=== PATIENT | male | born 1970 | race American Indian/Alaskan Native ===

== ENCOUNTER 2017-01-04 21:09 | Inpatient (IN) | payer SELFPAY ==
[2017-01-04] MEDS ORDERED: NACL 0.9% 1000 ML 1,000 ML IV ONE (21:29)
--- NOTE | 2017-01-04 21:38 | Emergency Department Report ---
ED Alcohol HPI - General Chief Complaint: Alcohol Stated Complaint: ETOH Time Seen by Provider: 01/04/17 21:29 Source: EMS Mode of arrival: Stretcher Limitations: Altered Mental Status - History of Present Illness Initial Comments: 46-year-old male presents to the emergency department via EMS for evaluation of alcohol intoxication. Per report, family called EMS. Reportedly, the patient has been drinking heavily for the past 4 days. There has been no report of fever, nausea, vomiting, or diarrhea. Further history is unable to be obtained from the patient due to his clinical condition. MD Complaint: alcohol intoxication Last Drink: just [employer] Chronic Alcohol Use: Yes Previous Visits for Alcohol Intoxication?: No Recent Trauma: No Treatments Prior to Arrival: none - Related Data Previous Rx's Medication Instructions Recorded Last Taken Type Acetaminophen/Codeine 1 tab PO Q6H PRN #20 tab 04/30/14 Unknown Rx [Acetaminophen-Codeine #3 TAB] HYDROcodone/APAP 5-325 [[place] 1 each PO Q6HR PRN #10 tablet 05/31/14 2 Days Ago Rx 5/325] Amoxicillin/K Clav Tab [Augmentin 1 tab PO Q12HR #14 tab 02/17/15 Unknown Rx 875MG TAB] ALBUTEROL Inhaler [ProAir HFA 2 puff IH QID PRN #1 inhalation 04/06/16 Unknown Rx Inhaler] Azithromycin [Zithromax Z-BRAIN] 250 mg PO DAILY #6 tab 04/06/16 Unknown Rx Benzonatate [Tessalon Perles] 100 mg PO Q8HR #20 capsule 04/06/16 Unknown Rx levETIRAcetam [Keppra TAB] 500 mg PO BID #60 tablet 04/06/16 Unknown Rx Allergies Allergy/AdvReac Type Severity Reaction Status Date / Time tramadol Allergy Rash Verified 03/08/14 01:29 ED Review of Systems ROS: Stated complaint: ETOH Other details as noted in HPI Comment: Unobtainable due to pts medical conditions ED Past Medical Hx - Past Medical History Previous Medical History?: Yes Hx Hypertension: Yes Hx Seizures: Yes Hx Psychiatric Treatment: Yes (Prior Suicidal, Depression) Hx Asthma: Yes Additional medical history: TENDONITIS - Surgical History Past Surgical History?: Yes Additional Surgical History: L reconstructive knee surgery - Family History Family history: no significant - Social History Smoking Status: Current Every Day Smoker Substance Use Type: Alcohol - Medications Home Medications: Home Medications Medication Instructions Recorded Confirmed Last Taken Type Acetaminophen/Codeine 1 tab PO Q6H PRN #20 tab 04/30/14 04/06/16 Unknown Rx [Acetaminophen-Codeine #3 TAB] HYDROcodone/APAP 5-325 [[place] 1 each PO Q6HR PRN #10 tablet 05/31/14 04/06/16 2 Days Ago Rx 5/325] Amoxicillin/K Clav Tab [Augmentin 1 tab PO Q12HR #14 tab 02/17/15 04/06/16 Unknown Rx 875MG TAB] ALBUTEROL Inhaler [ProAir HFA 2 puff IH QID PRN #1 inhalation 04/06/16 Unknown Rx Inhaler] Azithromycin [Zithromax Z-BRAIN] 250 mg PO DAILY #6 tab 04/06/16 Unknown Rx Benzonatate [Tessalon Perles] 100 mg PO Q8HR #20 capsule 04/06/16 Unknown Rx levETIRAcetam [Keppra TAB] 500 mg PO BID #60 tablet 04/06/16 Unknown Rx ED Physical Exam - General Limitations: Altered Mental Status General appearance: appears intoxicated, lethargic - Head Head exam: Present: atraumatic, normocephalic - Eye Eye exam: Present: normal appearance, PERRL, EOMI - ENT ENT exam: Present: normal exam, normal orophraynx, mucous membranes moist - Neck Neck exam: Present: normal inspection, full ROM. Absent: tenderness - Respiratory Respiratory exam: Present: normal lung sounds bilaterally. Absent: respiratory distress - Cardiovascular Cardiovascular Exam: Present: regular rate, normal rhythm, normal heart sounds - GI/Abdominal GI/Abdominal exam: Present: soft, normal bowel sounds. Absent: distended, tenderness - Extremities Exam Extremities exam: Present: normal inspection, full ROM. Absent: tenderness - Back Exam Back exam: Present: normal inspection, full ROM. Absent: tenderness - Neurological Exam Neurological exam: Present: altered, other (GCS 11 (E3 V2 M6)). Absent: motor sensory deficit - Skin Skin exam: Present: warm, dry, intact ED Course Vital Signs 01/04/17 01/05/17 22:27 00:11 Temperature 99.2 F Pulse Rate 79 Respiratory 16 Rate Blood Pressure 110/60 Blood Pressure 110/60 [Right] O2 Sat by Pulse 98 96 Oximetry ED Medical Decision Making - Lab Data Result diagrams: 01/04/17 21:40 01/04/17 21:40 - Medical Decision Making Laboratory results reviewed. Patient has been resting quietly. He will be discharged home when clinically sober. - Differential Diagnosis alcohol intoxication Critical care attestation.: If time is entered above; I have spent that time in minutes in the direct care of this critically ill patient, excluding procedure time. ED Disposition Clinical Impression: Alcohol intoxication Qualifiers: Complication of substance-induced condition: uncomplicated Qualified Code(s): F10.920 - Alcohol use, unspecified with intoxication, uncomplicated Disposition: DC-01 TO HOME OR SELFCARE Is pt being admited?: No Condition: Stable Instructions: Alcohol Intoxication (ED) Referrals: PRIMARY CARE, [Primary Care Provider] - 3-5 Days
[2017-01-04 21:52] LABS: Hematocrit 38.4 % (35.5-45.6); Hemoglobin 12.7 gm/dl (11.8-15.2); Mean Corpuscular HGB Conc 33 % (32-34); Mean Corpuscular Hemoglobin 33 pg (28-32); Mean Corpuscular Volume 100 fl (84-94); Platelet Count 110 K/mm3 (140-440); Red Blood Count 3.84 M/mm3 (3.65-5.03); White Blood Count 2.9 K/mm3 (4.5-11.0)
[2017-01-04 22:11] LABS: Alanine Aminotransferase 152 units/L (7-56); Albumin 4.1 g/dL (3.9-5); Albumin/Globulin Ratio 1.3 %; Alkaline Phosphatase 79 units/L (35-129); Anion Gap 20 mmol/L; BUN/Creatinine Ratio 8.18; Blood Urea Nitrogen 9 mg/dL (9-20); Carbon Dioxide 24 mmol/L (22-30); Chloride 104.5 mmol/L (98-107); Glucose 97 mg/dL (75-100); Potassium 4.3 mmol/L (3.6-5.0); Sodium 144 mmol/L (137-145); Total Protein 7.2 g/dL (6.3-8.2)
[2017-01-04 22:30] LABS: Basophils % (Manual) 0 % (0.0-1.8); Blastocytes % (Manual) 0 %
[2017-01-04 22:31] LABS: Platelet Estimate Appears Decreased; Target Cells 1+
[2017-01-04 22:33] LABS: Diff Status Complete
[2017-01-05] MEDS ORDERED: NACL 0.9% 1000 ML 1,000 ML ONE (06:54)
[2017-01-05] MEDS ORDERED: ATIVAN ONE (19:40)
[2017-01-05] MEDS ORDERED: VITAMIN B-1 100 MG, FOLVITE 1 MG, INFUVITE 10 ML in NACL 0.9% 1000 ML 1,000 ML IV ONE (20:19)
[2017-01-05] MEDS ORDERED: ATIVAN IV ONE (20:49)
--- NOTE | 2017-01-05 20:57 | Cat Scan Report ---
FINAL REPORT EXAM: CT HEAD/BRAIN WO CON HISTORY: Alcohol Intoxication TECHNIQUE: Noncontrast serial axial images from skull base to vertex. PRIORS: CT scan of the head from 04/06/2016 FINDINGS: There is mild atrophy. There is no mass effect or midline shift. There are no abnormal intra or extra-axial fluid collections. Lateral ventricles are within normal limits for size and configuration. Basilar cisterns are patent. No acute intracranial hemorrhage is identified. Polypoid mucosal thickening is again noted in the maxillary sinuses. No acute osseous abnormality is identified. IMPRESSION: 1. No abnormal mass or acute intracranial hemorrhage is identified.
--- NOTE | 2017-01-05 21:31 | Emergency Department Report ---
ED Seizure HPI - General Chief Complaint: Alcohol Stated Complaint: ETOH Time Seen by Provider: 01/04/17 21:29 Source: patient, EMS Mode of arrival: Stretcher Limitations: Altered Mental Status - History of Present Illness MD Complaint: seizure, shaking (patient was going to be discharges when he had a seizure.) -: This afternoon Description of Episode: loss of consciousness, tonic-clonic movement Trauma: No Seizure History: known seizure disorder, history of withdrawal se, history of non-compliance Place: home Possible Precipitating Event: none Associated Symptoms: denies: chest pain, confusion, cough, diaphoresis, loss of appetite, malaise, shortness of breath, syncope, weakness, tongue injury, shoulder dislocation Treatments Prior to Arrival: benzodiazepines - Related Data Previous Rx's Medication Instructions Recorded Last Taken Type Acetaminophen/Codeine 1 tab PO Q6H PRN #20 tab 04/30/14 Unknown Rx [Acetaminophen-Codeine #3 TAB] HYDROcodone/APAP 5-325 [[place] 1 each PO Q6HR PRN #10 tablet 05/31/14 2 Days Ago Rx 5/325] Amoxicillin/K Clav Tab [Augmentin 1 tab PO Q12HR #14 tab 02/17/15 Unknown Rx 875MG TAB] ALBUTEROL Inhaler [ProAir HFA 2 puff IH QID PRN #1 inhalation 04/06/16 Unknown Rx Inhaler] Azithromycin [Zithromax Z-BRAIN] 250 mg PO DAILY #6 tab 04/06/16 Unknown Rx Benzonatate [Tessalon Perles] 100 mg PO Q8HR #20 capsule 04/06/16 Unknown Rx levETIRAcetam [Keppra TAB] 500 mg PO BID #60 tablet 04/06/16 Unknown Rx Allergies Allergy/AdvReac Type Severity Reaction Status Date / Time tramadol Allergy Rash Verified 03/08/14 01:29 ED Review of Systems ROS: Stated complaint: ETOH Other details as noted in HPI Comment: All other systems reviewed and negative ED Past Medical Hx - Past Medical History Previous Medical History?: Yes Hx Hypertension: Yes Hx Seizures: Yes Hx Psychiatric Treatment: Yes (Prior Suicidal, Depression) Hx Asthma: Yes Additional medical history: TENDONITIS - Surgical History Past Surgical History?: Yes Additional Surgical History: L reconstructive knee surgery - Social History Smoking Status: Current Every Day Smoker Substance Use Type: Alcohol - Medications Home Medications: Home Medications Medication Instructions Recorded Confirmed Last Taken Type Acetaminophen/Codeine 1 tab PO Q6H PRN #20 tab 04/30/14 01/05/17 Unknown Rx [Acetaminophen-Codeine #3 TAB] HYDROcodone/APAP 5-325 [[place] 1 each PO Q6HR PRN #10 tablet 05/31/14 01/05/17 2 Days Ago Rx 5/325] Amoxicillin/K Clav Tab [Augmentin 1 tab PO Q12HR #14 tab 02/17/15 01/05/17 Unknown Rx 875MG TAB] ALBUTEROL Inhaler [ProAir HFA 2 puff IH QID PRN #1 inhalation 04/06/16 01/05/17 Unknown Rx Inhaler] Azithromycin [Zithromax Z-BRAIN] 250 mg PO DAILY #6 tab 04/06/16 01/05/17 Unknown Rx Benzonatate [Tessalon Perles] 100 mg PO Q8HR #20 capsule 04/06/16 01/05/17 Unknown Rx levETIRAcetam [Keppra TAB] 500 mg PO BID #60 tablet 04/06/16 01/05/17 Unknown Rx ED Physical Exam - General Limitations: Altered Mental Status General appearance: appears intoxicated, lethargic ED Course Vital Signs 01/04/17 01/04/17 01/04/17 22:27 22:37 22:40 Temperature 99.2 F Pulse Rate 79 80 72 Respiratory 16 16 24 Rate Blood Pressure 110/60 110/60 110/60 Blood Pressure 110/60 [Right] O2 Sat by Pulse 98 96 96 Oximetry 01/04/17 01/04/17 01/04/17 22:50 23:00 23:10 Temperature Pulse Rate 75 78 73 Respiratory 14 20 19 Rate Blood Pressure 110/60 110/60 125/85 Blood Pressure [Right] O2 Sat by Pulse 97 97 97 Oximetry 01/04/17 01/04/17 01/04/17 23:20 23:30 23:40 Temperature Pulse Rate 78 72 67 Respiratory 20 18 25 H Rate Blood Pressure 125/85 125/85 125/85 Blood Pressure [Right] O2 Sat by Pulse 98 96 89 Oximetry 01/04/17 01/05/17 01/05/17 23:50 00:00 00:10 Temperature Pulse Rate 68 62 62 Respiratory 21 22 23 Rate Blood Pressure 125/85 125/85 107/61 Blood Pressure [Right] O2 Sat by Pulse 85 95 91 Oximetry 01/05/17 01/05/17 01/05/17 00:11 00:20 00:30 Temperature Pulse Rate 58 L 55 L Respiratory 20 19 Rate Blood Pressure 107/61 107/61 Blood Pressure [Right] O2 Sat by Pulse 96 94 94 Oximetry 01/05/17 01/05/17 01/05/17 00:40 00:50 01:00 Temperature Pulse Rate 59 L 54 L 59 L Respiratory 18 18 19 Rate Blood Pressure 107/61 107/61 107/61 Blood Pressure [Right] O2 Sat by Pulse 95 95 96 Oximetry 01/05/17 01/05/17 01/05/17 01:10 01:20 01:30 Temperature Pulse Rate 56 L 73 67 Respiratory 18 20 19 Rate Blood Pressure 91/33 91/33 91/33 Blood Pressure [Right] O2 Sat by Pulse 96 97 98 Oximetry 01/05/17 01/05/17 01/05/17 01:40 01:50 02:00 Temperature Pulse Rate 67 67 62 Respiratory 19 18 19 Rate Blood Pressure 91/33 91/33 91/33 Blood Pressure [Right] O2 Sat by Pulse 97 97 98 Oximetry 01/05/17 01/05/17 01/05/17 02:10 02:20 02:30 Temperature Pulse Rate 66 54 L 61 Respiratory 19 19 17 Rate Blood Pressure 90/42 90/42 90/42 Blood Pressure [Right] O2 Sat by Pulse 98 100 99 Oximetry 01/05/17 01/05/17 01/05/17 02:33 02:40 02:50 Temperature Pulse Rate 59 L 63 Respiratory 16 17 19 Rate Blood Pressure 91/33 91/33 Blood Pressure [Right] O2 Sat by Pulse 96 96 Oximetry 01/05/17 01/05/17 01/05/17 03:00 03:10 03:20 Temperature Pulse Rate 58 L 59 L 58 L Respiratory 17 17 16 Rate Blood Pressure 96/45 96/45 96/45 Blood Pressure [Right] O2 Sat by Pulse 97 96 97 Oximetry 01/05/17 01/05/17 01/05/17 03:30 03:40 03:50 Temperature Pulse Rate 55 L 60 59 L Respiratory 16 18 16 Rate Blood Pressure 96/45 96/45 96/45 Blood Pressure [Right] O2 Sat by Pulse 99 100 100 Oximetry 01/05/17 01/05/17 01/05/17 04:00 04:10 04:20 Temperature Pulse Rate 57 L 53 L 58 L Respiratory 12 17 19 Rate Blood Pressure 101/55 101/55 101/55 Blood Pressure [Right] O2 Sat by Pulse 99 100 100 Oximetry 01/05/17 01/05/17 01/05/17 04:30 04:40 04:50 Temperature Pulse Rate 59 L 64 56 L Respiratory 17 13 17 Rate Blood Pressure 101/55 101/55 101/55 Blood Pressure [Right] O2 Sat by Pulse 90 87 84 Oximetry 01/05/17 01/05/17 01/05/17 05:00 05:10 05:20 Temperature Pulse Rate 56 L 54 L 76 Respiratory 13 20 16 Rate Blood Pressure 103/66 103/66 103/66 Blood Pressure [Right] O2 Sat by Pulse 90 99 95 Oximetry 01/05/17 01/05/17 01/05/17 05:30 05:40 05:50 Temperature Pulse Rate 66 74 53 L Respiratory 20 15 19 Rate Blood Pressure 103/66 103/66 103/66 Blood Pressure [Right] O2 Sat by Pulse 97 98 Oximetry 01/05/17 01/05/17 01/05/17 06:00 06:10 06:20 Temperature Pulse Rate 67 58 L 54 L Respiratory 14 19 12 Rate Blood Pressure 103/66 113/70 113/70 Blood Pressure [Right] O2 Sat by Pulse 77 L 98 94 Oximetry 01/05/17 01/05/17 01/05/17 06:30 06:40 06:50 Temperature Pulse Rate 50 L 68 47 L Respiratory 21 16 20 Rate Blood Pressure 113/70 113/70 113/70 Blood Pressure [Right] O2 Sat by Pulse 88 94 99 Oximetry 01/05/17 01/05/17 01/05/17 07:00 07:10 07:20 Temperature Pulse Rate 46 L 46 L 51 L Respiratory 18 17 17 Rate Blood Pressure 113/70 116/55 116/55 Blood Pressure [Right] O2 Sat by Pulse 99 92 93 Oximetry 01/05/17 01/05/17 01/05/17 07:30 07:40 07:50 Temperature Pulse Rate 70 44 L 88 Respiratory 20 13 11 L Rate Blood Pressure 97/58 116/55 116/55 Blood Pressure [Right] O2 Sat by Pulse 85 90 97 Oximetry 07/05/1401/05/17 01/05/17 08:00 08:10 08:20 Temperature Pulse Rate 74 50 L 53 L Respiratory 20 24 16 Rate Blood Pressure 116/55 105/55 105/55 Blood Pressure [Right] O2 Sat by Pulse 99 100 100 Oximetry 01/05/17 01/05/17 01/05/17 08:30 08:41 08:51 Temperature Pulse Rate 82 55 L 51 L Respiratory 11 L 14 18 Rate Blood Pressure 117/67 105/55 105/55 Blood Pressure [Right] O2 Sat by Pulse 96 93 92 Oximetry 01/05/17 01/05/17 01/05/17 09:00 09:11 09:21 Temperature Pulse Rate 45 L 54 L 57 L Respiratory 16 18 12 Rate Blood Pressure 114/45 114/45 114/45 Blood Pressure [Right] O2 Sat by Pulse 92 97 91 Oximetry 01/05/17 01/05/17 01/05/17 09:30 09:41 09:51 Temperature Pulse Rate 55 L 55 L 51 L Respiratory 13 20 17 Rate Blood Pressure 101/53 101/53 101/53 Blood Pressure [Right] O2 Sat by Pulse 93 91 94 Oximetry 01/05/17 01/05/17 01/05/17 10:01 10:11 10:21 Temperature Pulse Rate 76 76 60 Respiratory 18 18 12 Rate Blood Pressure 116/64 116/64 116/64 Blood Pressure [Right] O2 Sat by Pulse 95 94 94 Oximetry 01/05/17 01/05/17 01/05/17 10:30 17:12 20:06 Temperature 99.4 F Pulse Rate 49 L 52 L 74 Respiratory 17 16 16 Rate Blood Pressure 110/63 Blood Pressure 138/78 148/79 [Right] O2 Sat by Pulse 95 95 97 Oximetry ED Medical Decision Making - Lab Data Result diagrams: 01/04/17 21:40 01/04/17 21:40 Critical care attestation.: If time is entered above; I have spent that time in minutes in the direct care of this critically ill patient, excluding procedure time. ED Disposition Clinical Impression: Alcohol withdrawal Alcohol intoxication Qualifiers: Complication of substance-induced condition: uncomplicated Qualified Code(s): F10.920 - Alcohol use, unspecified with intoxication, uncomplicated Disposition: DC-09 OP ADMIT IP TO THIS HOSP Is pt being admited?: Yes Does the pt Need Aspirin: No Condition: Fair Instructions: Alcohol Intoxication (ED) Referrals: PRIMARY CARE, [Primary Care Provider] - 3-5 Days Time of Disposition: 21:31
[2017-01-05] MEDS ORDERED: ZOFRAN IV PRN (23:11)
[2017-01-06] MEDS: 1: FOLVITE 1 MG, INFUVITE 10 ML, VITAMIN B-1 100 MG in NACL 0.9% 1000 ML 988.8 ML 2: NA IV SCH ×3 (01:16→16:11)
--- NOTE | 2017-01-06 04:33 | History and Physical Report ---
History of Present Illness Date of examination: 01/05/17 Date of admission: 01/05/2017 Chief complaint: Chief complaint is seizure-like activity History of present illness: History of present illness patient is a 46-year-old male who drinks alcohol regularly and came to the emergency room with seizure-like activity going on, patient was noted to have been drinking in the last few days but did not drink as she used to do prior to coming to the emergency room and was noted to have seizure activity belief to be due to alcohol withdrawal . There is no history of shortness of breath no history of nausea vomiting, no history of fever or chest pain Past History Past Medical History: hypertension, other (DEPRESSION,ASTHMA,ALCOHOL ABUSE) Past Surgical History: Other (KNEE SURGERY) Social history: smoking, alcohol abuse Family history: no significant family history Medications and Allergies Allergies Allergy/AdvReac Type Severity Reaction Status Date / Time tramadol Allergy Rash Verified 03/08/14 01:29 Home Medications Medication Instructions Recorded Confirmed Last Taken Type Acetaminophen/Codeine 1 tab PO Q6H PRN #20 tab 04/30/14 01/05/17 Unknown Rx [Acetaminophen-Codeine #3 TAB] HYDROcodone/APAP 5-325 [[place] 1 each PO Q6HR PRN #10 tablet 05/31/14 01/05/17 2 Days Ago Rx 5/325] Amoxicillin/K Clav Tab [Augmentin 1 tab PO Q12HR #14 tab 02/17/15 01/05/17 Unknown Rx 875MG TAB] ALBUTEROL Inhaler [ProAir HFA 2 puff IH QID PRN #1 inhalation 04/06/16 01/05/17 Unknown Rx Inhaler] Azithromycin [Zithromax Z-BRAIN] 250 mg PO DAILY #6 tab 04/06/16 01/05/17 Unknown Rx Benzonatate [Tessalon Perles] 100 mg PO Q8HR #20 capsule 04/06/16 01/05/17 Unknown Rx levETIRAcetam [Keppra TAB] 500 mg PO BID #60 tablet 04/06/16 01/05/17 Unknown Rx Active Meds: Active Medications Heparin Sodium (Porcine) (Heparin) 5,000 unit SUB-Q Q12HR JESSI Folic Acid 1 mg/ Multivitamins /Minerals 10 ml/ Thiamine HCl 100 mg/ Sodium Chloride 1,000 mls @ 125 mls/hr IV .BY DURATION JESSI Last Admin: 01/06/17 01:16 Dose: 125 mls/hr Sodium Chloride (Nacl 0.9% 1000 Ml) 1,000 mls @ 125 mls/hr IV .BY DURATION [facility] Ondansetron HCl (Zofran) 4 mg IV Q6H PRN PRN Reason: Nausea And Vomiting Review of Systems Constitutional: weakness, lethargy, no weight loss, no weight gain, no fever, no chills, no fatigue, no malaise, no poor appetite Eyes: bilateral: other (NO BILATERAL EYE SYMPTOM) Ears, nose, mouth and throat: no ear pain, no ear discharge, no decreased hearing, no nose pain, no nasal congestion, no nasal discharge, no sinus pressure, no bleeding gums, no dental pain, no mouth pain, no dysphagia, no hoarseness, no sore throat, no swelling in mouth, no swelling in throat, no odynophagia, no post-nasal drip, no headache, no vertigo, no pain front of neck , no neck fullness/pressure, no neck lump Cardiovascular: no chest pain, no palpitations, no edema, no shortness of breath , no dyspnea on exertion, no paroxysmal nocturnal dyspnea, no claudication, no leg edema Respiratory: no cough, no excessive sputum, no shortness of breath, no dyspnea on exertion, no wheezing, no pleurisy, no sleep apnea Gastrointestinal: no abdominal pain, no nausea, no vomiting, no diarrhea, no constipation, no change in bowel habits, no hematemesis, no melena, no hematochezia, no loss of appetite, no early satiety, no heartburn, no excessive gas, no jaundice, no dyspepsia/bloating, no early satiety, no lactose intolerance Genitourinary Male: no dysuria, no hematuria, no flank pain, no discharge, no urinary frequency, no urinary hesitancy, no erectile dysfunction, no genital pain, no genital sores, no impotence, no decreased libido, no difficulties fathering child, no urinary retention Rectal: no pain, no hemorrhoids, no flatulence Musculoskeletal: no neck stiffness, no low back pain, no shooting leg pain, no leg numbness/tingling, no redness of joints, no morning stiffness, no muscle weakness, no muscle cramps, no myalgias, no atrophy, no limitation of motion, no frequent falls, no fractures, no loss of height, no prior amputations Integumentary: no rash, no pruritis, no redness, no sores, no wounds, no jaundice, no boils, no bullae, no lesions, no darkening of skin, no depigmentation, no acne, no dryness, no color changes, no change in hair/nails, no brittle nails, no hirsutism, no foot/leg ulcers, no onychomycosis Neurological: no head injury, no transient paralysis, no paralysis, no weakness , no parathesias, no numbness, no tingling, no seizures, no syncope, no tremors , no headaches, no migraines, no convulsions, no aphasia, no change in speech, no change in mentation, no gait dysfunction, no motor disturbance, no sensory deficit, no double vision, no loss of vision, no hearing difficulties, no burning pain, no paralysis Psychiatric: no anxiety, no memory loss, no change in sleep habits, no sleep disturbances, no insomnia, no hypersomnia, no suicidal ideation, no disorientation, no hallucinations, no depression, no hopelessness, no difficulties concentrating, no confusion, no mood swings Endocrine: no cold intolerance, no heat intolerance, no polyphagia, no excessive thirst, no polydipsia, no polyuria, no excessive sweating, no weight change, no increase in ring/shoe/hat size, no proptosis, no deepening of the voice, no high blood sugars, no low blood sugars, no recent glucocorticoid use Hematologic/Lymphatic: no easy bruising, no easy bleeding, no lymphadenopathy, no lymphedema, no thrombophilia Allergic/Immunologic: no urticaria, no allergic rhinitis, no persistent infections, no gluten intolerance, no seasonal allergies Exam - Constitutional Vitals: Temp Pulse Resp BP Pulse Ox 99.4 F 61 14 138/80 98 01/05/17 17:12 01/06/17 04:20 01/06/17 04:20 01/06/17 04:20 01/06/17 04:20 General appearance: Present: no acute distress. Absent: well-nourished, cachectic, disheveled, malodorous - EENT Eyes: Present: PERRL. Absent: scleral icterus, conjunctival injection, miosis ENT: hearing intact, clear oral mucosa, dentition normal, no oropharyngeal erythema - Neck Neck: Present: supple, normal ROM. Absent: enlarged thyroid, carotid bruits - Respiratory Respiratory effort: normal - Cardiovascular Rhythm: regularly irregular Heart Sounds: Present: S1 & S2. Absent: systolic murmur, diastolic murmur, rub - Extremities Extremities: no ischemia, No edema Peripheral Pulses: within normal limits - Abdominal General gastrointestinal: Present: soft, non-tender, non-distended. Absent: tender, distended, normal bowel sounds, hypoactive bowel sounds, absent bowel sounds, hepatomegaly, splenomegaly Male genitourinary: Present: deferred - Rectal Rectal Exam: deferred - Integumentary Integumentary: Present: clear, warm - Musculoskeletal Musculoskeletal: strength equal bilaterally Results - Labs CBC & Chem 7: 01/04/17 21:40 01/04/17 21:40 Labs: Laboratory Last Values WBC 2.9 K/mm3 (4.5-11.0) L 01/04/17 21:40 RBC 3.84 M/mm3 (3.65-5.03) 01/04/17 21:40 Hgb 12.7 gm/dl (11.8-15.2) 01/04/17 21:40 Hct 38.4 % (35.5-45.6) 01/04/17 21:40 MCV 100 fl (84-94) H 01/04/17 21:40 MCH 33 pg (28-32) H 01/04/17 21:40 MCHC 33 % (32-34) 01/04/17 21:40 RDW 16.0 % (13.2-15.2) H 01/04/17 21:40 Plt Count 110 K/mm3 (140-440) L 01/04/17 21:40 [place] % (Auto) Mold Carpenter 01/04/17 21:40 Add Manual Diff Complete 01/04/17 21:40 Total Counted 100 01/04/17 21:40 Seg Neuts % (Manual) 46.0 % (40.0-70.0) 01/04/17 21:40 Band Neutrophils % 0 % 01/04/17 21:40 Lymphocytes % (Manual) 34.0 % (13.4-35.0) 01/04/17 21:40 Reactive Lymphs % (Man) 0 % 01/04/17 21:40 Monocytes % (Manual) 17.0 % (0.0-7.3) H 01/04/17 21:40 Eosinophils % (Manual) 3.0 % (0.0-4.3) 01/04/17 21:40 Basophils % (Manual) 0 % (0.0-1.8) 01/04/17 21:40 Metamyelocytes % 0 % 01/04/17 21:40 Myelocytes % 0 % 01/04/17 21:40 Promyelocytes % 0 % 01/04/17 21:40 Blast Cells % 0 % 01/04/17 21:40 Nucleated RBC % Not Reportable 01/04/17 21:40 Seg Neutrophils # Man 1.3 K/mm3 (1.8-7.7) L 01/04/17 21:40 Band Neutrophils # 0.0 K/mm3 01/04/17 21:40 Lymphocytes # (Manual) 1.0 K/mm3 (1.2-5.4) L 01/04/17 21:40 Abs React Lymphs (Man) 0.0 K/mm3 01/04/17 21:40 Monocytes # (Manual) 0.5 K/mm3 (0.0-0.8) 01/04/17 21:40 Eosinophils # (Manual) 0.1 K/mm3 (0.0-0.4) 01/04/17 21:40 Basophils # (Manual) 0.0 K/mm3 (0.0-0.1) 01/04/17 21:40 Metamyelocytes # 0.0 K/mm3 01/04/17 21:40 Myelocytes # 0.0 K/mm3 01/04/17 21:40 Promyelocytes # 0.0 K/mm3 01/04/17 21:40 Blast Cells # 0.0 K/mm3 01/04/17 21:40 WBC Morphology Not Reportable 01/04/17 21:40 Hypersegmented Neuts Not Reportable 01/04/17 21:40 Hyposegmented Neuts Not Reportable 01/04/17 21:40 Hypogranular Neuts Not Reportable 01/04/17 21:40 Smudge Cells Not Reportable 01/04/17 21:40 Toxic Granulation Not Reportable 01/04/17 21:40 Toxic Vacuolation Not Reportable 01/04/17 21:40 Dohle Bodies Not Reportable 01/04/17 21:40 Pelger-Huet Anomaly Not Reportable 01/04/17 21:40 Adam Rods Not Reportable 01/04/17 21:40 Platelet Estimate Appears decreased 01/04/17 21:40 Clumped Platelets Not Reportable 01/04/17 21:40 Plt Clumps, EDTA Not Reportable 01/04/17 21:40 Large Platelets Not Reportable 01/04/17 21:40 Giant Platelets Not Reportable 01/04/17 21:40 Platelet Satelliting Not Reportable 01/04/17 21:40 Plt Morphology Comment Not Reportable 01/04/17 21:40 RBC Morphology Not Reportable 01/04/17 21:40 Dimorphic RBCs Not Reportable 01/04/17 21:40 Polychromasia Not Reportable 01/04/17 21:40 Hypochromasia Not Reportable 01/04/17 21:40 Poikilocytosis Not Reportable 01/04/17 21:40 Anisocytosis Not Reportable 01/04/17 21:40 Microcytosis Not Reportable 01/04/17 21:40 Macrocytosis Not Reportable 01/04/17 21:40 Spherocytes Not Reportable 01/04/17 21:40 Pappenheimer Bodies Not Reportable 01/04/17 21:40 Sickle Cells Not Reportable 01/04/17 21:40 Target Cells 1+ 01/04/17 21:40 Tear Drop Cells Not Reportable 01/04/17 21:40 Ovalocytes Not Reportable 01/04/17 21:40 Helmet Cells Not Reportable 01/04/17 21:40 [place] Bodies Not Reportable 01/04/17 21:40 [place] Rings Not Reportable 01/04/17 21:40 Pilo Cells Not Reportable 01/04/17 21:40 Bite Cells Not Reportable 01/04/17 21:40 Crenated Cell Not Reportable 01/04/17 21:40 Elliptocytes Not Reportable 01/04/17 21:40 Acanthocytes (Spur) Not Reportable 01/04/17 21:40 Rouleaux Not Reportable 01/04/17 21:40 Hemoglobin C Crystals Not Reportable 01/04/17 21:40 Schistocytes Not Reportable 01/04/17 21:40 Malaria parasites Not Reportable 01/04/17 21:40 Jem Bodies Not Reportable 01/04/17 21:40 Hem Pathologist Commnt No 01/04/17 21:40 Sodium 144 mmol/L (137-145) 01/04/17 21:40 Potassium 4.3 mmol/L (3.6-5.0) 01/04/17 21:40 Chloride 104.5 mmol/L (98-107) 01/04/17 21:40 Carbon Dioxide 24 mmol/L (22-30) 01/04/17 21:40 Anion Gap 20 mmol/L 01/04/17 21:40 BUN 9 mg/dL (9-20) 01/04/17 21:40 Creatinine 1.1 mg/dL (0.8-1.5) 01/04/17 21:40 Estimated GFR > 60 ml/min 01/04/17 21:40 BUN/Creatinine Ratio 8.18 % 01/04/17 21:40 Glucose 97 mg/dL (75-100) 01/04/17 21:40 POC Glucose 125 (70-105) H 01/06/17 00:21 Calcium 8.0 mg/dL (8.4-10.2) L 01/04/17 21:40 Phosphorus 2.20 mg/dL (2.5-4.5) L 01/05/17 23:23 Magnesium 1.70 mg/dL (1.7-2.3) 01/05/17 23:23 Total Bilirubin 0.20 mg/dL (0.1-1.2) 01/04/17 21:40 AST 225 units/L (5-40) H 01/04/17 21:40 ALT 152 units/L (7-56) H 01/04/17 21:40 Alkaline Phosphatase 79 units/L (35-129) 01/04/17 21:40 Total Protein 7.2 g/dL (6.3-8.2) 01/04/17 21:40 Albumin 4.1 g/dL (3.9-5) 01/04/17 21:40 Albumin/Globulin Ratio 1.3 % 01/04/17 21:40 Plasma/Serum Alcohol < 0.01 gm% (0-0.07) 01/05/17 23:23 Assessment and Plan - Patient Problems (1) Alcohol intoxication Current Visit: Yes Status: Acute Qualifiers: Complication of substance-induced condition: uncomplicated Qualified Code(s ): F10.920 - Alcohol use, unspecified with intoxication, uncomplicated (2) Alcohol withdrawal Current Visit: Yes Status: Acute Qualifiers: Complication of substance-induced condition: C Plan to address problem: Patient will be admitted to medical floor on telemetry and will be placed on banana bag, which will be made up of 1 L of normal saline mixed with 100 mg of thiamine, 1 amp of multivitamin, 1 mg of folic acid and 2 g of magnesium sulfate which will run at 125 mL an hour. Patient will get this treatment with banana bag once a day and will continue on IV normal saline at 125 mL an hour. Patient will be placed on [facility] treatment protocol for alcohol withdrawal and will also be on IV Zofran 4 mg every 6 hours for nausea vomiting patient's diet will be 2 grams sodium diet patient will have basic metabolic panel ,magnesium level and phosphorus level checked this morning 01/06/2017
[2017-01-06] MEDS ORDERED: ATIVAN IV PRN ×3 (07:29)
--- NOTE | 2017-01-06 08:01 | Admit Criteria Form ---
Admission Criteria Documentation: ALCOHOL AND PSYCHOACTIVE SUBSTANCE WITHDRAWAL Clinical Indications for Inpatient Care (Place ' X' for any and all applicable criteria): Ongoing inpatient care may be indicated for substance withdrawal[B][C] with ANY ONE of the following(1)(2)(3)(4)(21): [ ]I. Delirium due to alcohol or sedative[D] withdrawal is present. [ ]II. Marked signs of withdrawal are present as indicated by ANY ONE of the following(15)(22)(23) [ ]a) Heart rate greater than 120 beats per minute is present. [ ]b) Severe vomiting is present (eg, precludes maintenance of oral hydration). [ ]c) Grossly visible tremor is present. [ ]d) Profuse perspiration is present. [ ]e) Temperature greater than 101 degrees F (38.3 degrees C) is present. [ ]f) Other signs of severe withdrawal are present (eg, Altered mental status ) [ ]g) Severe withdrawal identified by standardized assessment score[A] [X ]III. Signs of withdrawal that require continued inpatient treatment as indicated by ANY ONE of the following(15)(22)(23): [ ]a) Inadequate response to pharmacotherapy (eg, benzodiazepines) [X ]b) Outpatient or lower level of care is not feasible or appropriate (eg, unavailable or inappropriate to patient condition or treatment history). [ ]IV. Withdrawal signs with high-risk indicator are present as manifested by ALL of the following[A](15)(22)(23) [ ]a) Signs of withdrawal are present as indicated by ANY ONE of the following: [ ]i. Tachycardia is present. [ ]ii. Nausea or vomiting is present. [ ]iii. Tremor is present. [ ]iv. Increased perspiration is present. [ ]v. Other signs of withdrawal are present. [ ]vi. Withdrawal identified by standardized assessment score [A] [ ]b) Elevated risk due to historical or comorbid factor is present as indicated by ANY ONE of the following: [ ]i. History of delirium due to withdrawal is present. [ ]ii. History of seizures due to withdrawal is present.[E] [ ]iii. Intrinsic seizure disorder (epilepsy) is present. [ ]iv. Patient is . [ ]v. Other significant medical history (eg, severe cardiac disease) is present, which is assessed to be at risk for destabilization due to withdrawal. [ ]V. Serious electrolyte abnormalities (eg, hyponatremia, hypokalemia, hypophosphatemia) requiring correction performable only in inpatient setting(6)(25) [ ]. Severe hypoglycemia requiring glucose infusions performable only in inpatient setting(6) [ ]VII. Drug toxicity or instability, such as Altered mental status, respiratory depression, or arrhythmias, that requires inpatient care [ ]VIII. Danger judged unmanageable at lower level of care because of ANY ONE of the following [ ]a) Danger to self [ ]b) Danger to others [ ]c) Grave disability (eg, inability to perform self-care necessary at lower level of care) The original [facility] Care [facility] content created by [facility] has been revised. The portions of the content which have been revised are identified through the use of italic text or in bold. [facility] Guidelines has neither reviewed nor approved the modified material. All other unmodified content is copyright [facility] Care [facility]. Please see references footnoted in the original [facility] Care[facility] edition 2016 Admission Criteria Met: Yes
--- NOTE | 2017-01-06 08:27 | XRay Report ---
AP CHEST :01/05/17 CLINICAL: Difficulty breathing. COMPARISON:04/06/16 FINDINGS: Normal heart and pulmonary vasculature. The lungs are normally expanded and clear. The bones and soft tissues are normal. IMPRESSION: Normal chest.
[2017-01-06] MEDS ORDERED: NACL 0.9% 1000 ML 1,000 ML ONE (08:50)
[2017-01-06] MEDS: HEPARIN SUB-Q SCH ×2 (11:47→21:49)
[2017-01-06 12:11] LABS: Creatine Kinase MB 1.4 ng/mL (0.0-4.0)
[2017-01-06 12:12] LABS: Creatine Kinase 372 units/L (55-170)
[2017-01-06] MEDS ORDERED: NACL 0.9% 1000 ML 1,000 ML IV SCH (16:00)
--- NOTE | 2017-01-06 17:02 | Event Note ---
Date: 01/06/17 Patient was admitted this morning, seen and evaluated medical records reviewed Patient is on seizure precautions and CIWA protocol , Agree with the current management Patient has episodes of bradycardia heart rate ranging in 50s, asymptomatic, Closely monitor the patient and adjust the management as needed
--- NOTE | 2017-01-06 18:06 | Consultation ---
History of Present Illness - Reason for Consult Consult date: 01/06/17 Reason for consult: alcohol intoxication - Chief Complaint Chief complaint: "I had a seizure" 46 year old male presented to the hospital for seizure-like activity. He has since been admitted to the medical floor. His initial alcohol level was 0.51. He reports drinking 3-4 beers per day and denies illicit substance use. A urine drug screen was not available for review. He was in the ER within the past 4 months for depression and SI. He also required etoh detox at that time. He states since that time he "slowed up" on drinking. His LFTs are elevated. His is present and is concerned about how much he drinks. He admits recent depression but states the prozac and trazodone made him feel loopy. He states he does not want to take antidepressants at this time. He is currently on [facility] protocol. - Past Medical History Previous Medical History?: Yes Hx Hypertension: Yes Hx Seizures: Yes Hx Psychiatric Treatment: Yes (Prior Suicidal, Depression) Hx Asthma: Yes Additional medical history: TENDONITIS - Surgical History Past Surgical History?: Yes Additional Surgical History: L reconstructive knee surgery - Family History Family history: no significant - Social History Smoking Status: Current Every Day Smoker Substance Use Type: Alcohol Medications and Allergies Allergies Allergy/AdvReac Type Severity Reaction Status Date / Time tramadol Allergy Rash Verified 03/08/14 01:29 Home Medications Medication Instructions Recorded Confirmed Last Taken Type Acetaminophen/Codeine 1 tab PO Q6H PRN #20 tab 04/30/14 01/05/17 Unknown Rx [Acetaminophen-Codeine #3 TAB] HYDROcodone/APAP 5-325 [[place] 1 each PO Q6HR PRN #10 tablet 05/31/14 01/05/17 2 Days Ago Rx 5/325] Amoxicillin/K Clav Tab [Augmentin 1 tab PO Q12HR #14 tab 02/17/15 01/05/17 Unknown Rx 875MG TAB] ALBUTEROL Inhaler [ProAir HFA 2 puff IH QID PRN #1 inhalation 04/06/16 01/05/17 Unknown Rx Inhaler] Azithromycin [Zithromax Z-BRAIN] 250 mg PO DAILY #6 tab 04/06/16 01/05/17 Unknown Rx Benzonatate [Tessalon Perles] 100 mg PO Q8HR #20 capsule 04/06/16 01/05/17 Unknown Rx levETIRAcetam [Keppra TAB] 500 mg PO BID #60 tablet 04/06/16 01/05/17 Unknown Rx Active Meds: Active Medications Heparin Sodium (Porcine) (Heparin) 5,000 unit SUB-Q Q12HR [facility] Last Admin: 01/06/17 11:47 Dose: Not Given Sodium Chloride (Nacl 0.9% 1000 Ml) 1,000 mls @ 125 mls/hr IV DIRECT JESSI Thiamine HCl 100 mg/ Folic Acid 1 mg/ Multivitamins/Minerals 10 ml/ Sodium Chloride 1,011.2 mls @ 126.4 mls/hr IV Q24H JESSI Lorazepam (Ativan) 2 mg IV Q1HR PRN PRN Reason: CIWA-Ar 8-15 Lorazepam (Ativan) 4 mg IV Q1HR PRN PRN Reason: CIWA-Ar 16-25 Lorazepam (Ativan) 4 mg IV Q15MIN PRN PRN Reason: CIWA-Ar >25 Ondansetron HCl (Zofran) 4 mg IV Q6H PRN PRN Reason: Nausea And Vomiting Pneumococcal Polyvalent Vaccine (Pneumovax 23) 0.5 ml IM .ONCE ONE Stop: 01/07/17 12:01 Mental Status Exam - Vital signs Last Vital Signs Temp 98.8 F 01/06/17 16:04 Pulse 56 L 01/06/17 16:04 Resp 18 01/06/17 16:04 BP 164/84 01/06/17 16:04 Pulse Ox 100 01/06/17 16:04 - Exam Orientation: time, place, person Affect: normal Mood: appropriate Thought content: other (no SI, no HI) Thought Process: Intact Perceptions: none Speech: normal rate and pattern Concentration: focused Motor activity: normal Level of consciousness: alert Memory: Intact Sleep Symptoms: None Interaction: cooperative Results Result Diagrams: 01/04/17 21:40 01/04/17 21:40 Abnormal lab results 01/05/17 01/06/17 01/06/17 Range/Units 23:23 00:21 11:23 POC Glucose 125 H (70-105) Phosphorus 2.20 L (2.5-4.5) mg/dL Total Creatine Kinase 372 H (55-170) units/L All other labs normal. Assessment and Plan Assessment and plan: Impression: alcohol use disorder in withdrawal rule out major depressive disorder No suicide/homicidal ideation. No psychosis Recommendation: alcohol detox deferred to the medical team. Recommend SSRI. Patient declines at this time. Recommend inpatient psychiatric treatment for detox if medically cleared within the next 24-48 hours and withdrawal is present Otherwise, outpatient referrals for substance use disorder are indicated. AA recommended.
--- NOTE | 2017-01-06 18:22 | Progress Note ---
Assessment and Plan Assessment and plan: --Seizure episode no new episodes since admission Probably alcohol related, seizure precautions, supportive care --Asymptomatic bradycardia, closely monitor Consider cardiology evaluation if no improvement or if symptoms present --Alcohol intoxication at the time of admission IV Protonix, supportive care --Alcohol withdrawal symptoms; IV fluids, thiamine and folic acid, CIWA protocol and supportive care --Transaminitis/alcohol hepatitis Closely monitor, consider GI evaluation, Liver ultrasound as needed --Hypophosphatemia; replenish per protocol and monitor levels --Thrombocytopenia; secondary to alcohol liver disease Closely monitor, no evidence of bleeding --Leukopenia; secondary to alcohol abuse as well as alcoholic liver disease Closely monitor --Chronic alcohol use; counseling done patient strongly advised to quit alcohol use Advised alcohol rehabilitation, and advised to attend [facility] support group --Ongoing tobacco use; smoking cessation counseling done. Advised nicotine patch --DVT prophylaxis; heparin --DC planning. Case management Closely monitor the patient and adjust the management as needed Possible discharge in 1-2 days if stable History Interval history: Patient seen and evaluated medical records reviewed, admitted with seizure episode Patient has mild bradycardia asymptomatic Vital signs reviewed stable Hospitalist Physical - Constitutional Vitals: Temp Pulse Resp BP Pulse Ox 98.8 F 56 L 18 164/84 100 01/06/17 16:04 01/06/17 16:04 01/06/17 16:04 01/06/17 16:04 01/06/17 16:04 General appearance: Present: no acute distress, cachectic, disheveled - EENT Eyes: Present: PERRL, EOM intact - Neck Neck: Present: supple - Respiratory Respiratory effort: normal Respiratory: negative: rales, rhonchi, wheezing - Cardiovascular Rhythm: regular Heart Sounds: Present: S1 & S2 - Extremities Extremities: no ischemia, No edema - Abdominal General gastrointestinal: soft, non-tender, non-distended, normal bowel sounds - Integumentary Integumentary: Present: clear, warm - Psychiatric Psychiatric: appropriate mood/affect, cooperative - Neurologic Neurologic: CNII-XII intact, moves all extremities Results - Labs CBC & Chem 7: 01/04/17 21:40 01/04/17 21:40 Labs: Laboratory Last Values WBC 2.9 K/mm3 (4.5-11.0) L 01/04/17 21:40 RBC 3.84 M/mm3 (3.65-5.03) 01/04/17 21:40 Hgb 12.7 gm/dl (11.8-15.2) 01/04/17 21:40 Hct 38.4 % (35.5-45.6) 01/04/17 21:40 MCV 100 fl (84-94) H 01/04/17 21:40 MCH 33 pg (28-32) H 01/04/17 21:40 MCHC 33 % (32-34) 01/04/17 21:40 RDW 16.0 % (13.2-15.2) H 01/04/17 21:40 Plt Count 110 K/mm3 (140-440) L 01/04/17 21:40 [place] % (Auto) Control And Recovery Combat Rescue 01/04/17 21:40 Add Manual Diff Complete 01/04/17 21:40 Total Counted 100 01/04/17 21:40 Seg Neuts % (Manual) 46.0 % (40.0-70.0) 01/04/17 21:40 Band Neutrophils % 0 % 01/04/17 21:40 Lymphocytes % (Manual) 34.0 % (13.4-35.0) 01/04/17 21:40 Reactive Lymphs % (Man) 0 % 01/04/17 21:40 Monocytes % (Manual) 17.0 % (0.0-7.3) H 01/04/17 21:40 Eosinophils % (Manual) 3.0 % (0.0-4.3) 01/04/17 21:40 Basophils % (Manual) 0 % (0.0-1.8) 01/04/17 21:40 Metamyelocytes % 0 % 01/04/17 21:40 Myelocytes % 0 % 01/04/17 21:40 Promyelocytes % 0 % 01/04/17 21:40 Blast Cells % 0 % 01/04/17 21:40 Nucleated RBC % Not Reportable 01/04/17 21:40 Seg Neutrophils # Man 1.3 K/mm3 (1.8-7.7) L 01/04/17 21:40 Band Neutrophils # 0.0 K/mm3 01/04/17 21:40 Lymphocytes # (Manual) 1.0 K/mm3 (1.2-5.4) L 01/04/17 21:40 Abs React Lymphs (Man) 0.0 K/mm3 01/04/17 21:40 Monocytes # (Manual) 0.5 K/mm3 (0.0-0.8) 01/04/17 21:40 Eosinophils # (Manual) 0.1 K/mm3 (0.0-0.4) 01/04/17 21:40 Basophils # (Manual) 0.0 K/mm3 (0.0-0.1) 01/04/17 21:40 Metamyelocytes # 0.0 K/mm3 01/04/17 21:40 Myelocytes # 0.0 K/mm3 01/04/17 21:40 Promyelocytes # 0.0 K/mm3 01/04/17 21:40 Blast Cells # 0.0 K/mm3 01/04/17 21:40 WBC Morphology Not Reportable 01/04/17 21:40 Hypersegmented Neuts Not Reportable 01/04/17 21:40 Hyposegmented Neuts Not Reportable 01/04/17 21:40 Hypogranular Neuts Not Reportable 01/04/17 21:40 Smudge Cells Not Reportable 01/04/17 21:40 Toxic Granulation Not Reportable 01/04/17 21:40 Toxic Vacuolation Not Reportable 01/04/17 21:40 Dohle Bodies Not Reportable 01/04/17 21:40 Pelger-Huet Anomaly Not Reportable 01/04/17 21:40 Adam Rods Not Reportable 01/04/17 21:40 Platelet Estimate Appears decreased 01/04/17 21:40 Clumped Platelets Not Reportable 01/04/17 21:40 Plt Clumps, EDTA Not Reportable 01/04/17 21:40 Large Platelets Not Reportable 01/04/17 21:40 Giant Platelets Not Reportable 01/04/17 21:40 Platelet Satelliting Not Reportable 01/04/17 21:40 Plt Morphology Comment Not Reportable 01/04/17 21:40 RBC Morphology Not Reportable 01/04/17 21:40 Dimorphic RBCs Not Reportable 01/04/17 21:40 Polychromasia Not Reportable 01/04/17 21:40 Hypochromasia Not Reportable 01/04/17 21:40 Poikilocytosis Not Reportable 01/04/17 21:40 Anisocytosis Not Reportable 01/04/17 21:40 Microcytosis Not Reportable 01/04/17 21:40 Macrocytosis Not Reportable 01/04/17 21:40 Spherocytes Not Reportable 01/04/17 21:40 Pappenheimer Bodies Not Reportable 01/04/17 21:40 Sickle Cells Not Reportable 01/04/17 21:40 Target Cells 1+ 01/04/17 21:40 Tear Drop Cells Not Reportable 01/04/17 21:40 Ovalocytes Not Reportable 01/04/17 21:40 Helmet Cells Not Reportable 01/04/17 21:40 [place] Bodies Not Reportable 01/04/17 21:40 [place] Rings Not Reportable 01/04/17 21:40 Pilo Cells Not Reportable 01/04/17 21:40 Bite Cells Not Reportable 01/04/17 21:40 Crenated Cell Not Reportable 01/04/17 21:40 Elliptocytes Not Reportable 01/04/17 21:40 Acanthocytes (Spur) Not Reportable 01/04/17 21:40 Rouleaux Not Reportable 01/04/17 21:40 Hemoglobin C Crystals Not Reportable 01/04/17 21:40 Schistocytes Not Reportable 01/04/17 21:40 Malaria parasites Not Reportable 01/04/17 21:40 Jem Bodies Not Reportable 01/04/17 21:40 Hem Pathologist Commnt No 01/04/17 21:40 Sodium 144 mmol/L (137-145) 01/04/17 21:40 Potassium 4.3 mmol/L (3.6-5.0) 01/04/17 21:40 Chloride 104.5 mmol/L (98-107) 01/04/17 21:40 Carbon Dioxide 24 mmol/L (22-30) 01/04/17 21:40 Anion Gap 20 mmol/L 01/04/17 21:40 BUN 9 mg/dL (9-20) 01/04/17 21:40 Creatinine 1.1 mg/dL (0.8-1.5) 01/04/17 21:40 Estimated GFR > 60 ml/min 01/04/17 21:40 BUN/Creatinine Ratio 8.18 % 01/04/17 21:40 Glucose 97 mg/dL (75-100) 01/04/17 21:40 POC Glucose 125 (70-105) H 01/06/17 00:21 Calcium 8.0 mg/dL (8.4-10.2) L 01/04/17 21:40 Phosphorus 3.20 mg/dL (2.5-4.5) D 01/06/17 11:23 Magnesium 1.70 mg/dL (1.7-2.3) 01/06/17 11:23 Total Bilirubin 0.20 mg/dL (0.1-1.2) 01/04/17 21:40 AST 225 units/L (5-40) H 01/04/17 21:40 ALT 152 units/L (7-56) H 01/04/17 21:40 Alkaline Phosphatase 79 units/L (35-129) 01/04/17 21:40 Total Creatine Kinase 372 units/L (55-170) H 01/06/17 11:23 CK-MB (CK-2) 1.4 ng/mL (0.0-4.0) 01/06/17 11:23 CK-MB (CK-2) Rel Index 0.3 (0-4) 01/06/17 11:23 Troponin T < 0.010 ng/mL (0.00-0.029) 01/06/17 11:23 Total Protein 7.2 g/dL (6.3-8.2) 01/04/17 21:40 Albumin 4.1 g/dL (3.9-5) 01/04/17 21:40 Albumin/Globulin Ratio 1.3 % 01/04/17 21:40 Plasma/Serum Alcohol < 0.01 gm% (0-0.07) 01/06/17 11:23
[2017-01-07] MEDS ORDERED: VITAMIN B-1 100 MG, FOLVITE 1 MG, INFUVITE 10 ML in NACL 0.9% 1000 ML 1,000 ML IV SCH
[2017-01-07 08:17] LABS: Hematocrit 42.4 % (35.5-45.6); Hemoglobin 14.1 gm/dl (11.8-15.2); Mean Corpuscular HGB Conc 33 % (32-34); Mean Corpuscular Hemoglobin 33 pg (28-32); Mean Corpuscular Volume 101 fl (84-94); Red Blood Count 4.22 M/mm3 (3.65-5.03); Red Cell Distribution Width 15.1 % (13.2-15.2); White Blood Count 4.1 K/mm3 (4.5-11.0)
[2017-01-07 08:27] LABS: Anion Gap 17 mmol/L; BUN/Creatinine Ratio 8.75; Blood Urea Nitrogen 7 mg/dL (9-20); Calcium 9.2 mg/dL (8.4-10.2); Carbon Dioxide 27 mmol/L (22-30); Chloride 97.1 mmol/L (98-107); Glucose 91 mg/dL (75-100); Potassium 4.3 mmol/L (3.6-5.0); Sodium 137 mmol/L (137-145)
[2017-01-07 08:39] LABS: Platelet Count 112 K/mm3 (140-440)
--- NOTE | 2017-01-07 09:26 | Discharge Summary ---
Providers - Providers Date of Admission: 01/05/17 23:08 Date of discharge: 01/07/17 Attending physician: PAULIE GRANT Primary care physician: GALVANOMETER ASSEMBLER Hospitalization Condition: Fair Disposition: DC-01 TO HOME OR SELFCARE Core Measure Documentation - Palliative Care Palliative Care/ Comfort Measures: Not Applicable - Core Measures Any of the following diagnoses?: none Exam - Constitutional Vitals: Temp Pulse Resp BP Pulse Ox 98.3 F 67 18 133/82 99 01/07/17 08:00 01/07/17 08:00 01/07/17 08:00 01/07/17 08:00 01/07/17 08:00 General appearance: Present: no acute distress, well-nourished - EENT Eyes: Present: PERRL, EOM intact - Neck Neck: Present: supple, normal ROM - Respiratory Respiratory effort: normal Respiratory: negative: rales, rhonchi, wheezing - Cardiovascular Rhythm: regular Heart Sounds: Present: S1 & S2 - Extremities Extremities: no ischemia, No edema - Abdominal General gastrointestinal: Present: soft, non-tender, non-distended, normal bowel sounds - Integumentary Integumentary: Present: clear, warm - Musculoskeletal Musculoskeletal: strength equal bilaterally - Psychiatric Psychiatric: appropriate mood/affect, cooperative - Neurologic Neurologic: CNII-XII intact, moves all extremities Plan Activity: advance as tolerated, fall precautions Diet: regular Special Instructions: smoking cessation Additional Instructions: Advised to quit alcohol intake. advised smoking cessation Follow up with: PRIMARY CARE, [Primary Care Provider] - 3-5 Days Prescriptions: Folic Acid [Folvite] 1 mg PO QDAY #30 tablet Nicotine [Habitrol] 14 mg TD QDAY #30 patch Thiamine [Vitamin B-1] 100 mg PO QDAY #30 tablet
[2017-01-07] MEDS ORDERED: FOLVITE PO SCH (10:00)
[2017-01-07] MEDS ORDERED: HABITROL TD SCH (10:00)
[2017-01-07] MEDS: HEPARIN SUB-Q SCH (10:22)
--- NOTE | 2017-01-07 10:56 | Progress Note ---
Subjective - Reason for Consult Consult date: 01/07/17 Reason for consult: Psychiatry Follow-up - Chief Complaint Chief complaint: "Can I leave soon" 46 year old male presented to the hospital for seizure-like activity. He has since been admitted to the medical floor. His initial alcohol level was 0.51. Today patient is calm and cooperative during the assessment. He stated that he would like to stop drinking "gradually." He stated this will be a hard process, but willing to try. He does not want to attend a detox program at this time. He stated that that he would like to attend an outpatient rehab service (etoh). He denies SI/HI's, AVH's and depression. He does not want to take any medications. He stated taking Trazodone and Prozac in the past for depression. Mental Status Exam - Vital signs Last Vital Signs Temp 98.3 F 01/07/17 08:00 Pulse 67 01/07/17 08:00 Resp 18 01/07/17 08:00 BP 133/82 01/07/17 08:00 Pulse Ox 99 01/07/17 08:00 - Exam Narrative exam: MSE: Appearance: calm, cooperative Behavior: good eye contact, drowsy Speech: regular rate and tone Mood: "I feel alright" Affect: congruent to mood Thought Process: linear Thought Content: denies SI/HI's and AVH's Motor Activity: ambulatory Cognition: A/Ox 3 Insight: fair Judgment: fair Assessment and Plan Impression: Alcohold Use DO. Today patient is calm and cooperative during the assessment. He stated that he would like to stop drinking "gradually." Denies SI /HI's and AVH's. No acute withdrawals noted. No Ativan given for withdrawals symptoms in 24 hours. <0.01 Alcohol serum. Recommendation/Plan: Patient given outpatient rehab services in his local area. Discussed the importance to abstain from alcohol consumption (etoh). Patient is willing to join AA. Psychiatry is signing off this patient. Reconsult when indicated.
[2017-01-07] MEDS ORDERED: NACL 0.9% 1000 ML 1,000 ML IV SCH (12:00)
[2017-01-07] MEDS ORDERED: PNEUMOVAX 23 IM ONE (12:00)
[2017-01-07] MEDS ORDERED: VITAMIN B-1 PO SCH (12:00)
[2017-01-07] MEDS ORDERED: THERAGRAN-M Tab PO SCH (12:00)
[2017-01-07 12:12] VITALS: BP 147/90
== END 2017-01-07 13:20 | disposition home or self-care (01) | DRG 897 ==
LOC: ED 21:09 → 4A 01-05 23:08 → 3A 01-06 11:30
PROVIDERS: ADMIT Internal Medicine; ATTEND Internal Medicine
DX: F10.920 Alcohol use, unspecified with intoxication, uncomplicated (principal); I10 Essential (primary) hypertension; J45.909 Unspecified asthma, uncomplicated; F17.210 Nicotine dependence, cigarettes, uncomplicated; R56.9 Unspecified convulsions; R00.1 Bradycardia, unspecified; R74.0 Nonspecific elevation of levels of transaminase and lactic acid dehydrogenase [LDH]; K70.10 Alcoholic hepatitis without ascites; E83.39 Other disorders of phosphorus metabolism; D69.6 Thrombocytopenia, unspecified; D72.819 Decreased white blood cell count, unspecified; Z88.8 Allergy status to other drugs, medicaments and biological substances; Z71.41 Alcohol abuse counseling and surveillance of alcoholic; Z71.6 Tobacco abuse counseling
CPT/HCPCS: 36415; 70450; 71010; 80048; 80053; 80320; 82550; 82553; 82962; 83735; 84100; 84484; 85007; 85025; 90732; 93005; 93010; 96365; 96366; 96368; 96375; 99406; G0480; J1644; J2060; J3411; J7030

== ENCOUNTER 2017-02-08 22:42 | Emergency (ER) | payer OTHER ==
--- NOTE | 2017-02-09 00:30 | Cat Scan Report ---
FINAL REPORT PROCEDURE: CT HEAD/BRAIN WO CON TECHNIQUE: Computerized tomography of the head was performed without contrast material. HISTORY: Fall. COMPARISON: CT scan of the brain dated 01/05/2017 FINDINGS: Skull and scalp: Normal. Paranasal sinuses: Normal. Ventricles and subarachnoid spaces: Normal. Cerebrum: No evidence of hemorrhage, acute infarction or mass. Mild atrophy unchanged. Cerebellum and brainstem: No evidence of hemorrhage, acute infarction or mass. Vasculature: Normal. Comments: Mild degenerative changes of the cervical spine seen on gear cutting machine set up operator view. IMPRESSION: No new CT evidence of acute intracranial pathology. Consider MRI of the brain for further evaluation if there is continued clinical concern and if patient has no contraindication to MRI.
[2017-02-09] MEDS ORDERED: VITAMIN B-1 100 MG, FOLVITE 1 MG, INFUVITE 10 ML in NACL 0.9% 1000 ML 1,000 ML IV ONE (06:22)
[2017-02-09] MEDS ORDERED: LIBRIUM PO ONE (06:22)
[2017-02-09] MEDS ORDERED: ATIVAN IV ONE (06:22)
--- NOTE | 2017-02-09 06:25 | Emergency Department Report ---
ED Alcohol HPI - General Chief Complaint: Fall Stated Complaint: ETOH Time Seen by Provider: 02/09/17 06:15 Source: patient, EMS, RN notes reviewed, old records reviewed Mode of arrival: Ambulatory Limitations: Other (patient is intoxicated) - History of Present Illness Initial Comments: This is a 46-year-old male. He is previously unknown to me. Past medical history includes hypertension, depression, asthma, alcohol abuse. May have a history of seizure versus alcohol withdrawal seizure. Patient is brought to the hospital by EMS for alcohol intoxication. As per EMS documentation, patient indicated that he was consuming alcohol all day yesterday. Patient further indicated that approximately 2 hours prior to EMS arrival, he had a ground-level fall and that he injured his left leg and bilateral wrists. Patient further indicated that he has not been compliant with his antiepileptic drugs. He further indicated that he was having pain "all over", that he needed to come to the ER. In the ER, the patient denies headache, neck pain, chest pain, abdominal pain or shortness of breath. He denies homicidality and suicidality. He denies irritative and obstructive urinary symptoms. The patient does indicate that he is interested in alcohol detox, and to me he complains of left wrist, left elbow pain, left knee pain. He reports the pain is sharp, and increases with palpation and range of motion. He further reports that it decreases with rest. He indicates the pain does not radiate anywhere. MD Complaint: alcohol intoxication, alcohol withdrawal Last Drink: unknown Chronic Alcohol Use: Yes Previous Visits for Alcohol Intoxication?: Yes Recent Trauma: Yes Treatments Prior to Arrival: none - Related Data Previous Rx's Medication Instructions Recorded Last Taken Type HYDROcodone/APAP 5-325 [Doyle 1 each PO Q6HR PRN #10 tablet 05/31/14 2 Days Ago Rx 5-325 mg TAB] ALBUTEROL Inhaler [ProAir HFA 2 puff IH QID PRN #1 inhalation 04/06/16 Unknown Rx Inhaler] Azithromycin [Zithromax Z-BRAIN] 250 mg PO DAILY #6 tab 04/06/16 Unknown Rx Benzonatate [Tessalon Perles] 100 mg PO Q8HR #20 capsule 04/06/16 Unknown Rx levETIRAcetam [Keppra TAB] 500 mg PO BID #60 tablet 04/06/16 Unknown Rx Folic Acid [Folvite] 1 mg PO QDAY #30 tablet 01/07/17 Unknown Rx Nicotine [Habitrol] 14 mg TD QDAY #30 patch 01/07/17 Unknown Rx Thiamine [Vitamin B-1] 100 mg PO QDAY #30 tablet 01/07/17 Unknown Rx Allergies Allergy/AdvReac Type Severity Reaction Status Date / Time tramadol Allergy Rash Verified 03/08/14 01:29 ED Review of Systems ROS: Stated complaint: ETOH Other details as noted in HPI Comment: Unobtainable due to pts medical conditions Constitutional: denies: fever Eyes: denies: vision change ENT: denies: epistaxis Respiratory: denies: cough Cardiovascular: denies: chest pain Gastrointestinal: abdominal pain Genitourinary: denies: dysuria Musculoskeletal: arthralgia, myalgia Neurological: weakness Psychiatric: denies: homicidal thoughts, suicidal thoughts ED Past Medical Hx - Past Medical History Previous Medical History?: Yes Hx Hypertension: Yes Hx Seizures: Yes Hx Psychiatric Treatment: Yes (Prior Suicidal, Depression) Hx Asthma: Yes Additional medical history: TENDONITIS - Surgical History Past Surgical History?: Yes Additional Surgical History: L reconstructive knee surgery - Social History Smoking Status: Current Some Day Smoker Substance Use Type: Alcohol - Medications Home Medications: Home Medications Medication Instructions Recorded Confirmed Last Taken Type HYDROcodone/APAP 5-325 [Doyle 1 each PO Q6HR PRN #10 tablet 05/31/14 01/05/17 2 Days Ago Rx 5-325 mg TAB] ALBUTEROL Inhaler [ProAir HFA 2 puff IH QID PRN #1 inhalation 04/06/16 01/05/17 Unknown Rx Inhaler] Azithromycin [Zithromax Z-BRAIN] 250 mg PO DAILY #6 tab 04/06/16 01/05/17 Unknown Rx Benzonatate [Tessalon Perles] 100 mg PO Q8HR #20 capsule 04/06/16 01/05/17 Unknown Rx levETIRAcetam [Keppra TAB] 500 mg PO BID #60 tablet 04/06/16 01/05/17 Unknown Rx Folic Acid [Folvite] 1 mg PO QDAY #30 tablet 01/07/17 Unknown Rx Nicotine [Habitrol] 14 mg TD QDAY #30 patch 01/07/17 Unknown Rx Thiamine [Vitamin B-1] 100 mg PO QDAY #30 tablet 01/07/17 Unknown Rx ED Physical Exam - General Limitations: Other (patient is intoxicated) General appearance: alert, in no apparent distress - Head Head exam: Present: atraumatic, normocephalic - Eye Eye exam: Present: normal appearance, EOMI. Absent: nystagmus - ENT ENT exam: Present: normal exam, normal orophraynx, mucous membranes moist, TM's normal bilaterally, normal external ear exam, other (there is no nasal septal hematoma. There is no hemotympanum.) - Neck Neck exam: Present: normal inspection, full ROM. Absent: tenderness, meningismus - Respiratory Respiratory exam: Present: normal lung sounds bilaterally. Absent: respiratory distress, wheezes, rales, rhonchi, stridor, chest wall tenderness, accessory muscle use, decreased breath sounds, prolonged expiratory - Cardiovascular Cardiovascular Exam: Present: regular rate, normal rhythm, normal heart sounds. Absent: bradycardia, tachycardia, irregular rhythm, systolic murmur, diastolic murmur, rubs, gallop - GI/Abdominal GI/Abdominal exam: Present: soft, normal bowel sounds. Absent: distended, tenderness, guarding, rebound, rigid, pulsatile mass - Rectal Rectal exam: Present: deferred - Extremities Exam Extremities exam: Present: normal inspection, full ROM, tenderness, normal capillary refill, other (the compartments are soft. 2+ pulses are noted in the bilateral upper and lower extremities. The left elbow was tender laterally. There are no long bony step-offs in the left upper extremity. The wrist is tender on the dorsal and lateral aspects. There is no snuffbox tenderness. Corn Chip Maker strength is equal in the bilateral upper extremities.). Absent: pedal edema, joint swelling, calf tenderness - Back Exam Back exam: Present: normal inspection. Absent: tenderness, CVA tenderness (R), paraspinal tenderness - Neurological Exam Neurological exam: Present: alert, other (Extraocular movements intact. Tongue midline. No facial droop. Facial sensation intact to light touch in the V1, V2 , V3 distribution bilaterally. 5 and 5 strength in 4 extremities.. Sensation is intact to light touch in 4 extremities.). Absent: motor sensory deficit - Psychiatric Psychiatric exam: Present: normal affect, normal mood. Absent: homicidal ideation, suicidal ideation - Skin Skin exam: Present: warm, dry, intact, normal color. Absent: rash ED Course Vital Signs 02/08/17 02/09/17 02/09/17 22:47 06:19 07:23 Temperature 98.2 F Pulse Rate 91 H 74 Respiratory 20 18 Rate Blood Pressure 159/94 119/67 Blood Pressure 119/67 [Left] O2 Sat by Pulse 96 96 Oximetry 02/09/17 02/09/17 02/09/17 08:00 09:00 10:00 Temperature Pulse Rate 65 41 L 77 Respiratory 15 14 22 Rate Blood Pressure 108/59 116/67 108/78 Blood Pressure [Left] O2 Sat by Pulse 90 99 92 Oximetry 02/09/17 02/09/17 02/09/17 11:00 12:01 13:01 Temperature Pulse Rate 42 L 69 80 Respiratory 15 12 16 Rate Blood Pressure 121/67 123/69 115/80 Blood Pressure [Left] O2 Sat by Pulse 95 94 91 Oximetry 02/09/17 02/09/17 02/09/17 14:00 15:00 16:00 Temperature Pulse Rate 53 L 57 L 74 Respiratory 19 12 12 Rate Blood Pressure 122/62 123/64 137/74 Blood Pressure [Left] O2 Sat by Pulse 88 88 89 Oximetry 02/09/17 02/09/17 02/09/17 16:20 17:00 18:00 Temperature Pulse Rate 65 66 Respiratory 16 22 18 Rate Blood Pressure 130/68 126/69 Blood Pressure [Left] O2 Sat by Pulse 91 90 Oximetry 02/09/17 02/09/17 02/09/17 19:01 19:50 20:01 Temperature Pulse Rate 62 65 78 Respiratory 19 18 18 Rate Blood Pressure 126/69 132/63 Blood Pressure 144/77 [Left] O2 Sat by Pulse 93 97 90 Oximetry 02/09/17 02/09/17 02/09/17 21:00 22:00 23:00 Temperature Pulse Rate 61 58 L 54 L Respiratory 17 15 15 Rate Blood Pressure 138/68 128/66 Blood Pressure [Left] O2 Sat by Pulse 94 90 90 Oximetry 02/10/17 00:00 Temperature Pulse Rate 50 L Respiratory 12 Rate Blood Pressure 138/87 Blood Pressure [Left] O2 Sat by Pulse 92 Oximetry - Reevaluation(s) Reevaluation #1: 02/09/17 07:20 Differential diagnosis: Intracranial injury, cervical spine injury, fracture/ sprain/dislocation, or electrolyte derangement, urinary tract infection, pneumonia, alcohol intoxication, alcohol withdrawal, alcohol dependence Assessment and plan: 46-year-old male with reported history of alcohol intoxication, a ground-level fall. Still intoxicated at this time. Does not require [address] scan of the brain is negative. CT scan of the cervical spine is ordered. Plain films of the chest did not demonstrate pneumonia, and plain films of the left elbow, left wrist, bilateral knees do not suggest fracture/dislocation. Patient has mild tongue fasciculations at this time, therefore he will be given Ativan and Librium, he will be given a banana bag, basic laboratory studies will be obtained. We will also obtain mental health/psychiatric consultation. Reevaluation #2: 02/09/17 12:26 laboratory studies reviewed and are unremarkable, mildly elevated creatinine kinase is appreciated, this will decrease with IV fluids and oral hydration. There is no medical complication to alcohol detox therapy at this time. ED Medical Decision Making - Lab Data Result diagrams: 02/09/17 06:59 02/09/17 06:59 Vital Signs 02/08/17 02/09/17 22:47 06:19 Temperature 98.2 F Pulse Rate 91 H 74 Respiratory 20 18 Rate Blood Pressure 159/94 Blood Pressure 119/67 [Left] O2 Sat by Pulse 96 96 Oximetry Lab Results 02/08/17 02/09/17 02/09/17 Range/Units 23:08 Unknown Unknown Urine Color Yellow (Yellow) Urine Turbidity Clear (Clear) Urine pH 5.0 (5.0-7.0) Ur Specific [place] 1.017 (1.003-1.030) Urine Protein <15 mg/dl (Negative) mg/dL Urine Glucose (UA) Neg (Negative) mg/dL Urine Ketones Neg (Negative) mg/dL Urine Blood Sm (Negative) Urine Nitrite Neg (Negative) Urine Bilirubin Neg (Negative) Urine Urobilinogen < 2.0 (<2.0) mg/dL Ur Leukocyte Esterase Neg (Negative) Urine WBC (Auto) < 1.0 (0.0-6.0) /HPF Urine RBC (Auto) 1.0 (0.0-6.0) /HPF U Epithel Cells (Auto) < 1.0 (0-13.0) /HPF Hyaline Casts 1 /LPF Urine Mucus Few /HPF Urine Opiates Screen Presumptive negative Urine Methadone Screen Presumptive negative Ur Barbiturates Screen Presumptive negative Ur Phencyclidine Scrn Presumptive negative Ur Amphetamines Screen Presumptive negative U Benzodiazepines Scrn Presumptive negative Urine Cocaine Screen Presumptive negative U Marijuana (THC) Screen Presumptive negative Plasma/Serum Alcohol 0.47 H (0-0.07) gm% - EKG Data -: EKG Interpreted by Me EKG shows normal: sinus rhythm, axis, intervals, QRS complexes, ST-T waves - Radiology Data Radiology results: report reviewed, image reviewed interpreted by me: X-ray of the chest, left elbow, left wrist, bilateral knees negative for fracture/dislocation. DJD noted in the left knee, orthopedic hardware noted in the left knee. Noncontrast CT scan of the brain is negative for acute disease. Chronic findings are noted Critical care attestation.: If time is entered above; I have spent that time in minutes in the direct care of this critically ill patient, excluding procedure time. ED Disposition Clinical Impression: Alcohol intoxication Disposition: DC-01 TO HOME OR SELFCARE Is pt being admited?: No Does the pt Need Aspirin: No Condition: Good Instructions: Abuse of Alcohol (ED) Referrals: PRIMARY CARE, [Primary Care Provider] - 3-5 Days
[2017-02-09 07:04] LABS: Urine Drugs of Abuse Note Disclamer
[2017-02-09 07:10] LABS: Bilirubin,Urine NEG (Negative); Blood,Urine SM (Negative); Ketones,Urine NEG (Negative); Leukocyte Esterase,Urine NEG (Negative); Mucus,Urine FEW /HPF; Nitrite,Urine NEG (Negative); Protein,Urine <15 mg/dL mg/dL (Negative); Urobilinogen,Urine < 2.0 mg/dL (<2.0); WBC,Urine < 1.0 /HPF (0.0-6.0)
[2017-02-09 07:33] LABS: Anion Gap 22 mmol/L; BUN/Creatinine Ratio 11.25; Blood Urea Nitrogen 9 mg/dL (9-20); Calcium 8.1 mg/dL (8.4-10.2); Carbon Dioxide 23 mmol/L (22-30); Chloride 105.1 mmol/L (98-107); Creatine Kinase 732 units/L (55-170); Glucose 79 mg/dL (75-100); Potassium 4.5 mmol/L (3.6-5.0); Sodium 146 mmol/L (137-145)
[2017-02-09 07:36] LABS: Hematocrit 39.8 % (35.5-45.6); Hemoglobin 13.1 gm/dl (11.8-15.2); Mean Corpuscular HGB Conc 33 % (32-34); Mean Corpuscular Hemoglobin 33 pg (28-32); Mean Corpuscular Volume 100 fl (84-94); Platelet Count 103 K/mm3 (140-440); Red Blood Count 3.98 M/mm3 (3.65-5.03); Red Cell Distribution Width 15.3 % (13.2-15.2)
--- NOTE | 2017-02-09 07:37 | Cat Scan Report ---
CT SCAN OF THE CERVICAL SPINE: HISTORY: Neck pain after fall. TECHNIQUE: Contiguous 1.25 mm axial images of the cervical spine were obtained. Sagittal and coronal reformatted images. FINDINGS: There is normal alignment of the cervical spine. The body, pedicles and posterior ligaments appear normal. No evidence of fracture or subluxation is seen. The spinal canal appears normal. The prevertebral soft tissues appear normal. IMPRESSION: Unremarkable CT of the cervical spine. No acute process is noted.
--- NOTE | 2017-02-09 07:41 | XRay Report ---
AP CHEST: HISTORY: chest pain AP view of the chest demonstrates a normal mediastinal and cardiac contour with clear lungs and normal bony and soft tissue structures. IMPRESSION: Unremarkable AP chest.
--- NOTE | 2017-02-09 07:41 | XRay Report ---
BILATERAL KNEES, 2 VIEWS History: Bilateral knee pain after fall. Findings: Within the left knee, ACL repair changes are identified which appear stable since 05/31/14. No evidence for fracture, bone lesion or significant degenerative changes. No joint effusion. 3.6 x 1.7 x 2.0 cm enchondroma in the distal left femoral metaphysis is noted and unchanged. Within the right knee, there is a very large joint effusion which extends to the suprapatellar bursa. The bony structures and joint spaces in the right knee are intact and unremarkable. No significant degenerative changes. Impression: Very large joint effusion in the right knee. No bony injury is appreciated. If internal derangement is suspected, MRI could be obtained. Stable appearance of the ACL surgical repair changes in the left knee.
--- NOTE | 2017-02-09 07:42 | XRay Report ---
LEFT ELBOW, 2 views: History: Left elbow pain after fall 2 nonstandard images of the left elbow are presented. Bone mineralization is normal. No acute osseous injury or joint pathology is appreciated. No significant soft tissue abnormality is seen. IMPRESSION: Left elbow within normal limits.
--- NOTE | 2017-02-09 07:43 | XRay Report ---
LEFT WRIST, 4 views: HISTORY: Left wrist pain after fall. Routine views demonstrate the carpal bones to be well mineralized with well preserved bony mineralization and interosseous joint spaces. The carpal and adjacent articular bones have normal contours. The surrounding soft tissues are unremarkable. IMPRESSION: Left wrist within normal limits.
[2017-02-09] MEDS ORDERED: ZOFRAN IV PRN (15:19)
[2017-02-09] MEDS ORDERED: ATIVAN IM PRN (15:19)
[2017-02-09] MEDS ORDERED: TYLENOL PO PRN (15:20)
[2017-02-09] MEDS ORDERED: MOTRIN PO PRN (15:20)
[2017-02-10 00:36] VITALS: BP 138/87
== END 2017-02-10 09:23 | disposition home or self-care (01) ==
LOC: ED 22:42
DX: F10.120 Alcohol abuse with intoxication, uncomplicated (principal); I10 Essential (primary) hypertension; J45.909 Unspecified asthma, uncomplicated; F17.210 Nicotine dependence, cigarettes, uncomplicated; Z88.8 Allergy status to other drugs, medicaments and biological substances
CPT/HCPCS: 36415; 70450; 71010; 73070; 73110; 73560; 80048; 80307; 81001; 82550; 83735; 85027; 93005; 93010; 96365; 96366; 96372; 96375; 99285; G0480; J2060; J3411; J7030; 80320

== ENCOUNTER 2017-02-08 23:09 | Emergency (ER) | payer SELFPAY | END 2017-02-09 06:12 | disposition left against medical advice (07) | LOC: ED 23:09 | DX: F10.10 Alcohol abuse, uncomplicated (principal); Z53.21 Procedure and treatment not carried out due to patient leaving prior to being seen by health care provider ==

== ENCOUNTER 2017-04-01 20:59 | Emergency (ER) | payer SELFPAY ==
[2017-04-01] MEDS ORDERED: KEPPRA 1,000 MG/NS 0.75% 100ML 1,000 MG/100 ML BAG IV ONE (21:39)
--- NOTE | 2017-04-01 21:49 | Emergency Department Report ---
HPI - General Chief Complaint: Seizure Time Seen by Provider: 04/01/17 21:32 - HPI HPI: 46-year-old Afro-[place] male presents to the emergency department by EMS from home after he had a seizure just prior to presentation. The patient is currently awake and alert but she says that he feels slightly groggy. He does admit to a seizure history but has never been on seizure medications, even though they have been prescribed, because of the cost of medications. He says that his last seizure was possibly one week ago where he had some tremors and bit his tongue but he thinks he was awake for this. He does drink beer and drank a few this evening. He is a tobacco smoker and occasionally will use marijuana. He denies any other past medical history but also does not follow- up with any physician and does not have a primary care physician. No recent travel or sick contacts at home. He did not take anything and was not given anything for his symptoms prior to presentation. ED Past Medical Hx - Past Medical History Previous Medical History?: Yes Hx Hypertension: Yes Hx Seizures: Yes Hx Psychiatric Treatment: Yes (Prior Suicidal, Depression) Hx Asthma: Yes Additional medical history: TENDONITIS - Surgical History Past Surgical History?: Yes Additional Surgical History: L reconstructive knee surgery - Social History Smoking Status: Current Every Day Smoker Substance Use Type: Alcohol - Medications Home Medications: Home Medications Medication Instructions Recorded Confirmed Last Taken Type HYDROcodone/APAP 5-325 [[place] 1 each PO Q6HR PRN #10 tablet 05/31/14 01/05/17 2 Days Ago Rx 5-325 mg TAB] ALBUTEROL Inhaler [ProAir HFA 2 puff IH QID PRN #1 inhalation 04/06/16 01/05/17 Unknown Rx Inhaler] Azithromycin [Zithromax Z-BRAIN] 250 mg PO DAILY #6 tab 04/06/16 01/05/17 Unknown Rx Benzonatate [Tessalon Perles] 100 mg PO Q8HR #20 capsule 04/06/16 01/05/17 Unknown Rx levETIRAcetam [Keppra TAB] 500 mg PO BID #60 tablet 04/06/16 01/05/17 Unknown Rx Folic Acid [Folvite] 1 mg PO QDAY #30 tablet 01/07/17 Unknown Rx Nicotine [Habitrol] 14 mg TD QDAY #30 patch 01/07/17 Unknown Rx Thiamine [Vitamin B-1] 100 mg PO QDAY #30 tablet 01/07/17 Unknown Rx levETIRAcetam [Keppra] 500 mg PO BID #60 tablet 04/02/17 Unknown Rx ED Review of Systems ROS: Stated complaint: SEIZURE Other details as noted in HPI Comment: All other systems reviewed and negative Constitutional: denies: chills, fever Eyes: denies: eye pain, eye discharge, vision change ENT: denies: ear pain, throat pain Respiratory: denies: cough, shortness of breath, wheezing Cardiovascular: denies: chest pain, palpitations Gastrointestinal: denies: abdominal pain, nausea, diarrhea Genitourinary: denies: urgency, dysuria Musculoskeletal: denies: back pain, joint swelling, arthralgia Skin: denies: rash, lesions Neurological: other (seizure). denies: weakness, numbness Physical Exam - Physical Exam Vital Signs: Vital Signs 04/01/17 21:13 Temperature 99.5 F Pulse Rate 64 Respiratory 16 Rate Blood Pressure 137/84 O2 Sat by Pulse 97 Oximetry Physical Exam: GENERAL: The patient is well-developed well-nourished. HENT: Normocephalic. Atraumatic. Patient has moist mucous membranes. EYES: Extraocular motions are intact. Pupils equal reactive to light bilaterally. No nystagmus. NECK: Supple. Trachea is midline. CHEST/LUNGS: Clear to auscultation. There is no respiratory distress noted. HEART/CARDIOVASCULAR: Regular. There is no tachycardia. There is no gallop rub or murmur. ABDOMEN: Abdomen is soft, nontender. Patient has normal bowel sounds. There is no abdominal distention. SKIN: Skin is warm and dry. NEURO: The patient is awake, alert, and oriented. The patient is cooperative. The patient has no focal neurologic deficits. The patient has normal speech. Cranial nerves II through XII grossly intact. MUSCULOSKELETAL: There is no tenderness or deformity. There is no limitation range of motion. There is no evidence of acute injury. ED Course Vital Signs 04/01/17 21:13 Temperature 99.5 F Pulse Rate 64 Respiratory 16 Rate Blood Pressure 137/84 O2 Sat by Pulse 97 Oximetry ED Medical Decision Making - Lab Data Result diagrams: 04/01/17 21:47 04/01/17 21:47 - EKG Data -: EKG Interpreted by Me EKG shows normal: sinus rhythm, axis, intervals, QRS complexes (LVH), ST-T waves Rate: normal - EKG Data When compared to previous EKG there are: no significant change Interpretation: unchanged when compared t (01/29/17) - Radiology Data Radiology results: image reviewed interpreted by me: X-ray of the pelvis and bilateral hips does not show any fracture, dislocation or any acute process. - Medical Decision Making 46-year-old male presents to the emergency department with the complaint of a seizure prior to presentation. He is awake and alert upon presentation and remained so throughout his ED course. Since he has a history of seizures, only had one seizure today and is now cognizant, and since there are other reasons for his seizure such as medication noncompliance and substance abuse, I did not feel that CT imaging of the head was necessary at this time. His labs showed some elevation in the transaminase levels but the patient does have a history of alcohol abuse and has no complaints of any abdominal pain. His urine drug screen is positive for cocaine. Vital signs stable throughout his ED course. The patient was seen ambulatory and appeared stable. Towards the end of his ED course, the patient complained of bilateral hip pain, so an x-ray was done of this region that did not show any fracture, dislocation or any acute process. He was encouraged to stay away from any alcohol or illicit drugs as it will decrease his seizure threshold. He was once again started on Keppra for antiepileptics medication. He was given referrals for primary care and neurology. He was encouraged to return to the emergency Department with any worsening of his symptoms or any acute distress. - Differential Diagnosis epilepsy, polysubstance abuse, hypoglycemia Critical Care Time: No Critical care attestation.: If time is entered above; I have spent that time in minutes in the direct care of this critically ill patient, excluding procedure time. ED Disposition Clinical Impression: Seizure, Alcohol abuse, Cocaine abuse Hypertension Qualifiers: Hypertension type: essential hypertension Qualified Code(s): I10 - Essential ( primary) hypertension Disposition: DC-01 TO HOME OR SELFCARE Is pt being admited?: No Condition: Stable Instructions: Cocaine Abuse (ED), Epilepsy (ED), Hypertension (ED) Additional Instructions: Please try to avoid any further alcohol or cocaine use or abuse as it will lower your seizure threshold. I have started you on Keppra for your seizures. I have given you referrals for primary care and neurology. Return to the emergency department with any further seizure-like activity or any acute distress. Prescriptions: levETIRAcetam [Keppra] 500 mg PO BID #60 tablet Referrals: PRIMARY CARE, [Primary Care Provider] - 3-5 Days TESSY FLORES MD [Staff Physician] - 3-5 Days JANELLE CHERRY MD [Staff Physician] - 3-5 Days [facility] [Outside] - 3-5 Days Time of Disposition: 01:27
[2017-04-01 22:16] LABS: Hematocrit 36.2 % (35.5-45.6); Hemoglobin 12.1 gm/dl (11.8-15.2); Mean Corpuscular HGB Conc 33 % (32-34); Mean Corpuscular Hemoglobin 34 pg (28-32); Mean Corpuscular Volume 102 fl (84-94); Red Blood Count 3.57 M/mm3 (3.65-5.03); Red Cell Distribution Width 16.4 % (13.2-15.2); White Blood Count 4.7 K/mm3 (4.5-11.0)
[2017-04-01 22:17] LABS: Platelet Count 87 K/mm3 (140-440)
[2017-04-01 22:44] LABS: Alanine Aminotransferase 100 units/L (7-56); Albumin 4.4 g/dL (3.9-5); Albumin/Globulin Ratio 1.7 %; Alkaline Phosphatase 73 units/L (35-129); Anion Gap 29 mmol/L; BUN/Creatinine Ratio 16; Blood Urea Nitrogen 13 mg/dL (9-20); Calcium 9.5 mg/dL (8.4-10.2); Carbon Dioxide 22 mmol/L (22-30); Glucose 78 mg/dL (75-100); Potassium 4.2 mmol/L (3.6-5.0); Sodium 139 mmol/L (137-145)
[2017-04-01 22:50] LABS: Basophils % (Manual) 0 % (0.0-1.8); Blastocytes % (Manual) 0 %
[2017-04-01 22:52] LABS: Large Platelets Few; Platelet Estimate Appears Decreased; Target Cells Few
[2017-04-01 22:53] LABS: Anisocytosis Few; Diff Status Complete
[2017-04-01 23:15] LABS: Urine Drugs of Abuse Note Disclamer
[2017-04-02 00:03] LABS: Bilirubin,Urine NEG (Negative); Blood,Urine MOD (Negative); Granular Casts,Urine 7 /LPF; Ketones,Urine NEG (Negative); Leukocyte Esterase,Urine NEG (Negative); Mucus,Urine FEW /HPF; Nitrite,Urine NEG (Negative); Urobilinogen,Urine < 2.0 mg/dL (<2.0)
[2017-04-02] MEDS ORDERED: MOTRIN PO ONE (01:08)
[2017-04-02 01:20] VITALS: BP 154/83
--- NOTE | 2017-04-02 07:57 | XRay Report ---
BILATERAL HIPS WITH PELVIS, 3 VIEWS: History: Pain. Findings: Bone mineralization is within normal limits. There is no evidence for fracture, dislocation or pelvic diastasis. No advanced joint pathology is detected. The soft tissues are unremarkable. Impression: Unremarkable exam.
== END 2017-04-02 02:05 | disposition home or self-care (01) ==
LOC: ED 20:59
DX: R56.9 Unspecified convulsions (principal); F10.10 Alcohol abuse, uncomplicated; F14.10 Cocaine abuse, uncomplicated; I10 Essential (primary) hypertension; F17.210 Nicotine dependence, cigarettes, uncomplicated
CPT/HCPCS: 36415; 73521; 80053; 80307; 81001; 85007; 85025; 93005; 93010; 96365; 99285; G0480; J1953; 80320

== ENCOUNTER 2017-04-19 23:02 | Emergency (ER) | payer OTHER ==
[2017-04-19] MEDS ORDERED: KEPPRA PO ONE (23:30)
[2017-04-19 23:33] LABS: Urine Drugs of Abuse Note Disclamer
[2017-04-19 23:38] LABS: Bilirubin,Urine NEG (Negative); Blood,Urine SM (Negative); Ketones,Urine NEG (Negative); Leukocyte Esterase,Urine NEG (Negative); Mucus,Urine FEW /HPF; Nitrite,Urine NEG (Negative); Urobilinogen,Urine < 2.0 mg/dL (<2.0); WBC,Urine < 1.0 /HPF (0.0-6.0)
[2017-04-20 00:04] LABS: Basophils % (Auto) 1.5 % (0.0-1.8); Eosinophils % (Auto) 4.7 % (0.0-4.3); Hematocrit 39.2 % (35.5-45.6); Hemoglobin 13.2 gm/dl (11.8-15.2); Mean Corpuscular HGB Conc 34 % (32-34); Mean Corpuscular Hemoglobin 34 pg (28-32); Mean Corpuscular Volume 102 fl (84-94); Platelet Count 155 K/mm3 (140-440); Red Blood Count 3.85 M/mm3 (3.65-5.03); Red Cell Distribution Width 15.8 % (13.2-15.2); White Blood Count 4.6 K/mm3 (4.5-11.0)
--- NOTE | 2017-04-20 00:13 | Emergency Department Report ---
HPI - General Chief Complaint: Alcohol Time Seen by Provider: 04/19/17 23:09 - HPI HPI: This is a 46-year-old -[place] Citizen male presents to the emergency department with complaint of alcohol intoxication, depression and suicidal ideations. Patient says that he got drunk this evening and started feeling depressed and at the plan that he was going to walk in front of traffic. He has a history of crack cocaine abuse and says that he has used it in the past few days but not this evening. He denies any homicidal ideations, auditory or visual hallucinations. He also has a history of seizures and is known to be noncompliant with his medication secondary to the cost. ED Past Medical Hx - Past Medical History Previous Medical History?: Yes Hx Hypertension: Yes Hx Seizures: Yes Hx Psychiatric Treatment: Yes (Prior Suicidal, Depression) Hx Asthma: Yes Additional medical history: TENDONITIS - Surgical History Additional Surgical History: L reconstructive knee surgery - Social History Smoking Status: Current Every Day Smoker Substance Use Type: Alcohol - Medications Home Medications: Home Medications Medication Instructions Recorded Confirmed Last Taken Type HYDROcodone/APAP 5-325 [[place] 1 each PO Q6HR PRN #10 tablet 05/31/14 01/05/17 2 Days Ago Rx 5-325 mg TAB] ALBUTEROL Inhaler [ProAir HFA 2 puff IH QID PRN #1 inhalation 04/06/16 01/05/17 Unknown Rx Inhaler] Azithromycin [Zithromax Z-BRAIN] 250 mg PO DAILY #6 tab 04/06/16 01/05/17 Unknown Rx Benzonatate [Tessalon Perles] 100 mg PO Q8HR #20 capsule 04/06/16 01/05/17 Unknown Rx levETIRAcetam [Keppra TAB] 500 mg PO BID #60 tablet 04/06/16 01/05/17 Unknown Rx Folic Acid [Folvite] 1 mg PO QDAY #30 tablet 01/07/17 Unknown Rx Nicotine [Habitrol] 14 mg TD QDAY #30 patch 01/07/17 Unknown Rx Thiamine [Vitamin B-1] 100 mg PO QDAY #30 tablet 01/07/17 Unknown Rx levETIRAcetam [Keppra] 500 mg PO BID #60 tablet 04/02/17 Unknown Rx ED Review of Systems ROS: Stated complaint: SUIDICAL IDEATIONS Other details as noted in HPI Comment: All other systems reviewed and negative Constitutional: denies: chills, fever Eyes: denies: eye pain, eye discharge, vision change ENT: denies: ear pain, throat pain Respiratory: denies: cough, shortness of breath, wheezing Cardiovascular: denies: chest pain, palpitations Gastrointestinal: denies: abdominal pain, nausea, diarrhea Genitourinary: denies: urgency, dysuria Musculoskeletal: denies: back pain, joint swelling, arthralgia Skin: denies: rash, lesions Neurological: denies: headache, weakness, paresthesias Psychiatric: depression, suicidal thoughts. denies: auditory hallucinations, visual hallucinations, homicidal thoughts Physical Exam - Physical Exam Vital Signs: Vital Signs 04/19/17 23:10 Temperature 98 F Pulse Rate 102 H Respiratory 18 Rate Blood Pressure 162/98 O2 Sat by Pulse 98 Oximetry Physical Exam: GENERAL: The patient is well-developed well-nourished. HENT: Normocephalic. Atraumatic. Patient has moist mucous membranes. EYES: Extraocular motions are intact. Pupils equal reactive to light bilaterally. NECK: Supple. Trachea is midline. CHEST/LUNGS: Clear to auscultation. There is no respiratory distress noted. HEART/CARDIOVASCULAR: Regular. There is no tachycardia. There is no gallop rub or murmur. ABDOMEN: Abdomen is soft, nontender. Patient has normal bowel sounds. There is no abdominal distention. SKIN: Skin is warm and dry. NEURO: The patient is awake, alert, and oriented. The patient is cooperative. The patient has no focal neurologic deficits. The patient has normal speech. MUSCULOSKELETAL: There is no tenderness or deformity. There is no limitation range of motion. There is no evidence of acute injury. ED Course Vital Signs 04/19/17 23:10 Temperature 98 F Pulse Rate 102 H Respiratory 18 Rate Blood Pressure 162/98 O2 Sat by Pulse 98 Oximetry ED Medical Decision Making - Lab Data Result diagrams: 04/19/17 23:27 04/19/17 23:27 - Medical Decision Making 46-year-old male presents to the emergency department with alcohol intoxication and some subsequent suicidal ideations. The patient has a history of seizures in the past and there is a possibility of a history of alcohol withdrawal seizures. He has been loaded with a dose of Keppra as we already know that he has medication noncompliance with seizure medication. His blood alcohol level came back at 0.39 and he is obviously intoxicated, despite the fact that he is awake and alert, AA O 3. He has not shown any signs of any withdrawal symptoms but I will place the CIWA protocol on him just in case. He has been made a 1013 secondary to his suicidal ideations. He is receiving IV fluid resuscitation including a banana bag that has multivitamins, thiamine and folic acid. The blood alcohol level will be checked later this morning or early afternoon and if there is no significant withdrawal symptoms, then the patient will be medically cleared for psychiatric placement. - Differential Diagnosis alcohol intoxication, polysubstance abuse, depression, bipolar disorder Critical Care Time: No Critical care attestation.: If time is entered above; I have spent that time in minutes in the direct care of this critically ill patient, excluding procedure time. ED Disposition Clinical Impression: Suicidal ideations Alcohol intoxication Qualifiers: Complication of substance-induced condition: uncomplicated Qualified Code(s): F10.920 - Alcohol use, unspecified with intoxication, uncomplicated Hypertension Qualifiers: Hypertension type: essential hypertension Qualified Code(s): I10 - Essential ( primary) hypertension Disposition: DC/TX-65 PSY HOSP/PSY UNIT Is pt being admited?: No Condition: Stable Instructions: Hypertension (ED) Referrals: PRIMARY CARE, [Primary Care Provider] - 3-5 Days Time of Disposition: 01:13
[2017-04-20 00:17] LABS: BUN/Creatinine Ratio 15; Blood Urea Nitrogen 12 mg/dL (9-20); Calcium 8.6 mg/dL (8.4-10.2); Carbon Dioxide 25 mmol/L (22-30); Chloride 101.6 mmol/L (98-107); Glucose 84 mg/dL (75-100); Potassium 4.2 mmol/L (3.6-5.0); Sodium 144 mmol/L (137-145)
[2017-04-20 00:26] LABS: Anion Gap 22 mmol/L
[2017-04-20] MEDS ORDERED: VITAMIN B-1 100 MG, FOLVITE 1 MG, INFUVITE 10 ML in NACL 0.9% 1000 ML 1,000 ML IV ONE (00:33)
[2017-04-20] MEDS ORDERED: ATIVAN IV PRN ×3 (00:33)
[2017-04-20] MEDS ORDERED: NACL 0.9% 1000 ML 1,000 ML IV ONE (00:33)
[2017-04-20] MEDS ORDERED: KEPPRA 1,000 MG/NS 0.75% 100ML 1,000 MG/100 ML BAG IV ONE (00:34)
--- NOTE | 2017-04-20 12:57 | Consultation ---
History of Present Illness - Reason for Consult Consult date: 04/20/17 Reason for consult: Mental Health Evaluation Requesting physician: GABO MCKINLEY - Chief Complaint Chief complaint: "I need to stop drinking" - History of Present Psychiatric Illness This is a 46-year-old -[place] male presents to the emergency department with complaint of alcohol intoxication, depression and suicidal ideations. This patient is known to me. Today patient is calm and cooperative during the assessment. He stated that he had thoughts of suicide, but he "really " would not kill himself. He stated that he was thinking about how he isn't a good father and started drinking yesterday. He stated that he been drinking for 20 plus years. He stated that he drink beer everyday because he enjoy the "taste." He denies being depressed (feeling sad and hopeless). He denies SI's in the past or an attempt of suicide. He stated that he can stop drinking on his own. He denies SI/HI's and AVH's. He admit to recreational drug use "occasionally." Positive for cocaine. Medications and Allergies Allergies Allergy/AdvReac Type Severity Reaction Status Date / Time tramadol Allergy Rash Verified 04/01/17 21:31 Home Medications Medication Instructions Recorded Confirmed Last Taken Type HYDROcodone/APAP 5-325 [[place] 1 each PO Q6HR PRN #10 tablet 05/31/14 01/05/17 2 Days Ago Rx 5-325 mg TAB] ALBUTEROL Inhaler [ProAir HFA 2 puff IH QID PRN #1 inhalation 04/06/16 01/05/17 Unknown Rx Inhaler] Azithromycin [Zithromax Z-BRAIN] 250 mg PO DAILY #6 tab 04/06/16 01/05/17 Unknown Rx Benzonatate [Tessalon Perles] 100 mg PO Q8HR #20 capsule 04/06/16 01/05/17 Unknown Rx levETIRAcetam [Keppra TAB] 500 mg PO BID #60 tablet 04/06/16 01/05/17 Unknown Rx Folic Acid [Folvite] 1 mg PO QDAY #30 tablet 01/07/17 Unknown Rx Nicotine [Habitrol] 14 mg TD QDAY #30 patch 01/07/17 Unknown Rx Thiamine [Vitamin B-1] 100 mg PO QDAY #30 tablet 01/07/17 Unknown Rx levETIRAcetam [Keppra] 500 mg PO BID #60 tablet 04/02/17 Unknown Rx Active Meds: Active Medications Lorazepam (Ativan) 2 mg IV Q1HR PRN PRN Reason: CIWA-Ar 8-15 Last Admin: 04/20/17 01:55 Dose: 2 mg Lorazepam (Ativan) 4 mg IV Q1HR PRN PRN Reason: CIWA-Ar 16-25 Lorazepam (Ativan) 4 mg IV Q15MIN PRN PRN Reason: CIWA-Ar >25 Past psychiatric history - Past Medical History Past Medical History: hypertension, seizures Past Surgical History: No surgical history - past Psychiatric treatment and history psychiatric treatment history: Family hx of alcoholism. - Social History Social history: lives with family Mental Status Exam - Vital signs Last Vital Signs Temp 98.3 F 04/20/17 08:54 Pulse 71 04/20/17 08:54 Resp 20 04/20/17 08:59 BP 147/88 04/20/17 08:54 Pulse Ox 98 04/20/17 08:59 - Exam Narrative exam: MSE: Appearance: calm, cooperative Behavior: regular eye contact Speech: regular rate and tone Mood: "okay" Affect: flat Thought Process: circumstantial Thought Content: denies SI/HI's and AVH's Motor Activity: ambulatory Cognition: A/O x3 Insight: fair Judgment: fair Results Result Diagrams: 04/19/17 23:27 04/19/17 23:27 Abnormal lab results 04/19/17 04/19/17 04/20/17 Range/Units 23:27 23:27 11:16 MCV 102 H (84-94) fl MCH 34 H (28-32) pg RDW 15.8 H (13.2-15.2) % Lymph % (Auto) 43.0 H (13.4-35.0) % [place] % (Auto) 13.5 H (0.0-7.3) % Eos % (Auto) 4.7 H (0.0-4.3) % Seg Neutrophils % 37.3 L (40.0-70.0) % Seg Neutrophils # 1.7 L (1.8-7.7) K/mm3 Plasma/Serum Alcohol 0.39 H 0.15 H (0-0.07) gm% All other labs normal. Assessment and Plan Assessment and plan: Impression: Alcohol Induced Mood DO. Alcohol Use DO. Substance Use DO (cocaine) . Today patient is calm and cooperative during the assessment. Positive for cocaine. Alcohol serum 0.39 on admission. DDx: R/O Bipolar, R/O MDD, Substance Induced Mood DO Recommendation/Plan: Continue 1013. Reevaluate 1013 in 24 hours to determine proper dispo. Discussed the importance to abstain from recreational drug us and alcohol consumption.
--- NOTE | 2017-04-21 09:41 | XRay Report ---
Chest 2 views: Compared to 02/09/17. History: Shortness of breath. Findings: Normal cardiomediastinal silhouette. Trachea is midline. No consolidation, pneumothorax or pleural effusion. Impression: No acute cardiopulmonary findings.
--- NOTE | 2017-04-21 17:20 | Event Note ---
Date: 04/21/17 [address] Mr. Garcia patient's is not showing any signs of homicidal or suicidal ideation patient is expressing clear goal directed behavior. I will send patient home he has follow-up with psychiatrist. Patient's 1013 has been rescinded by Dr. Centeno.
[2017-04-21 17:40] VITALS: BP 145/99
--- NOTE | 2017-04-21 22:28 | Progress Note ---
Subjective - Reason for Consult Reason for consult: acute intoxication Mental Status Exam - Vital signs Last Vital Signs Temp 99.2 F 04/21/17 17:39 Pulse 72 04/21/17 17:39 Resp 18 04/21/17 17:39 BP 145/99 04/21/17 17:39 Pulse Ox 100 04/21/17 17:39 Assessment and Plan I. This screening and assessment is based on information collected from the following sources: II. SUICIDE RISK SCREENING (within last 30 days): A.) Suicidal thoughts/behaviors: recent SI in the context of acute etoh intoxication SUICIDE RISK ASSESSMENT III. FACTORS THAT INCREASE RISK: A.) Demographic and Substance Use Factors: B.) Current/Recent Factors (within past 3 months): Psychosocial/Environmental Factors: unemployed Physical Illness: None Cognitive/Psychological Factors: chronic etoh abuse C.) Historical Factors: recent hospitalization in ER for similar complaints D.) Diagnostic/Symptom/Treatment Factors: None E.) Acute Risk Factor Severity (DESC; MILD/MOD/SEVERE) mild Other factors for this individual that increase risk: IV. FACTORS THAT DECREASE RISK: Resilience/Protective Factors: Intermittent psychosocial supports Other factors for this individual that decrease risk: Patient reports he is future oriented and currently denying a desire to harm self. V. Clinician's Formulation of Risk and Determination of level of Care: Patient is having both chronic and acute stressors which have brought him to the ER. Just prior to the ER presentation patient reports feeling overwhelmed and stressed. Since being hospitalized, the patient has consistently denied the desire to harm self. Patient has been in the ER for over 48 hours and has not shown any gestures and consistently denied desire to harm himself. Additionally, patient has become insightful and aware of how to resolve the specific interpersonal conflict they are having. Consequently, it is the opinion of the treatment team that the patient is at low risk at the current time given the above interventions that were implemented in his care. Estimation of Imminent Risk: Low due to the above explanation Determination of Level of Care based on Suicide Risk: Outpatient follow-up. Furthermore, patient has had consistently denied the desire to harm self. Additionally, those thoughts were impulsive and not instrumental in nature to begin with and the patient had no intent or clear plan to execute on those thoughts. Narrative description of clinical reasoning. (This must be completed on all patients): . Plan and Interventions based on Suicide Risk: This patient will likely be stepped down to an outpatient mental health center in the community upon discharge and follow-up within 7 days of his discharge from the hospital. VII. Discharge/After Hours Support Plan: Patient can return back to the ER, call 911 or crisis line if symptoms of depression, anxiety, suicidality return. MENTAL STATUS EXAM: General Appearance: Dressed in hospital gown, in acute distress Sensorium/Consciousness: alert and responding to external stimuli Eye Contact: limited Attitude / Behavior: cooperative, but guarded Psychomotor & Musculoskeletal Activity: WNL Mood: anxious Affect: constricted Speech / Language: normal Thought Processes: disorganized,perseverative Thought Content: no SI, no HI Perception: no AV, no VH Orientation: person, place, time, situation Judgment What would you do if you smelled smoke in a crowded movie theater?: fair Insight: fair Intelligence Vocabulary, general fund of knowledge, educational level: Average Capacity of ADLs: Independent STRENGTHS: PSYCHOSOCIAL AND ENVIRONMENTAL STRESSORS: ASSESSMENT: SIMD Etoh Abuse PLAN OF CARE: Rescind 1013 today Follow up with outpatient psychiatric care for substance abuse counseling
== END 2017-04-21 17:40 | disposition home or self-care (01) ==
LOC: EEVIPCON 23:02 → ED 23:02
DX: F10.120 Alcohol abuse with intoxication, uncomplicated (principal); I10 Essential (primary) hypertension; F32.9 Major depressive disorder, single episode, unspecified; F17.210 Nicotine dependence, cigarettes, uncomplicated
CPT/HCPCS: 36415; 71020; 80048; 80307; 81001; 84484; 85025; 93005; 93010; 96365; 96368; 96375; 99285; G0480; J1953; J2060; J3411; J7030; 80320

== ENCOUNTER 2017-05-13 07:24 | Emergency (ER) | payer SELFPAY ==
[2017-05-13 08:28] LABS: Basophils % (Auto) 0.7 % (0.0-1.8); Eosinophils % (Auto) 2.1 % (0.0-4.3); Hematocrit 40.9 % (35.5-45.6); Hemoglobin 13.5 gm/dl (11.8-15.2); Mean Corpuscular HGB Conc 33 % (32-34); Mean Corpuscular Hemoglobin 34 pg (28-32); Mean Corpuscular Volume 103 fl (84-94); Platelet Count 142 K/mm3 (140-440); Red Blood Count 3.98 M/mm3 (3.65-5.03); Red Cell Distribution Width 14.8 % (13.2-15.2); White Blood Count 7.9 K/mm3 (4.5-11.0)
[2017-05-13 08:44] LABS: Anion Gap 17 mmol/L; BUN/Creatinine Ratio 11; Blood Urea Nitrogen 8 mg/dL (9-20); Calcium 9.4 mg/dL (8.4-10.2); Carbon Dioxide 28 mmol/L (22-30); Chloride 97.3 mmol/L (98-107); Glucose 96 mg/dL (75-100); Potassium 4.6 mmol/L (3.6-5.0); Sodium 138 mmol/L (137-145)
--- NOTE | 2017-05-13 08:44 | XRay Report ---
CHEST 2 VIEWS INDICATION: Shortness of breath. COMPARISON: 04/21/2017 FINDINGS: PA and lateral chest radiographs demonstrate normal cardiomediastinal silhouette. No pleural effusions or CHF with slightly hyperexpanded lungs/possible COPD. Slight bilateral upper lobe scarring or atelectasis. Intact bones. CONCLUSION: No acute chest process or significant interval change, as described. Thank you for the opportunity to participate in this patient's care.
[2017-05-13] MEDS ORDERED: ATROVENT IH ONE (13:36)
[2017-05-13] MEDS ORDERED: XOPENEX IH ONE (13:36)
--- NOTE | 2017-05-13 13:40 | Emergency Department Report ---
ED Shortness of Breath HPI - General Chief Complaint: Dyspnea/Respdistress Stated Complaint: SOB,COUGHING,CHEST PAIN Time Seen by Provider: 05/13/17 13:27 Source: patient Mode of arrival: Ambulatory Limitations: No Limitations - History of Present Illness Initial Comments: Patient is 46 years old male with medical history of seizure, presented today with shortness of breath cough for the last 3 days. Patient denied chest pain or lower extremity swelling. Denied any nausea or vomiting. MD Complaint: shortness of breath, cough -: days(s) Severity: moderate - Related Data Previous Rx's Medication Instructions Recorded Last Taken Type HYDROcodone/APAP 5-325 [[place] 1 each PO Q6HR PRN #10 tablet 05/31/14 2 Days Ago Rx 5-325 mg TAB] ~02/18/15 ALBUTEROL Inhaler [ProAir HFA 2 puff IH QID PRN #1 inhalation 04/06/16 Unknown Rx Inhaler] Azithromycin [Zithromax Z-BRAIN] 250 mg PO DAILY #6 tab 04/06/16 Unknown Rx Benzonatate [Tessalon Perles] 100 mg PO Q8HR #20 capsule 04/06/16 Unknown Rx levETIRAcetam [Keppra TAB] 500 mg PO BID #60 tablet 04/06/16 Unknown Rx Folic Acid [Folvite] 1 mg PO QDAY #30 tablet 01/07/17 Unknown Rx Nicotine [Habitrol] 14 mg TD QDAY #30 patch 01/07/17 Unknown Rx Thiamine [Vitamin B-1] 100 mg PO QDAY #30 tablet 01/07/17 Unknown Rx levETIRAcetam [Keppra] 500 mg PO BID #60 tablet 04/02/17 Unknown Rx Allergies Allergy/AdvReac Type Severity Reaction Status Date / Time tramadol Allergy Rash Verified 04/01/17 21:31 ED Review of Systems ROS: Stated complaint: SOB,COUGHING,CHEST PAIN Other details as noted in HPI Comment: All other systems reviewed and negative Constitutional: chills. denies: fever Respiratory: cough, shortness of breath Gastrointestinal: denies: abdominal pain, nausea, vomiting, diarrhea, constipation, hematemesis Genitourinary: denies: urgency, dysuria, frequency, hematuria, discharge Skin: denies: rash Neurological: denies: headache, weakness, numbness ED Past Medical Hx - Past Medical History Previous Medical History?: Yes Hx Hypertension: Yes Hx Seizures: Yes Hx Psychiatric Treatment: Yes (Prior Suicidal, Depression) Hx Asthma: Yes Additional medical history: TENDONITIS - Surgical History Past Surgical History?: Yes Additional Surgical History: L reconstructive knee surgery - Social History Smoking Status: Current Every Day Smoker Substance Use Type: Alcohol, Cocaine - Medications Home Medications: Home Medications Medication Instructions Recorded Confirmed Last Taken Type HYDROcodone/APAP 5-325 [[place] 1 each PO Q6HR PRN #10 tablet 05/31/14 01/05/17 2 Days Ago Rx 5-325 mg TAB] ~02/18/15 ALBUTEROL Inhaler [ProAir HFA 2 puff IH QID PRN #1 inhalation 04/06/16 01/05/17 Unknown Rx Inhaler] Azithromycin [Zithromax Z-BRAIN] 250 mg PO DAILY #6 tab 04/06/16 01/05/17 Unknown Rx Benzonatate [Tessalon Perles] 100 mg PO Q8HR #20 capsule 04/06/16 01/05/17 Unknown Rx levETIRAcetam [Keppra TAB] 500 mg PO BID #60 tablet 04/06/16 01/05/17 Unknown Rx Folic Acid [Folvite] 1 mg PO QDAY #30 tablet 01/07/17 Unknown Rx Nicotine [Habitrol] 14 mg TD QDAY #30 patch 01/07/17 Unknown Rx Thiamine [Vitamin B-1] 100 mg PO QDAY #30 tablet 01/07/17 Unknown Rx levETIRAcetam [Keppra] 500 mg PO BID #60 tablet 04/02/17 Unknown Rx ED Physical Exam - General Limitations: No Limitations General appearance: alert, in no apparent distress - Head Head exam: Present: atraumatic, normocephalic, normal inspection - Eye Eye exam: Present: normal appearance, PERRL - ENT ENT exam: Present: normal exam, normal orophraynx, mucous membranes moist - Neck Neck exam: Present: normal inspection, full ROM. Absent: meningismus, lymphadenopathy - Respiratory Respiratory exam: Present: wheezes, rhonchi, decreased breath sounds, prolonged expiratory. Absent: respiratory distress, rales, stridor, chest wall tenderness , accessory muscle use - Cardiovascular Cardiovascular Exam: Present: regular rate, normal rhythm, normal heart sounds - GI/Abdominal GI/Abdominal exam: Present: soft, normal bowel sounds. Absent: distended, tenderness, guarding, rebound, rigid, mass, bruit, pulsatile mass, hernia - Extremities Exam Extremities exam: Present: normal inspection, full ROM, normal capillary refill. Absent: tenderness, pedal edema, joint swelling - Back Exam Back exam: Present: normal inspection. Absent: CVA tenderness (R), CVA tenderness (L) - Neurological Exam Neurological exam: Present: alert, oriented X3, CN II-XII intact, normal gait - Skin Skin exam: Present: warm, intact, normal color. Absent: cyanosis ED Course Vital Signs 05/13/17 05/13/17 07:54 14:11 Temperature 98.7 F 99.4 F Pulse Rate 96 H 61 Respiratory 20 21 Rate Blood Pressure 124/79 Blood Pressure 132/82 [Left] O2 Sat by Pulse 91 97 Oximetry - Reevaluation(s) Reevaluation #1: 05/13/17 16:07 Patient stated that he is feeling much better and is able to breathe well. Denied any chest pain or shortness of breath. ED Medical Decision Making - Lab Data Result diagrams: 05/13/17 08:16 05/13/17 08:16 - EKG Data -: EKG Interpreted by Me EKG shows normal: sinus rhythm Rate: normal - EKG Data Interpretation: no acute changes - Radiology Data Radiology results: report reviewed Chest x-ray unremarkable Critical care attestation.: If time is entered above; I have spent that time in minutes in the direct care of this critically ill patient, excluding procedure time. ED Disposition Clinical Impression: Shortness of breath, Acute bronchitis Disposition: -01 TO HOME OR SELFCARE Is pt being admited?: No Condition: Stable Instructions: Acute Bronchitis (ED) Referrals: PRIMARY CARE, [Primary Care Provider] - 3-5 Days
[2017-05-13 14:13] VITALS: BP 132/82
== END 2017-05-13 17:08 | disposition home or self-care (01) ==
LOC: ED 07:24
DX: J20.9 Acute bronchitis, unspecified (principal); R06.02 Shortness of breath; I10 Essential (primary) hypertension; R56.9 Unspecified convulsions; J45.909 Unspecified asthma, uncomplicated; F32.9 Major depressive disorder, single episode, unspecified; Z88.8 Allergy status to other drugs, medicaments and biological substances
CPT/HCPCS: 36415; 71020; 80048; 84484; 85025; 93005; 93010; 94640; 96372; 99284; J2930

== ENCOUNTER 2017-09-28 01:00 | Inpatient (IN) | payer OTHER ==
[2017-09-28 02:22] LABS: Basophils % (Auto) 1.3 % (0.0-1.8); Eosinophils # (Auto) 0.1 K/mm3 (0.0-0.4); Eosinophils % (Auto) 2.4 % (0.0-4.3); Hematocrit 39.1 % (35.5-45.6); Hemoglobin 13.3 gm/dl (11.8-15.2); Lymphocytes # (Auto) 0.7 K/mm3 (1.2-5.4); Lymphocytes % (Auto) 23.2 % (13.4-35.0); Mean Corpuscular HGB Conc 34 % (32-34); Mean Corpuscular Hemoglobin 33 pg (28-32); Mean Corpuscular Volume 98 fl (84-94); Monocytes # (Auto) 0.4 K/mm3 (0.0-0.8); Monocytes % (Auto) 12.8 % (0.0-7.3); Platelet Count 104 K/mm3 (140-440); Red Blood Count 3.99 M/mm3 (3.65-5.03); Red Cell Distribution Width 16.5 % (13.2-15.2)
[2017-09-28 02:35] LABS: BUN/Creatinine Ratio 9; Blood Urea Nitrogen 7 mg/dL (9-20); Calcium 8.2 mg/dL (8.4-10.2); Hemolysis Index 2
[2017-09-28] MEDS ORDERED: KEPPRA 1,000 MG/NS 0.75% 100ML 1,000 MG/100 ML BAG IV ONE ×2 (15:46→18:05)
[2017-09-28] MEDS ORDERED: ATIVAN ONE (15:46)
[2017-09-28] MEDS ORDERED: ATIVAN IV ONE (17:18)
[2017-09-28] MEDS ORDERED: NACL 0.9% 1000 ML 1,000 ML IV ONE (17:19)
--- NOTE | 2017-09-28 17:40 | XRay Report ---
FINAL REPORT EXAM: XR CHEST 1V AP HISTORY: hypertension TECHNIQUE: upright single view chest PRIORS: None. FINDINGS: Cardiac and mediastinal contours are unremarkable. No focal pulmonary infiltrate is identified. No pleural fluid collection seen. Pulmonary vasculature is unremarkable. IMPRESSION: Negative single-view chest
--- NOTE | 2017-09-28 17:58 | Emergency Department Report ---
ED General Adult HPI - General Chief complaint: Psych Stated complaint: MENTAL HEALTH Time Seen by Provider: 09/28/17 16:58 Source: patient Mode of arrival: Ambulatory Limitations: No Limitations - History of Present Illness Initial comments: This is a 46-year-old male alcoholic and homeless with a history of seizures noncompliant with Keppra. The patient states that he does principally have seizures when he stops drinking. He arrived at this facility and apparently had social issues. He stated to me that he wanted to get help with his drinking because it was "making me sick". He denies telling the triage nurse that he wanted to kill himself. However the triage note states "wants to drink himself to ". The patient apparently was in the waiting room for quite some time. Apparently he went outside and was considered to be an elopement. However, he was found after he had a seizure. He was brought back to this emergency department for further evaluation. At the time of my initial encounter, he was quite tremulous. It appeared apparent that he was withdrawing from alcohol. Not withstanding this he had an alcohol level of 0.3 at approximately 2 AM. -: Sudden (seizure) - Related Data Previous Rx's Medication Instructions Recorded Last Taken Type HYDROcodone/APAP 5-325 [[place] 1 each PO Q6HR PRN #10 tablet 05/31/14 2 Days Ago Rx 5-325 mg TAB] ~02/18/15 ALBUTEROL Inhaler [ProAir HFA 2 puff IH QID PRN #1 inhalation 04/06/16 Unknown Rx Inhaler] Azithromycin [Zithromax Z-BRAIN] 250 mg PO DAILY #6 tab 04/06/16 Unknown Rx Benzonatate [Tessalon Perles] 100 mg PO Q8HR #20 capsule 04/06/16 Unknown Rx levETIRAcetam [Keppra TAB] 500 mg PO BID #60 tablet 04/06/16 Unknown Rx Folic Acid [Folvite] 1 mg PO QDAY #30 tablet 01/07/17 Unknown Rx Nicotine [Habitrol] 14 mg TD QDAY #30 patch 01/07/17 Unknown Rx Thiamine [Vitamin B-1] 100 mg PO QDAY #30 tablet 01/07/17 Unknown Rx levETIRAcetam [Keppra] 500 mg PO BID #60 tablet 04/02/17 Unknown Rx ALBUTEROL Inhaler [ProAir HFA 2 puff IH QID PRN #1 inhalation 05/13/17 Unknown Rx Inhaler] Amoxicillin [Amoxicillin TAB] 875 mg PO BID #14 tablet 05/13/17 Unknown Rx Prednisone [predniSONE 10 mg 10 mg PO .TAPER #1 tab.ds.pk 05/13/17 Unknown Rx (6-Day Pack, 21 Tabs)] Allergies Allergy/AdvReac Type Severity Reaction Status Date / Time tramadol Allergy Rash Verified 04/01/17 21:31 ED Review of Systems ROS: Stated complaint: MENTAL HEALTH Other details as noted in HPI Constitutional: denies: chills, fever Eyes: denies: eye pain, eye discharge, vision change ENT: denies: ear pain, throat pain Respiratory: denies: cough, shortness of breath, wheezing Cardiovascular: denies: chest pain, palpitations Endocrine: no symptoms reported Gastrointestinal: denies: abdominal pain, nausea, diarrhea Genitourinary: denies: urgency, dysuria Musculoskeletal: denies: back pain, joint swelling, arthralgia Skin: denies: rash, lesions Neurological: denies: headache, weakness, paresthesias Psychiatric: anxiety, depression, suicidal thoughts (possibly) Hematological/Lymphatic: denies: easy bleeding, easy bruising ED Past Medical Hx - Past Medical History Previous Medical History?: Yes Hx Hypertension: Yes Hx Seizures: Yes (not taking meds) Hx Psychiatric Treatment: Yes (Prior Suicidal, Depression) Hx Asthma: Yes Additional medical history: TENDONITIS, ETOH - Surgical History Past Surgical History?: Yes Additional Surgical History: L reconstructive knee surgery - Social History Smoking Status: Current Every Day Smoker Substance Use Type: Alcohol - Medications Home Medications: Home Medications Medication Instructions Recorded Confirmed Last Taken Type HYDROcodone/APAP 5-325 [[place] 1 each PO Q6HR PRN #10 tablet 05/31/14 01/05/17 2 Days Ago Rx 5-325 mg TAB] ~02/18/15 ALBUTEROL Inhaler [ProAir HFA 2 puff IH QID PRN #1 inhalation 04/06/16 01/05/17 Unknown Rx Inhaler] Azithromycin [Zithromax Z-BRAIN] 250 mg PO DAILY #6 tab 04/06/16 01/05/17 Unknown Rx Benzonatate [Tessalon Perles] 100 mg PO Q8HR #20 capsule 04/06/16 01/05/17 Unknown Rx levETIRAcetam [Keppra TAB] 500 mg PO BID #60 tablet 04/06/16 01/05/17 Unknown Rx Folic Acid [Folvite] 1 mg PO QDAY #30 tablet 01/07/17 Unknown Rx Nicotine [Habitrol] 14 mg TD QDAY #30 patch 01/07/17 Unknown Rx Thiamine [Vitamin B-1] 100 mg PO QDAY #30 tablet 01/07/17 Unknown Rx levETIRAcetam [Keppra] 500 mg PO BID #60 tablet 04/02/17 Unknown Rx ALBUTEROL Inhaler [ProAir HFA 2 puff IH QID PRN #1 inhalation 05/13/17 Unknown Rx Inhaler] Amoxicillin [Amoxicillin TAB] 875 mg PO BID #14 tablet 05/13/17 Unknown Rx Prednisone [predniSONE 10 mg 10 mg PO .TAPER #1 tab.ds.pk 05/13/17 Unknown Rx (6-Day Pack, 21 Tabs)] ED Physical Exam - General Limitations: No Limitations General appearance: alert, in no apparent distress - Head Head exam: Present: atraumatic, normocephalic - Eye Eye exam: Present: normal appearance, PERRL, EOMI. Absent: scleral icterus - ENT ENT exam: Present: mucous membranes moist - Neck Neck exam: Present: normal inspection. Absent: tenderness, meningismus - Respiratory Respiratory exam: Present: normal lung sounds bilaterally. Absent: respiratory distress - Cardiovascular Cardiovascular Exam: Present: regular rate, normal rhythm. Absent: systolic murmur, diastolic murmur, rubs, gallop - GI/Abdominal GI/Abdominal exam: Present: soft, normal bowel sounds. Absent: distended, tenderness, guarding, rebound, rigid - Rectal Rectal exam: Present: deferred - Extremities Exam Extremities exam: Present: normal inspection - Back Exam Back exam: Present: normal inspection - Neurological Exam Neurological exam: Present: altered (tremulous postictal), oriented X3, CN II- XII intact. Absent: motor sensory deficit - Psychiatric Psychiatric exam: Present: agitated, anxious - Skin Skin exam: Present: warm, dry, intact, normal color. Absent: rash ED Course Vital Signs 09/28/17 01:36 Temperature 97.5 F L Pulse Rate 89 Respiratory 18 Rate Blood Pressure 153/103 O2 Sat by Pulse 94 Oximetry - Reevaluation(s) Reevaluation #1: Patient is given 1 g of Keppra, [address] and [address] and see what protocol. A CT of the head has been ordered. On reexamination the patient was more awake and oriented. He admitted that he was homeless. He denies suicidal ideation. as the patient is certainly unable to care for himself at this juncture whether he is actually suicidal or not. 09/28/17 18:20 ED Medical Decision Making - Lab Data Result diagrams: 09/28/17 01:58 09/28/17 01:58 Laboratory Results - last 24 hr 09/28/17 09/28/17 09/28/17 01:58 01:58 01:58 WBC RBC Hgb Hct MCV MCH MCHC RDW Plt Count Lymph % (Auto) [place] % (Auto) Eos % (Auto) Baso % (Auto) Lymph # [place] # Eos # Baso # Seg Neutrophils % Seg Neutrophils # Sodium 144 Potassium 4.0 Chloride 99.5 Carbon Dioxide 27 Anion Gap 22 BUN 7 L Creatinine 0.8 Estimated GFR > 60 BUN/Creatinine Ratio 9 Glucose 87 POC Glucose Calcium 8.2 L Magnesium Salicylates < 0.3 L Acetaminophen < 5.0 L Plasma/Serum Alcohol 09/28/17 09/28/17 09/28/17 01:58 01:58 01:58 WBC 3.1 L RBC 3.99 Hgb 13.3 Hct 39.1 MCV 98 H MCH 33 H MCHC 34 RDW 16.5 H Plt Count 104 L Lymph % (Auto) 23.2 [place] % (Auto) 12.8 H Eos % (Auto) 2.4 Baso % (Auto) 1.3 Lymph # 0.7 L [place] # 0.4 Eos # 0.1 Baso # 0.0 Seg Neutrophils % 60.3 Seg Neutrophils # 1.8 Sodium Potassium Chloride Carbon Dioxide Anion Gap BUN Creatinine Estimated GFR BUN/Creatinine Ratio Glucose POC Glucose Calcium Magnesium 1.90 Salicylates Acetaminophen Plasma/Serum Alcohol 0.30 H 09/28/17 16:02 WBC RBC Hgb Hct MCV MCH MCHC RDW Plt Count Lymph % (Auto) [place] % (Auto) Eos % (Auto) Baso % (Auto) Lymph # [place] # Eos # Baso # Seg Neutrophils % Seg Neutrophils # Sodium Potassium Chloride Carbon Dioxide Anion Gap BUN Creatinine Estimated GFR BUN/Creatinine Ratio Glucose POC Glucose 86 Calcium Magnesium Salicylates Acetaminophen Plasma/Serum Alcohol - EKG Data -: EKG Interpreted by Me EKG shows normal: sinus rhythm, axis, intervals, QRS complexes, ST-T waves Rate: bradycardia - EKG Data Interpretation: nonspecific ST-T wave russ - Radiology Data Radiology results: report reviewed (chest x-ray and CT I do not see any acute process) Critical Care Time: Yes Critical care time in (mins) excluding proc time.: 60 Critical care attestation.: If time is entered above; I have spent that time in minutes in the direct care of this critically ill patient, excluding procedure time. ED Disposition Clinical Impression: Thrombocytopenia, Seizure Alcohol withdrawal Qualifiers: Complication of substance-induced condition: with delirium Qualified Code(s): F10.231 - Alcohol dependence with withdrawal delirium Disposition: OP ADMIT IP TO THIS HOSP Is pt being admited?: Yes Does the pt Need Aspirin: No Condition: Stable Referrals: PRIMARY CARE, [Primary Care Provider] - 3-5 Days Time of Disposition: 18:49
[2017-09-28] MEDS ORDERED: 1: FOLVITE 1 MG, INFUVITE 10 ML, VITAMIN B-1 100 MG in NACL 0.9% 1000 ML 988.8 ML 2: NA IV SCH (18:00)
--- NOTE | 2017-09-28 18:29 | Cat Scan Report ---
FINAL REPORT EXAM: CT HEAD/BRAIN WO CON HISTORY: AMS TECHNIQUE: CT head without contrast PRIORS: None. FINDINGS: No acute intra-axial or extra-axial hemorrhage is identified. There is no evidence of midline shift or mass effect. The ventricles and sulci are within normal limits. Lynch-white matter differentiation is intact. No acute parenchymal abnormalities seen. Bony calvarium is grossly intact. There is mucosal thickening the visualized maxillary sinuses more prominent on the right. IMPRESSION: Maxillary sinusitis which appears likely chronic No acute intracranial findings
[2017-09-28 19:08] LABS: Creatine Kinase MB 2.4 ng/mL (0.0-4.0)
[2017-09-28 19:09] LABS: Alanine Aminotransferase 86 units/L (7-56); Albumin 4.1 g/dL (3.9-5)
[2017-09-28 19:20] LABS: Bilirubin,Direct < 0.2 mg/dL (0-0.2)
[2017-09-28 19:51] LABS: INR 0.87 (0.87-1.13)
[2017-09-28 19:52] LABS: Partial Thromboplastin Time 23.8 Sec. (24.2-36.6)
[2017-09-28] MEDS ORDERED: NACL 0.9% 1000 ML 1,000 ML ONE (20:24)
[2017-09-28] MEDS ORDERED: SODIUM CHLORIDE FLUSH SYRINGE 10 ML IV PRN (22:45)
[2017-09-28] MEDS ORDERED: TYLENOL PO PRN (22:45)
[2017-09-28] MEDS ORDERED: ZOFRAN IV PRN (22:45)
[2017-09-28] MEDS ORDERED: ATIVAN IV PRN (22:46)
--- NOTE | 2017-09-28 22:47 | History and Physical Report ---
History of Present Illness Date of examination: 09/28/17 Date of admission: 09/28/17 19:40 History of present illness: 46-year-old male with a history of hypertension, depression, asthma came to the emergency room because he did not feel well, he had the shakes. His last drink was 2 days ago. While in the emergency room he had a seizure. Per the emergency room documentation, he stated that he wanted to kill himself, he currently denies suicidal ideation Review of systems PAST MEDICAL HISTORY:hypertension, depression, asthma PAST SURGICAL HISTORY: Knee SOCIAL HISTORY: Admits to alcohol, tobacco, no drugs FAMILY HISTORY: Hypertension Medications and Allergies Allergies Allergy/AdvReac Type Severity Reaction Status Date / Time tramadol Allergy Rash Verified 04/01/17 21:31 Home Medications Medication Instructions Recorded Confirmed Last Taken Type HYDROcodone/APAP 5-325 [[place] 1 each PO Q6HR PRN #10 tablet 05/31/14 01/05/17 2 Days Ago Rx 5-325 mg TAB] ~02/18/15 ALBUTEROL Inhaler [ProAir HFA 2 puff IH QID PRN #1 inhalation 04/06/16 01/05/17 Unknown Rx Inhaler] Azithromycin [Zithromax Z-BRAIN] 250 mg PO DAILY #6 tab 04/06/16 01/05/17 Unknown Rx Benzonatate [Tessalon Perles] 100 mg PO Q8HR #20 capsule 04/06/16 01/05/17 Unknown Rx levETIRAcetam [Keppra TAB] 500 mg PO BID #60 tablet 04/06/16 01/05/17 Unknown Rx Folic Acid [Folvite] 1 mg PO QDAY #30 tablet 01/07/17 Unknown Rx Nicotine [Habitrol] 14 mg TD QDAY #30 patch 01/07/17 Unknown Rx Thiamine [Vitamin B-1] 100 mg PO QDAY #30 tablet 01/07/17 Unknown Rx levETIRAcetam [Keppra] 500 mg PO BID #60 tablet 04/02/17 Unknown Rx ALBUTEROL Inhaler [ProAir HFA 2 puff IH QID PRN #1 inhalation 05/13/17 Unknown Rx Inhaler] Amoxicillin [Amoxicillin TAB] 875 mg PO BID #14 tablet 05/13/17 Unknown Rx Prednisone [predniSONE 10 mg 10 mg PO .TAPER #1 tab.ds.pk 05/13/17 Unknown Rx (6-Day Pack, 21 Tabs)] Active Meds: Active Medications Folic Acid 1 mg/ Multivitamins /Minerals 10 ml/ Thiamine HCl 100 mg/ Sodium Chloride 1,000 mls @ 125 mls/hr IV .BY DURATION [facility] Last Admin: 09/28/17 20:51 Dose: 125 mls/hr Sodium Chloride (Nacl 0.9% 1000 Ml) 1,000 mls @ 125 mls/hr IV .BY DURATION [facility] Exam - Physical Exam Narrative exam: Gen. appearance: Patient lying in bed, no apparent distress HEENT: Normocephalic, atraumatic, pupils equally round and reactive to light, extraocular movement intact, and no sclericterus,. No JVD or thyromegaly or nodule,neck supple, no carotid bruit ,mucous membranes moist, no exudate or erythema Heart: S1, S2, regular rate and rhythm Lungs: Clear to auscultation bilaterally, breathing comfortable Abdomen: Positive bowel sounds, nontender, nondistended, no organomegaly Extremity: No edema, cyanosis, clubbing Skin: No rash, nodules, warm, dry Neuro: Oriented 3, cranial nerves II-12 intact, speech is fluent, motor and sensory intact - Constitutional Vitals: Temp Pulse Resp BP Pulse Ox 97.5 F L 51 L 18 152/75 98 09/28/17 01:36 09/28/17 18:30 09/28/17 19:16 09/28/17 20:46 09/28/17 20:46 Results - Labs CBC & Chem 7: 09/28/17 01:58 09/28/17 01:58 Labs: Abnormal lab results 09/28/17 09/28/17 09/28/17 Range/Units 01:58 01:58 01:58 WBC (4.5-11.0) K/mm3 MCV (84-94) fl MCH (28-32) pg RDW (13.2-15.2) % Plt Count (140-440) K/mm3 [place] % (Auto) (0.0-7.3) % Lymph # (1.2-5.4) K/mm3 APTT (24.2-36.6) Sec. BUN 7 L (9-20) mg/dL Calcium 8.2 L (8.4-10.2) mg/dL AST (5-40) units/L ALT (7-56) units/L Total Creatine Kinase (55-170) units/L Salicylates < 0.3 L (2.8-20.0) mg/dL Acetaminophen < 5.0 L (10.0-30.0) ug/mL Plasma/Serum Alcohol (0-0.07) % 09/28/17 09/28/17 09/28/17 Range/Units 01:58 01:58 18:07 WBC 3.1 L (4.5-11.0) K/mm3 MCV 98 H (84-94) fl MCH 33 H (28-32) pg RDW 16.5 H (13.2-15.2) % Plt Count 104 L (140-440) K/mm3 [place] % (Auto) 12.8 H (0.0-7.3) % Lymph # 0.7 L (1.2-5.4) K/mm3 APTT 23.8 L (24.2-36.6) Sec. BUN (9-20) mg/dL Calcium (8.4-10.2) mg/dL AST (5-40) units/L ALT (7-56) units/L Total Creatine Kinase (55-170) units/L Salicylates (2.8-20.0) mg/dL Acetaminophen (10.0-30.0) ug/mL Plasma/Serum Alcohol 0.30 H (0-0.07) % 09/28/17 Range/Units 18:07 WBC (4.5-11.0) K/mm3 MCV (84-94) fl MCH (28-32) pg RDW (13.2-15.2) % Plt Count (140-440) K/mm3 [place] % (Auto) (0.0-7.3) % Lymph # (1.2-5.4) K/mm3 APTT (24.2-36.6) Sec. BUN (9-20) mg/dL Calcium (8.4-10.2) mg/dL AST 147 H (5-40) units/L ALT 86 H (7-56) units/L Total Creatine Kinase 869 H (55-170) units/L Salicylates (2.8-20.0) mg/dL Acetaminophen (10.0-30.0) ug/mL Plasma/Serum Alcohol (0-0.07) % - Imaging and Cardiology Chest x-ray: image reviewed CT Scan - head: report reviewed Assessment and Plan Assessment Delirium tremens Alcohol abuse Suicide ideation Hypertension Depression Thrombocytopenia Plan Admit to medicine Start CIWA protocol with IV Ativan Place on suicide precaution, consult psych DVT prophylaxis
[2017-09-29] MEDS ORDERED: ATIVAN ONE (00:01)
[2017-09-29] MEDS ORDERED: NACL 0.9% 1000 ML 1,000 ML ONE (00:02)
[2017-09-29 00:10] LABS: Bilirubin,Urine NEG (Negative); Blood,Urine SM (Negative); Color,Urine Yellow (Yellow); Protein,Urine <15 mg/dL mg/dL (Negative); Urobilinogen,Urine < 2.0 mg/dL (<2.0); WBC,Urine < 1.0 /HPF (0.0-6.0)
[2017-09-29] MEDS: ATIVAN IV PRN ×4 (00:15→18:55)
[2017-09-29] MEDS: NACL 0.9% 1000 ML 1,000 ML IV SCH ×2 (00:22→19:06)
[2017-09-29 00:25] LABS: Amphetamine Screen,Urine PRESUMPTIVE NEGATIVE; Benzodiazepines Screen,Urine PRESUMPTIVE NEGATIVE; Cannabinoid Screen,Urine PRESUMPTIVE NEGATIVE; Methadone Screen,Urine PRESUMPTIVE NEGATIVE; Opiate Screen,Urine PRESUMPTIVE NEGATIVE
[2017-09-29 00:40] LABS: Cocaine Screen,Urine PRESUMPTIVE POSITIVE
[2017-09-29] MEDS ORDERED: LOMOTIL PO ONE (01:54)
[2017-09-29 07:00] LABS: Eosinophils # (Auto) 0.1 K/mm3 (0.0-0.4); Eosinophils % (Auto) 2.5 % (0.0-4.3); Hematocrit 38.6 % (35.5-45.6); Hemoglobin 13.2 gm/dl (11.8-15.2); Lymphocytes # (Auto) 0.7 K/mm3 (1.2-5.4); Lymphocytes % (Auto) 18.6 % (13.4-35.0); Mean Corpuscular HGB Conc 34 % (32-34); Mean Corpuscular Hemoglobin 34 pg (28-32); Mean Corpuscular Volume 97 fl (84-94); Monocytes # (Auto) 0.6 K/mm3 (0.0-0.8); Monocytes % (Auto) 14.7 % (0.0-7.3); Platelet Count 82 K/mm3 (140-440); Red Blood Count 3.96 M/mm3 (3.65-5.03); Red Cell Distribution Width 15.6 % (13.2-15.2)
[2017-09-29 07:14] LABS: BUN/Creatinine Ratio 9; Blood Urea Nitrogen 7 mg/dL (9-20); Calcium 8.5 mg/dL (8.4-10.2); Hemolysis Index 8
[2017-09-29] MEDS: FOLVITE PO SCH (10:22)
[2017-09-29] MEDS: VITAMIN B-1 PO SCH (10:22)
[2017-09-29] MEDS: SODIUM CHLORIDE FLUSH SYRINGE 10 ML IV SCH ×2 (10:22→22:17)
[2017-09-29] MEDS: KEPPRA PO SCH ×2 (10:22→22:16)
--- NOTE | 2017-09-29 10:53 | Progress Note ---
Assessment and Plan Assessment and plan: Suicidal ideation. Per the emergency room documentation, he stated that he wanted to kill himself. Continue 1013. Await psychiatric evaluation. Depression. As above. Hypertension. Continue antihypertensive medications. EtOH withdrawal. Continue CIWA protocol. History Interval history: No new issues overnight. Hospitalist Physical - Constitutional Vitals: Temp Pulse Resp BP Pulse Ox 98.1 F 74 16 134/64 100 09/29/17 00:00 09/29/17 00:00 09/29/17 00:00 09/29/17 06:00 09/29/17 06:00 General appearance: Present: no acute distress, well-nourished - EENT Eyes: Present: PERRL, EOM intact ENT: hearing intact, clear oral mucosa, dentition normal - Neck Neck: Present: supple, normal ROM - Respiratory Respiratory effort: normal Respiratory: bilateral: CTA - Cardiovascular Rhythm: regular Heart Sounds: Present: S1 & S2. Absent: gallop, rub - Extremities Extremities: no ischemia, No edema, Full ROM - Abdominal General gastrointestinal: soft, non-tender, non-distended, normal bowel sounds - Integumentary Integumentary: Present: clear, warm, dry - Neurologic Neurologic: CNII-XII intact, moves all extremities Results - Labs CBC & Chem 7: 09/29/17 06:52 09/29/17 06:52 Labs: Laboratory Last Values WBC 3.8 K/mm3 (4.5-11.0) L 09/29/17 06:52 RBC 3.96 M/mm3 (3.65-5.03) 09/29/17 06:52 Hgb 13.2 gm/dl (11.8-15.2) 09/29/17 06:52 Hct 38.6 % (35.5-45.6) 09/29/17 06:52 MCV 97 fl (84-94) H 09/29/17 06:52 MCH 34 pg (28-32) H 09/29/17 06:52 MCHC 34 % (32-34) 09/29/17 06:52 RDW 15.6 % (13.2-15.2) H 09/29/17 06:52 Plt Count 82 K/mm3 (140-440) L 09/29/17 06:52 Lymph % (Auto) 18.6 % (13.4-35.0) 09/29/17 06:52 [place] % (Auto) 14.7 % (0.0-7.3) H 09/29/17 06:52 Eos % (Auto) 2.5 % (0.0-4.3) 09/29/17 06:52 Baso % (Auto) 1.0 % (0.0-1.8) 09/29/17 06:52 Lymph # 0.7 K/mm3 (1.2-5.4) L 09/29/17 06:52 [place] # 0.6 K/mm3 (0.0-0.8) 09/29/17 06:52 Eos # 0.1 K/mm3 (0.0-0.4) 09/29/17 06:52 Baso # 0.0 K/mm3 (0.0-0.1) 09/29/17 06:52 Seg Neutrophils % 63.2 % (40.0-70.0) 09/29/17 06:52 Seg Neutrophils # 2.4 K/mm3 (1.8-7.7) 09/29/17 06:52 PT 12.2 Sec. (12.2-14.9) 09/28/17 18:07 INR 0.87 (0.87-1.13) 09/28/17 18:07 APTT 23.8 Sec. (24.2-36.6) L 09/28/17 18:07 Sodium 137 mmol/L (137-145) 09/29/17 06:52 Potassium 3.7 mmol/L (3.6-5.0) 09/29/17 06:52 Chloride 95.9 mmol/L (98-107) L 09/29/17 06:52 Carbon Dioxide 23 mmol/L (22-30) 09/29/17 06:52 Anion Gap 22 mmol/L 09/29/17 06:52 BUN 7 mg/dL (9-20) L 09/29/17 06:52 Creatinine 0.8 mg/dL (0.8-1.5) 09/29/17 06:52 Estimated GFR > 60 ml/min 09/29/17 06:52 BUN/Creatinine Ratio 9 % 09/29/17 06:52 Glucose 66 mg/dL (75-100) L 09/29/17 06:52 POC Glucose 86 (70-105) 09/28/17 16:02 Calcium 8.5 mg/dL (8.4-10.2) 09/29/17 06:52 Magnesium 1.90 mg/dL (1.7-2.3) 09/28/17 01:58 Total Bilirubin 0.50 mg/dL (0.1-1.2) 09/28/17 18:07 Direct Bilirubin < 0.2 mg/dL (0-0.2) 09/28/17 18:07 Indirect Bilirubin 0.3 mg/dL 09/28/17 18:07 AST 147 units/L (5-40) H 09/28/17 18:07 ALT 86 units/L (7-56) H 09/28/17 18:07 Alkaline Phosphatase 73 units/L (35-129) 09/28/17 18:07 Ammonia 37.0 umol/L (25-60) 09/28/17 18:07 Total Creatine Kinase 869 units/L (55-170) H 09/28/17 18:07 CK-MB (CK-2) 2.4 ng/mL (0.0-4.0) 09/28/17 18:07 CK-MB (CK-2) Rel Index 0.2 (0-4) 09/28/17 18:07 NT-Pro-B Natriuret Pep 30.73 pg/mL (0-450) 09/28/17 18:07 Total Protein 7.1 g/dL (6.3-8.2) 09/28/17 18:07 Albumin 4.1 g/dL (3.9-5) 09/28/17 18:07 Albumin/Globulin Ratio 1.4 % 09/28/17 18:07 Urine Color Yellow (Yellow) 09/28/17 23:51 Urine Turbidity Clear (Clear) 09/28/17 23:51 Urine pH 7.0 (5.0-7.0) 09/28/17 23:51 Ur Specific [place] 1.010 (1.003-1.030) 09/28/17 23:51 Urine Protein <15 mg/dl mg/dL (Negative) 09/28/17 23:51 Urine Glucose (UA) Neg mg/dL (Negative) 09/28/17 23:51 Urine Ketones 20 mg/dL (Negative) 09/28/17 23:51 Urine Blood Sm (Negative) 09/28/17 23:51 Urine Nitrite Neg (Negative) 09/28/17 23:51 Urine Bilirubin Neg (Negative) 09/28/17 23:51 Urine Urobilinogen < 2.0 mg/dL (<2.0) 09/28/17 23:51 Ur Leukocyte Esterase Neg (Negative) 09/28/17 23:51 Urine WBC (Auto) < 1.0 /HPF (0.0-6.0) 09/28/17 23:51 Urine RBC (Auto) 1.0 /HPF (0.0-6.0) 09/28/17 23:51 Salicylates < 0.3 mg/dL (2.8-20.0) L 09/28/17 01:58 Urine Opiates Screen Presumptive negative 09/28/17 23:51 Urine Methadone Screen Presumptive negative 09/28/17 23:51 Acetaminophen < 5.0 ug/mL (10.0-30.0) L 09/28/17 01:58 Ur Barbiturates Screen Presumptive negative 09/28/17 23:51 Ur Phencyclidine Scrn Presumptive negative 09/28/17 23:51 Ur Amphetamines Screen Presumptive negative 09/28/17 23:51 U Benzodiazepines Scrn Presumptive negative 09/28/17 23:51 Urine Cocaine Screen Presumptive positive 09/28/17 23:51 U Marijuana (THC) Screen Presumptive negative 09/28/17 23:51 Drugs of Abuse Note Disclamer 09/28/17 23:51 Plasma/Serum Alcohol 0.30 % (0-0.07) H 09/28/17 01:58
[2017-09-29] MEDS ORDERED: Fluarix Quad 2017-2018(36 MOS+ IM ONE (12:00)
[2017-09-29] MEDS ORDERED: PNEUMOVAX 23 IM ONE (12:00)
[2017-09-30] MEDS: ATIVAN IV PRN (00:46)
[2017-09-30] MEDS: NACL 0.9% 1000 ML 1,000 ML IV SCH (06:41)
--- NOTE | 2017-09-30 08:28 | Discharge Summary ---
Providers - Providers Date of Admission: 09/28/17 19:40 Date of discharge: 10/01/17 Attending physician: EMIL OMALLEY 09/29/17 08:00 psychiatry consult [Consult to Mental Health] [CONS] Routine Reason For Exam: SI Place consult to:: afia Notified:: jeremy Phone number called:: [phone] Was contact made?: Yes If yes, spoke with:: berry Time called:: 16:06 Primary care physician: [facility] Hospitalization Reason for admission: general malaise, ? sz Condition: Stable Hospital course: This is a 46-year-old male alcoholic and homeless with a history of seizures noncompliant with Keppra. The patient stated that he does principally have seizures when he stops drinking. He arrived at this facility and apparently had social issues. He stated to the ER physician that he wanted to get help with his drinking because it was "making me sick". He denids telling the triage nurse that he wanted to kill himself. However the triage note states "wants to drink himself to ". The patient apparently was in the waiting room for quite some time. Apparently he went outside and was considered to be an elopement. However, he was found after he had a seizure. He was brought back to this emergency department for further evaluation. The patient was admitted for alcohol withdrawal and seizure disorder. Mental health evaluated the patient and rescinded and referred to outpatient facility. Psychiatry reported no active suicidal or homicidal ideation. Patient was treated with his home dose of Keppra 500 mg by mouth twice a day and had no further seizure activity during hospitalization. Patient was placed on CIWA protocol and was stabilized. PT evaluated the patient and recommended home health PT. Dedicated discharge time 32 minutes. Disposition: TO HOME OR SELFCARE Time spent for discharge: 32 - Discharge Diagnoses (1) Alcohol withdrawal Status: Acute Qualifiers: Complication of substance-induced condition: with delirium Qualified Code(s ): F10.231 - Alcohol dependence with withdrawal delirium (2) Seizure Status: Acute (3) Alcohol intoxication Status: Acute Qualifiers: Complication of substance-induced condition: uncomplicated Qualified Code(s ): F10.920 - Alcohol use, unspecified with intoxication, uncomplicated Core Measure Documentation - Palliative Care Palliative Care/ Comfort Measures: Not Applicable - Core Measures Any of the following diagnoses?: none Exam - Constitutional Vitals: Temp Pulse Resp BP Pulse Ox 98.6 F 73 20 158/102 95 09/30/17 04:07 09/30/17 04:07 09/30/17 04:07 09/30/17 04:07 09/30/17 04:07 General appearance: Present: no acute distress, well-nourished - EENT Eyes: Present: PERRL ENT: hearing intact, clear oral mucosa - Neck Neck: Present: supple, normal ROM - Respiratory Respiratory effort: normal Respiratory: bilateral: CTA - Cardiovascular Heart Sounds: Present: S1 & S2. Absent: rub, click - Extremities Extremities: pulses symmetrical, No edema Peripheral Pulses: within normal limits - Abdominal General gastrointestinal: Present: soft, non-tender, non-distended, normal bowel sounds Male genitourinary: Present: normal - Integumentary Integumentary: Present: clear, warm, dry - Musculoskeletal Musculoskeletal: gait normal, strength equal bilaterally - Psychiatric Psychiatric: appropriate mood/affect, intact judgment & insight - Neurologic Neurologic: CNII-XII intact, moves all extremities Plan Activity: no restrictions Weight Bearing Status: Weight Bear as Tolerated Diet: regular Special Instructions: other (Outpatient rehab per Psych and Case management) Follow up with: PRIMARY CARE, [Primary Care Provider] - 3-5 Days Prescriptions: ALBUTEROL Inhaler [ProAir HFA Inhaler] 2 puff IH QID PRN #1 inhalation PRN Reason: Shortness Of Breath ALBUTEROL Inhaler [ProAir HFA Inhaler] 2 puff IH QID PRN #1 inhalation PRN Reason: Shortness Of Breath Folic Acid [Folvite] 1 mg PO QDAY #30 tablet levETIRAcetam [Keppra] 500 mg PO BID #60 tablet Thiamine [Vitamin B-1] 100 mg PO QDAY #30 tablet
[2017-09-30 09:41] VITALS: BP 153/96
[2017-09-30] MEDS: SODIUM CHLORIDE FLUSH SYRINGE 10 ML IV SCH (10:00)
[2017-09-30] MEDS: KEPPRA PO SCH (10:55)
[2017-09-30] MEDS: VITAMIN B-1 PO SCH (10:55)
[2017-09-30] MEDS: FOLVITE PO SCH (10:55)
--- NOTE | 2017-09-30 11:21 | Progress Note ---
Assessment and Plan Assessment and plan: Suicidal ideation. Mental health reports no suicidal or homicidal ideation. has been rescinded. Depression. As above. Hypertension. Continue antihypertensive medications. EtOH withdrawal. Continue CIWA protocol. Generalized weakness. PT evaluation. Consider rehabilitation placement. - Patient Problems (1) Alcohol withdrawal Current Visit: Yes Status: Acute Qualifiers: Complication of substance-induced condition: with delirium Qualified Code(s ): F10.231 - Alcohol dependence with withdrawal delirium (2) Seizure Current Visit: Yes Status: Acute (3) Alcohol intoxication Current Visit: No Status: Acute Qualifiers: Complication of substance-induced condition: uncomplicated Qualified Code(s ): F10.920 - Alcohol use, unspecified with intoxication, uncomplicated History Interval history: No new issues overnight. Hospitalist Physical - Constitutional Vitals: Temp Pulse Resp BP Pulse Ox 98.2 F 73 16 153/96 97 09/30/17 07:22 09/30/17 07:22 09/30/17 07:22 09/30/17 07:22 09/30/17 09:47 General appearance: Present: no acute distress, well-nourished - EENT Eyes: Present: PERRL, EOM intact ENT: hearing intact, clear oral mucosa, dentition normal - Neck Neck: Present: supple, normal ROM - Respiratory Respiratory effort: normal Respiratory: bilateral: CTA - Cardiovascular Rhythm: regular Heart Sounds: Present: S1 & S2. Absent: gallop, rub - Extremities Extremities: no ischemia, No edema, Full ROM - Abdominal General gastrointestinal: soft, non-tender, non-distended, normal bowel sounds - Integumentary Integumentary: Present: clear, warm, dry - Neurologic Neurologic: CNII-XII intact, moves all extremities Results - Labs CBC & Chem 7: 09/29/17 06:52 09/29/17 06:52 Labs: Laboratory Last Values WBC 3.8 K/mm3 (4.5-11.0) L 09/29/17 06:52 RBC 3.96 M/mm3 (3.65-5.03) 09/29/17 06:52 Hgb 13.2 gm/dl (11.8-15.2) 09/29/17 06:52 Hct 38.6 % (35.5-45.6) 09/29/17 06:52 MCV 97 fl (84-94) H 09/29/17 06:52 MCH 34 pg (28-32) H 09/29/17 06:52 MCHC 34 % (32-34) 09/29/17 06:52 RDW 15.6 % (13.2-15.2) H 09/29/17 06:52 Plt Count 82 K/mm3 (140-440) L 09/29/17 06:52 Lymph % (Auto) 18.6 % (13.4-35.0) 09/29/17 06:52 [place] % (Auto) 14.7 % (0.0-7.3) H 09/29/17 06:52 Eos % (Auto) 2.5 % (0.0-4.3) 09/29/17 06:52 Baso % (Auto) 1.0 % (0.0-1.8) 09/29/17 06:52 Lymph # 0.7 K/mm3 (1.2-5.4) L 09/29/17 06:52 [place] # 0.6 K/mm3 (0.0-0.8) 09/29/17 06:52 Eos # 0.1 K/mm3 (0.0-0.4) 09/29/17 06:52 Baso # 0.0 K/mm3 (0.0-0.1) 09/29/17 06:52 Seg Neutrophils % 63.2 % (40.0-70.0) 09/29/17 06:52 Seg Neutrophils # 2.4 K/mm3 (1.8-7.7) 09/29/17 06:52 PT 12.2 Sec. (12.2-14.9) 09/28/17 18:07 INR 0.87 (0.87-1.13) 09/28/17 18:07 APTT 23.8 Sec. (24.2-36.6) L 09/28/17 18:07 Sodium 137 mmol/L (137-145) 09/29/17 06:52 Potassium 3.7 mmol/L (3.6-5.0) 09/29/17 06:52 Chloride 95.9 mmol/L (98-107) L 09/29/17 06:52 Carbon Dioxide 23 mmol/L (22-30) 09/29/17 06:52 Anion Gap 22 mmol/L 09/29/17 06:52 BUN 7 mg/dL (9-20) L 09/29/17 06:52 Creatinine 0.8 mg/dL (0.8-1.5) 09/29/17 06:52 Estimated GFR > 60 ml/min 09/29/17 06:52 BUN/Creatinine Ratio 9 % 09/29/17 06:52 Glucose 66 mg/dL (75-100) L 09/29/17 06:52 POC Glucose 86 (70-105) 09/28/17 16:02 Calcium 8.5 mg/dL (8.4-10.2) 09/29/17 06:52 Magnesium 1.90 mg/dL (1.7-2.3) 09/28/17 01:58 Total Bilirubin 0.50 mg/dL (0.1-1.2) 09/28/17 18:07 Direct Bilirubin < 0.2 mg/dL (0-0.2) 09/28/17 18:07 Indirect Bilirubin 0.3 mg/dL 09/28/17 18:07 AST 147 units/L (5-40) H 09/28/17 18:07 ALT 86 units/L (7-56) H 09/28/17 18:07 Alkaline Phosphatase 73 units/L (35-129) 09/28/17 18:07 Ammonia 37.0 umol/L (25-60) 09/28/17 18:07 Total Creatine Kinase 869 units/L (55-170) H 09/28/17 18:07 CK-MB (CK-2) 2.4 ng/mL (0.0-4.0) 09/28/17 18:07 CK-MB (CK-2) Rel Index 0.2 (0-4) 09/28/17 18:07 NT-Pro-B Natriuret Pep 30.73 pg/mL (0-450) 09/28/17 18:07 Total Protein 7.1 g/dL (6.3-8.2) 09/28/17 18:07 Albumin 4.1 g/dL (3.9-5) 09/28/17 18:07 Albumin/Globulin Ratio 1.4 % 09/28/17 18:07 Urine Color Yellow (Yellow) 09/28/17 23:51 Urine Turbidity Clear (Clear) 09/28/17 23:51 Urine pH 7.0 (5.0-7.0) 09/28/17 23:51 Ur Specific [place] 1.010 (1.003-1.030) 09/28/17 23:51 Urine Protein <15 mg/dl mg/dL (Negative) 09/28/17 23:51 Urine Glucose (UA) Neg mg/dL (Negative) 09/28/17 23:51 Urine Ketones 20 mg/dL (Negative) 09/28/17 23:51 Urine Blood Sm (Negative) 09/28/17 23:51 Urine Nitrite Neg (Negative) 09/28/17 23:51 Urine Bilirubin Neg (Negative) 09/28/17 23:51 Urine Urobilinogen < 2.0 mg/dL (<2.0) 09/28/17 23:51 Ur Leukocyte Esterase Neg (Negative) 09/28/17 23:51 Urine WBC (Auto) < 1.0 /HPF (0.0-6.0) 09/28/17 23:51 Urine RBC (Auto) 1.0 /HPF (0.0-6.0) 09/28/17 23:51 Salicylates < 0.3 mg/dL (2.8-20.0) L 09/28/17 01:58 Urine Opiates Screen Presumptive negative 09/28/17 23:51 Urine Methadone Screen Presumptive negative 09/28/17 23:51 Acetaminophen < 5.0 ug/mL (10.0-30.0) L 09/28/17 01:58 Ur Barbiturates Screen Presumptive negative 09/28/17 23:51 Ur Phencyclidine Scrn Presumptive negative 09/28/17 23:51 Ur Amphetamines Screen Presumptive negative 09/28/17 23:51 U Benzodiazepines Scrn Presumptive negative 09/28/17 23:51 Urine Cocaine Screen Presumptive positive 09/28/17 23:51 U Marijuana (THC) Screen Presumptive negative 09/28/17 23:51 Drugs of Abuse Note Disclamer 09/28/17 23:51 Plasma/Serum Alcohol 0.30 % (0-0.07) H 09/28/17 01:58
== END 2017-09-30 16:00 | disposition home health service (06) | DRG 101 ==
LOC: ED 01:00 → 4A 19:40 → 3A 09-29 09:24
PROVIDERS: ADMIT Internal Medicine; ATTEND Hospitalist
PROC: 3E0234Z Introduction of Serum, Toxoid and Vaccine into Muscle, Percutaneous Approach (ICD-10-PCS; principal; 2017-09-29)
DX: G40.909 Epilepsy, unspecified, not intractable, without status epilepticus (principal); F10.221 Alcohol dependence with intoxication delirium; F10.231 Alcohol dependence with withdrawal delirium; R45.851 Suicidal ideations; I10 Essential (primary) hypertension; F32.9 Major depressive disorder, single episode, unspecified; F17.200 Nicotine dependence, unspecified, uncomplicated; D69.6 Thrombocytopenia, unspecified; Z79.899 Other long term (current) drug therapy; Z82.49 Family history of ischemic heart disease and other diseases of the circulatory system; Z23 Encounter for immunization
CPT/HCPCS: 36415; 70450; 71045; 80048; 80074; 80307; 80320; 81001; 82140; 82550; 82553; 82962; 83735; 83880; 85025; 85610; 85730; 90686; 90732; 93005; 93010; 99406; G0480; J1953; J2060; J3411; J7030

== ENCOUNTER 2017-11-25 17:11 | Emergency (ER) | payer SELFPAY ==
[2017-11-25] MEDS ORDERED: NACL 0.9% 1000 ML 1,000 ML ONE (17:24)
[2017-11-25] MEDS ORDERED: NACL 0.9% 1000 ML 1,000 ML IV ONE (17:31)
[2017-11-25 18:12] LABS: Alanine Aminotransferase 78 units/L (7-56); Albumin 4.2 g/dL (3.9-5); BUN/Creatinine Ratio 10; Blood Urea Nitrogen 7 mg/dL (9-20); Calcium 8.4 mg/dL (8.4-10.2); Hemolysis Index 1
[2017-11-25 21:25] LABS: Hematocrit 36.9 % (35.5-45.6); Hemoglobin 12.3 gm/dl (11.8-15.2); Mean Corpuscular HGB Conc 33 % (32-34); Mean Corpuscular Hemoglobin 34 pg (28-32); Mean Corpuscular Volume 101 fl (84-94); Platelet Count 120 K/mm3 (140-440); Red Blood Count 3.65 M/mm3 (3.65-5.03); Red Cell Distribution Width 15.9 % (13.2-15.2)
--- NOTE | 2017-11-25 21:34 | Emergency Department Report ---
HPI - General Chief Complaint: Medical Clearance Time Seen by Provider: 11/25/17 21:06 - HPI HPI: 47-year-old after an [place] male presents to the emergency department by EMS after some unknown third democrat called 911 regarding finding a person passed out any parking [place] [address] Patient is currently awake and appears oriented and admits to drinking today as he does mostly every day. He otherwise has a past history of asthma and hypertension. He currently has no complaints. He does say that he has some history of problems with alcohol withdrawal. Currently he denies any nausea, vomiting, fever, dizziness, chest pain or shortness of breath. ED Past Medical Hx - Past Medical History Hx Hypertension: Yes Hx Diabetes: No Hx Seizures: Yes Hx Psychiatric Treatment: Yes (Prior Suicidal, Depression) Hx Asthma: Yes Hx COPD: No Additional medical history: TENDONITIS, ETOH - Surgical History Additional Surgical History: L reconstructive knee surgery - Social History Smoking Status: Current Every Day Smoker Substance Use Type: Alcohol - Medications Home Medications: Home Medications Medication Instructions Recorded Confirmed Last Taken Type HYDROcodone/APAP 5-325 [[place] 1 each PO Q6HR PRN #10 tablet 05/31/14 09/29/17 2 Days Ago Rx 5-325 mg TAB] ~02/18/15 Azithromycin [Zithromax Z-BRAIN] 250 mg PO DAILY #6 tab 04/06/16 09/29/17 Unknown Rx Benzonatate [Tessalon Perles] 100 mg PO Q8HR #20 capsule 04/06/16 09/29/17 Unknown Rx levETIRAcetam [Keppra TAB] 500 mg PO BID #60 tablet 04/06/16 09/29/17 Unknown Rx Nicotine [Habitrol] 14 mg TD QDAY #30 patch 01/07/17 09/29/17 Unknown Rx Amoxicillin [Amoxicillin TAB] 875 mg PO BID #14 tablet 05/13/17 09/29/17 Unknown Rx Prednisone [predniSONE 10 mg 10 mg PO .TAPER #1 tab.ds.pk 05/13/17 09/29/17 Unknown Rx (6-Day Pack, 21 Tabs)] ALBUTEROL Inhaler [ProAir HFA 2 puff IH QID PRN #1 inhalation 09/30/17 Unknown Rx Inhaler] ALBUTEROL Inhaler [ProAir HFA 2 puff IH QID PRN #1 inhalation 09/30/17 Unknown Rx Inhaler] Folic Acid [Folvite] 1 mg PO QDAY #30 tablet 09/30/17 Unknown Rx Thiamine [Vitamin B-1] 100 mg PO QDAY #30 tablet 09/30/17 Unknown Rx levETIRAcetam [Keppra] 500 mg PO BID #60 tablet 09/30/17 Unknown Rx ED Review of Systems ROS: Stated complaint: ETOH Other details as noted in HPI Comment: All other systems reviewed and negative Constitutional: denies: chills, fever Eyes: denies: eye pain, eye discharge, vision change ENT: denies: ear pain, throat pain Respiratory: denies: cough, shortness of breath, wheezing Cardiovascular: denies: chest pain, palpitations Gastrointestinal: denies: abdominal pain, nausea, diarrhea Genitourinary: denies: urgency, dysuria Musculoskeletal: denies: back pain, joint swelling, arthralgia Skin: denies: rash, lesions Neurological: denies: headache, weakness, paresthesias Physical Exam - Physical Exam Vital Signs: Vital Signs 11/25/17 17:20 Temperature 98.6 F Pulse Rate 90 Respiratory 14 Rate Blood Pressure 103/61 O2 Sat by Pulse 91 Oximetry Physical Exam: GENERAL: The patient is well-developed well-nourished. HENT: Normocephalic. Atraumatic. Patient has moist mucous membranes. EYES: Extraocular motions are intact. Pupils equal reactive to light bilaterally. NECK: Supple. Trachea is midline. CHEST/LUNGS: Clear to auscultation. There is no respiratory distress noted. HEART/CARDIOVASCULAR: Regular. There is no tachycardia. There is no murmur. ABDOMEN: Abdomen is soft, nontender. Patient has normal bowel sounds. There is no abdominal distention. SKIN: Skin is warm and dry. NEURO: The patient is awake, alert, and oriented but does appear intoxicated. The patient is cooperative. The patient has no focal neurologic deficits. The patient has normal speech. Cranial nerves II through XII grossly intact. MUSCULOSKELETAL: There is no tenderness or deformity. There is no limitation range of motion. There is no evidence of acute injury. ED Course Vital Signs 11/25/17 17:20 Temperature 98.6 F Pulse Rate 90 Respiratory 14 Rate Blood Pressure 103/61 O2 Sat by Pulse 91 Oximetry ED Medical Decision Making - Lab Data Result diagrams: 11/25/17 21:12 11/25/17 17:36 - Medical Decision Making This patient, who admits to history of alcohol abuse, presents intoxicated but awake, alert and oriented with a blood level of 0.4. He was given IV fluid resuscitation including a banana bag with vitamins, folic Acid. His urine drug screen was also positive for cocaine but unknown if he did that this evening or in the last 2-3 days. The patient remained in the emergency department during most of my shift where he was continuously monitored and reevaluated. At about 3 in the morning his blood alcohol level was down to 0.19. Just prior to leaving my shift, I ordered a blood alcohol level to be checked at around 8 AM and he was signed out to my colleague that if the blood alcohol level went down past the legal limit and there were no signs of any withdrawal complications and the patient could be discharged. I can see the nursing note showing that the patient was ambulatory prior to discharge without any signs of instability. His blood alcohol level was down to 0.1 around 8 AM and the patient was discharged around 10 AM. - Differential Diagnosis alcohol abuse, alcohol intoxication, polysubstance abuse, TIA, CVA Critical Care Time: No Critical care attestation.: If time is entered above; I have spent that time in minutes in the direct care of this critically ill patient, excluding procedure time. ED Disposition Clinical Impression: Thrombocytopenia Alcohol intoxication Qualifiers: Complication of substance-induced condition: uncomplicated Qualified Code(s): F10.920 - Alcohol use, unspecified with intoxication, uncomplicated Disposition: DC-01 TO HOME OR SELFCARE Is pt being admited?: No Condition: Stable Instructions: Cocaine Abuse (ED), Alcohol Intoxication (ED) Additional Instructions: Please try and quit drinking. He stayed away from any cocaine or any other illicit drug use or abuse. I have given you referrals for both the [facility] for your addictions and [facility] for primary care needs. Return to the emergency Department with any worsening of your symptoms or any acute distress. Referrals: [facility] [Outside] - 3-5 Days [facility] [Outside] - 3-5 Days
[2017-11-25 21:53] LABS: Bilirubin,Urine NEG (Negative); Blood,Urine NEG (Negative); Color,Urine Yellow (Yellow); Mucus,Urine FEW /HPF; Protein,Urine <15 mg/dL mg/dL (Negative); Urobilinogen,Urine < 2.0 mg/dL (<2.0)
[2017-11-25] MEDS ORDERED: VITAMIN B-1 100 MG, FOLVITE 1 MG, INFUVITE 10 ML in NACL 0.9% 1000 ML 1,000 ML IV ONE (22:00)
[2017-11-25 22:06] LABS: WBC,Urine < 1.0 /HPF (0.0-6.0)
[2017-11-25 22:08] LABS: Amphetamine Screen,Urine PRESUMPTIVE NEGATIVE; Benzodiazepines Screen,Urine PRESUMPTIVE NEGATIVE; Cannabinoid Screen,Urine PRESUMPTIVE NEGATIVE; Methadone Screen,Urine PRESUMPTIVE NEGATIVE; Opiate Screen,Urine PRESUMPTIVE NEGATIVE
[2017-11-25 22:12] LABS: Basophils % (Manual) 0 % (0.0-1.8); Eosinophils % (Manual) 0 % (0.0-4.3); Total Cells Counted 100
[2017-11-25 22:13] LABS: Macrocytosis 1+; Platelet Estimate Consistent w Auto
[2017-11-25 22:14] LABS: Poikilocytosis 1+
[2017-11-25 22:24] LABS: Cocaine Screen,Urine PRESUMPTIVE POSITIVE
[2017-11-25] MEDS ORDERED: DUONEB *Not for PRN Use IH ONE (23:38)
[2017-11-25] MEDS ORDERED: ATIVAN IV ONE (23:39)
[2017-11-25] MEDS ORDERED: KEPPRA 1,000 MG/NS 0.75% 100ML 1,000 MG/100 ML BAG IV ONE (23:39)
--- NOTE | 2017-11-26 09:13 | Emergency Department Report ---
HPI - General Chief Complaint: Medical Clearance Time Seen by Provider: 11/25/17 21:06 - HPI HPI: Patient was signed out to me to check her blood alcohol at 9:00 and descended the patient. On reevaluation, patient is awake a lot and oriented 4. He was fed breakfast. He was able to walk in the ED a steady gait. Patient is clinically sober at this time, and will be discharged home to follow-up with his primary care provider. He was counseled to stop drinking alcohol and using drugs. ED Past Medical Hx - Past Medical History Hx Hypertension: Yes Hx Diabetes: No Hx Seizures: Yes Hx Psychiatric Treatment: Yes (Prior Suicidal, Depression) Hx Asthma: Yes Hx COPD: No Additional medical history: TENDONITIS, ETOH - Surgical History Additional Surgical History: L reconstructive knee surgery - Social History Smoking Status: Current Every Day Smoker Substance Use Type: Alcohol - Medications Home Medications: Home Medications Medication Instructions Recorded Confirmed Last Taken Type HYDROcodone/APAP 5-325 [[place] 1 each PO Q6HR PRN #10 tablet 05/31/14 09/29/17 2 Days Ago Rx 5-325 mg TAB] ~02/18/15 Azithromycin [Zithromax Z-BRAIN] 250 mg PO DAILY #6 tab 04/06/16 09/29/17 Unknown Rx Benzonatate [Tessalon Perles] 100 mg PO Q8HR #20 capsule 04/06/16 09/29/17 Unknown Rx levETIRAcetam [Keppra TAB] 500 mg PO BID #60 tablet 04/06/16 09/29/17 Unknown Rx Nicotine [Habitrol] 14 mg TD QDAY #30 patch 01/07/17 09/29/17 Unknown Rx Amoxicillin [Amoxicillin TAB] 875 mg PO BID #14 tablet 05/13/17 09/29/17 Unknown Rx Prednisone [predniSONE 10 mg 10 mg PO .TAPER #1 tab.ds.pk 05/13/17 09/29/17 Unknown Rx (6-Day Pack, 21 Tabs)] ALBUTEROL Inhaler [ProAir HFA 2 puff IH QID PRN #1 inhalation 09/30/17 Unknown Rx Inhaler] ALBUTEROL Inhaler [ProAir HFA 2 puff IH QID PRN #1 inhalation 09/30/17 Unknown Rx Inhaler] Folic Acid [Folvite] 1 mg PO QDAY #30 tablet 09/30/17 Unknown Rx Thiamine [Vitamin B-1] 100 mg PO QDAY #30 tablet 09/30/17 Unknown Rx levETIRAcetam [Keppra] 500 mg PO BID #60 tablet 09/30/17 Unknown Rx ED Review of Systems ROS: Stated complaint: ETOH Other details as noted in HPI Constitutional: denies: chills, fever Eyes: denies: eye pain, eye discharge, vision change ENT: denies: ear pain, throat pain Respiratory: denies: cough, shortness of breath, wheezing Cardiovascular: denies: chest pain, palpitations Gastrointestinal: denies: abdominal pain, nausea, diarrhea Genitourinary: denies: urgency, dysuria Musculoskeletal: denies: back pain, joint swelling, arthralgia Skin: denies: rash, lesions Neurological: denies: headache, weakness, paresthesias Physical Exam - Physical Exam Vital Signs: Vital Signs 11/25/17 11/25/17 11/25/17 17:20 19:22 22:51 Temperature 98.6 F 98.1 F Pulse Rate 90 57 L Respiratory 14 17 21 Rate Blood Pressure 103/61 Blood Pressure 118/77 [Right] O2 Sat by Pulse 91 94 92 Oximetry 11/25/17 11/26/17 11/26/17 23:00 01:00 03:04 Temperature 98.1 F 98.2 F 98.0 F Pulse Rate 63 62 62 Respiratory 15 18 17 Rate Blood Pressure Blood Pressure 119/71 115/62 120/59 [Right] O2 Sat by Pulse 98 96 94 Oximetry 11/26/17 11/26/17 05:08 06:36 Temperature 98.2 F 98.1 F Pulse Rate 52 L 58 L Respiratory 11 L 17 Rate Blood Pressure Blood Pressure 128/76 [Right] O2 Sat by Pulse 94 96 Oximetry ED Course Vital Signs 11/25/17 11/25/17 11/25/17 17:20 19:22 22:51 Temperature 98.6 F 98.1 F Pulse Rate 90 57 L Respiratory 14 17 21 Rate Blood Pressure 103/61 Blood Pressure 118/77 [Right] O2 Sat by Pulse 91 94 92 Oximetry 11/25/17 11/26/17 11/26/17 23:00 01:00 03:04 Temperature 98.1 F 98.2 F 98.0 F Pulse Rate 63 62 62 Respiratory 15 18 17 Rate Blood Pressure Blood Pressure 119/71 115/62 120/59 [Right] O2 Sat by Pulse 98 96 94 Oximetry 11/26/17 11/26/17 05:08 06:36 Temperature 98.2 F 98.1 F Pulse Rate 52 L 58 L Respiratory 11 L 17 Rate Blood Pressure Blood Pressure 128/76 [Right] O2 Sat by Pulse 94 96 Oximetry ED Medical Decision Making - Lab Data Result diagrams: 11/25/17 21:12 11/25/17 17:36 Critical care attestation.: If time is entered above; I have spent that time in minutes in the direct care of this critically ill patient, excluding procedure time. ED Disposition Clinical Impression: Thrombocytopenia Alcohol intoxication Qualifiers: Complication of substance-induced condition: uncomplicated Qualified Code(s): F10.920 - Alcohol use, unspecified with intoxication, uncomplicated Disposition: DC-01 TO HOME OR SELFCARE Is pt being admited?: No Does the pt Need Aspirin: No Condition: Stable Instructions: Cocaine Abuse (ED), Alcohol Intoxication (ED) Additional Instructions: Please try and quit drinking. He stayed away from any cocaine or any other illicit drug use or abuse. I have given you referrals for both the [facility] facility for your addictions and [facility] for primary care needs. Return to the emergency Department with any worsening of your symptoms or any acute distress. Referrals: [facility] [Outside] - 3-5 Days [facility] [Outside] - 3-5 Days
[2017-11-26 10:15] VITALS: BP 134/81
== END 2017-11-26 10:25 | disposition home or self-care (01) ==
LOC: ED 17:11
DX: D69.6 Thrombocytopenia, unspecified (principal); F10.129 Alcohol abuse with intoxication, unspecified; I10 Essential (primary) hypertension; F32.9 Major depressive disorder, single episode, unspecified; J45.909 Unspecified asthma, uncomplicated; F17.200 Nicotine dependence, unspecified, uncomplicated; Z88.6 Allergy status to analgesic agent; Z79.899 Other long term (current) drug therapy
CPT/HCPCS: 36415; 80053; 80307; 81001; 85007; 85025; 94640; 96365; 96366; 96375; 99284; G0480; J1953; J2060; J3411; J7030; 80320; 96374

== ENCOUNTER 2017-12-16 16:27 | Emergency (ER) | payer SELFPAY ==
--- NOTE | 2017-12-16 18:15 | Emergency Department Report ---
Chief Complaint: Animal Bite Stated Complaint: BIT TWICE BY DOG AND SEIZURES - Exam Vital Signs: Vital Signs 12/16/17 16:30 Temperature 98.4 F Pulse Rate 86 Respiratory 18 Rate Blood Pressure 135/84 O2 Sat by Pulse 95 Oximetry MSE screening note: Mr. Garcia is acute intoxicated. He is arousable but drowsy. Unable to give a full hx currently. ED Disposition for MSE Condition: Stable Referrals: PRIMARY CARE, [Primary Care Provider] - 3-5 Days
[2017-12-16] MEDS ORDERED: BOOSTRIX IM ONE (18:32)
[2017-12-16] MEDS ORDERED: AUGMENTIN 875 MG PO ONE (18:32)
--- NOTE | 2017-12-16 18:37 | Emergency Department Report ---
ED Animal Bite HPI - General Chief Complaint: Animal Bite Stated Complaint: BIT TWICE BY DOG AND SEIZURES Time Seen by Provider: 12/16/17 18:17 Source: patient Mode of arrival: Wheelchair Limitations: No Limitations - History of Present Illness Initial Comments: Mr. Garcia was bitten by the dog of a stranger at the right upper thigh. Police report obtained. Unknown vaccination status of the animal. MD Complaint: animal bite -: Sudden Right: Leg Animal: dog Animal Control Notified: Yes Description: unknown animal Mechanism: bite Context: unprovoked - Related Data Previous Rx's Medication Instructions Recorded Last Taken Type HYDROcodone/APAP 5-325 [[place] 1 each PO Q6HR PRN #10 tablet 05/31/14 2 Days Ago Rx 5-325 mg TAB] ~02/18/15 Azithromycin [Zithromax Z-BRAIN] 250 mg PO DAILY #6 tab 04/06/16 Unknown Rx Benzonatate [Tessalon Perles] 100 mg PO Q8HR #20 capsule 04/06/16 Unknown Rx levETIRAcetam [Keppra TAB] 500 mg PO BID #60 tablet 04/06/16 Unknown Rx Nicotine [Habitrol] 14 mg TD QDAY #30 patch 01/07/17 Unknown Rx Amoxicillin [Amoxicillin TAB] 875 mg PO BID #14 tablet 05/13/17 Unknown Rx Prednisone [predniSONE 10 mg 10 mg PO .TAPER #1 tab.ds.pk 05/13/17 Unknown Rx (6-Day Pack, 21 Tabs)] ALBUTEROL Inhaler [ProAir HFA 2 puff IH QID PRN #1 inhalation 09/30/17 Unknown Rx Inhaler] ALBUTEROL Inhaler [ProAir HFA 2 puff IH QID PRN #1 inhalation 09/30/17 Unknown Rx Inhaler] Folic Acid [Folvite] 1 mg PO QDAY #30 tablet 09/30/17 Unknown Rx Thiamine [Vitamin B-1] 100 mg PO QDAY #30 tablet 09/30/17 Unknown Rx levETIRAcetam [Keppra] 500 mg PO BID #60 tablet 09/30/17 Unknown Rx Amoxicillin/K Clav Tab [[place] 1 tab PO Q12HR 7 Days #14 tab 12/16/17 Unknown Rx 875 mg] Allergies Allergy/AdvReac Type Severity Reaction Status Date / Time tramadol Allergy Rash Verified 12/16/17 16:29 ED Review of Systems ROS: Stated complaint: BIT TWICE BY DOG AND SEIZURES Other details as noted in HPI Constitutional: denies: fever, malaise Skin: rash, lesions Neurological: denies: numbness, paresthesias ED Past Medical Hx - Past Medical History Hx Hypertension: Yes Hx Diabetes: No Hx Seizures: Yes Hx Psychiatric Treatment: Yes (Prior Suicidal, Depression) Hx Asthma: Yes Hx COPD: No Additional medical history: TENDONITIS, ETOH - Surgical History Additional Surgical History: L reconstructive knee surgery - Social History Smoking Status: Current Every Day Smoker Substance Use Type: Alcohol - Medications Home Medications: Home Medications Medication Instructions Recorded Confirmed Last Taken Type HYDROcodone/APAP 5-325 [[place] 1 each PO Q6HR PRN #10 tablet 05/31/14 09/29/17 2 Days Ago Rx 5-325 mg TAB] ~02/18/15 Azithromycin [Zithromax Z-BRAIN] 250 mg PO DAILY #6 tab 04/06/16 09/29/17 Unknown Rx Benzonatate [Tessalon Perles] 100 mg PO Q8HR #20 capsule 04/06/16 09/29/17 Unknown Rx levETIRAcetam [Keppra TAB] 500 mg PO BID #60 tablet 04/06/16 09/29/17 Unknown Rx Nicotine [Habitrol] 14 mg TD QDAY #30 patch 01/07/17 09/29/17 Unknown Rx Amoxicillin [Amoxicillin TAB] 875 mg PO BID #14 tablet 05/13/17 09/29/17 Unknown Rx Prednisone [predniSONE 10 mg 10 mg PO .TAPER #1 tab.ds.pk 05/13/17 09/29/17 Unknown Rx (6-Day Pack, 21 Tabs)] ALBUTEROL Inhaler [ProAir HFA 2 puff IH QID PRN #1 inhalation 09/30/17 Unknown Rx Inhaler] ALBUTEROL Inhaler [ProAir HFA 2 puff IH QID PRN #1 inhalation 09/30/17 Unknown Rx Inhaler] Folic Acid [Folvite] 1 mg PO QDAY #30 tablet 09/30/17 Unknown Rx Thiamine [Vitamin B-1] 100 mg PO QDAY #30 tablet 09/30/17 Unknown Rx levETIRAcetam [Keppra] 500 mg PO BID #60 tablet 09/30/17 Unknown Rx Amoxicillin/K Clav Tab [[place] 1 tab PO Q12HR 7 Days #14 tab 12/16/17 Unknown Rx 875 mg] ED Physical Exam - General Limitations: No Limitations General appearance: alert - Eye Eye exam: Present: PERRL, conjunctival injection - Neck Neck exam: Present: normal inspection - Respiratory Respiratory exam: Absent: respiratory distress - Extremities Exam Extremities exam: Present: normal inspection, full ROM. Absent: tenderness (6 cm x 4 cm area of ecchymosis with 2 puncture wounds right anterior upper thigh no puru) - Neurological Exam Neurological exam: Present: alert, oriented X3 - Skin Skin exam: Present: warm, dry, intact, normal color ED Course Vital Signs 12/16/17 16:30 Temperature 98.4 F Pulse Rate 86 Respiratory 18 Rate Blood Pressure 135/84 O2 Sat by Pulse 95 Oximetry - Reevaluation(s) Reevaluation #1: 12/16/17 18:44 I assumed that the patient was intoxicated on initial evaluation. However, he ambulated to the nursing station in order to inform me that he was awake and ready for treatment. He was able to give a full hx. He received tdap booster, Augmentin rabies vaccine and rabies immunoglobulin in the ED. There is referred to the [facility] Department for the subsequent 3 additional doses for post exposure to possible rabies. Prescription for Augmentin. at the animal bite: No notable swelling. Compressible area of the lesion with bruising. No evidence of fracture. Critical care attestation.: If time is entered above; I have spent that time in minutes in the direct care of this critically ill patient, excluding procedure time. ED Disposition Clinical Impression: Dog bite of extremity Disposition: DC-01 TO HOME OR SELFCARE Is pt being admited?: No Does the pt Need Aspirin: No Condition: Stable Instructions: Animal Bite (ED), Rabies Vaccine (Injection) Additional Instructions: [facility] 30 for a total of 3 shots for the rabies vaccine. Prescriptions: Amoxicillin/K Clav Tab [Augmentin 875 mg] 1 tab PO Q12HR 7 Days #14 tab Referrals: [facility] [Outside] - 3-5 Days Time of Disposition: 18:50
[2017-12-16] MEDS ORDERED: RABAVERT RABIES VACCINE(PCEC) IM ONE (18:40)
[2017-12-16] MEDS ORDERED: hyperRAB S/D IM ONE (18:42)
[2017-12-16 20:12] VITALS: BP 146/72
== END 2017-12-16 20:09 | disposition home or self-care (01) ==
LOC: ED 16:27
DX: S71.151A Open bite, right thigh, initial encounter (principal); I10 Essential (primary) hypertension; J45.909 Unspecified asthma, uncomplicated; F17.200 Nicotine dependence, unspecified, uncomplicated; W54.0XXA Bitten by dog, initial encounter; Y93.89 Activity, other specified; Y92.89 Other specified places as the place of occurrence of the external cause; Y99.8 Other external cause status
CPT/HCPCS: 90375; 90471; 90472; 90675; 90715; 96372; 99282

== ENCOUNTER 2017-12-20 23:38 | Inpatient (IN) | payer SELFPAY ==
[2017-12-21] MEDS ORDERED: TYLENOL PO ONE ×2 (02:06→18:20)
[2017-12-21] MEDS ORDERED: TYLENOL ONE (02:06)
--- NOTE | 2017-12-21 02:43 | XRay Report ---
FINAL REPORT PROCEDURE: XR CHEST ROUTINE 2V TECHNIQUE: PA and lateral chest radiographs were obtained. CPT 39346 HISTORY: Shortness of breath COMPARISON: 09/28/2017 FINDINGS: Heart: Normal. Mediastinum/Vessels: Normal. Lungs/Pleural space: Lungs are expanded and clear. There are no infiltrates. There are mild fibrotic changes. There is a 12 millimeter nodular density at the left lung base on the frontal view. This was not evident on the prior study and could be artifact. Short-term follow-up repeat frontal view may be helpful to exclude remote possibility of new pulmonary nodule.. Bony thorax: No acute osseous abnormality. Other: IMPRESSION: Heart size is normal.. There are no infiltrates. There are mild fibrotic changes. There are no pleural effusions or pneumothoraces. There is a 12 millimeter nodular density at the left lung base on the frontal view. This was not evident on the prior study and could be artifact. Short-term follow-up repeat frontal view may be helpful to exclude remote possibility of new pulmonary nodule..
[2017-12-21 03:37] LABS: Basophils % (Auto) 0.4 % (0.0-1.8); Hematocrit 38.2 % (35.5-45.6); Hemoglobin 13.1 gm/dl (11.8-15.2); Lymphocytes # (Auto) 0.4 K/mm3 (1.2-5.4); Lymphocytes % (Auto) 3.7 % (13.4-35.0); Mean Corpuscular HGB Conc 34 % (32-34); Mean Corpuscular Hemoglobin 35 pg (28-32); Mean Corpuscular Volume 101 fl (84-94); Monocytes # (Auto) 0.9 K/mm3 (0.0-0.8); Monocytes % (Auto) 8.8 % (0.0-7.3); Red Blood Count 3.77 M/mm3 (3.65-5.03); Red Cell Distribution Width 16.2 % (13.2-15.2)
[2017-12-21 03:46] LABS: Platelet Count 100 K/mm3 (140-440)
[2017-12-21 04:17] LABS: BUN/Creatinine Ratio 16; Blood Urea Nitrogen 11 mg/dL (9-20); Calcium 9.6 mg/dL (8.4-10.2); Hemolysis Index 80
--- NOTE | 2017-12-21 17:27 | Emergency Department Report ---
ED General Adult HPI - General Chief complaint: Dyspnea/Respdistress Stated complaint: SOB Time Seen by Provider: 12/21/17 17:23 Source: patient, RN notes reviewed, old records reviewed Mode of arrival: Ambulatory Limitations: No Limitations - History of Present Illness Initial comments: This is a 47-year-old male. Past medical history includes hypertension depression, asthma, alcohol abuse, also alcohol withdrawal seizure. He presents to the ER with a primary complaint of cough, wheezing, shortness of breath, fevers, mucus production. His symptoms have been constant, does not radiate anywhere and did not have exacerbating or relieving factors. He secondarily reports no recent alcohol consumption and feels tremulous. He reports auditory hallucinations, but does not have homicidal or suicidal ideation. She also reports that he was bit on the proximal right thigh by a dog a few days ago, and was given a tetanus vaccination. This was a provoked bite as he actually walked close to the dog by accident. -: Gradual Severity scale (0 -10): 8 Consistency: constant Improves with: medication, rest Worsens with: movement Associated Symptoms: cough, malaise, shortness of breath, weakness. denies: confusion, chest pain, diaphoresis, fever/chills, headaches, loss of appetite, nausea/vomiting, rash, seizure, syncope - Related Data Previous Rx's Medication Instructions Recorded Last Taken Type HYDROcodone/APAP 5-325 [Perry 1 each PO Q6HR PRN #10 tablet 05/31/14 2 Days Ago Rx 5-325 mg TAB] ~02/18/15 Azithromycin [Zithromax Z-BRAIN] 250 mg PO DAILY #6 tab 04/06/16 Unknown Rx Benzonatate [Tessalon Perles] 100 mg PO Q8HR #20 capsule 04/06/16 Unknown Rx levETIRAcetam [Keppra TAB] 500 mg PO BID #60 tablet 04/06/16 Unknown Rx Nicotine [Habitrol] 14 mg TD QDAY #30 patch 01/07/17 Unknown Rx Amoxicillin [Amoxicillin TAB] 875 mg PO BID #14 tablet 05/13/17 Unknown Rx Prednisone [predniSONE 10 mg 10 mg PO .TAPER #1 tab.ds.pk 05/13/17 Unknown Rx (6-Day Pack, 21 Tabs)] ALBUTEROL Inhaler [ProAir HFA 2 puff IH QID PRN #1 inhalation 09/30/17 Unknown Rx Inhaler] ALBUTEROL Inhaler [ProAir HFA 2 puff IH QID PRN #1 inhalation 09/30/17 Unknown Rx Inhaler] Folic Acid [Folvite] 1 mg PO QDAY #30 tablet 09/30/17 Unknown Rx Thiamine [Vitamin B-1] 100 mg PO QDAY #30 tablet 09/30/17 Unknown Rx levETIRAcetam [Keppra] 500 mg PO BID #60 tablet 09/30/17 Unknown Rx Amoxicillin/K Clav Tab [Augmentin 1 tab PO Q12HR 7 Days #14 tab 12/16/17 Unknown Rx 875 mg] Allergies Allergy/AdvReac Type Severity Reaction Status Date / Time tramadol Allergy Rash Verified 12/16/17 18:49 ED Review of Systems ROS: Stated complaint: SOB Other details as noted in HPI Constitutional: fever, malaise, weakness Eyes: denies: vision change ENT: denies: epistaxis Respiratory: cough, shortness of breath, wheezing Cardiovascular: denies: chest pain Gastrointestinal: denies: abdominal pain Genitourinary: denies: dysuria Musculoskeletal: arthralgia, myalgia Skin: denies: lesions Neurological: weakness Psychiatric: anxiety, auditory hallucinations. denies: homicidal thoughts, suicidal thoughts ED Past Medical Hx - Past Medical History Previous Medical History?: Yes Hx Hypertension: Yes Hx Diabetes: No Hx Seizures: Yes Hx Psychiatric Treatment: Yes (Prior Suicidal, Depression) Hx Asthma: Yes Hx COPD: No Additional medical history: TENDONITIS, ETOH - Surgical History Past Surgical History?: Yes Additional Surgical History: L reconstructive knee surgery - Social History Smoking Status: Current Every Day Smoker Substance Use Type: Alcohol - Medications Home Medications: Home Medications Medication Instructions Recorded Confirmed Last Taken Type HYDROcodone/APAP 5-325 [Perry 1 each PO Q6HR PRN #10 tablet 05/31/14 09/29/17 2 Days Ago Rx 5-325 mg TAB] ~02/18/15 Azithromycin [Zithromax Z-BRAIN] 250 mg PO DAILY #6 tab 04/06/16 09/29/17 Unknown Rx Benzonatate [Tessalon Perles] 100 mg PO Q8HR #20 capsule 04/06/16 09/29/17 Unknown Rx levETIRAcetam [Keppra TAB] 500 mg PO BID #60 tablet 04/06/16 09/29/17 Unknown Rx Nicotine [Habitrol] 14 mg TD QDAY #30 patch 01/07/17 09/29/17 Unknown Rx Amoxicillin [Amoxicillin TAB] 875 mg PO BID #14 tablet 05/13/17 09/29/17 Unknown Rx Prednisone [predniSONE 10 mg 10 mg PO .TAPER #1 tab.ds.pk 05/13/17 09/29/17 Unknown Rx (6-Day Pack, 21 Tabs)] ALBUTEROL Inhaler [ProAir HFA 2 puff IH QID PRN #1 inhalation 09/30/17 Unknown Rx Inhaler] ALBUTEROL Inhaler [ProAir HFA 2 puff IH QID PRN #1 inhalation 09/30/17 Unknown Rx Inhaler] Folic Acid [Folvite] 1 mg PO QDAY #30 tablet 09/30/17 Unknown Rx Thiamine [Vitamin B-1] 100 mg PO QDAY #30 tablet 09/30/17 Unknown Rx levETIRAcetam [Keppra] 500 mg PO BID #60 tablet 09/30/17 Unknown Rx Amoxicillin/K Clav Tab [Augmentin 1 tab PO Q12HR 7 Days #14 tab 12/16/17 Unknown Rx 875 mg] ED Physical Exam - General Limitations: No Limitations General appearance: alert, in no apparent distress - Head Head exam: Present: atraumatic, normocephalic - Eye Eye exam: Present: normal appearance, EOMI. Absent: nystagmus - ENT ENT exam: Present: mucous membranes dry, other (patient has active tongue fasciculations) - Neck Neck exam: Present: normal inspection - Respiratory Respiratory exam: Present: wheezes, rhonchi. Absent: respiratory distress - Cardiovascular Cardiovascular Exam: Present: normal rhythm, tachycardia, normal heart sounds. Absent: systolic murmur, diastolic murmur, rubs, gallop - GI/Abdominal GI/Abdominal exam: Present: soft, normal bowel sounds. Absent: distended, tenderness, guarding, rebound, rigid, pulsatile mass - Rectal Rectal exam: Present: deferred - Extremities Exam Extremities exam: Present: normal inspection, full ROM, normal capillary refill , other (patient is actively tremulous). Absent: pedal edema, calf tenderness - Back Exam Back exam: Present: normal inspection, full ROM. Absent: paraspinal tenderness , vertebral tenderness - Neurological Exam Neurological exam: Present: alert, oriented X3, CN II-XII intact, other ( Extraocular movements intact. Tongue midline. No facial droop. Facial sensation intact to light touch in the V1, V2, V3 distribution bilaterally. 5 and 5 strength in 4 extremities.. Sensation is intact to light touch in 4 extremities.). Absent: motor sensory deficit - Psychiatric Psychiatric exam: Present: normal affect, normal mood. Absent: homicidal ideation, suicidal ideation - Skin Skin exam: Present: warm, dry, intact, normal color. Absent: rash ED Course Vital Signs 12/20/17 12/21/17 12/21/17 23:39 01:59 02:10 Temperature 101.3 F H 101.3 F H Pulse Rate 98 H 98 H Pulse Rate [ Posterior] Respiratory 18 18 20 Rate Respiratory Rate [Posterior ] Blood Pressure 164/97 164/97 Blood Pressure [Left] O2 Sat by Pulse 89 89 Oximetry 12/21/17 12/21/17 12/21/17 03:10 05:27 13:35 Temperature 99.7 F H 98.9 F Pulse Rate 101 H 88 Pulse Rate [ Posterior] Respiratory 16 18 24 Rate Respiratory Rate [Posterior ] Blood Pressure 156/96 139/92 Blood Pressure [Left] O2 Sat by Pulse 96 97 Oximetry 12/21/17 12/21/17 12/21/17 17:00 17:58 18:09 Temperature 100.6 F H Pulse Rate 83 Pulse Rate [ 95 H Posterior] Respiratory 16 16 Rate Respiratory 22 Rate [Posterior ] Blood Pressure Blood Pressure 147/106 [Left] O2 Sat by Pulse 97 Oximetry - Reevaluation(s) Reevaluation #1: 12/21/17 19:16 Shaw has ecchymosis and superficial contusion to the proximal thigh, consistent with recent history of dog bite. There is surrounding erythema, there is no crepitus and there is no streaking. There is no pus. ED Medical Decision Making - Lab Data Result diagrams: 12/21/17 02:39 12/21/17 02:39 Vital Signs 12/20/17 12/21/17 12/21/17 23:39 01:59 02:10 Temperature 101.3 F H 101.3 F H Pulse Rate 98 H 98 H Respiratory 18 18 20 Rate Blood Pressure 164/97 164/97 Blood Pressure [Left] O2 Sat by Pulse 89 89 Oximetry 12/21/17 12/21/17 12/21/17 05:27 13:35 17:00 Temperature 99.7 F H 98.9 F 100.6 F H Pulse Rate 101 H 88 83 Respiratory 18 24 16 Rate Blood Pressure 156/96 139/92 Blood Pressure 147/106 [Left] O2 Sat by Pulse 96 97 97 Oximetry Labs 12/21/17 12/21/17 02:39 02:39 WBC 10.5 RBC 3.77 Hgb 13.1 Hct 38.2 MCV 101 H MCH 35 H MCHC 34 RDW 16.2 H Plt Count 100 L Lymph % (Auto) 3.7 L Harrison % (Auto) 8.8 H Eos % (Auto) 0.0 Baso % (Auto) 0.4 Lymph # 0.4 L Harrison # 0.9 H Eos # 0.0 Baso # 0.0 Seg Neutrophils % 87.1 H Seg Neutrophils # 9.2 H Sodium 134 L Potassium 4.4 Chloride 85.4 L Carbon Dioxide 26 Anion Gap 27 BUN 11 Creatinine 0.7 L Estimated GFR > 60 BUN/Creatinine Ratio 16 Glucose 117 H Calcium 9.6 Troponin T < 0.010 - EKG Data -: EKG Interpreted by Me Rate: tachycardia - EKG Data 12/21/17 19:15 Normal sinus, 70 beats minute, normal axis, normal intervals, motion artifact, not a STEMI - Radiology Data Radiology results: report reviewed, image reviewed interpreted by me: Print Report Referring Physician: MATT DAVIS Patient Name: SYED MYERS Date of : 1970 Sex: Male Report Date: 2017-12-21 Report Status: Finalized Findings [address] [address] XRay Report Signed Patient: SYED MYERS MR#: [id number] : 1970 Acct:[id number] Age/Sex: 47 / M ADM Date: 12/20/17 Loc: ED Attending Dr: Ordering Physician: MATT DAVIS MD Date of Service: 12/21/17 Procedure(s): XR chest routine 2V Accession Number(s): [id number] cc: MATT DAVIS MD Fluoro Time In Minutes: FINAL REPORT PROCEDURE: XR CHEST ROUTINE 2V TECHNIQUE: PA and lateral chest radiographs were obtained. CPT 35073 HISTORY: Shortness of breath COMPARISON: 09/28/2017 FINDINGS: Heart: Normal. Mediastinum/Vessels: Normal. Lungs/Pleural space: Lungs are expanded and clear. There are no infiltrates. There are mild fibrotic changes. There is a 12 millimeter nodular density at the left lung base on the frontal view. This was not evident on the prior study and could be artifact. Short-term follow-up repeat frontal view may be helpful to exclude remote possibility of new pulmonary nodule.. Bony thorax: No acute osseous abnormality. Other: IMPRESSION: Heart size is normal.. There are no infiltrates. There are mild fibrotic changes. There are no pleural effusions or pneumothoraces. There is a 12 millimeter nodular density at the left lung base on the frontal view. This was not evident on the prior study and could be artifact. Short-term follow-up repeat frontal view may be helpful to exclude remote possibility of new pulmonary nodule.. Transcribed By: CO Dictated By: BINTA WHITFIELD MD Electronically Authenticated By: BINTA WHITFIELD MD Signed Date/Time: 12/21/17 0239 Print Report Referring Physician: MATT DAVIS Patient Name: SYED MYERS Date of : 1970 Sex: Male Report Date: 2017-12-21 Report Status: Finalized Findings [address] [address] XRay Report Signed Patient: SYED MYERS MR#: [id number] : 1970 Acct:[id number] Age/Sex: 47 / M ADM Date: 12/20/17 Loc: ED Attending Dr: Ordering Physician: MATT DAVIS MD Date of Service: 12/21/17 Procedure(s): XR chest routine 2V Accession Number(s): [id number] cc: MATT DAVIS MD Fluoro Time In Minutes: FINAL REPORT PROCEDURE: XR CHEST ROUTINE 2V TECHNIQUE: PA and lateral chest radiographs were obtained. CPT 56898 HISTORY: Shortness of breath COMPARISON: 09/28/2017 FINDINGS: Heart: Normal. Mediastinum/Vessels: Normal. Lungs/Pleural space: Lungs are expanded and clear. There are no infiltrates. There are mild fibrotic changes. There is a 12 millimeter nodular density at the left lung base on the frontal view. This was not evident on the prior study and could be artifact. Short-term follow-up repeat frontal view may be helpful to exclude remote possibility of new pulmonary nodule.. Bony thorax: No acute osseous abnormality. Other: IMPRESSION: Heart size is normal.. There are no infiltrates. There are mild fibrotic changes. There are no pleural effusions or pneumothoraces. There is a 12 millimeter nodular density at the left lung base on the frontal view. This was not evident on the prior study and could be artifact. Short-term follow-up repeat frontal view may be helpful to exclude remote possibility of new pulmonary nodule.. Transcribed By: CO Dictated By: BINTA WHITFIELD MD Electronically Authenticated By: BINTA WHITFIELD MD Signed Date/Time: 12/21/17 5199 - Medical Decision Making Differential diagnosis, including not limited to, bronchitis, respiratory failure, pneumonia, sepsis, bacteremia, alcohol withdrawal syndrome, hypoxemia Assessment and plan: 47-year-old male with early alcohol withdrawal, febrile illness admitting systemic inflammatory response syndrome criteria, does not meet 1013 criteria, with hypoxemic respiratory failure. He'll be resuscitated according to the sepsis pathway. Please note that there was a delay in antibiotic administration because there was a very long wait in the waiting room secondary to holds and lack of physical space in the main emergency room. He was given albuterol, Atrovent, steroids, supplemental oxygen, he reports he is up-to-date with tetanus, appropriate targeted antibiotic therapy, IV fluids. He is also given antipyretic medication. The case was presented to the Hospital physician, Dr. Whitmore, who accepted the patient to his service. Critical Care Time: Yes Critical care time in (mins) excluding proc time.: 35 Critical care attestation.: If time is entered above; I have spent that time in minutes in the direct care of this critically ill patient, excluding procedure time. Critical Care Time: Critical care time includes multiple bedside evaluations, interpretation of laboratory studies, radiology studies, time spent managing a patient with multiple derangements, including hypomagnesemia requiring IV magnesium infusion , and concomitant cardiac monitoring, resuscitation for systemic inflammatory response syndrome, including IV fluids and appropriate targeted antibiotic therapy, and management of alcohol withdrawal syndrome, requiring as needed Ativan/benzodiazepines. This does not include procedure time. This does include time spent reviewing old medical records, laboratory studies, radiology , and discussing with hospital medicine. ED Disposition Clinical Impression: Alcohol withdrawal, SIRS (systemic inflammatory response syndrome), Acute respiratory failure with hypoxemia Disposition: DC-[id number] OP ADMIT IP TO THIS HOSP Is pt being admited?: Yes Condition: Stable Referrals: PRIMARY CARE, [Primary Care Provider] - 3-5 Days
[2017-12-21] MEDS ORDERED: ROCEPHIN/NS 1 GM/50 ML 1 GM/50 ML BAG IV ONE (17:35)
[2017-12-21] MEDS ORDERED: PROVENTIL IH ONE (17:35)
[2017-12-21] MEDS ORDERED: ATROVENT IH ONE (17:35)
[2017-12-21] MEDS ORDERED: NACL 0.9% 1000 ML IV ONE (17:35)
[2017-12-21] MEDS ORDERED: ZITHROMAX PO ONE (17:35)
[2017-12-21] MEDS ORDERED: cefTRIAXone 1 GM in NACL 0.9% 20 ML IV ONE (18:30)
[2017-12-21] MEDS ORDERED: VITAMIN B-1 100 MG, FOLVITE 1 MG, INFUVITE 10 ML in NACL 0.9% 1000 ML 1,000 ML IV ONE (18:37)
[2017-12-21] MEDS ORDERED: MAGNESIUM SULFATE 2GM/50ML 2 GM/50 ML BAG IV ONE (19:06)
[2017-12-21 19:38] LABS: Bilirubin,Urine NEG (Negative); Blood,Urine NEG (Negative); Color,Urine Yellow (Yellow); Urobilinogen,Urine < 2.0 mg/dL (<2.0)
[2017-12-22] MEDS ORDERED: MORPHINE IV PRN (01:10)
[2017-12-22] MEDS ORDERED: SODIUM CHLORIDE FLUSH SYRINGE 10 ML IV PRN (01:10)
[2017-12-22] MEDS ORDERED: PERCOCET 5/325 PO PRN (01:10)
[2017-12-22] MEDS ORDERED: TYLENOL PO PRN (01:10)
[2017-12-22] MEDS ORDERED: ZOFRAN IV PRN (01:10)
[2017-12-22] MEDS ORDERED: DUONEB *Not for PRN Use IH (01:11)
[2017-12-22] MEDS ORDERED: MAGNESIUM SULFATE 2GM/50ML 2 GM/50 ML BAG IV ONE (01:13)
--- NOTE | 2017-12-22 07:15 | Event Note ---
Date: 12/21/17 See dictated H/p in reports Acute resp failure COpD exacerbation
[2017-12-22] MEDS: DUONEB *Not for PRN Use IH SCH ×4 (07:59→20:49)
--- NOTE | 2017-12-22 08:50 | History and Physical Report ---
CHIEF COMPLAINT: Severe shortness of breath and respiratory distress for 2 days. HISTORY OF PRESENT ILLNESS: A 47-year-old black male with history of hypertension, depression, asthma, alcohol abuse, alcohol withdrawal seizures comes in for cough and wheezing and shortness of breath and fevers and mucus production. Cough is productive of mucoid sputum production. No fever, no chills. He also reports he was bitten on the proximal right thigh by a dog a few days ago and was given a tetanus injection. This was a provoked bite as he actually walked closed to the dog by accident. No exacerbating or relieving factors. PAST MEDICAL HISTORY: Past medical history is significant for seizure disorder, COPD, nicotine dependence. PAST SURGICAL HISTORY: Left knee reconstructive surgery. SOCIAL HISTORY: Smokes over a pack a day. Alcohol on a regular basis. FAMILY HISTORY: Hypertension. CURRENT MEDICATIONS: On the chart. REVIEW OF SYSTEMS: Review of systems is significant for increasing shortness of breath, respiratory distress and cough productive of mucoid sputum. No fever, no chills. Otherwise, 14-point review of systems is negative. No seizures. No syncope. PHYSICAL EXAMINATION: GENERAL: A middle-aged male, in respiratory distress, moderate amount of respiratory distress. VITAL SIGNS: Blood pressure 148/101, temperature 99.7, pulse is 80-89, sats initially were low, improved to 94, the first set was 89. HEENT: Unremarkable. Pupils equal and reactive. NECK: Accessory muscles of respiration are prominent. LUNGS: Scattered bilateral inspiratory and expiratory rhonchi present, diminished air entry. CARDIOVASCULAR: S1, S2 heard. No gallop, no murmur, no rub. Apical impulse in left fifth intercostal space and midclavicular line. ABDOMEN: Soft and benign. No hepatosplenomegaly. No guarding, no rigidity. Hernial orifices are normal. EXTREMITIES: Good pedal pulses. No pedal edema. CENTRAL NERVOUS SYSTEM: Alert and oriented x 4, nonfocal examination. LABORATORY AND DIAGNOSTIC DATA: Hemoglobin is 13.1, hematocrit is 38.2, MCV MCH are high, may be indicating possible folic acid and thiamine deficiency. ABG was significant for pH of 7.547, pCO2 of 34.5, pO2 of 56, sats of 92. Sodium is 134, slightly low, potassium is 4.4, chloride is 85.4, BUN and creatinine is 8 and 11.7, glucose is 117. Hemoglobin A1c is normal at 5.3. Lactic acid is slightly high at 2.2 and 2.5, which has normalized to 1.3. Magnesium is 1.3. Also, EKG shows normal sinus at 70 beats per minute, normal axis, normal intervals, normal STEMI. Chest x-ray shows heart size of normal size, no infiltrates. A 12-mm nodular density in the left lung base on the frontal view. This was not evident on the prior study and could be artifact. A short-term followup repeat frontal may be helpful to exclude a remote possibility of new pulmonary nodule. ASSESSMENT AND PLAN: 1. Acute respiratory failure secondary to chronic obstructive pulmonary disease. The patient counseled about smoking. The patient initiated on IV Levaquin, Solu-Medrol, and DuoNeb. The patient is responding well in the ER. 2. Acute exacerbation of chronic obstructive pulmonary disease as an acute respiratory failure. DuoNeb, Solu-Medrol, and IV antibiotics. Solitary pulmonary nodule. Pulmonary consulted. The patient to follow with Pulmonology. 3. Seizure disorder. Continue Keppra. 4. Nicotine dependence. Nicoderm patch initiated. 5. Deep venous thrombosis prophylaxis. Lovenox 40 mg subcutaneous daily. JOB# [id number] KALYN/NTS
[2017-12-22] MEDS ORDERED: ROCEPHIN/NS 1 GM/50 ML 1 GM/50 ML BAG IV SCH (10:00)
[2017-12-22] MEDS ORDERED: PEPCID IV SCH (10:00)
[2017-12-22] MEDS ORDERED: ZITHROMAX PO SCH (10:00)
[2017-12-22] MEDS ORDERED: ZITHROMAX 500 MG in NACL 0.9% 250ML 250 ML IV SCH (10:00)
[2017-12-22] MEDS ORDERED: cefTRIAXone 1 GM in NACL 0.9% 20 ML IV SCH (10:00)
--- NOTE | 2017-12-22 11:43 | Progress Note ---
Assessment and Plan Assessment and plan: Acute hypoxemic respiratory failure. Etiology secondary to COPD exacerbation. Continue O2 and supportive care. Acute COPD exacerbation. Continue IV systemic steroids and nebulizer treatments. Acute bronchitis. Continue IV Levaquin. Seizure disorder. Continue Keppra. Nicotine dependence. Continue NicoDerm patch. Patient has been counseled about smoking cessation. DVT prophylaxis. Continue Lovenox daily. History Interval history: Patient states that he feels somewhat better with less dyspnea. However, still with shortness of breath with exertion. Hospitalist Physical - Constitutional Vitals: Temp Pulse Resp BP Pulse Ox 99.1 F 88 16 149/93 96 12/22/17 01:20 12/22/17 08:14 12/22/17 08:14 12/22/17 01:20 12/22/17 08:02 General appearance: Present: no acute distress, well-nourished - EENT Eyes: Present: PERRL, EOM intact ENT: hearing intact, clear oral mucosa, dentition normal - Neck Neck: Present: supple, normal ROM - Respiratory Respiratory effort: normal Respiratory: bilateral: diminished, wheezing - Cardiovascular Rhythm: regular Heart Sounds: Present: S1 & S2. Absent: gallop, rub - Extremities Extremities: no ischemia, No edema, Full ROM - Abdominal General gastrointestinal: soft, non-tender, non-distended, normal bowel sounds - Integumentary Integumentary: Present: clear, warm, dry - Neurologic Neurologic: CNII-XII intact, moves all extremities Results - Labs CBC & Chem 7: 12/21/17 02:39 12/21/17 02:39 Labs: Laboratory Last Values WBC 10.5 K/mm3 (4.5-11.0) 12/21/17 02:39 RBC 3.77 M/mm3 (3.65-5.03) 12/21/17 02:39 Hgb 13.1 gm/dl (11.8-15.2) 12/21/17 02:39 Hct 38.2 % (35.5-45.6) 12/21/17 02:39 MCV 101 fl (84-94) H 12/21/17 02:39 MCH 35 pg (28-32) H 12/21/17 02:39 MCHC 34 % (32-34) 12/21/17 02:39 RDW 16.2 % (13.2-15.2) H 12/21/17 02:39 Plt Count 100 K/mm3 (140-440) L 12/21/17 02:39 Lymph % (Auto) 3.7 % (13.4-35.0) L 12/21/17 02:39 Jenkins % (Auto) 8.8 % (0.0-7.3) H 12/21/17 02:39 Eos % (Auto) 0.0 % (0.0-4.3) 12/21/17 02:39 Baso % (Auto) 0.4 % (0.0-1.8) 12/21/17 02:39 Lymph # 0.4 K/mm3 (1.2-5.4) L 12/21/17 02:39 Jenkins # 0.9 K/mm3 (0.0-0.8) H 12/21/17 02:39 Eos # 0.0 K/mm3 (0.0-0.4) 12/21/17 02:39 Baso # 0.0 K/mm3 (0.0-0.1) 12/21/17 02:39 Seg Neutrophils % 87.1 % (40.0-70.0) H 12/21/17 02:39 Seg Neutrophils # 9.2 K/mm3 (1.8-7.7) H 12/21/17 02:39 POC ABG pH 7.547 (7.35-7.45) H 12/21/17 18:01 POC ABG pCO2 34.5 (35-45) L 12/21/17 18:01 POC ABG pO2 56 (80-105) L 12/21/17 18:01 POC ABG HCO3 29.9 12/21/17 18:01 POC ABG Total CO2 31 12/21/17 18:01 POC ABG O2 Sat 92 12/21/17 18:01 POC ABG Base Excess 8 12/21/17 18:01 FiO2 21 % 12/21/17 18:01 Sodium 134 mmol/L (137-145) L 12/21/17 02:39 Potassium 4.4 mmol/L (3.6-5.0) 12/21/17 02:39 Chloride 85.4 mmol/L (98-107) L 12/21/17 02:39 Carbon Dioxide 26 mmol/L (22-30) 12/21/17 02:39 Anion Gap 27 mmol/L 12/21/17 02:39 BUN 11 mg/dL (9-20) 12/21/17 02:39 Creatinine 0.7 mg/dL (0.8-1.5) L 12/21/17 02:39 Estimated GFR > 60 ml/min 12/21/17 02:39 BUN/Creatinine Ratio 16 % 12/21/17 02:39 Glucose 117 mg/dL (75-100) H 12/21/17 02:39 Hemoglobin A1c 5.3 % (4-6) 12/22/17 01:55 Lactic Acid 1.30 mmol/L (0.7-2.0) 12/22/17 01:55 Calcium 9.6 mg/dL (8.4-10.2) 12/21/17 02:39 Magnesium 1.30 mg/dL (1.7-2.3) L 12/21/17 18:13 Total Creatine Kinase 273 units/L (55-170) H 12/21/17 18:13 Troponin T < 0.010 ng/mL (0.00-0.029) 12/21/17 02:39 Urine Color Yellow (Yellow) 12/21/17 18:55 Urine Turbidity Clear (Clear) 12/21/17 18:55 Urine pH 6.0 (5.0-7.0) 12/21/17 18:55 Ur Specific Huntly 1.021 (1.003-1.030) 12/21/17 18:55 Urine Protein 100 mg/dl mg/dL (Negative) 12/21/17 18:55 Urine Glucose (UA) 150 mg/dL (Negative) 12/21/17 18:55 Urine Ketones Neg mg/dL (Negative) 12/21/17 18:55 Urine Blood Neg (Negative) 12/21/17 18:55 Urine Nitrite Neg (Negative) 12/21/17 18:55 Urine Bilirubin Neg (Negative) 12/21/17 18:55 Urine Urobilinogen < 2.0 mg/dL (<2.0) 12/21/17 18:55 Ur Leukocyte Esterase Neg (Negative) 12/21/17 18:55 Urine WBC (Auto) 1.0 /HPF (0.0-6.0) 06/26/18 18:55 Urine RBC (Auto) 3.0 /HPF (0.0-6.0) 12/21/17 18:55 U Epithel Cells (Auto) < 1.0 /HPF (0-13.0) 12/21/17 18:55 Blood Type A POSITIVE 12/21/17 18:16 Antibody Screen Negative 12/21/17 18:16
[2017-12-22] MEDS ORDERED: HABITROL TD ONE (11:46)
[2017-12-22] MEDS ORDERED: KEPPRA PO ONE (11:47)
[2017-12-22] MEDS ORDERED: FOLVITE ONE (11:47)
[2017-12-22] MEDS ORDERED: VITAMIN B-12 ONE (11:47)
[2017-12-22] MEDS: LEVAQUIN 750MG/150ML 750 MG/150 ML BAG IV SCH (12:00)
[2017-12-22] MEDS: FOLVITE PO SCH (12:02)
[2017-12-22] MEDS: SODIUM CHLORIDE FLUSH SYRINGE 10 ML IV SCH ×2 (12:15→21:08)
[2017-12-22] MEDS: VITAMIN B-1 PO SCH (12:15)
[2017-12-22] MEDS: HABITROL TD SCH (12:15)
[2017-12-22] MEDS: KEPPRA PO SCH ×2 (12:43→21:08)
[2017-12-22] MEDS: ATIVAN IV PRN (21:07)
[2017-12-22] MEDS: LIBRIUM PO PRN (21:07)
[2017-12-22] MEDS: PEPCID PO SCH (21:08)
[2017-12-23] MEDS: LIBRIUM PO PRN ×5 (01:27→22:57)
[2017-12-23] MEDS: ATIVAN IV PRN ×6 (01:28→22:58)
[2017-12-23 07:56] LABS: Hematocrit 38.1 % (35.5-45.6); Hemoglobin 12.9 gm/dl (11.8-15.2); Mean Corpuscular HGB Conc 34 % (32-34); Mean Corpuscular Hemoglobin 34 pg (28-32); Mean Corpuscular Volume 102 fl (84-94); Platelet Count 117 K/mm3 (140-440); Red Blood Count 3.75 M/mm3 (3.65-5.03); Red Cell Distribution Width 15.8 % (13.2-15.2)
[2017-12-23 08:06] LABS: Alanine Aminotransferase 58 units/L (7-56); Albumin 3.8 g/dL (3.9-5); BUN/Creatinine Ratio 15; Blood Urea Nitrogen 9 mg/dL (9-20); Calcium 9.3 mg/dL (8.4-10.2); Hemolysis Index 52
--- NOTE | 2017-12-23 08:12 | Discharge Summary ---
Providers - Providers Date of Admission: 12/21/17 19:16 Date of discharge: 12/25/17 Attending physician: EMIL OMALLEY Primary care physician: GUEST ROOM INSPECTOR Hospitalization Reason for admission: copd exac Condition: Stable Hospital course: This is a 47-year-old male with past medical history of hypertension depression , asthma, alcohol abuse, alcohol withdrawal seizure who presented to the ER with a primary complaint of cough, wheezing, shortness of breath, fevers and mucus production. The patient was admitted with a diagnosis of acute asthma exacerbation and acute bronchitis. Chest x-ray revealed no infiltrates and no pleural effusions or pneumothoraces. The patient was treated with IV antibiotics and IV systemic steroids. Patient had significant improvement throughout hospitalization. Patient was also placed on CIWA protocol given his history of alcohol abuse. Patient's respiratory status improved and stabilized therefore to be discharged home. Dedicated discharge time 32 minutes. Disposition: DC-01 TO HOME OR SELFCARE Time spent for discharge: 32 - Discharge Diagnoses (1) Asthma exacerbation Status: Acute (2) Acute respiratory failure with hypoxemia Status: Acute (3) Alcohol withdrawal Status: Acute (4) Dog bite of extremity Status: Acute (5) SIRS (systemic inflammatory response syndrome) Status: Acute Core Measure Documentation - Palliative Care Palliative Care/ Comfort Measures: Not Applicable - Core Measures Any of the following diagnoses?: none Exam - Constitutional Vitals: Temp Pulse Resp BP Pulse Ox 98.0 F 90 18 144/96 94 12/23/17 07:42 12/23/17 07:42 12/23/17 07:42 12/23/17 07:42 12/23/17 07:42 General appearance: Present: no acute distress, well-nourished - EENT Eyes: Present: PERRL ENT: hearing intact, clear oral mucosa - Neck Neck: Present: supple, normal ROM - Respiratory Respiratory effort: normal Respiratory: bilateral: CTA - Cardiovascular Heart Sounds: Present: S1 & S2. Absent: rub, click - Extremities Extremities: pulses symmetrical, No edema Peripheral Pulses: within normal limits - Abdominal General gastrointestinal: Present: soft, non-tender, non-distended, normal bowel sounds Male genitourinary: Present: normal - Integumentary Integumentary: Present: clear, warm, dry - Musculoskeletal Musculoskeletal: gait normal, strength equal bilaterally - Psychiatric Psychiatric: appropriate mood/affect, intact judgment & insight - Neurologic Neurologic: CNII-XII intact, moves all extremities Plan Activity: no restrictions Weight Bearing Status: Full Weight Bearing Diet: regular Follow up with: PRIMARY CARE,MD [Primary Care Provider] - 3-5 Days Prescriptions: ALBUTEROL Inhaler [ProAir HFA Inhaler] 2 puff IH QID PRN #1 inhalation PRN Reason: Shortness Of Breath Famotidine [Pepcid] 20 mg PO BID #60 tablet Folic Acid [Folvite] 1 mg PO QDAY #30 tablet levETIRAcetam [Keppra] 500 mg PO BID #60 tablet Levofloxacin [Levaquin] 750 mg PO QDAY #7 tablet methylPREDNISolone [Medrol] 4 mg PO QAM #1 tab.ds.pk Thiamine [Vitamin B-1] 100 mg PO QDAY #30 tablet
[2017-12-23] MEDS: DUONEB *Not for PRN Use IH SCH ×4 (08:19→20:13)
[2017-12-23 08:45] LABS: Anisocytosis 1+; Band Neutrophils # (Manual) 0.3 K/mm3; Basophils % (Manual) 0 % (0.0-1.8); Eosinophils % (Manual) 0 % (0.0-4.3); Target Cells Rare; Total Cells Counted 100
[2017-12-23 08:46] LABS: Hypochromasia Few; Platelet Estimate Consistent w Auto
--- NOTE | 2017-12-23 10:58 | Progress Note ---
Assessment and Plan Assessment and plan: EtOH withdrawal/delirium tremens. Continue CIWA protocol. Psychiatry consultation. Acute hypoxemic respiratory failure. Etiology secondary to COPD exacerbation. Continue O2 and supportive care. Acute COPD exacerbation. Continue IV systemic steroids and nebulizer treatments. Taper steroids. Acute bronchitis. Continue IV Levaquin. Seizure disorder. Continue Keppra. Nicotine dependence. Continue NicoDerm patch. Patient has been counseled about smoking cessation. DVT prophylaxis. Continue Lovenox daily. - Patient Problems (1) Asthma exacerbation Current Visit: Yes Status: Acute (2) Acute respiratory failure with hypoxemia Current Visit: Yes Status: Acute (3) Alcohol withdrawal Current Visit: Yes Status: Acute (4) Dog bite of extremity Current Visit: Yes Status: Acute (5) SIRS (systemic inflammatory response syndrome) Current Visit: Yes Status: Acute History Interval history: Patient is alert oriented only to self. Patient requiring 4-point restraints and is confused. Patient appears to have active DTs. Hospitalist Physical - Constitutional Vitals: Temp Pulse Resp BP Pulse Ox 98.0 F 80 20 144/96 98 12/23/17 07:42 12/23/17 08:30 12/23/17 08:30 12/23/17 07:42 12/23/17 08:23 General appearance: Present: mild distress, well-nourished - EENT Eyes: Present: PERRL, EOM intact ENT: hearing intact, clear oral mucosa, dentition normal - Neck Neck: Present: supple, normal ROM - Respiratory Respiratory effort: normal Respiratory: bilateral: CTA - Cardiovascular Rhythm: regular Heart Sounds: Present: S1 & S2. Absent: gallop, rub - Extremities Extremities: no ischemia, No edema, Full ROM - Abdominal General gastrointestinal: soft, non-tender, non-distended, normal bowel sounds - Integumentary Integumentary: Present: clear, warm, dry - Neurologic Neurologic: CNII-XII intact, moves all extremities Results - Labs CBC & Chem 7: 12/23/17 06:33 12/23/17 06:33 Labs: Laboratory Last Values WBC 8.0 K/mm3 (4.5-11.0) 12/23/17 06:33 RBC 3.75 M/mm3 (3.65-5.03) 12/23/17 06:33 Hgb 12.9 gm/dl (11.8-15.2) 12/23/17 06:33 Hct 38.1 % (35.5-45.6) 12/23/17 06:33 MCV 102 fl (84-94) H 12/23/17 06:33 MCH 34 pg (28-32) H 12/23/17 06:33 MCHC 34 % (32-34) 12/23/17 06:33 RDW 15.8 % (13.2-15.2) H 12/23/17 06:33 Plt Count 117 K/mm3 (140-440) L 12/23/17 06:33 Lymph % (Auto) 3.7 % (13.4-35.0) L 12/21/17 02:39 [place] % (Auto) 8.8 % (0.0-7.3) H 12/21/17 02:39 Eos % (Auto) 0.0 % (0.0-4.3) 12/21/17 02:39 Baso % (Auto) 0.4 % (0.0-1.8) 12/21/17 02:39 Lymph # 0.4 K/mm3 (1.2-5.4) L 12/21/17 02:39 [place] # 0.9 K/mm3 (0.0-0.8) H 12/21/17 02:39 Eos # 0.0 K/mm3 (0.0-0.4) 12/21/17 02:39 Baso # 0.0 K/mm3 (0.0-0.1) 12/21/17 02:39 Add Manual Diff Complete 12/23/17 06:33 Total Counted 100 12/23/17 06:33 Seg Neutrophils % Armature Winder Repairer 12/23/17 06:33 Seg Neuts % (Manual) 86.0 % (40.0-70.0) H 12/23/17 06:33 Band Neutrophils % 4.0 % 12/23/17 06:33 Lymphocytes % (Manual) 5.0 % (13.4-35.0) L 12/23/17 06:33 Reactive Lymphs % (Man) 0 % 12/23/17 06:33 Monocytes % (Manual) 5.0 % (0.0-7.3) 12/23/17 06:33 Eosinophils % (Manual) 0 % (0.0-4.3) 12/23/17 06:33 Basophils % (Manual) 0 % (0.0-1.8) 12/23/17 06:33 Metamyelocytes % 0 % 12/23/17 06:33 Myelocytes % 0 % 12/23/17 06:33 Promyelocytes % 0 % 12/23/17 06:33 Blast Cells % 0 % 12/23/17 06:33 Nucleated RBC % Not Reportable 12/23/17 06:33 Seg Neutrophils # 9.2 K/mm3 (1.8-7.7) H 12/21/17 02:39 Seg Neutrophils # Man 6.9 K/mm3 (1.8-7.7) 12/23/17 06:33 Band Neutrophils # 0.3 K/mm3 12/23/17 06:33 Lymphocytes # (Manual) 0.4 K/mm3 (1.2-5.4) L 12/23/17 06:33 Abs React Lymphs (Man) 0.0 K/mm3 12/23/17 06:33 Monocytes # (Manual) 0.4 K/mm3 (0.0-0.8) 12/23/17 06:33 Eosinophils # (Manual) 0.0 K/mm3 (0.0-0.4) 12/23/17 06:33 Basophils # (Manual) 0.0 K/mm3 (0.0-0.1) 12/23/17 06:33 Metamyelocytes # 0.0 K/mm3 12/23/17 06:33 Myelocytes # 0.0 K/mm3 12/23/17 06:33 Promyelocytes # 0.0 K/mm3 12/23/17 06:33 Blast Cells # 0.0 K/mm3 12/23/17 06:33 WBC Morphology Not Reportable 12/23/17 06:33 Hypersegmented Neuts Not Reportable 12/23/17 06:33 Hyposegmented Neuts Not Reportable 12/23/17 06:33 Hypogranular Neuts Not Reportable 12/23/17 06:33 Smudge Cells Not Reportable 12/23/17 06:33 Toxic Granulation Not Reportable 12/23/17 06:33 Toxic Vacuolation Not Reportable 12/23/17 06:33 Dohle Bodies Not Reportable 12/23/17 06:33 Pelger-Huet Anomaly Not Reportable 12/23/17 06:33 Adam Rods Not Reportable 12/23/17 06:33 Platelet Estimate Consistent w auto 12/23/17 06:33 Clumped Platelets Not Reportable 12/23/17 06:33 Plt Clumps, EDTA Not Reportable 12/23/17 06:33 Large Platelets Not Reportable 12/23/17 06:33 Giant Platelets Not Reportable 12/23/17 06:33 Platelet Satelliting Not Reportable 12/23/17 06:33 Plt Morphology Comment Not Reportable 12/23/17 06:33 RBC Morphology Not Reportable 12/23/17 06:33 Dimorphic RBCs Not Reportable 12/23/17 06:33 Polychromasia Not Reportable 12/23/17 06:33 Hypochromasia Few 12/23/17 06:33 Poikilocytosis Not Reportable 12/23/17 06:33 Anisocytosis 1+ 12/23/17 06:33 Microcytosis Not Reportable 12/23/17 06:33 Macrocytosis Not Reportable 12/23/17 06:33 Spherocytes Not Reportable 12/23/17 06:33 Pappenheimer Bodies Not Reportable 12/23/17 06:33 Sickle Cells Not Reportable 12/23/17 06:33 Target Cells Rare 12/23/17 06:33 Tear Drop Cells Not Reportable 12/23/17 06:33 Ovalocytes Not Reportable 12/23/17 06:33 Helmet Cells Not Reportable 12/23/17 06:33 [place] Bodies Not Reportable 12/23/17 06:33 [place] Rings Not Reportable 12/23/17 06:33 [place] Cells Not Reportable 12/23/17 06:33 Bite Cells Not Reportable 12/23/17 06:33 Crenated Cell Not Reportable 12/23/17 06:33 Elliptocytes Not Reportable 12/23/17 06:33 Acanthocytes (Spur) Not Reportable 12/23/17 06:33 Rouleaux Not Reportable 12/23/17 06:33 Hemoglobin C Crystals Not Reportable 12/23/17 06:33 Schistocytes Not Reportable 12/23/17 06:33 Malaria parasites Not Reportable 12/23/17 06:33 Jem Bodies Not Reportable 12/23/17 06:33 Hem Pathologist Commnt No 12/23/17 06:33 POC ABG pH 7.547 (7.35-7.45) H 12/21/17 18:01 POC ABG pCO2 34.5 (35-45) L 12/21/17 18:01 POC ABG pO2 56 (80-105) L 12/21/17 18:01 POC ABG HCO3 29.9 12/21/17 18:01 POC ABG Total CO2 31 12/21/17 18:01 POC ABG O2 Sat 92 12/21/17 18:01 POC ABG Base Excess 8 12/21/17 18:01 FiO2 21 % 12/21/17 18:01 Sodium 139 mmol/L (137-145) 12/23/17 06:33 Potassium 4.2 mmol/L (3.6-5.0) 12/23/17 06:33 Chloride 97.8 mmol/L (98-107) L 12/23/17 06:33 Carbon Dioxide 24 mmol/L (22-30) 12/23/17 06:33 Anion Gap 21 mmol/L 12/23/17 06:33 BUN 9 mg/dL (9-20) 12/23/17 06:33 Creatinine 0.6 mg/dL (0.8-1.5) L 12/23/17 06:33 Estimated GFR > 60 ml/min 12/23/17 06:33 BUN/Creatinine Ratio 15 % 12/23/17 06:33 Glucose 153 mg/dL (75-100) H 12/23/17 06:33 Hemoglobin A1c 5.3 % (4-6) 12/22/17 01:55 Lactic Acid 1.30 mmol/L (0.7-2.0) 12/22/17 01:55 Calcium 9.3 mg/dL (8.4-10.2) 12/23/17 06:33 Magnesium 1.30 mg/dL (1.7-2.3) L 12/21/17 18:13 Total Bilirubin 0.50 mg/dL (0.1-1.2) 12/23/17 06:33 AST 45 units/L (5-40) H 12/23/17 06:33 ALT 58 units/L (7-56) H 12/23/17 06:33 Alkaline Phosphatase 63 units/L (35-129) 12/23/17 06:33 Total Creatine Kinase 273 units/L (55-170) H 12/21/17 18:13 Troponin T < 0.010 ng/mL (0.00-0.029) 12/21/17 02:39 Total Protein 7.2 g/dL (6.3-8.2) 12/23/17 06:33 Albumin 3.8 g/dL (3.9-5) L 12/23/17 06:33 Albumin/Globulin Ratio 1.1 % 12/23/17 06:33 Urine Color Yellow (Yellow) 12/21/17 18:55 Urine Turbidity Clear (Clear) 12/21/17 18:55 Urine pH 6.0 (5.0-7.0) 12/21/17 18:55 Ur Specific [place] 1.021 (1.003-1.030) 12/21/17 18:55 Urine Protein 100 mg/dl mg/dL (Negative) 12/21/17 18:55 Urine Glucose (UA) 150 mg/dL (Negative) 12/21/17 18:55 Urine Ketones Neg mg/dL (Negative) 12/21/17 18:55 Urine Blood Neg (Negative) 12/21/17 18:55 Urine Nitrite Neg (Negative) 12/21/17 18:55 Urine Bilirubin Neg (Negative) 12/21/17 18:55 Urine Urobilinogen < 2.0 mg/dL (<2.0) 12/21/17 18:55 Ur Leukocyte Esterase Neg (Negative) 12/21/17 18:55 Urine WBC (Auto) 1.0 /HPF (0.0-6.0) 12/21/17 18:55 Urine RBC (Auto) 3.0 /HPF (0.0-6.0) 12/21/17 18:55 U Epithel Cells (Auto) < 1.0 /HPF (0-13.0) 12/21/17 18:55 Blood Type A POSITIVE 12/21/17:16 Antibody Screen Negative 12/21/17 18:16
[2017-12-23] MEDS: HABITROL TD SCH (11:15)
[2017-12-23] MEDS: KEPPRA PO SCH ×2 (11:16→22:58)
[2017-12-23] MEDS: FOLVITE PO SCH (11:16)
[2017-12-23] MEDS: PEPCID PO SCH ×2 (11:17→22:58)
[2017-12-23] MEDS: VITAMIN B-1 PO SCH (11:17)
[2017-12-23] MEDS: SODIUM CHLORIDE FLUSH SYRINGE 10 ML IV SCH ×2 (11:17→22:59)
[2017-12-23] MEDS: LEVAQUIN 750MG/150ML 750 MG/150 ML BAG IV SCH (11:18)
[2017-12-24] MEDS: ATIVAN IV PRN ×5 (04:49→21:47)
[2017-12-24] MEDS: LIBRIUM PO PRN ×2 (04:50→21:46)
[2017-12-24] MEDS: DUONEB *Not for PRN Use IH SCH ×4 (08:38→19:47)
--- NOTE | 2017-12-24 09:47 | Progress Note ---
Assessment and Plan Assessment and plan: EtOH withdrawal/delirium tremens. Continue CIWA protocol. Psychiatry following. Acute hypoxemic respiratory failure. Etiology secondary to COPD exacerbation. Continue O2 and supportive care. Acute COPD exacerbation. Continue IV systemic steroids and nebulizer treatments. Taper steroids. Acute bronchitis. Continue IV Levaquin. Seizure disorder. Continue Keppra. Nicotine dependence. Continue NicoDerm patch. Patient has been counseled about smoking cessation. DVT prophylaxis. Continue Lovenox daily. - Patient Problems (1) Asthma exacerbation Current Visit: Yes Status: Acute (2) Acute respiratory failure with hypoxemia Current Visit: Yes Status: Acute (3) Alcohol withdrawal Current Visit: Yes Status: Acute (4) Dog bite of extremity Current Visit: Yes Status: Acute (5) SIRS (systemic inflammatory response syndrome) Current Visit: Yes Status: Acute History Interval history: Patient is alert oriented only to self. Patient requiring 4-point restraints and is confused. Patient appears to have active DTs. Hospitalist Physical - Constitutional Vitals: Temp Pulse Resp BP Pulse Ox 98.1 F 92 H 20 149/96 92 12/24/17 05:23 12/24/17 07:48 12/24/17 07:48 12/24/17 07:48 12/24/17 07:48 General appearance: Present: mild distress, well-nourished - EENT Eyes: Present: PERRL, EOM intact ENT: hearing intact, clear oral mucosa, dentition normal - Neck Neck: Present: supple, normal ROM - Respiratory Respiratory effort: normal Respiratory: bilateral: CTA - Cardiovascular Rhythm: regular Heart Sounds: Present: S1 & S2. Absent: gallop, rub - Extremities Extremities: no ischemia, No edema, Full ROM - Abdominal General gastrointestinal: soft, non-tender, non-distended, normal bowel sounds - Integumentary Integumentary: Present: clear, warm, dry - Neurologic Neurologic: CNII-XII intact, moves all extremities Results - Labs CBC & Chem 7: 12/23/17 06:33 12/23/17 06:33 Labs: Laboratory Last Values WBC 8.0 K/mm3 (4.5-11.0) 12/23/17 06:33 RBC 3.75 M/mm3 (3.65-5.03) 12/23/17 06:33 Hgb 12.9 gm/dl (11.8-15.2) 12/23/17 06:33 Hct 38.1 % (35.5-45.6) 12/23/17 06:33 MCV 102 fl (84-94) H 12/23/17 06:33 MCH 34 pg (28-32) H 12/23/17 06:33 MCHC 34 % (32-34) 12/23/17 06:33 RDW 15.8 % (13.2-15.2) H 12/23/17 06:33 Plt Count 117 K/mm3 (140-440) L 12/23/17 06:33 Lymph % (Auto) 3.7 % (13.4-35.0) L 12/21/17 02:39 [place] % (Auto) 8.8 % (0.0-7.3) H 12/21/17 02:39 Eos % (Auto) 0.0 % (0.0-4.3) 12/21/17 02:39 Baso % (Auto) 0.4 % (0.0-1.8) 12/21/17 02:39 Lymph # 0.4 K/mm3 (1.2-5.4) L 12/21/17 02:39 [place] # 0.9 K/mm3 (0.0-0.8) H 12/21/17 02:39 Eos # 0.0 K/mm3 (0.0-0.4) 12/21/17 02:39 Baso # 0.0 K/mm3 (0.0-0.1) 12/21/17 02:39 Add Manual Diff Complete 12/23/17 06:33 Total Counted 100 12/23/17 06:33 Seg Neutrophils % Data Analytics Specialist 12/23/17 06:33 Seg Neuts % (Manual) 86.0 % (40.0-70.0) H 12/23/17 06:33 Band Neutrophils % 4.0 % 12/23/17 06:33 Lymphocytes % (Manual) 5.0 % (13.4-35.0) L 12/23/17 06:33 Reactive Lymphs % (Man) 0 % 12/23/17 06:33 Monocytes % (Manual) 5.0 % (0.0-7.3) 12/23/17 06:33 Eosinophils % (Manual) 0 % (0.0-4.3) 12/23/17 06:33 Basophils % (Manual) 0 % (0.0-1.8) 12/23/17 06:33 Metamyelocytes % 0 % 12/23/17 06:33 Myelocytes % 0 % 12/23/17 06:33 Promyelocytes % 0 % 12/23/17 06:33 Blast Cells % 0 % 12/23/17 06:33 Nucleated RBC % Not Reportable 12/23/17 06:33 Seg Neutrophils # 9.2 K/mm3 (1.8-7.7) H 12/21/17 02:39 Seg Neutrophils # Man 6.9 K/mm3 (1.8-7.7) 12/23/17 06:33 Band Neutrophils # 0.3 K/mm3 12/23/17 06:33 Lymphocytes # (Manual) 0.4 K/mm3 (1.2-5.4) L 12/23/17 06:33 Abs React Lymphs (Man) 0.0 K/mm3 12/23/17 06:33 Monocytes # (Manual) 0.4 K/mm3 (0.0-0.8) 12/23/17 06:33 Eosinophils # (Manual) 0.0 K/mm3 (0.0-0.4) 12/23/17 06:33 Basophils # (Manual) 0.0 K/mm3 (0.0-0.1) 12/23/17 06:33 Metamyelocytes # 0.0 K/mm3 12/23/17 06:33 Myelocytes # 0.0 K/mm3 12/23/17 06:33 Promyelocytes # 0.0 K/mm3 12/23/17 06:33 Blast Cells # 0.0 K/mm3 12/23/17 06:33 WBC Morphology Not Reportable 12/23/17 06:33 Hypersegmented Neuts Not Reportable 12/23/17 06:33 Hyposegmented Neuts Not Reportable 12/23/17 06:33 Hypogranular Neuts Not Reportable 12/23/17 06:33 Smudge Cells Not Reportable 12/23/17 06:33 Toxic Granulation Not Reportable 12/23/17 06:33 Toxic Vacuolation Not Reportable 12/23/17 06:33 Dohle Bodies Not Reportable 12/23/17 06:33 Pelger-Huet Anomaly Not Reportable 12/23/17 06:33 [place] Rods Not Reportable 12/23/17 06:33 Platelet Estimate Consistent w auto 12/23/17 06:33 Clumped Platelets Not Reportable 12/23/17 06:33 Plt Clumps, EDTA Not Reportable 12/23/17 06:33 Large Platelets Not Reportable 12/23/17 06:33 Giant Platelets Not Reportable 12/23/17 06:33 Platelet Satelliting Not Reportable 12/23/17 06:33 Plt Morphology Comment Not Reportable 12/23/17 06:33 RBC Morphology Not Reportable 12/23/17 06:33 Dimorphic RBCs Not Reportable 12/23/17 06:33 Polychromasia Not Reportable 12/23/17 06:33 Hypochromasia Few 12/23/17 06:33 Poikilocytosis Not Reportable 12/23/17 06:33 Anisocytosis 1+ 12/23/17 06:33 Microcytosis Not Reportable 12/23/17 06:33 Macrocytosis Not Reportable 12/23/17 06:33 Spherocytes Not Reportable 12/23/17 06:33 Pappenheimer Bodies Not Reportable 12/23/17 06:33 Sickle Cells Not Reportable 12/23/17 06:33 Target Cells Rare 12/23/17 06:33 Tear Drop Cells Not Reportable 12/23/17 06:33 Ovalocytes Not Reportable 12/23/17 06:33 Helmet Cells Not Reportable 12/23/17 06:33 [place] Bodies Not Reportable 12/23/17 06:33 [place] Rings Not Reportable 12/23/17 06:33 [place] Cells Not Reportable 12/23/17 06:33 Bite Cells Not Reportable 12/23/17 06:33 Crenated Cell Not Reportable 12/23/17 06:33 Elliptocytes Not Reportable 12/23/17 06:33 Acanthocytes (Spur) Not Reportable 12/23/17 06:33 Rouleaux Not Reportable 12/23/17 06:33 Hemoglobin C Crystals Not Reportable 12/23/17 06:33 Schistocytes Not Reportable 12/23/17 06:33 Malaria parasites Not Reportable 12/23/17 06:33 Jem Bodies Not Reportable 12/23/17 06:33 Hem Pathologist Commnt No 12/23/17 06:33 POC ABG pH 7.547 (7.35-7.45) H 12/21/17 18:01 POC ABG pCO2 34.5 (35-45) L 12/21/17 18:01 POC ABG pO2 56 (80-105) L 12/21/17 18:01 POC ABG HCO3 29.9 12/21/17 18:01 POC ABG Total CO2 31 12/21/17 18:01 POC ABG O2 Sat 92 12/21/17 18:01 POC ABG Base Excess 8 12/21/17 18:01 FiO2 21 % 12/21/17 18:01 Sodium 139 mmol/L (137-145) 12/23/17 06:33 Potassium 4.2 mmol/L (3.6-5.0) 12/23/17 06:33 Chloride 97.8 mmol/L (98-107) L 12/23/17 06:33 Carbon Dioxide 24 mmol/L (22-30) 12/23/17 06:33 Anion Gap 21 mmol/L 12/23/17 06:33 BUN 9 mg/dL (9-20) 12/23/17 06:33 Creatinine 0.6 mg/dL (0.8-1.5) L 12/23/17 06:33 Estimated GFR > 60 ml/min 12/23/17 06:33 BUN/Creatinine Ratio 15 % 12/23/17 06:33 Glucose 153 mg/dL (75-100) H 12/23/17 06:33 Hemoglobin A1c 5.3 % (4-6) 12/22/17 01:55 Lactic Acid 1.30 mmol/L (0.7-2.0) 12/22/17 01:55 Calcium 9.3 mg/dL (8.4-10.2) 12/23/17 06:33 Magnesium 1.30 mg/dL (1.7-2.3) L 12/21/17 18:13 Total Bilirubin 0.50 mg/dL (0.1-1.2) 12/23/17 06:33 AST 45 units/L (5-40) H 12/23/17 06:33 ALT 58 units/L (7-56) H 12/23/17 06:33 Alkaline Phosphatase 63 units/L (35-129) 12/23/17 06:33 Total Creatine Kinase 273 units/L (55-170) H 12/21/17 18:13 Troponin T < 0.010 ng/mL (0.00-0.029) 12/21/17 02:39 Total Protein 7.2 g/dL (6.3-8.2) 12/23/17 06:33 Albumin 3.8 g/dL (3.9-5) L 12/23/17 06:33 Albumin/Globulin Ratio 1.1 % 12/23/17 06:33 Urine Color Yellow (Yellow) 12/21/17 18:55 Urine Turbidity Clear (Clear) 12/21/17 18:55 Urine pH 6.0 (5.0-7.0) 12/21/17 18:55 Ur Specific [place] 1.021 (1.003-1.030) 12/21/17 18:55 Urine Protein 100 mg/dl mg/dL (Negative) 12/21/17 18:55 Urine Glucose (UA) 150 mg/dL (Negative) 12/21/17 18:55 Urine Ketones Neg mg/dL (Negative) 12/21/17 18:55 Urine Blood Neg (Negative) 12/21/17 18:55 Urine Nitrite Neg (Negative) 12/21/17 18:55 Urine Bilirubin Neg (Negative) 12/21/17 18:55 Urine Urobilinogen < 2.0 mg/dL (<2.0) 12/21/17 18:55 Ur Leukocyte Esterase Neg (Negative) 12/21/17 18:55 Urine WBC (Auto) 1.0 /HPF (0.0-6.0) 12/21/17 18:55 Urine RBC (Auto) 3.0 /HPF (0.0-6.0) 12/21/17 18:55 U Epithel Cells (Auto) < 1.0 /HPF (0-13.0) 12/21/17 18:55 Blood Type A POSITIVE 12/21/17:16 Antibody Screen Negative 12/21/17 18:16
[2017-12-24] MEDS: FOLVITE PO SCH (10:12)
[2017-12-24] MEDS: KEPPRA PO SCH ×2 (10:12→21:47)
[2017-12-24] MEDS: PEPCID PO SCH ×2 (10:12→21:46)
[2017-12-24] MEDS: HABITROL TD SCH (10:12)
[2017-12-24] MEDS: VITAMIN B-1 PO SCH (10:12)
[2017-12-24] MEDS: LEVAQUIN PO SCH (10:12)
--- NOTE | 2017-12-24 10:51 | Consultation ---
History of Present Illness - Reason for Consult Consult date: 12/24/17 Reason for consult: Mental Health Evaluation Requesting physician: EMIL OMALLEY - Chief Complaint Chief complaint: "I like to drink" - History of Present Psychiatric Illness 47-year-old AA male presenting to the ER for a cough, wheezing, shortness of breath, fevers, and mucus production. Also, the patient was observed having DT' s. Psychiatry was consulted to see the patient for ETOH. This patient is known to me. Today the patient is cooperative, but agitated and confused during the assessment. He has a long hx of chronic alcohol abuse. The patient's answers to questions were not logical. He had to be redirected several times to keep him on topic. No gestures of SI/HI's. Medications and Allergies Allergies Allergy/AdvReac Type Severity Reaction Status Date / Time tramadol Allergy Rash Verified 12/16/17 18:49 Home Medications Medication Instructions Recorded Confirmed Last Taken Type ALBUTEROL Inhaler [ProAir HFA 2 puff IH QID PRN #1 inhalation 12/23/17 Unknown Rx Inhaler] Famotidine [Pepcid] 20 mg PO BID #60 tablet 12/23/17 Unknown Rx Folic Acid [Folvite] 1 mg PO QDAY #30 tablet 12/23/17 Unknown Rx Levofloxacin [Levaquin] 750 mg PO QDAY #7 tablet 12/23/17 Unknown Rx Thiamine [Vitamin B-1] 100 mg PO QDAY #30 tablet 12/23/17 Unknown Rx levETIRAcetam [Keppra] 500 mg PO BID #60 tablet 12/23/17 Unknown Rx methylPREDNISolone [Medrol] 4 mg PO QAM #1 tab.ds.pk 12/23/17 Unknown Rx Active Meds: Active Medications Acetaminophen (Tylenol) 650 mg PO Q4H PRN PRN Reason: Pain MILD(1-3)/Fever >100.5/STILES Albuterol/Ipratropium (Duoneb *Not For Prn Use*) 1 ampul IH QIDRT JESSI Last Admin: 12/24/17 08:38 Dose: 1 ampul Chlordiazepoxide HCl (Librium) 50 mg PO Q1HR PRN PRN Reason: CIWA-Ar 8-15 Last Admin: 12/24/17 04:50 Dose: 50 mg Famotidine (Pepcid) 20 mg PO BID [facility] Last Admin: 12/24/17 10:12 Dose: 20 mg Folic Acid (Folvite) 1 mg PO QDAY [facility] Last Admin: 12/24/17 10:12 Dose: 1 mg Levetiracetam (Keppra) 500 mg PO BID [facility] Last Admin: 12/24/17 10:12 Dose: 500 mg Levofloxacin (Levaquin) 750 mg PO Q24HR [facility] Last Admin: 12/24/17 10:12 Dose: 750 mg Lorazepam (Ativan) 2 mg IV Q1HR PRN PRN Reason: CIWA-Ar 8-15 Last Admin: 12/24/17 10:13 Dose: 2 mg Lorazepam (Ativan) 4 mg IV Q1HR PRN PRN Reason: CIWA-Ar 16-25 Last Admin: 12/24/17 04:49 Dose: 4 mg Methylprednisolone Sodium Succinate (Solu-Medrol) 40 mg IV Q12H [facility] Morphine Sulfate (Morphine) 2 mg IV Q4H PRN PRN Reason: Pain, Moderate (4-6) Last Admin: 12/23/17 01:27 Dose: 2 mg Nicotine (Habitrol) 14 mg TD QDAY [facility] Last Admin: 12/24/17 10:12 Dose: 14 mg Ondansetron HCl (Zofran) 4 mg IV Q8H PRN PRN Reason: Nausea And Vomiting Oxycodone/Acetaminophen (Percocet 5/325) 1 tab PO Q6H PRN PRN Reason: Pain, Moderate (4-6) Sodium Chloride (Sodium Chloride Flush Syringe 10 Ml) 10 ml IV BID [facility] Last Admin: 12/23/17 22:59 Dose: 10 ml Sodium Chloride (Sodium Chloride Flush Syringe 10 Ml) 10 ml IV PRN PRN PRN Reason: LINE FLUSH Thiamine HCl (Vitamin B-1) 100 mg PO QDAY [facility] Last Admin: 12/24/17 10:12 Dose: 100 mg Past psychiatric history - Past Medical History Past Medical History: seizures, other Past Surgical History: No surgical history - past Psychiatric treatment and history psychiatric treatment history: The patient to confused to answer questions reference psy hx and fam psy hx. - Social History Social history: other (Unable to obtain) Mental Status Exam - Vital signs Last Vital Signs Temp 98.1 F 12/24/17 05:23 Pulse 92 H 12/24/17 07:48 Resp 20 12/24/17 07:48 BP 149/96 12/24/17 07:48 Pulse Ox 92 12/24/17 07:48 - Exam Narrative exam: MSE: Appearance: cooperative Behavior: poor eye contact Speech: regular rate and tone Mood: "okay" Affect: flat Thought Process: tangential Thought Content: no gestures of SI/HI's and AVH's Motor Activity: lying in bed Cognition: A/O x 2, with confusion Insight: limited Judgment: limited Results Result Diagrams: 12/23/17 06:33 12/23/17 06:33 All other labs normal. Assessment and Plan Assessment and plan: Impression: Hx of Alcohol Use DO. Active DT's. Today the patient is cooperative , but agitated and confused during the assessment. No Alcohol Serum collected on admission. The patient is in restraints. DDx: R/O Mood DO Recommendation/Plan: Start Haldol 2 mg IM Q6hrs PRN for acute agitation. Recommend Ativan PO for CIWA protocol only, the patient can swallow. Reassess the patient in 24 hours. Recommend Delirium precautions below: 1. Frequently reorient patient and involve him/her in their care (simple explanations of procedures, tests, medications). 2. Lights on and shades open during daytime hours. 3. Write date and goals of care in a visible place. 4. Try to avoid unnecessary interruptions to sleep during nighttime hours. 5. Obtain glasses, hearing aids from home if patient uses these at baseline. 6. Avoid medications that may exacerbate delirium (especially narcotics, benzodiazepines, barbiturates, ambien, lunesta, and medications with excessive anticholinergic properties). Recommend Tylenol for pain at this time. 7. 1:1 sitter for safety. 8. D/C restraints when not indicated.
[2017-12-24] MEDS: SODIUM CHLORIDE FLUSH SYRINGE 10 ML IV SCH ×2 (11:29→21:47)
[2017-12-25] MEDS: HALDOL IM PRN ×3 (04:53→18:17)
[2017-12-25] MEDS: DUONEB *Not for PRN Use IH SCH ×4 (07:21→20:29)
[2017-12-25] MEDS: KEPPRA PO SCH ×2 (11:36→22:21)
[2017-12-25] MEDS: LEVAQUIN PO SCH (11:36)
[2017-12-25] MEDS: FOLVITE PO SCH (11:36)
[2017-12-25] MEDS: HABITROL TD SCH (11:36)
[2017-12-25] MEDS: PEPCID PO SCH ×2 (11:37→22:21)
[2017-12-25] MEDS: VITAMIN B-1 PO SCH (11:37)
[2017-12-25] MEDS: LIBRIUM PO PRN (11:38)
--- NOTE | 2017-12-25 11:57 | Progress Note ---
Assessment and Plan Assessment and plan: EtOH withdrawal/delirium tremens. Continue CIWA protocol. Psychiatry following. Acute hypoxemic respiratory failure. Etiology secondary to COPD exacerbation. Continue O2 and supportive care. Acute COPD exacerbation. Continue IV systemic steroids and nebulizer treatments. Taper steroids. Acute bronchitis. Continue IV Levaquin. Seizure disorder. Continue Keppra. Nicotine dependence. Continue NicoDerm patch. Patient has been counseled about smoking cessation. DVT prophylaxis. Continue Lovenox daily. - Patient Problems (1) Asthma exacerbation Current Visit: Yes Status: Acute (2) Acute respiratory failure with hypoxemia Current Visit: Yes Status: Acute (3) Alcohol withdrawal Current Visit: Yes Status: Acute (4) Dog bite of extremity Current Visit: Yes Status: Acute (5) SIRS (systemic inflammatory response syndrome) Current Visit: Yes Status: Acute History Interval history: Patient is alert oriented x 3. Patient requiring 4-point restraints and is confused. However, Patient appears to be less confused Hospitalist Physical - Constitutional Vitals: Temp Pulse Resp BP Pulse Ox 98.4 F 52 L 18 171/92 100 12/25/17 07:40 12/25/17 11:26 12/25/17 11:26 12/25/17 07:40 12/25/17 07:40 General appearance: Present: mild distress, well-nourished - EENT Eyes: Present: PERRL, EOM intact ENT: hearing intact, clear oral mucosa, dentition normal - Neck Neck: Present: supple, normal ROM - Respiratory Respiratory effort: normal Respiratory: bilateral: CTA - Cardiovascular Rhythm: regular Heart Sounds: Present: S1 & S2. Absent: gallop, rub - Extremities Extremities: no ischemia, No edema, Full ROM - Abdominal General gastrointestinal: soft, non-tender, non-distended, normal bowel sounds - Integumentary Integumentary: Present: clear, warm, dry - Neurologic Neurologic: CNII-XII intact, moves all extremities Results - Labs CBC & Chem 7: 12/23/17 06:33 12/23/17 06:33 Labs: Laboratory Last Values WBC 8.0 K/mm3 (4.5-11.0) 12/23/17 06:33 RBC 3.75 M/mm3 (3.65-5.03) 12/23/17 06:33 Hgb 12.9 gm/dl (11.8-15.2) 12/23/17 06:33 Hct 38.1 % (35.5-45.6) 12/23/17 06:33 MCV 102 fl (84-94) H 12/23/17 06:33 MCH 34 pg (28-32) H 12/23/17 06:33 MCHC 34 % (32-34) 12/23/17 06:33 RDW 15.8 % (13.2-15.2) H 12/23/17 06:33 Plt Count 117 K/mm3 (140-440) L 12/23/17 06:33 Lymph % (Auto) 3.7 % (13.4-35.0) L 12/21/17 02:39 [place] % (Auto) 8.8 % (0.0-7.3) H 12/21/17 02:39 Eos % (Auto) 0.0 % (0.0-4.3) 12/21/17 02:39 Baso % (Auto) 0.4 % (0.0-1.8) 12/21/17 02:39 Lymph # 0.4 K/mm3 (1.2-5.4) L 12/21/17 02:39 [place] # 0.9 K/mm3 (0.0-0.8) H 12/21/17 02:39 Eos # 0.0 K/mm3 (0.0-0.4) 12/21/17 02:39 Baso # 0.0 K/mm3 (0.0-0.1) 12/21/17 02:39 Add Manual Diff Complete 12/23/17 06:33 Total Counted 100 12/23/17 06:33 Seg Neutrophils % Planning Intern 12/23/17 06:33 Seg Neuts % (Manual) 86.0 % (40.0-70.0) H 12/23/17 06:33 Band Neutrophils % 4.0 % 12/23/17 06:33 Lymphocytes % (Manual) 5.0 % (13.4-35.0) L 12/23/17 06:33 Reactive Lymphs % (Man) 0 % 12/23/17 06:33 Monocytes % (Manual) 5.0 % (0.0-7.3) 12/23/17 06:33 Eosinophils % (Manual) 0 % (0.0-4.3) 12/23/17 06:33 Basophils % (Manual) 0 % (0.0-1.8) 12/23/17 06:33 Metamyelocytes % 0 % 12/23/17 06:33 Myelocytes % 0 % 12/23/17 06:33 Promyelocytes % 0 % 12/23/17 06:33 Blast Cells % 0 % 12/23/17 06:33 Nucleated RBC % Not Reportable 12/23/17 06:33 Seg Neutrophils # 9.2 K/mm3 (1.8-7.7) H 12/21/17 02:39 Seg Neutrophils # Man 6.9 K/mm3 (1.8-7.7) 12/23/17 06:33 Band Neutrophils # 0.3 K/mm3 12/23/17 06:33 Lymphocytes # (Manual) 0.4 K/mm3 (1.2-5.4) L 12/23/17 06:33 Abs React Lymphs (Man) 0.0 K/mm3 12/23/17 06:33 Monocytes # (Manual) 0.4 K/mm3 (0.0-0.8) 12/23/17 06:33 Eosinophils # (Manual) 0.0 K/mm3 (0.0-0.4) 12/23/17 06:33 Basophils # (Manual) 0.0 K/mm3 (0.0-0.1) 12/23/17 06:33 Metamyelocytes # 0.0 K/mm3 12/23/17 06:33 Myelocytes # 0.0 K/mm3 12/23/17 06:33 Promyelocytes # 0.0 K/mm3 12/23/17 06:33 Blast Cells # 0.0 K/mm3 12/23/17 06:33 WBC Morphology Not Reportable 12/23/17 06:33 Hypersegmented Neuts Not Reportable 12/23/17 06:33 Hyposegmented Neuts Not Reportable 12/23/17 06:33 Hypogranular Neuts Not Reportable 12/23/17 06:33 Smudge Cells Not Reportable 12/23/17 06:33 Toxic Granulation Not Reportable 12/23/17 06:33 Toxic Vacuolation Not Reportable 12/23/17 06:33 Dohle Bodies Not Reportable 12/23/17 06:33 Pelger-Huet Anomaly Not Reportable 12/23/17 06:33 Adam Rods Not Reportable 12/23/17 06:33 Platelet Estimate Consistent w auto 12/23/17 06:33 Clumped Platelets Not Reportable 12/23/17 06:33 Plt Clumps, EDTA Not Reportable 12/23/17 06:33 Large Platelets Not Reportable 12/23/17 06:33 Giant Platelets Not Reportable 12/23/17 06:33 Platelet Satelliting Not Reportable 12/23/17 06:33 Plt Morphology Comment Not Reportable 12/23/17 06:33 RBC Morphology Not Reportable 12/23/17 06:33 Dimorphic RBCs Not Reportable 12/23/17 06:33 Polychromasia Not Reportable 12/23/17 06:33 Hypochromasia Few 12/23/17 06:33 Poikilocytosis Not Reportable 12/23/17 06:33 Anisocytosis 1+ 12/23/17 06:33 Microcytosis Not Reportable 12/23/17 06:33 Macrocytosis Not Reportable 12/23/17 06:33 Spherocytes Not Reportable 12/23/17 06:33 Pappenheimer Bodies Not Reportable 12/23/17 06:33 Sickle Cells Not Reportable 12/23/17 06:33 Target Cells Rare 12/23/17 06:33 Tear Drop Cells Not Reportable 12/23/17 06:33 Ovalocytes Not Reportable 12/23/17 06:33 Helmet Cells Not Reportable 12/23/17 06:33 Julian-[place] Bodies Not Reportable 12/23/17 06:33 [place] Rings Not Reportable 12/23/17 06:33 [place] Cells Not Reportable 12/23/17 06:33 Bite Cells Not Reportable 12/23/17 06:33 Crenated Cell Not Reportable 12/23/17 06:33 Elliptocytes Not Reportable 12/23/17 06:33 Acanthocytes (Spur) Not Reportable 12/23/17 06:33 Rouleaux Not Reportable 12/23/17 06:33 Hemoglobin C Crystals Not Reportable 12/23/17 06:33 Schistocytes Not Reportable 12/23/17 06:33 Malaria parasites Not Reportable 12/23/17 06:33 Jem Bodies Not Reportable 12/23/17 06:33 Hem Pathologist Commnt No 12/23/17 06:33 POC ABG pH 7.547 (7.35-7.45) H 12/21/17 18:01 POC ABG pCO2 34.5 (35-45) L 12/21/17 18:01 POC ABG pO2 56 (80-105) L 12/21/17 18:01 POC ABG HCO3 29.9 12/21/17 18:01 POC ABG Total CO2 31 12/21/17 18:01 POC ABG O2 Sat 92 12/21/17 18:01 POC ABG Base Excess 8 12/21/17 18:01 FiO2 21 % 12/21/17 18:01 Sodium 139 mmol/L (137-145) 12/23/17 06:33 Potassium 4.2 mmol/L (3.6-5.0) 12/23/17 06:33 Chloride 97.8 mmol/L (98-107) L 12/23/17 06:33 Carbon Dioxide 24 mmol/L (22-30) 12/23/17 06:33 Anion Gap 21 mmol/L 12/23/17 06:33 BUN 9 mg/dL (9-20) 12/23/17 06:33 Creatinine 0.6 mg/dL (0.8-1.5) L 12/23/17 06:33 Estimated GFR > 60 ml/min 12/23/17 06:33 BUN/Creatinine Ratio 15 % 12/23/17 06:33 Glucose 153 mg/dL (75-100) H 12/23/17 06:33 POC Glucose 155 (70-105) H 12/24/17 21:21 Hemoglobin A1c 5.3 % (4-6) 12/22/17 01:55 Lactic Acid 1.30 mmol/L (0.7-2.0) 12/22/17 01:55 Calcium 9.3 mg/dL (8.4-10.2) 12/23/17 06:33 Magnesium 1.30 mg/dL (1.7-2.3) L 12/21/17 18:13 Total Bilirubin 0.50 mg/dL (0.1-1.2) 12/23/17 06:33 AST 45 units/L (5-40) H 12/23/17 06:33 ALT 58 units/L (7-56) H 12/23/17 06:33 Alkaline Phosphatase 63 units/L (35-129) 12/23/17 06:33 Total Creatine Kinase 273 units/L (55-170) H 12/21/17 18:13 Troponin T < 0.010 ng/mL (0.00-0.029) 12/21/17 02:39 Total Protein 7.2 g/dL (6.3-8.2) 12/23/17 06:33 Albumin 3.8 g/dL (3.9-5) L 12/23/17 06:33 Albumin/Globulin Ratio 1.1 % 12/23/17 06:33 Urine Color Yellow (Yellow) 12/21/17 18:55 Urine Turbidity Clear (Clear) 12/21/17 18:55 Urine pH 6.0 (5.0-7.0) 12/21/17 18:55 Ur Specific [place] 1.021 (1.003-1.030) 12/21/17 18:55 Urine Protein 100 mg/dl mg/dL (Negative) 12/21/17 18:55 Urine Glucose (UA) 150 mg/dL (Negative) 12/21/17 18:55 Urine Ketones Neg mg/dL (Negative) 12/21/17 18:55 Urine Blood Neg (Negative) 12/21/17 18:55 Urine Nitrite Neg (Negative) 12/21/17 18:55 Urine Bilirubin Neg (Negative) 12/21/17 18:55 Urine Urobilinogen < 2.0 mg/dL (<2.0) 12/21/17 18:55 Ur Leukocyte Esterase Neg (Negative) 12/21/17 18:55 Urine WBC (Auto) 1.0 /HPF (0.0-6.0) 12/21/17 18:55 Urine RBC (Auto) 3.0 /HPF (0.0-6.0) 12/21/17 18:55 U Epithel Cells (Auto) < 1.0 /HPF (0-13.0) 12/21/17 18:55 Blood Type A POSITIVE 12/21/17 18:16 Antibody Screen Negative 12/21/17 18:16
--- NOTE | 2017-12-25 15:19 | Progress Note ---
Subjective - Reason for Consult Consult date: 12/25/17 Reason for consult: Psychiatric Follow-up Evaluation - Chief Complaint Chief complaint: Per RN patient has been agitated. Patient is a 47-year-old male who presents to the ER for a cough, wheezing, shortness of breath, fevers, and mucus production. Also, the patient was observed having DT's. Psychiatry was consulted to see the patient for ETOH. Today patient is asleep. He refuses to awake during the assessment. Per RN patient received Haldol earlier today and it's ineffective. Assigned RN verbalizes patient was able to get out of restraints twice. Mental Status Exam - Vital signs Last Vital Signs Temp 98.2 F 12/25/17 11:24 Pulse 52 L 12/25/17 11:26 Resp 18 12/25/17 11:26 BP 154/104 12/25/17 11:24 Pulse Ox 97 12/25/17 11:24 - Exam Narrative exam: Mental Status Exam: General Appearance: Casually dressed-hospital gown Attitude/Behavior: Unable to Assess Sensorium: Unable to Assess Orientation: Unable to Assess Psychomotor and Musculoskeletal Activity: Unable to Assess. Per staff agitated. Mood: Unable to Assess Affect: Unable to Assess Speech/Language: Unable to Assess Thought Process: Unable to Assess Though Content: Unable to Assess Perception: Unable to Assess Concentration/Attention: Unable to Assess Suicidal Ideation/Plan: Unable to Assess Homicidal Ideation/Plan: Unable to Assess Judgment: Poor Insight: Poor Assessment and Plan Impression: Hx of Alcohol Use DO. Active DT's. Today the patient is asleep during the assessment. Patient received PRN for agitation. Per RN patient is disorganized, confused, and agitated. No Alcohol Serum collected on admission. The patient is in restraints. DDx: R/O Mood DO Recommendation/Plan: It recommended that the patient be placed on Ativan as a standing order and not PRN. Patient is to receive Haldol only if Ativan is ineffective. Continue Haldol 2 mg IM Q6hrs PRN for acute agitation. Recommend Ativan PO for CIWA protocol only, the patient can swallow. Reassess the patient in 24 hours. Recommend Delirium precautions below: 1. Frequently reorient patient and involve him/her in their care (simple explanations of procedures, tests, medications). 2. Lights on and shades open during daytime hours. 3. Write date and goals of care in a visible place. 4. Try to avoid unnecessary interruptions to sleep during nighttime hours. 5. Obtain glasses, hearing aids from home if patient uses these at baseline. 6. Avoid medications that may exacerbate delirium (especially narcotics, benzodiazepines, barbiturates, ambien, lunesta, and medications with excessive anticholinergic properties). Recommend Tylenol for pain at this time. 7. 1:1 sitter for safety. 8. D/C restraints when not indicated.
[2017-12-25] MEDS: SODIUM CHLORIDE FLUSH SYRINGE 10 ML IV SCH ×2 (18:18→22:28)
[2017-12-25] MEDS: ATIVAN IV PRN (22:36)
[2017-12-26] MEDS: DUONEB *Not for PRN Use IH SCH ×4 (07:58→21:08)
[2017-12-26] MEDS: FOLVITE PO SCH (10:16)
[2017-12-26] MEDS: HABITROL TD SCH (10:17)
[2017-12-26] MEDS: KEPPRA PO SCH ×2 (10:18→23:02)
[2017-12-26] MEDS: LEVAQUIN PO SCH (10:19)
[2017-12-26] MEDS: SODIUM CHLORIDE FLUSH SYRINGE 10 ML IV SCH ×2 (10:20→23:02)
[2017-12-26] MEDS: PEPCID PO SCH ×2 (10:20→23:02)
[2017-12-26] MEDS: VITAMIN B-1 PO SCH (10:21)
--- NOTE | 2017-12-26 11:53 | Progress Note ---
Assessment and Plan Assessment and plan: EtOH withdrawal/delirium tremens. Continue CIWA protocol. Psychiatry following. Continue Haldol per psychiatric recommendations. Acute hypoxemic respiratory failure. Etiology secondary to COPD exacerbation. Continue O2 and supportive care. Acute COPD exacerbation. Continue IV systemic steroids and nebulizer treatments. Taper steroids. Accelerated hypertension. Add hydralazine when necessary. Acute bronchitis. Continue IV Levaquin. Seizure disorder. Continue Keppra. Nicotine dependence. Continue NicoDerm patch. Patient has been counseled about smoking cessation. DVT prophylaxis. Continue Lovenox daily. - Patient Problems (1) Asthma exacerbation Current Visit: Yes Status: Acute (2) Acute respiratory failure with hypoxemia Current Visit: Yes Status: Acute (3) Alcohol withdrawal Current Visit: Yes Status: Acute (4) Dog bite of extremity Current Visit: Yes Status: Acute (5) SIRS (systemic inflammatory response syndrome) Current Visit: Yes Status: Acute History Interval history: Patient is alert oriented x 3. Patient requiring 4-point restraints and is confused. However, Patient appears to be less confused Hospitalist Physical - Constitutional Vitals: Temp Pulse Resp BP Pulse Ox 98.0 F 84 20 140/99 95 12/26/17 07:54 12/26/17 09:41 12/26/17 09:41 12/26/17 09:41 12/26/17 09:41 General appearance: Present: no acute distress, well-nourished - EENT Eyes: Present: PERRL, EOM intact ENT: hearing intact, clear oral mucosa, dentition normal - Neck Neck: Present: supple, normal ROM - Respiratory Respiratory effort: normal Respiratory: bilateral: CTA - Cardiovascular Rhythm: regular Heart Sounds: Present: S1 & S2. Absent: gallop, rub - Extremities Extremities: no ischemia, No edema, Full ROM - Abdominal General gastrointestinal: soft, non-tender, non-distended, normal bowel sounds - Integumentary Integumentary: Present: clear, warm, dry - Neurologic Neurologic: CNII-XII intact, moves all extremities Results - Labs CBC & Chem 7: 12/23/17 06:33 12/23/17 06:33 Labs: Laboratory Last Values WBC 8.0 K/mm3 (4.5-11.0) 12/23/17 06:33 RBC 3.75 M/mm3 (3.65-5.03) 12/23/17 06:33 Hgb 12.9 gm/dl (11.8-15.2) 12/23/17 06:33 Hct 38.1 % (35.5-45.6) 12/23/17 06:33 MCV 102 fl (84-94) H 12/23/17 06:33 MCH 34 pg (28-32) H 12/23/17 06:33 MCHC 34 % (32-34) 12/23/17 06:33 RDW 15.8 % (13.2-15.2) H 12/23/17 06:33 Plt Count 117 K/mm3 (140-440) L 12/23/17 06:33 Lymph % (Auto) 3.7 % (13.4-35.0) L 12/21/17 02:39 [place] % (Auto) 8.8 % (0.0-7.3) H 12/21/17 02:39 Eos % (Auto) 0.0 % (0.0-4.3) 12/21/17 02:39 Baso % (Auto) 0.4 % (0.0-1.8) 12/21/17 02:39 Lymph # 0.4 K/mm3 (1.2-5.4) L 12/21/17 02:39 [place] # 0.9 K/mm3 (0.0-0.8) H 12/21/17 02:39 Eos # 0.0 K/mm3 (0.0-0.4) 12/21/17 02:39 Baso # 0.0 K/mm3 (0.0-0.1) 12/21/17 02:39 Add Manual Diff Complete 12/23/17 06:33 Total Counted 100 12/23/17 06:33 Seg Neutrophils % Occupational Physician 12/23/17 06:33 Seg Neuts % (Manual) 86.0 % (40.0-70.0) H 12/23/17 06:33 Band Neutrophils % 4.0 % 12/23/17 06:33 Lymphocytes % (Manual) 5.0 % (13.4-35.0) L 12/23/17 06:33 Reactive Lymphs % (Man) 0 % 12/23/17 06:33 Monocytes % (Manual) 5.0 % (0.0-7.3) 12/23/17 06:33 Eosinophils % (Manual) 0 % (0.0-4.3) 12/23/17 06:33 Basophils % (Manual) 0 % (0.0-1.8) 12/23/17 06:33 Metamyelocytes % 0 % 12/23/17 06:33 Myelocytes % 0 % 12/23/17 06:33 Promyelocytes % 0 % 12/23/17 06:33 Blast Cells % 0 % 12/23/17 06:33 Nucleated RBC % Not Reportable 12/23/17 06:33 Seg Neutrophils # 9.2 K/mm3 (1.8-7.7) H 12/21/17 02:39 Seg Neutrophils # Man 6.9 K/mm3 (1.8-7.7) 12/23/17 06:33 Band Neutrophils # 0.3 K/mm3 12/23/17 06:33 Lymphocytes # (Manual) 0.4 K/mm3 (1.2-5.4) L 12/23/17 06:33 Abs React Lymphs (Man) 0.0 K/mm3 12/23/17 06:33 Monocytes # (Manual) 0.4 K/mm3 (0.0-0.8) 12/23/17 06:33 Eosinophils # (Manual) 0.0 K/mm3 (0.0-0.4) 12/23/17 06:33 Basophils # (Manual) 0.0 K/mm3 (0.0-0.1) 12/23/17 06:33 Metamyelocytes # 0.0 K/mm3 12/23/17 06:33 Myelocytes # 0.0 K/mm3 12/23/17 06:33 Promyelocytes # 0.0 K/mm3 12/23/17 06:33 Blast Cells # 0.0 K/mm3 12/23/17 06:33 WBC Morphology Not Reportable 12/23/17 06:33 Hypersegmented Neuts Not Reportable 12/23/17 06:33 Hyposegmented Neuts Not Reportable 12/23/17 06:33 Hypogranular Neuts Not Reportable 12/23/17 06:33 Smudge Cells Not Reportable 12/23/17 06:33 Toxic Granulation Not Reportable 12/23/17 06:33 Toxic Vacuolation Not Reportable 12/23/17 06:33 Dohle Bodies Not Reportable 12/23/17 06:33 Pelger-Huet Anomaly Not Reportable 12/23/17 06:33 Aadm Rods Not Reportable 12/23/17 06:33 Platelet Estimate Consistent w auto 12/23/17 06:33 Clumped Platelets Not Reportable 12/23/17 06:33 Plt Clumps, EDTA Not Reportable 12/23/17 06:33 Large Platelets Not Reportable 12/23/17 06:33 Giant Platelets Not Reportable 12/23/17 06:33 Platelet Satelliting Not Reportable 12/23/17 06:33 Plt Morphology Comment Not Reportable 12/23/17 06:33 RBC Morphology Not Reportable 12/23/17 06:33 Dimorphic RBCs Not Reportable 12/23/17 06:33 Polychromasia Not Reportable 12/23/17 06:33 Hypochromasia Few 12/23/17 06:33 Poikilocytosis Not Reportable 12/23/17 06:33 Anisocytosis 1+ 12/23/17 06:33 Microcytosis Not Reportable 12/23/17 06:33 Macrocytosis Not Reportable 12/23/17 06:33 Spherocytes Not Reportable 12/23/17 06:33 Pappenheimer Bodies Not Reportable 12/23/17 06:33 Sickle Cells Not Reportable 12/23/17 06:33 Target Cells Rare 12/23/17 06:33 Tear Drop Cells Not Reportable 12/23/17 06:33 Ovalocytes Not Reportable 12/23/17 06:33 Helmet Cells Not Reportable 12/23/17 06:33 [place] Bodies Not Reportable 12/23/17 06:33 [place] Rings Not Reportable 12/23/17 06:33 [place] Cells Not Reportable 12/23/17 06:33 Bite Cells Not Reportable 12/23/17 06:33 Crenated Cell Not Reportable 12/23/17 06:33 Elliptocytes Not Reportable 12/23/17 06:33 Acanthocytes (Spur) Not Reportable 12/23/17 06:33 Rouleaux Not Reportable 12/23/17 06:33 Hemoglobin C Crystals Not Reportable 12/23/17 06:33 Schistocytes Not Reportable 12/23/17 06:33 Malaria parasites Not Reportable 12/23/17 06:33 Jem Bodies Not Reportable 12/23/17 06:33 Hem Pathologist Commnt No 12/23/17 06:33 POC ABG pH 7.547 (7.35-7.45) H 12/21/17 18:01 POC ABG pCO2 34.5 (35-45) L 12/21/17 18:01 POC ABG pO2 56 (80-105) L 12/21/17 18:01 POC ABG HCO3 29.9 12/21/17 18:01 POC ABG Total CO2 31 12/21/17 18:01 POC ABG O2 Sat 92 12/21/17 18:01 POC ABG Base Excess 8 12/21/17 18:01 FiO2 21 % 12/21/17 18:01 Sodium 139 mmol/L (137-145) 12/23/17 06:33 Potassium 4.2 mmol/L (3.6-5.0) 12/23/17 06:33 Chloride 97.8 mmol/L (98-107) L 12/23/17 06:33 Carbon Dioxide 24 mmol/L (22-30) 12/23/17 06:33 Anion Gap 21 mmol/L 12/23/17 06:33 BUN 9 mg/dL (9-20) 12/23/17 06:33 Creatinine 0.6 mg/dL (0.8-1.5) L 12/23/17 06:33 Estimated GFR > 60 ml/min 12/23/17 06:33 BUN/Creatinine Ratio 15 % 12/23/17 06:33 Glucose 153 mg/dL (75-100) H 12/23/17 06:33 POC Glucose 155 (70-105) H 12/24/17 21:21 Hemoglobin A1c 5.3 % (4-6) 12/22/17 01:55 Lactic Acid 1.30 mmol/L (0.7-2.0) 12/22/17 01:55 Calcium 9.3 mg/dL (8.4-10.2) 12/23/17 06:33 Magnesium 1.30 mg/dL (1.7-2.3) L 12/21/17 18:13 Total Bilirubin 0.50 mg/dL (0.1-1.2) 12/23/17 06:33 AST 45 units/L (5-40) H 12/23/17 06:33 ALT 58 units/L (7-56) H 12/23/17 06:33 Alkaline Phosphatase 63 units/L (35-129) 12/23/17 06:33 Total Creatine Kinase 273 units/L (55-170) H 12/21/17 18:13 Troponin T < 0.010 ng/mL (0.00-0.029) 12/21/17 02:39 Total Protein 7.2 g/dL (6.3-8.2) 12/23/17 06:33 Albumin 3.8 g/dL (3.9-5) L 12/23/17 06:33 Albumin/Globulin Ratio 1.1 % 12/23/17 06:33 Urine Color Yellow (Yellow) 12/21/17 18:55 Urine Turbidity Clear (Clear) 12/21/17 18:55 Urine pH 6.0 (5.0-7.0) 12/21/17 18:55 Ur Specific [place] 1.021 (1.003-1.030) 12/21/17 18:55 Urine Protein 100 mg/dl mg/dL (Negative) 12/21/17 18:55 Urine Glucose (UA) 150 mg/dL (Negative) 12/21/17 18:55 Urine Ketones Neg mg/dL (Negative) 12/21/17 18:55 Urine Blood Neg (Negative) 12/21/17 18:55 Urine Nitrite Neg (Negative) 12/21/17 18:55 Urine Bilirubin Neg (Negative) 12/21/17 18:55 Urine Urobilinogen < 2.0 mg/dL (<2.0) 12/21/17 18:55 Ur Leukocyte Esterase Neg (Negative) 12/21/17 18:55 Urine WBC (Auto) 1.0 /HPF (0.0-6.0) 12/21/17 18:55 Urine RBC (Auto) 3.0 /HPF (0.0-6.0) 12/21/17 18:55 U Epithel Cells (Auto) < 1.0 /HPF (0-13.0) 12/21/17 18:55 Blood Type A POSITIVE 12/21/17 18:16 Antibody Screen Negative 12/21/17 18:16
[2017-12-26] MEDS ORDERED: APRESOLINE IV PRN (11:54)
[2017-12-26] MEDS: NORMODYNE PO SCH (23:02)
[2017-12-27] MEDS: DUONEB *Not for PRN Use IH SCH ×4 (07:54→19:48)
[2017-12-27] MEDS: PEPCID PO SCH ×2 (09:24→22:34)
[2017-12-27] MEDS: FOLVITE PO SCH (09:24)
[2017-12-27] MEDS: NORMODYNE PO SCH ×2 (09:24→22:34)
[2017-12-27] MEDS: LEVAQUIN PO SCH (09:24)
[2017-12-27] MEDS: DELTASONE PO SCH (09:24)
[2017-12-27] MEDS: VITAMIN B-1 PO SCH (09:24)
[2017-12-27] MEDS: HABITROL TD SCH (09:24)
[2017-12-27] MEDS: KEPPRA PO SCH ×2 (09:24→22:35)
[2017-12-27] MEDS: SODIUM CHLORIDE FLUSH SYRINGE 10 ML IV SCH (09:25)
--- NOTE | 2017-12-27 10:06 | Progress Note ---
Assessment and Plan Assessment and plan: EtOH withdrawal. Resolving. Continue CIWA protocol. Psychiatry following. Continue Haldol per psychiatric recommendations. Acute hypoxemic respiratory failure. Etiology secondary to COPD exacerbation. Continue O2 and supportive care. Acute COPD exacerbation. Continue steroids (currently prednisone) and nebulizer treatments. Taper steroids. Accelerated hypertension. Cont. hydralazine when necessary. Acute bronchitis. Continue IV Levaquin. Seizure disorder. Continue Keppra. Nicotine dependence. Continue NicoDerm patch. Patient has been counseled about smoking cessation. DVT prophylaxis. Continue Lovenox daily. Disposition. Anticipate D/C in am if stable - Patient Problems (1) Asthma exacerbation Current Visit: Yes Status: Acute (2) Acute respiratory failure with hypoxemia Current Visit: Yes Status: Acute (3) Alcohol withdrawal Current Visit: Yes Status: Acute (4) Dog bite of extremity Current Visit: Yes Status: Acute (5) SIRS (systemic inflammatory response syndrome) Current Visit: Yes Status: Acute History Interval history: Patient is alert oriented x 3. No longer requiring restraints Hospitalist Physical - Constitutional Vitals: Temp Pulse Resp BP Pulse Ox 98.4 F 79 18 115/84 95 12/27/17 08:00 12/27/17 08:13 12/27/17 08:13 12/27/17 08:13 12/27/17 08:13 General appearance: Present: no acute distress, well-nourished - EENT Eyes: Present: PERRL, EOM intact ENT: hearing intact, clear oral mucosa, dentition normal - Neck Neck: Present: supple, normal ROM - Respiratory Respiratory effort: normal Respiratory: bilateral: CTA - Cardiovascular Rhythm: regular Heart Sounds: Present: S1 & S2. Absent: gallop, rub - Extremities Extremities: no ischemia, No edema, Full ROM - Abdominal General gastrointestinal: soft, non-tender, non-distended, normal bowel sounds - Integumentary Integumentary: Present: clear, warm, dry - Neurologic Neurologic: CNII-XII intact, moves all extremities Results - Labs CBC & Chem 7: 12/23/17 06:33 12/23/17 06:33 Labs: Laboratory Last Values WBC 8.0 K/mm3 (4.5-11.0) 12/23/17 06:33 RBC 3.75 M/mm3 (3.65-5.03) 12/23/17 06:33 Hgb 12.9 gm/dl (11.8-15.2) 12/23/17 06:33 Hct 38.1 % (35.5-45.6) 12/23/17 06:33 MCV 102 fl (84-94) H 12/23/17 06:33 MCH 34 pg (28-32) H 12/23/17 06:33 MCHC 34 % (32-34) 12/23/17 06:33 RDW 15.8 % (13.2-15.2) H 12/23/17 06:33 Plt Count 117 K/mm3 (140-440) L 12/23/17 06:33 Lymph % (Auto) 3.7 % (13.4-35.0) L 12/21/17 02:39 [place] % (Auto) 8.8 % (0.0-7.3) H 12/21/17 02:39 Eos % (Auto) 0.0 % (0.0-4.3) 12/21/17 02:39 Baso % (Auto) 0.4 % (0.0-1.8) 12/21/17 02:39 Lymph # 0.4 K/mm3 (1.2-5.4) L 12/21/17 02:39 [place] # 0.9 K/mm3 (0.0-0.8) H 12/21/17 02:39 Eos # 0.0 K/mm3 (0.0-0.4) 12/21/17 02:39 Baso # 0.0 K/mm3 (0.0-0.1) 12/21/17 02:39 Add Manual Diff Complete 12/23/17 06:33 Total Counted 100 12/23/17 06:33 Seg Neutrophils % Spool Sorter 12/23/17 06:33 Seg Neuts % (Manual) 86.0 % (40.0-70.0) H 12/23/17 06:33 Band Neutrophils % 4.0 % 12/23/17 06:33 Lymphocytes % (Manual) 5.0 % (13.4-35.0) L 12/23/17 06:33 Reactive Lymphs % (Man) 0 % 12/23/17 06:33 Monocytes % (Manual) 5.0 % (0.0-7.3) 12/23/17 06:33 Eosinophils % (Manual) 0 % (0.0-4.3) 12/23/17 06:33 Basophils % (Manual) 0 % (0.0-1.8) 12/23/17 06:33 Metamyelocytes % 0 % 12/23/17 06:33 Myelocytes % 0 % 12/23/17 06:33 Promyelocytes % 0 % 12/23/17 06:33 Blast Cells % 0 % 12/23/17 06:33 Nucleated RBC % Not Reportable 12/23/17 06:33 Seg Neutrophils # 9.2 K/mm3 (1.8-7.7) H 12/21/17 02:39 Seg Neutrophils # Man 6.9 K/mm3 (1.8-7.7) 12/23/17 06:33 Band Neutrophils # 0.3 K/mm3 12/23/17 06:33 Lymphocytes # (Manual) 0.4 K/mm3 (1.2-5.4) L 12/23/17 06:33 Abs React Lymphs (Man) 0.0 K/mm3 12/23/17 06:33 Monocytes # (Manual) 0.4 K/mm3 (0.0-0.8) 12/23/17 06:33 Eosinophils # (Manual) 0.0 K/mm3 (0.0-0.4) 12/23/17 06:33 Basophils # (Manual) 0.0 K/mm3 (0.0-0.1) 12/23/17 06:33 Metamyelocytes # 0.0 K/mm3 12/23/17 06:33 Myelocytes # 0.0 K/mm3 12/23/17 06:33 Promyelocytes # 0.0 K/mm3 12/23/17 06:33 Blast Cells # 0.0 K/mm3 12/23/17 06:33 WBC Morphology Not Reportable 12/23/17 06:33 Hypersegmented Neuts Not Reportable 12/23/17 06:33 Hyposegmented Neuts Not Reportable 12/23/17 06:33 Hypogranular Neuts Not Reportable 12/23/17 06:33 Smudge Cells Not Reportable 12/23/17 06:33 Toxic Granulation Not Reportable 12/23/17 06:33 Toxic Vacuolation Not Reportable 12/23/17 06:33 Dohle Bodies Not Reportable 12/23/17 06:33 Pel[place]-Huet Anomaly Not Reportable 12/23/17 06:33 [place] Rods Not Reportable 12/23/17 06:33 Platelet Estimate Consistent w auto 12/23/17 06:33 Clumped Platelets Not Reportable 12/23/17 06:33 Plt Clumps, EDTA Not Reportable 12/23/17 06:33 Large Platelets Not Reportable 12/23/17 06:33 Giant Platelets Not Reportable 12/23/17 06:33 Platelet Satelliting Not Reportable 12/23/17 06:33 Plt Morphology Comment Not Reportable 12/23/17 06:33 RBC Morphology Not Reportable 12/23/17 06:33 Dimorphic RBCs Not Reportable 12/23/17 06:33 Polychromasia Not Reportable 12/23/17 06:33 Hypochromasia Few 12/23/17 06:33 Poikilocytosis Not Reportable 12/23/17 06:33 Anisocytosis 1+ 12/23/17 06:33 Microcytosis Not Reportable 12/23/17 06:33 Macrocytosis Not Reportable 12/23/17 06:33 Spherocytes Not Reportable 12/23/17 06:33 Pappenheimer Bodies Not Reportable 12/23/17 06:33 Sickle Cells Not Reportable 12/23/17 06:33 Target Cells Rare 12/23/17 06:33 Tear Drop Cells Not Reportable 12/23/17 06:33 Ovalocytes Not Reportable 12/23/17 06:33 Helmet Cells Not Reportable 12/23/17 06:33 [place] Bodies Not Reportable 12/23/17 06:33 [place] Rings Not Reportable 12/23/17 06:33 [place] Cells Not Reportable 12/23/17 06:33 Bite Cells Not Reportable 12/23/17 06:33 Crenated Cell Not Reportable 12/23/17 06:33 Elliptocytes Not Reportable 12/23/17 06:33 Acanthocytes (Spur) Not Reportable 12/23/17 06:33 Rouleaux Not Reportable 12/23/17 06:33 Hemoglobin C Crystals Not Reportable 12/23/17 06:33 Schistocytes Not Reportable 12/23/17 06:33 Malaria parasites Not Reportable 12/23/17 06:33 Jem Bodies Not Reportable 12/23/17 06:33 Hem Pathologist Commnt No 12/23/17 06:33 POC ABG pH 7.547 (7.35-7.45) H 12/21/17 18:01 POC ABG pCO2 34.5 (35-45) L 12/21/17 18:01 POC ABG pO2 56 (80-105) L 12/21/17 18:01 POC ABG HCO3 29.9 12/21/17 18:01 POC ABG Total CO2 31 12/21/17 18:01 POC ABG O2 Sat 92 12/21/17 18:01 POC ABG Base Excess 8 12/21/17 18:01 FiO2 21 % 12/21/17 18:01 Sodium 139 mmol/L (137-145) 12/23/17 06:33 Potassium 4.2 mmol/L (3.6-5.0) 12/23/17 06:33 Chloride 97.8 mmol/L (98-107) L 12/23/17 06:33 Carbon Dioxide 24 mmol/L (22-30) 12/23/17 06:33 Anion Gap 21 mmol/L 12/23/17 06:33 BUN 9 mg/dL (9-20) 12/23/17 06:33 Creatinine 0.6 mg/dL (0.8-1.5) L 12/23/17 06:33 Estimated GFR > 60 ml/min 12/23/17 06:33 BUN/Creatinine Ratio 15 % 12/23/17 06:33 Glucose 153 mg/dL (75-100) H 12/23/17 06:33 POC Glucose 155 (70-105) H 12/24/17 21:21 Hemoglobin A1c 5.3 % (4-6) 12/22/17 01:55 Lactic Acid 1.30 mmol/L (0.7-2.0) 12/22/17 01:55 Calcium 9.3 mg/dL (8.4-10.2) 12/23/17 06:33 Magnesium 1.30 mg/dL (1.7-2.3) L 12/21/17 18:13 Total Bilirubin 0.50 mg/dL (0.1-1.2) 12/23/17 06:33 AST 45 units/L (5-40) H 12/23/17 06:33 ALT 58 units/L (7-56) H 12/23/17 06:33 Alkaline Phosphatase 63 units/L (35-129) 12/23/17 06:33 Total Creatine Kinase 273 units/L (55-170) H 12/21/17 18:13 Troponin T < 0.010 ng/mL (0.00-0.029) 12/21/17 02:39 Total Protein 7.2 g/dL (6.3-8.2) 12/23/17 06:33 Albumin 3.8 g/dL (3.9-5) L 12/23/17 06:33 Albumin/Globulin Ratio 1.1 % 12/23/17 06:33 Urine Color Yellow (Yellow) 12/21/17 18:55 Urine Turbidity Clear (Clear) 12/21/17 18:55 Urine pH 6.0 (5.0-7.0) 12/21/17 18:55 Ur Specific [place] 1.021 (1.003-1.030) 12/21/17 18:55 Urine Protein 100 mg/dl mg/dL (Negative) 12/21/17 18:55 Urine Glucose (UA) 150 mg/dL (Negative) 12/21/17 18:55 Urine Ketones Neg mg/dL (Negative) 12/21/17 18:55 Urine Blood Neg (Negative) 12/21/17 18:55 Urine Nitrite Neg (Negative) 12/21/17 18:55 Urine Bilirubin Neg (Negative) 12/21/17 18:55 Urine Urobilinogen < 2.0 mg/dL (<2.0) 12/21/17 18:55 Ur Leukocyte Esterase Neg (Negative) 12/21/17 18:55 Urine WBC (Auto) 1.0 /HPF (0.0-6.0) 12/21/17 18:55 Urine RBC (Auto) 3.0 /HPF (0.0-6.0) 12/21/17 18:55 U Epithel Cells (Auto) < 1.0 /HPF (0-13.0) 12/21/17 18:55 Blood Type A POSITIVE 12/21/17 18:16 Antibody Screen Negative 12/21/17 18:16
--- NOTE | 2017-12-27 12:27 | Progress Note ---
Subjective - Reason for Consult Consult date: 12/27/17 Reason for consult: Psychiatry Follow-up - Chief Complaint Chief complaint: "Annie" Patient is a 47-year-old male who presents to the ER for a cough, wheezing, shortness of breath, fevers, and mucus production. Today the patient is calm and cooperative during the assessment. He stated that he would like outpatient referral for rehab services. He denies SI/HI's and AVH's. Mental Status Exam - Vital signs Last Vital Signs Temp 98.4 F 12/27/17 08:00 Pulse 79 12/27/17 08:13 Resp 18 12/27/17 08:13 BP 115/84 12/27/17 08:13 Pulse Ox 95 12/27/17 08:13 - Exam Narrative exam: MSE: Appearance: calm, cooperative Behavior: regular eye contact Speech: regular rate and tone Mood: "okay" Affect: normal Thought Process: linear Thought Content: denies SI/HI's and AVH's Motor Activity: lying in bed Cognition: A/O x 3 Insight: appropriate Judgment: appropriate Assessment and Plan Impression: Hx of Alcohol Use DO. Today the patient is calm and cooperative during the assessment. No Alcohol Serum collected on admission. The patient isn' t in restraints. Mild tremors noted. DDx: R/O Mood DO Recommendation/Plan: Continue CIWA (Ativan PO) if indicated. Discussed the importance to abstain from alcohol consumption (etoh) with patient. The patient can follow up with [facility] for rehab services. Psychiatry sign off.
[2017-12-28] MEDS: SODIUM CHLORIDE FLUSH SYRINGE 10 ML IV SCH ×2 (00:25→12:04)
[2017-12-28 07:41] VITALS: BP 124/77
[2017-12-28] MEDS: DUONEB *Not for PRN Use IH SCH ×2 (08:27→15:05)
[2017-12-28] MEDS: FOLVITE PO SCH (12:02)
[2017-12-28] MEDS: HABITROL TD SCH (12:02)
[2017-12-28] MEDS: DELTASONE PO SCH (12:02)
[2017-12-28] MEDS: LEVAQUIN PO SCH (12:03)
[2017-12-28] MEDS: KEPPRA PO SCH (12:03)
[2017-12-28] MEDS: NORMODYNE PO SCH (12:03)
[2017-12-28] MEDS: PEPCID PO SCH (12:04)
[2017-12-28] MEDS: VITAMIN B-1 PO SCH (12:04)
--- NOTE | 2017-12-28 15:02 | Discharge Summary ---
Providers - Providers Date of Admission: 12/21/17 19:16 Date of discharge: 12/28/17 Attending physician: MADY ROBERTS 12/23/17 10:58 psychiatry consult [Consult to Mental Health] [CONS] Routine Reason For Exam: schizophrenia, DTs Place consult to:: pls Notified:: yes Phone number called:: [phone] Was contact made?: Yes Time called:: 11:31 Primary care physician: RN MANAGER Hospitalization Condition: Stable Hospital course: Mr. Garcia is a 47 yo man with a history of sz disorder, hypertension, asthma, mdd and alcohol abuse who presented with sob and dog bite. Temp was 101.3F, Heart rate 101. * 2V CXR IMPRESSION: Heart size is normal.. There are no infiltrates. There are mild fibrotic changes. There are no pleural effusions or pneumothoraces. There is a 12 millimeter nodular density at the left lung base on the frontal view. This was not evident on the prior study and could be artifact. Short-term follow -up repeat frontal view may be helpful to exclude remote possibility of new pulmonary nodule.. -Sepsis Cellulitis, poa resolved, Dog bite of left anterior thigh -EtOH withdrawal. resolved, psych signed off -Acute hypoxemic respiratory failure. Etiology secondary to COPD vs asthma exacerbation. Continue O2 and supportive care. -Acute asthma exacerbation (undiagnosis copd). Continue steroids (currently prednisone) and nebulizer treatments. Taper steroids. -Accelerated hypertension. Cont. hydralazine when necessary. -Acute bronchitis. treated with IV Levaquin, finished 7 day course -Seizure disorder. Continue Keppra. -Nicotine dependence. Continue NicoDerm patch. Patient has been counseled about smoking cessation. -DVT prophylaxis. Continue Lovenox daily. -Lung Nodule: Outpatient Pulm Disposition: DC- TO HOME OR SELFCARE Time spent for discharge: 35 minutes Core Measure Documentation - Palliative Care Palliative Care/ Comfort Measures: Not Applicable - Core Measures Any of the following diagnoses?: none - VTE Discharge Requirements Deep Vein Thrombosis/Pulmonary Embolism Present on Admission: No Has pt received <5 days of overlap therapy or INR<2.0: No Anticoagulant overlap therapy prescribed at discharge: No Contraindication No Overlap Therapy order at DC: Not Indicated Exam - Physical Exam Narrative exam: GEN: WDWN, NAD, Awake, Alert, Orientated HEENT: NCAT, EOMI, PERRL, OP Clear NECK: supple, no adenopathy, no thyromegaly, no JVD CVS/HEART: RRR, normal S1S2, pulses present bilaterally CHEST/LUNGS: CTA B, Symmetrical chest expansion, good air entry bilaterally GI/Abdomen: soft, NTND, good bowel sounds, no guarding or rebound /Bladder: no suprapubic tenderness, no CVA or paraspinal tenderness EXT/Skin: no c/c/e, no obvious rash MSK: FROM x 4 Neuro: CN 2-12 grossly intact, no new focal deficits Psych: calm - Constitutional Vitals: Temp Pulse Resp BP Pulse Ox 98.2 F 72 18 124/77 96 12/28/17 04:21 12/28/17 04:21 12/28/17 04:21 12/28/17 04:21 12/28/17 04:21 Plan Activity: other (no strenous activity until cleared by pcp) Diet: low salt Special Instructions: smoking cessation Additional Instructions: See Dr. Pablo or PCP regarding lung nodule, repeat CXR with dr. Pablo or PCP. If you do not have PCP or insurance, call [facility] [phone] for first available appointment. Outpatient Substance use/abuse Treatment Programs. 1. [facility]. [address] [place] [address]. PH: [phone]. 2. [facility]. [address] [place] [address]. PH: [phone]. 3. [facility]. PH: . Initialized on 09/12 13:25 - END OF NOTE Follow up with: PRIMARY MD YAW [Primary Care Provider] - 3-5 Days DIXIE PABLO MD [Staff Physician] - 7 Days Prescriptions: ALBUTEROL Inhaler [ProAir HFA Inhaler] 2 puff IH QID PRN #1 inhalation PRN Reason: Shortness Of Breath Famotidine [Pepcid] 20 mg PO BID #60 tablet Folic Acid [Folvite] 1 mg PO QDAY #30 tablet levETIRAcetam [Keppra] 500 mg PO BID #60 tablet Levofloxacin [Levaquin] 750 mg PO QDAY #7 tablet methylPREDNISolone [Medrol] 4 mg PO QAM #1 tab.ds.pk Thiamine [Vitamin B-1] 100 mg PO QDAY #30 tablet
== END 2017-12-28 15:50 | disposition home or self-care (01) | DRG 871 ==
LOC: ED 23:38 → 4A 12-21 19:16
PROVIDERS: ADMIT Internal Medicine; ATTEND Internal Medicine
PROC: 4A033R1 Measurement of Arterial Saturation, Peripheral, Percutaneous Approach (ICD-10-PCS; principal; 2017-12-21)
DX: A41.9 Sepsis, unspecified organism (principal); J96.01 Acute respiratory failure with hypoxia; F10.239 Alcohol dependence with withdrawal, unspecified; J44.1 Chronic obstructive pulmonary disease with (acute) exacerbation; J44.0 Chronic obstructive pulmonary disease with (acute) lower respiratory infection; J45.901 Unspecified asthma with (acute) exacerbation; L03.115 Cellulitis of right lower limb; L03.116 Cellulitis of left lower limb; R65.10 Systemic inflammatory response syndrome (SIRS) of non-infectious origin without acute organ dysfunction; I10 Essential (primary) hypertension; F17.210 Nicotine dependence, cigarettes, uncomplicated; J20.9 Acute bronchitis, unspecified; G40.909 Epilepsy, unspecified, not intractable, without status epilepticus; F32.9 Major depressive disorder, single episode, unspecified; S71.152A Open bite, left thigh, initial encounter; Z79.82 Long term (current) use of aspirin; Z88.6 Allergy status to analgesic agent; W54.0XXA Bitten by dog, initial encounter; Y93.89 Activity, other specified; Y92.89 Other specified places as the place of occurrence of the external cause; Y99.8 Other external cause status
CPT/HCPCS: 36415; 71046; 80048; 80053; 81001; 82140; 82550; 82803; 82962; 83036; 83735; 84484; 85007; 85025; 86850; 86900; 86901; 87040; 87086; 93005; 93010; 94640; 94760; J0456; J0696; J1630; J1956; J2060; J2270; J2920; J2930; J3411; J3475; J7030; J7050; J7512

== ENCOUNTER 2018-01-04 22:13 | Emergency (ER) | payer SELFPAY ==
[2018-01-04 22:51] LABS: Basophils # (Auto) 0.1 K/mm3 (0.0-0.1); Basophils % (Auto) 1.4 % (0.0-1.8); Eosinophils # (Auto) 0.1 K/mm3 (0.0-0.4); Eosinophils % (Auto) 1.6 % (0.0-4.3); Hematocrit 34.7 % (35.5-45.6); Hemoglobin 11.9 gm/dl (11.8-15.2); Lymphocytes # (Auto) 1.4 K/mm3 (1.2-5.4); Lymphocytes % (Auto) 25.7 % (13.4-35.0); Mean Corpuscular HGB Conc 35 % (32-34); Mean Corpuscular Hemoglobin 35 pg (28-32); Mean Corpuscular Volume 100 fl (84-94); Monocytes # (Auto) 0.8 K/mm3 (0.0-0.8); Monocytes % (Auto) 14.9 % (0.0-7.3); Platelet Count 318 K/mm3 (140-440); Red Blood Count 3.46 M/mm3 (3.65-5.03)
[2018-01-04 23:07] LABS: Alanine Aminotransferase 27 units/L (7-56); Albumin 4.2 g/dL (3.9-5); BUN/Creatinine Ratio 14; Blood Urea Nitrogen 10 mg/dL (9-20); Calcium 9.1 mg/dL (8.4-10.2); Hemolysis Index 2
[2018-01-04 23:58] LABS: Bilirubin,Urine NEG (Negative); Blood,Urine NEG (Negative); Color,Urine Yellow (Yellow); Protein,Urine <15 mg/dL mg/dL (Negative); RBC,Urine < 1.0 /HPF (0.0-6.0); Urobilinogen,Urine < 2.0 mg/dL (<2.0); WBC,Urine < 1.0 /HPF (0.0-6.0)
[2018-01-05 00:05] LABS: Amphetamine Screen,Urine PRESUMPTIVE NEGATIVE; Cannabinoid Screen,Urine PRESUMPTIVE NEGATIVE; Cocaine Screen,Urine PRESUMPTIVE NEGATIVE; Methadone Screen,Urine PRESUMPTIVE NEGATIVE; Opiate Screen,Urine PRESUMPTIVE NEGATIVE
[2018-01-05 00:21] LABS: Benzodiazepines Screen,Urine PRESUMPTIVE POSITIVE
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
[2018-01-05] MEDS: KEPPRA PO SCH ×2 (12:45→22:07)
[2018-01-06] MEDS: KEPPRA PO SCH ×2 (11:17→22:28)
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
[2018-01-06 22:10] VITALS: BP 140/80
== END 2018-01-07 00:09 | disposition other institution (70) ==
LOC: EEVIPCON 22:13 → ED 22:13
DX: R45.850 Homicidal ideations (principal); F10.129 Alcohol abuse with intoxication, unspecified; I10 Essential (primary) hypertension; R56.9 Unspecified convulsions; J45.909 Unspecified asthma, uncomplicated; F32.9 Major depressive disorder, single episode, unspecified; F17.200 Nicotine dependence, unspecified, uncomplicated; F12.10 Cannabis abuse, uncomplicated; Z88.6 Allergy status to analgesic agent
CPT/HCPCS: 36415; 80053; 80307; 81001; 85025; 99285; G0480; 80320

== ENCOUNTER 2018-01-20 23:19 | Inpatient (IN) | payer SELFPAY ==
[2018-01-21 01:07] LABS: BUN/Creatinine Ratio 11; Blood Urea Nitrogen 9 mg/dL (9-20); Calcium 8.6 mg/dL (8.4-10.2); Hemolysis Index 3
--- NOTE | 2018-01-21 01:12 | Emergency Department Report ---
ED Alcohol HPI - General Chief Complaint: Psych Stated Complaint: BEE STINGS Time Seen by Provider: 01/21/18 01:05 Source: patient, EMS (ems notes not available at time of chart dictation), RN notes reviewed, old records reviewed Mode of arrival: Ambulatory Limitations: Other (alcohol intoxication) - History of Present Illness Initial Comments: This is a 47-year-old male whom I have evaluated in the past. Past medical history includes hypertension, depression, asthma, alcohol abuse, possible seizure disorder. Patient brought to the hospital today by EMS for alcohol intoxication. Patient can't tell me how much he drank. He indicates he hasn't fallen or hit his head. He did scrape his left hand. He is up-to-date with a tetanus vaccination. He has no complaints. 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 MD Complaint: alcohol intoxication Last Drink: unknown Chronic Alcohol Use: Yes Previous Visits for Alcohol Intoxication?: Yes Associated Symptoms: denies: nausea, vomiting, syncope, seizure, diaphoresis, tremors, abdominal pain, hematemesis, melena, depression, suicidality Treatments Prior to Arrival: none - Related Data Previous Rx's Medication Instructions Recorded Last Taken Type Famotidine [Pepcid] 20 mg PO BID #60 tablet 12/23/17 Unknown Rx Levofloxacin [Levaquin] 750 mg PO QDAY #7 tablet 12/23/17 Unknown Rx methylPREDNISolone [Medrol] 4 mg PO QAM #1 tab.ds.pk 12/23/17 Unknown Rx ALBUTEROL Inhaler [ProAir HFA 2 puff IH QID PRN #1 inhalation 01/21/18 Unknown Rx Inhaler] Famotidine [Pepcid] 20 mg PO BID #60 tablet 01/21/18 Unknown Rx Folic Acid [Folvite] 1 mg PO QDAY #30 tablet 01/21/18 Unknown Rx Thiamine [Vitamin B-1] 100 mg PO QDAY #30 tablet 01/21/18 Unknown Rx levETIRAcetam [Keppra] 500 mg PO BID #60 tablet 01/21/18 Unknown Rx Allergies Allergy/AdvReac Type Severity Reaction Status Date / Time tramadol Allergy Rash Verified 12/16/17 18:49 ED Review of Systems ROS: Stated complaint: BEE STINGS Other details as noted in HPI Comment: Unobtainable due to pts medical conditions ED Past Medical Hx - Past Medical History Previous Medical History?: Yes Hx Hypertension: Yes Hx Diabetes: No Hx Seizures: Yes Hx Psychiatric Treatment: Yes (Prior Suicidal, Depression) Hx Asthma: Yes Hx COPD: No Additional medical history: TENDONITIS, ETOH - Surgical History Past Surgical History?: Yes Additional Surgical History: L reconstructive knee surgery - Social History Smoking Status: Current Every Day Smoker Substance Use Type: Alcohol - Medications Home Medications: Home Medications Medication Instructions Recorded Confirmed Last Taken Type Famotidine [Pepcid] 20 mg PO BID #60 tablet 12/23/17 01/21/18 Unknown Rx Levofloxacin [Levaquin] 750 mg PO QDAY #7 tablet 12/23/17 01/21/18 Unknown Rx methylPREDNISolone [Medrol] 4 mg PO QAM #1 tab.ds.pk 12/23/17 01/21/18 Unknown Rx ALBUTEROL Inhaler [ProAir HFA 2 puff IH QID PRN #1 inhalation 01/21/18 Unknown Rx Inhaler] Famotidine [Pepcid] 20 mg PO BID #60 tablet 01/21/18 Unknown Rx Folic Acid [Folvite] 1 mg PO QDAY #30 tablet 01/21/18 Unknown Rx Thiamine [Vitamin B-1] 100 mg PO QDAY #30 tablet 01/21/18 Unknown Rx levETIRAcetam [Keppra] 500 mg PO BID #60 tablet 01/21/18 Unknown Rx ED Physical Exam - General Limitations: Other (alcohol intoxication) General appearance: alert, in no apparent distress, appears intoxicated - Head Head exam: Present: atraumatic, normocephalic - Eye Eye exam: Present: normal appearance, PERRL, EOMI. Absent: nystagmus - ENT ENT exam: Present: normal exam, normal orophraynx, mucous membranes moist, TM's normal bilaterally, normal external ear exam - Neck Neck exam: Present: normal inspection, full ROM. Absent: tenderness, meningismus - Respiratory Respiratory exam: Present: normal lung sounds bilaterally. Absent: respiratory distress - Cardiovascular Cardiovascular Exam: Present: regular rate, normal rhythm, normal heart sounds. Absent: bradycardia, tachycardia, irregular rhythm, systolic murmur, diastolic murmur, rubs, gallop - GI/Abdominal GI/Abdominal exam: Present: soft, normal bowel sounds. Absent: distended, tenderness, guarding, rebound, rigid, pulsatile mass - Rectal Rectal exam: Present: deferred - Extremities Exam Extremities exam: Present: normal inspection (there is a superficial dorsal abrasion on the left third digit. The digits are nontender.), full ROM, normal capillary refill, other (2+ pulses noted in the bilateral upper, lower extremities. Compartments soft. No long bony tenderness. The pelvis is stable.). Absent: pedal edema, joint swelling, calf tenderness - Back Exam Back exam: Present: normal inspection, full ROM. Absent: tenderness, CVA tenderness (R), paraspinal tenderness, vertebral tenderness - Neurological Exam Neurological exam: Present: alert, oriented X3, CN II-XII intact, other ( Extraocular movements intact. Tongue midline. No facial droop. Facial sensation intact to light touch in the V1, V2, V3 distribution bilaterally. 5 and 5 strength in 4 extremities.. Sensation is intact to light touch in 4 extremities.). Absent: motor sensory deficit - Psychiatric Psychiatric exam: Present: normal affect, normal mood. Absent: homicidal ideation, suicidal ideation - Skin Skin exam: Present: warm, dry, abrasion. Absent: rash ED Course Vital Signs 01/20/18 01/21/18 01/21/18 23:19 10:42 12:44 Temperature 98.3 F 97.8 F 97.9 F Pulse Rate 94 H 72 73 Respiratory 20 18 18 Rate Blood Pressure 154/91 Blood Pressure 115/67 125/81 [Left] O2 Sat by Pulse 94 94 95 Oximetry - Reevaluation(s) Reevaluation #1: 01/21/18 02:46 Differential diagnosis, including not limited to: Alcohol intoxication, electrolyte derangement, superficial hand abrasion Assessment and plan: 47-year-old male with probable simple alcohol intoxication. He is afebrile with reassuring vital signs, clinically intoxicated. There is no evidence of head trauma or neck trauma. His neurologic examination is nonfocal. His laboratory studies are not consistent with significant electrolyte derangement or rhabdomyolysis. Patient's blood alcohol level was noted to be .46. He'll need to be observed in the ER pending clinical sobriety. He does not require 1013 at this time. Reevaluation #2: 01/21/18 05:34 Patient has been sleeping comfortably and in no distress. Repeat blood alcohol level has been ordered for 12:00 PM. We anticipate clinical sobriety around then. Care will be transferred to the oncoming ER physician, Dr. Elysia Andrade, to follow- up on patient's repeat blood alcohol level, and to discharge when clinically sober. ED Medical Decision Making - Lab Data Result diagrams: 01/22/18 04:38 01/22/18 04:38 Vital Signs 01/20/18 23:19 Temperature 98.3 F Pulse Rate 94 H Respiratory 20 Rate Blood Pressure 154/91 O2 Sat by Pulse 94 Oximetry Laboratory Last Values WBC 3.6 K/mm3 (4.5-11.0) L 01/21/18 00:23 RBC 3.35 M/mm3 (3.65-5.03) L 01/21/18 00:23 Hgb 11.8 gm/dl (11.8-15.2) 01/21/18 00:23 Hct 33.6 % (35.5-45.6) L 01/21/18 00:23 MCV 100 fl (84-94) H 01/21/18 00:23 MCH 35 pg (28-32) H 01/21/18 00:23 MCHC 35 % (32-34) H 01/21/18 00:23 RDW 14.7 % (13.2-15.2) 01/21/18 00:23 Plt Count 169 K/mm3 (140-440) 01/21/18 00:23 Lymph % (Auto) 40.6 % (13.4-35.0) H 01/21/18 00:23 [place] % (Auto) 11.9 % (0.0-7.3) H 01/21/18 00:23 Eos % (Auto) 3.8 % (0.0-4.3) 01/21/18 00:23 Baso % (Auto) [employer] Caregiver 01/21/18 00:23 Lymph # 1.5 K/mm3 (1.2-5.4) 01/21/18 00:23 [place] # 0.4 K/mm3 (0.0-0.8) 01/21/18 00:23 Eos # 0.1 K/mm3 (0.0-0.4) 01/21/18 00:23 Baso # 0.0 K/mm3 (0.0-0.1) 01/21/18 00:23 Seg Neutrophils % 43.3 % (40.0-70.0) 01/21/18 00:23 Seg Neutrophils # 1.6 K/mm3 (1.8-7.7) L 01/21/18 00:23 Sodium 143 mmol/L (137-145) 01/21/18 00:23 Potassium 3.8 mmol/L (3.6-5.0) 01/21/18 00:23 Chloride 102.7 mmol/L (98-107) 01/21/18 00:23 Carbon Dioxide 26 mmol/L (22-30) 01/21/18 00:23 Anion Gap 18 mmol/L 01/21/18 00:23 BUN 9 mg/dL (9-20) 01/21/18 00:23 Creatinine 0.8 mg/dL (0.8-1.5) 01/21/18 00:23 Estimated GFR > 60 ml/min 01/21/18 00:23 BUN/Creatinine Ratio 11 % 01/21/18 00:23 Glucose 83 mg/dL (75-100) 01/21/18 00:23 Calcium 8.6 mg/dL (8.4-10.2) 01/21/18 00:23 Magnesium 1.90 mg/dL (1.7-2.3) 01/21/18 01:05 Total Creatine Kinase 811 units/L (55-170) H 01/21/18 01:05 Salicylates < 0.3 mg/dL (2.8-20.0) L 01/21/18 00:23 Acetaminophen < 5.0 ug/mL (10.0-30.0) L 01/21/18 00:23 Plasma/Serum Alcohol 0.46 % (0-0.07) H 01/21/18 00:23 Critical care attestation.: If time is entered above; I have spent that time in minutes in the direct care of this critically ill patient, excluding procedure time. ED Disposition Clinical Impression: Alcohol abuse Alcohol intoxication Qualifiers: Complication of substance-induced condition: with unspecified complication Qualified Code(s): F10.929 - Alcohol use, unspecified with intoxication, unspecified Alcohol withdrawal Qualifiers: Complication of substance-induced condition: with unspecified complication Qualified Code(s): F10.239 - Alcohol dependence with withdrawal, unspecified Disposition: DC-09 OP ADMIT IP TO THIS HOSP Is pt being admited?: Yes Does the pt Need Aspirin: No Condition: Stable
[2018-01-21 01:21] LABS: Eosinophils # (Auto) 0.1 K/mm3 (0.0-0.4); Eosinophils % (Auto) 3.8 % (0.0-4.3); Hematocrit 33.6 % (35.5-45.6); Hemoglobin 11.8 gm/dl (11.8-15.2); Lymphocytes # (Auto) 1.5 K/mm3 (1.2-5.4); Lymphocytes % (Auto) 40.6 % (13.4-35.0); Mean Corpuscular HGB Conc 35 % (32-34); Mean Corpuscular Hemoglobin 35 pg (28-32); Mean Corpuscular Volume 100 fl (84-94); Monocytes # (Auto) 0.4 K/mm3 (0.0-0.8); Monocytes % (Auto) 11.9 % (0.0-7.3); Platelet Count 169 K/mm3 (140-440); Red Blood Count 3.35 M/mm3 (3.65-5.03); Red Cell Distribution Width 14.7 % (13.2-15.2)
--- NOTE | 2018-01-21 02:30 | XRay Report ---
FINAL REPORT EXAM: XR HAND 3+V LT HISTORY: abrasion TECHNIQUE: Three views of the left hand PRIORS: None. FINDINGS: The bones are normally aligned and mineralized. The joint spaces are well-preserved. There is no evidence of acute fracture. The soft tissues are unremarkable. IMPRESSION: No evidence of acute fracture or subluxation.
[2018-01-21] MEDS ORDERED: PROAIR IH PRN (02:47)
[2018-01-21] MEDS ORDERED: ATIVAN IM PRN (02:48)
[2018-01-21 03:20] LABS: Hyaline Casts,Urine 1 /LPF; Mucus,Urine FEW /HPF; WBC,Urine < 1.0 /HPF (0.0-6.0)
[2018-01-21 03:33] LABS: Bilirubin,Urine NEG (Negative); Blood,Urine NEG (Negative); Color,Urine Yellow (Yellow); Protein,Urine <15 mg/dL mg/dL (Negative); Urobilinogen,Urine < 2.0 mg/dL (<2.0)
[2018-01-21] MEDS ORDERED: NACL 0.9% 1000 ML 1,000 ML IV ONE ×3 (06:19→09:32)
--- NOTE | 2018-01-21 09:40 | Emergency Department Report ---
HPI - General Chief Complaint: Psych Time Seen by Provider: 01/21/18 01:05 - HPI HPI: Patient was signed out to me by Dr. Flores pending sobriety. Patient is known alcoholic and he came into the ED intoxicated with alcohol. Patient has been unable to walk since arrival to the ED. He has tremors and signs of alcohol withdrawal. On re-evaluation patient is drowsy but arousable. He has been sleeping since he came to the ED. We'll admit patient for alcohol withdrawal and further medical management. ED Past Medical Hx - Past Medical History Previous Medical History?: Yes Hx Hypertension: Yes Hx Diabetes: No Hx Seizures: Yes Hx Psychiatric Treatment: Yes (Prior Suicidal, Depression) Hx Asthma: Yes Hx COPD: No Additional medical history: TENDONITIS, ETOH - Surgical History Past Surgical History?: Yes Additional Surgical History: L reconstructive knee surgery - Social History Smoking Status: Current Every Day Smoker Substance Use Type: Alcohol - Medications Home Medications: Home Medications Medication Instructions Recorded Confirmed Last Taken Type Famotidine [Pepcid] 20 mg PO BID #60 tablet 12/23/17 01/21/18 Unknown Rx Levofloxacin [Levaquin] 750 mg PO QDAY #7 tablet 12/23/17 01/21/18 Unknown Rx methylPREDNISolone [Medrol] 4 mg PO QAM #1 tab.ds.pk 12/23/17 01/21/18 Unknown Rx ALBUTEROL Inhaler [ProAir HFA 2 puff IH QID PRN #1 inhalation 01/21/18 Unknown Rx Inhaler] Famotidine [Pepcid] 20 mg PO BID #60 tablet 01/21/18 Unknown Rx Folic Acid [Folvite] 1 mg PO QDAY #30 tablet 01/21/18 Unknown Rx Thiamine [Vitamin B-1] 100 mg PO QDAY #30 tablet 01/21/18 Unknown Rx levETIRAcetam [Keppra] 500 mg PO BID #60 tablet 01/21/18 Unknown Rx ED Review of Systems ROS: Stated complaint: BEE STINGS Other details as noted in HPI Physical Exam - Physical Exam Vital Signs: Vital Signs 01/20/18 23:19 Temperature 98.3 F Pulse Rate 94 H Respiratory 20 Rate Blood Pressure 154/91 O2 Sat by Pulse 94 Oximetry ED Course Vital Signs 01/20/18 23:19 Temperature 98.3 F Pulse Rate 94 H Respiratory 20 Rate Blood Pressure 154/91 O2 Sat by Pulse 94 Oximetry - Reevaluation(s) Reevaluation #1: 01/21/18 09:39 Patient care was discussed with the hospitalist dining chair seat cushion trimmer Dr Okeefe. Patient will be admitted to Dr Nuñez for further evaluation and medical management. ED Medical Decision Making - Lab Data Result diagrams: 01/21/18 00:23 01/21/18 00:23 Critical care attestation.: If time is entered above; I have spent that time in minutes in the direct care of this critically ill patient, excluding procedure time. ED Disposition Clinical Impression: Alcohol abuse Alcohol intoxication Qualifiers: Complication of substance-induced condition: with unspecified complication Qualified Code(s): F10.929 - Alcohol use, unspecified with intoxication, unspecified Alcohol withdrawal Qualifiers: Complication of substance-induced condition: with unspecified complication Qualified Code(s): F10.239 - Alcohol dependence with withdrawal, unspecified Disposition: 09 OP ADMIT IP TO THIS HOSP Is pt being admited?: Yes Does the pt Need Aspirin: No Condition: Stable Instructions: Alcohol Intoxication (ED), Abuse of Alcohol (ED) Additional Instructions: Please make certain to exercise caution when consuming alcohol. [facility] complications of alcohol consumption can cause disability, loss of quality of life. They've the prescriptions as directed, follow up with her primary care doctor within the next month. Return to the ER right away with new pain, worsened pain, migration of pain, fevers, chills, lethargy, irritability, projectile vomiting, change in mental status,, inability to tolerate liquid feeds. Prescriptions: ALBUTEROL Inhaler [ProAir HFA Inhaler] 2 puff IH QID PRN #1 inhalation PRN Reason: Shortness Of Breath Famotidine [Pepcid] 20 mg PO BID #60 tablet Folic Acid [Folvite] 1 mg PO QDAY #30 tablet levETIRAcetam [Keppra] 500 mg PO BID #60 tablet Thiamine [Vitamin B-1] 100 mg PO QDAY #30 tablet Referrals: PRIMARY CARE, [Primary Care Provider] - 3-5 Days TESSY FLORES MD [Staff Physician] - 3-5 Days
--- NOTE | 2018-01-21 10:26 | History and Physical Report ---
History of Present Illness Date of examination: 01/21/18 Chief complaint: AMS, difficulty walking History of present illness: Mr. Garcia is 47 yo man with a history of alcohol abuse with withdrawals, tobacco dependency, hypertension, asthma disorder, MDD with prior SI and seizure disorder who presents to [facility] ED with AMS from alcohol intoxication; he was found to have a HENRI level of 0.46 (normal <0.07 with toxic levels at 0.5). Patient was in the bathroom when I initially came to see patient. When he came out, he was staggering and almost fell getting into the wheelchair. He mentions a bee sting to left face but says that the swelling has gone down. He makes no eye contact. He doesn't remember many details and he doesn't answer many questions. He doesn't know when was his last drink or how much he had to drink. He has many msk complaints and has many abrasions most likely from falls. He denies fallsm or head trauma. He did scrape his left hand, right shoulder. I discharged Mr. Garcia on 12/28/17 after episode of sepsis cellulitis from dog bite , asthma exacerbation and alcohol withdrawal. He has not seen PCP. Initially he was going to be discharged from ED but he has difficulty ambulating. ED physician request admission for ETOH withdrawals which would be little bit too early. Mr. Garcia denies SI, HI, fever, chills, n/v/abd pains/headaches/sob or CP. PMH: as hpi, GERD PSH: left knee surgery SH: tobacco, etoh abuse, denies illegal drug use FH: He doesn't know ROS: Constitutional: denies: fever ENT: denies: throat or neck pain Respiratory: denies: cough, shortness of breath Cardiovascular: denies: chest pain Endocrine: denies unexplained weight loss or gain Gastrointestinal: denies: abdominal pain, nausea Genitourinary: denies: dysuria Rectal: denies no incontinence, no bleeding, no itching, no discharge Musculoskeletal: + swelling, myaglia, muscle weakness Skin: denies: rash Neurological: denies: headache Hematological/Lymphatic: denies: easy bleeding or + bruising Allergic/Immunologic: no urticaria, no allergic rhinitis, no anaphylaxis Psych: denies sadness or hopelessness, SI/HI Medications and Allergies Allergies Allergy/AdvReac Type Severity Reaction Status Date / Time tramadol Allergy Rash Verified 12/16/17 18:49 Home Medications Medication Instructions Recorded Confirmed Last Taken Type Famotidine [Pepcid] 20 mg PO BID #60 tablet 12/23/17 01/21/18 Unknown Rx Levofloxacin [Levaquin] 750 mg PO QDAY #7 tablet 12/23/17 01/21/18 Unknown Rx methylPREDNISolone [Medrol] 4 mg PO QAM #1 tab.ds.pk 12/23/17 01/21/18 Unknown Rx ALBUTEROL Inhaler [ProAir HFA 2 puff IH QID PRN #1 inhalation 01/21/18 Unknown Rx Inhaler] Famotidine [Pepcid] 20 mg PO BID #60 tablet 01/21/18 Unknown Rx Folic Acid [Folvite] 1 mg PO QDAY #30 tablet 01/21/18 Unknown Rx Thiamine [Vitamin B-1] 100 mg PO QDAY #30 tablet 01/21/18 Unknown Rx levETIRAcetam [Keppra] 500 mg PO BID #60 tablet 01/21/18 Unknown Rx Active Meds: Active Medications Albuterol (Proair) 2 puff IH QID PRN PRN Reason: Shortness Of Breath Famotidine (Pepcid) 20 mg PO BID JESSI Folic Acid (Folvite) 1 mg PO QDAY [facility] Sodium Chloride (Nacl 0.9% 1000 Ml) 1,000 mls @ 999 mls/hr IV BOLUS ONE Stop: 01/21/18 10:32 Levetiracetam (Keppra) 500 mg PO BID JESSI Lorazepam (Ativan) 2 mg IM Q4HR PRN PRN Reason: Agitation Last Admin: 01/21/18 06:52 Dose: 2 mg Thiamine HCl (Vitamin B-1) 100 mg PO QDAY [facility] Exam - Physical Exam Narrative exam: GEN: ill appearing, un-kempt, NAD,drowsy but easily arousable, orientated x 1 HEENT: NCAT, puffy face bilateral, blood shot eyes/sclera redness bilateral, EOMI, PERRL, OP with pasty white tongue, mm dry NECK: supple, no adenopathy, no thyromegaly, no JVD CVS/HEART: RRR, normal S1S2, pulses present bilaterally CHEST/LUNGS: CTA B, Symmetrical chest expansion, good air entry bilaterally, reproducible chest wall tenderness, shoulder tenderness GI/Abdomen: soft, NTND, good bowel sounds, no guarding or rebound /Bladder: no suprapubic tenderness, no CVA or paraspinal tenderness EXT/Skin: no c/c/e, no obvious rash but multiple abrasion left index lateral finger, left shoulder, right ankle abrasions MSK: FROM x 4 Neuro: CN 2-12 grossly intact, no new focal deficits Psych: anxious - Constitutional Vitals: Temp Pulse Resp BP Pulse Ox 98.3 F 94 H 20 154/91 94 01/20/18 23:19 01/20/18 23:19 01/20/18 23:19 01/20/18 23:19 01/20/18 23:19 Results - Labs CBC & Chem 7: 01/21/18 00:23 01/21/18 00:23 Labs: Abnormal lab results 01/21/18 01/21/18 01/21/18 Range/Units 00:23 00:23 00:23 WBC (4.5-11.0) K/mm3 RBC (3.65-5.03) M/mm3 Hct (35.5-45.6) % MCV (84-94) fl MCH (28-32) pg MCHC (32-34) % Lymph % (Auto) (13.4-35.0) % [place] % (Auto) (0.0-7.3) % Seg Neutrophils # (1.8-7.7) K/mm3 Total Creatine Kinase (55-170) units/L Salicylates < 0.3 L (2.8-20.0) mg/dL Acetaminophen < 5.0 L (10.0-30.0) ug/mL Plasma/Serum Alcohol 0.46 H (0-0.07) % 01/21/18 01/21/18 Range/Units 00:23 01:05 WBC 3.6 L (4.5-11.0) K/mm3 RBC 3.35 L (3.65-5.03) M/mm3 Hct 33.6 L (35.5-45.6) % MCV 100 H (84-94) fl MCH 35 H (28-32) pg MCHC 35 H (32-34) % Lymph % (Auto) 40.6 H (13.4-35.0) % [place] % (Auto) 11.9 H (0.0-7.3) % Seg Neutrophils # 1.6 L (1.8-7.7) K/mm3 Total Creatine Kinase 811 H (55-170) units/L Salicylates (2.8-20.0) mg/dL Acetaminophen (10.0-30.0) ug/mL Plasma/Serum Alcohol (0-0.07) % Assessment and Plan Mr. Garcia is 47 yo man with a history of alcohol abuse with withdrawals, tobacco dependency, hypertension, asthma disorder, MDD with prior SI and seizure disorder who presents to [facility] ED with AMS from alcohol intoxication; he was found to have a HENRI level of 0.46 (normal <0.07 with toxic levels at 0.5). Patient was in the bathroom when I initially came to see patient. When he came out, he was staggering and almost fell getting into the wheelchair. He mentions a bee sting to left face but says that the swelling has gone down. He makes no eye contact. He doesn't remember many details and he doesn't answer many questions. He doesn't know when was his last drink or how much he had to drink. He has many msk complaints and has many abrasions most likely from falls. He denies fallsm or head trauma. He did scrape his left hand, right shoulder. I discharged Mr. Garcia on 12/28/17 after episode of sepsis cellulitis from dog bite , asthma exacerbation and alcohol withdrawal. He has not seen PCP. Initially he was going to be discharged from ED but he has difficulty ambulating. ED physician request admission for ETOH withdrawals which would be little bit too early. Mr. Garcia denies SI, HI, fever, chills, n/v/abd pains/headaches/sob or CP. -Acute Alcohol Intoxication with encephalopathy: Watch for withdrawal, CIWA protocol, fall precautions, sz precaution, neuro checks -Acute toxic encephalopathy from alcohol: supportive care -Rhabdomyolysis from trauma: serial CPK daily until CPK level less than 500, treat with Isotonic saline, bmp am -Asthma by history: Nebs treatment -Accelerated hypertension. IV hydralazine when necessary. -Seizure disorder. Continue Keppra. -Nicotine dependence. Order NicoDerm patch. Patient has been counseled about smoking cessation. -DVT prophylaxis. SCD for now, slightly borderline anemia with low hct and plt counts, check CBC -Lung Nodule: repeat CXR 2views -Leukocytosis, had been on steroids, most likely reactive, with neg ua, ordered cxr -Advance care planning: full code
[2018-01-21] MEDS ORDERED: HALDOL IV PRN (10:36)
[2018-01-21] MEDS ORDERED: TYLENOL PO PRN (10:39)
[2018-01-21] MEDS ORDERED: PROVENTIL IH PRN (10:39)
[2018-01-21] MEDS ORDERED: ZOFRAN IV PRN (10:39)
--- NOTE | 2018-01-21 10:46 | XRay Report ---
Chest 2 views: Compared to 12/21/17. History: Lung nodule. Findings: Normal cardiomediastinal silhouette. Trachea is midline. No consolidation, pneumothorax or pleural effusion. No nodule is identified in the present study. Impression: No acute cardiopulmonary findings.
[2018-01-21] MEDS: VITAMIN B-1 PO SCH (10:50)
[2018-01-21] MEDS: PEPCID PO SCH ×2 (10:50→21:53)
[2018-01-21] MEDS ORDERED: FOLVITE ONE (11:12)
[2018-01-21] MEDS ORDERED: PEPCID ONE (11:12)
[2018-01-21] MEDS ORDERED: KEPPRA PO ONE (11:13)
[2018-01-21] MEDS ORDERED: VITAMIN B-1 ONE (11:13)
[2018-01-21] MEDS: FOLVITE PO SCH (11:41)
[2018-01-21] MEDS: KEPPRA PO SCH ×2 (11:41→21:53)
[2018-01-21] MEDS: PROTONIX PO SCH (11:42)
[2018-01-21] MEDS: NORCO 5/325 PO PRN ×2 (13:23→21:53)
[2018-01-21 13:51] LABS: Alanine Aminotransferase 27 units/L (7-56); Albumin 3.4 g/dL (3.9-5)
[2018-01-21 13:53] LABS: Bilirubin,Direct < 0.2 mg/dL (0-0.2)
[2018-01-21 19:59] LABS: Amphetamine Screen,Urine PRESUMPTIVE NEGATIVE; Benzodiazepines Screen,Urine PRESUMPTIVE NEGATIVE; Cannabinoid Screen,Urine PRESUMPTIVE NEGATIVE; Cocaine Screen,Urine PRESUMPTIVE NEGATIVE; Methadone Screen,Urine PRESUMPTIVE NEGATIVE; Opiate Screen,Urine PRESUMPTIVE NEGATIVE
[2018-01-22] MEDS: NORCO 5/325 PO PRN ×2 (04:40→21:20)
[2018-01-22 04:56] LABS: Hematocrit 37.3 % (35.5-45.6); Hemoglobin 12.6 gm/dl (11.8-15.2); Mean Corpuscular HGB Conc 34 % (32-34); Mean Corpuscular Hemoglobin 34 pg (28-32); Mean Corpuscular Volume 101 fl (84-94); Platelet Count 157 K/mm3 (140-440); Red Blood Count 3.69 M/mm3 (3.65-5.03); Red Cell Distribution Width 14.9 % (13.2-15.2)
[2018-01-22 05:10] LABS: Alanine Aminotransferase 37 units/L (7-56); Albumin 4.1 g/dL (3.9-5); BUN/Creatinine Ratio 10; Blood Urea Nitrogen 6 mg/dL (9-20); Calcium 8.8 mg/dL (8.4-10.2); Hemolysis Index 14
--- NOTE | 2018-01-22 08:03 | Progress Note ---
Assessment and Plan Assessment and plan: Mr. Garcia is 47 yo man with a history of alcohol abuse with withdrawals, tobacco dependency, hypertension, asthma disorder, MDD with prior SI and seizure disorder who presents to [facility] ED with AMS from alcohol intoxication; he was found to have a HENRI level of 0.46 (normal <0.07 with toxic levels at 0.5). Patient was in the bathroom when I initially came to see patient. When he came out, he was staggering and almost fell getting into the wheelchair. He mentions a bee sting to left face but says that the swelling has gone down. He makes no eye contact. He doesn't remember many details and he doesn't answer many questions. He doesn't know when was his last drink or how much he had to drink. He has many msk complaints and has many abrasions most likely from falls. He denies falling or head trauma. He did scrape his left hand, right shoulder. I discharged Mr. Garcia on 12/28/17 after episode of sepsis cellulitis from dog bite , asthma exacerbation and alcohol withdrawal. He has not seen PCP. Initially he was going to be discharged from ED but he has difficulty ambulating. ED physician request admission for ETOH withdrawals -Acute Alcohol Intoxication with encephalopathy improved: Watch for withdrawal, CIWA protocol, fall precautions, sz precaution, neuro checks -Acute toxic encephalopathy from alcohol: supportive care -Rhabdomyolysis from trauma, level worsened, not getting nss IVF (d/w Nurse): serial CPK daily until CPK level less than 500, treat with Isotonic saline, bmp am -Asthma by history: Nebs treatment -Accelerated hypertension. IV hydralazine when necessary. -Seizure disorder. Continue Keppra. -Nicotine dependence. Order NicoDerm patch. Patient has been counseled about smoking cessation. -DVT prophylaxis. SCD for now, slightly borderline anemia with low hct and plt counts, check CBC -Lung Nodule resolved: repeat CXR 2views did not show a nodule -h/o Leukocytosis now resolved, -Advance care planning: full code History Interval history: Patient was seen and examined. Follow-up on current diagnosis of AMS. Overnight uneventful. Patient denies any chest pain, shortness breath, nausea/vomiting or severe headaches. Imaging, nursing note, chart, labs and old chart reviewed. Discussed with patient. Hospitalist Physical - Physical exam Narrative exam: GEN: ill appearing, un-kempt, NAD,drowsy but easily arousable, orientated x 1 HEENT: NCAT, puffy face bilateral, blood shot eyes/sclera redness bilateral, EOMI, PERRL, OP with pasty white tongue, mm dry NECK: supple, no adenopathy, no thyromegaly, no JVD CVS/HEART: RRR, normal S1S2, pulses present bilaterally CHEST/LUNGS: CTA B, Symmetrical chest expansion, good air entry bilaterally, reproducible chest wall tenderness, shoulder tenderness GI/Abdomen: soft, NTND, good bowel sounds, no guarding or rebound /Bladder: no suprapubic tenderness, no CVA or paraspinal tenderness EXT/Skin: no c/c/e, no obvious rash but multiple abrasion left index lateral finger, left shoulder, right ankle abrasions MSK: FROM x 4 Neuro: CN 2-12 grossly intact, no new focal deficits Psych: anxious - Constitutional Vitals: Temp Pulse Resp BP Pulse Ox 97.9 F 75 18 137/76 95 01/22/18 04:49 01/22/18 06:00 01/22/18 04:49 01/22/18 04:49 01/21/18 23:26 Results - Labs CBC & Chem 7: 01/22/18 04:38 01/22/18 04:38 Labs: Laboratory Last Values WBC 3.4 K/mm3 (4.5-11.0) L 01/22/18 04:38 RBC 3.69 M/mm3 (3.65-5.03) 01/22/18 04:38 Hgb 12.6 gm/dl (11.8-15.2) 01/22/18 04:38 Hct 37.3 % (35.5-45.6) 01/22/18 04:38 MCV 101 fl (84-94) H 01/22/18 04:38 MCH 34 pg (28-32) H 01/22/18 04:38 MCHC 34 % (32-34) 01/22/18 04:38 RDW 14.9 % (13.2-15.2) 01/22/18 04:38 Plt Count 157 K/mm3 (140-440) 01/22/18 04:38 Lymph % (Auto) 40.6 % (13.4-35.0) H 01/21/18 00:23 [place] % (Auto) 11.9 % (0.0-7.3) H 01/21/18 00:23 Eos % (Auto) 3.8 % (0.0-4.3) 01/21/18 00:23 Baso % (Auto) Junior Database Administrator 01/21/18 00:23 Lymph # 1.5 K/mm3 (1.2-5.4) 01/21/18 00:23 [place] # 0.4 K/mm3 (0.0-0.8) 01/21/18 00:23 Eos # 0.1 K/mm3 (0.0-0.4) 01/21/18 00:23 Baso # 0.0 K/mm3 (0.0-0.1) 01/21/18 00:23 Seg Neutrophils % 43.3 % (40.0-70.0) 01/21/18 00:23 Seg Neutrophils # 1.6 K/mm3 (1.8-7.7) L 01/21/18 00:23 Sodium 141 mmol/L (137-145) 01/22/18 04:38 Potassium 3.9 mmol/L (3.6-5.0) 01/22/18 04:38 Chloride 100.0 mmol/L (98-107) 01/22/18 04:38 Carbon Dioxide 29 mmol/L (22-30) 01/22/18 04:38 Anion Gap 16 mmol/L 01/22/18 04:38 BUN 6 mg/dL (9-20) L 01/22/18 04:38 Creatinine 0.6 mg/dL (0.8-1.5) L 01/22/18 04:38 Estimated GFR > 60 ml/min 01/22/18 04:38 BUN/Creatinine Ratio 10 % 01/22/18 04:38 Glucose 77 mg/dL (75-100) 01/22/18 04:38 POC Glucose 93 (70-105) 01/21/18 07:10 Calcium 8.8 mg/dL (8.4-10.2) 01/22/18 04:38 Magnesium 1.50 mg/dL (1.7-2.3) L 01/22/18 04:38 Total Bilirubin 0.50 mg/dL (0.1-1.2) 01/22/18 04:38 Direct Bilirubin < 0.2 mg/dL (0-0.2) 01/21/18 12:45 AST 96 units/L (5-40) H 01/22/18 04:38 ALT 37 units/L (7-56) 01/22/18 04:38 Alkaline Phosphatase 63 units/L (35-129) 01/22/18 04:38 Ammonia 68.0 umol/L (25-60) H 01/22/18 04:38 Total Creatine Kinase 1166 units/L (55-170) H 01/22/18 04:38 Total Protein 6.7 g/dL (6.3-8.2) 01/22/18 04:38 Albumin 4.1 g/dL (3.9-5) 01/22/18 04:38 Albumin/Globulin Ratio 1.6 % 01/22/18 04:38 Urine Color Yellow (Yellow) 01/21/18 01:30 Urine Turbidity Clear (Clear) 01/21/18 01:30 Urine pH 5.0 (5.0-7.0) 01/21/18 01:30 Ur Specific [place] 1.009 (1.003-1.030) 01/21/18 01:30 Urine Protein <15 mg/dl mg/dL (Negative) 01/21/18 01:30 Urine Glucose (UA) Neg mg/dL (Negative) 01/21/18 01:30 Urine Ketones Neg mg/dL (Negative) 01/21/18 01:30 Urine Blood Neg (Negative) 01/21/18 01:30 Urine Nitrite Neg (Negative) 01/21/18 01:30 Ur Reducing Substances Not Reportable 01/21/18 01:30 Urine Bilirubin Neg (Negative) 01/21/18 01:30 Urine Ictotest Not Reportable 01/21/18 01:30 Urine Urobilinogen < 2.0 mg/dL (<2.0) 01/21/18 01:30 Ur Leukocyte Esterase Neg (Negative) 01/21/18 01:30 Urine WBC (Auto) < 1.0 /HPF (0.0-6.0) 01/21/18 01:30 Urine RBC (Auto) 2.0 /HPF (0.0-6.0) 01/21/18 01:30 U Epithel Cells (Auto) < 1.0 /HPF (0-13.0) 01/21/18 01:30 Hyaline Casts 1 /LPF 01/21/18 01:30 Urine Mucus Few /HPF 01/21/18 01:30 Salicylates < 0.3 mg/dL (2.8-20.0) L 01/21/18 00:23 Urine Opiates Screen Presumptive negative 01/21/18 19:26 Urine Methadone Screen Presumptive negative 01/21/18 19:26 Acetaminophen < 5.0 ug/mL (10.0-30.0) L 01/21/18 00:23 Ur Barbiturates Screen Presumptive negative 01/21/18 19:26 Ur Phencyclidine Scrn Presumptive negative 01/21/18 19:26 Ur Amphetamines Screen Presumptive negative 01/21/18 19:26 U Benzodiazepines Scrn Presumptive negative 01/21/18 19:26 Urine Cocaine Screen Presumptive negative 01/21/18 19:26 U Marijuana (THC) Screen Presumptive negative 01/21/18 19:26 Drugs of Abuse Note Disclamer 01/21/18 19:26 Plasma/Serum Alcohol 0.22 % (0-0.07) H 01/21/18 12:45
[2018-01-22] MEDS: NACL 0.9% 1000 ML 1,000 ML IV SCH ×2 (08:27→18:23)
[2018-01-22] MEDS: PEPCID PO SCH ×2 (10:21→21:20)
[2018-01-22] MEDS: FOLVITE PO SCH (10:21)
[2018-01-22] MEDS: VITAMIN B-1 PO SCH (10:21)
[2018-01-22] MEDS: PROTONIX PO SCH (10:21)
[2018-01-22] MEDS: KEPPRA PO SCH ×2 (10:22→21:20)
[2018-01-23] MEDS ORDERED: APRESOLINE IV PRN (06:01)
[2018-01-23] MEDS: NACL 0.9% 1000 ML 1,000 ML IV SCH (06:15)
[2018-01-23] MEDS: PEPCID PO SCH ×2 (10:31→21:31)
[2018-01-23] MEDS: FOLVITE PO SCH (10:31)
[2018-01-23] MEDS: KEPPRA PO SCH ×2 (10:31→21:31)
[2018-01-23] MEDS: PROTONIX PO SCH (10:32)
[2018-01-23] MEDS: VITAMIN B-1 PO SCH (10:32)
[2018-01-23] MEDS: NORCO 5/325 PO PRN (10:32)
--- NOTE | 2018-01-23 16:25 | Progress Note ---
Assessment and Plan /Acute Alcohol Intoxication with encephalopathy improved: -Watch for withdrawal, CIWA protocol, fall precautions, sz precaution, neuro checks /Acute toxic encephalopathy from alcohol: supportive care, at baseline now /Rhabdomyolysis from trauma, -serial CPK daily until CPK level less than 500, treat with Isotonic saline, bmp am /Asthma by history: Nebs treatment as needed /Accelerated hypertension. IV hydralazine when necessary. /Seizure disorder. Continue Keppra. /Nicotine dependence. Ordered NicoDerm patch. Patient has been counseled about smoking cessation. /DVT prophylaxis. SCD for now, slightly borderline anemia with low hct and plt counts, check CBC /Lung Nodule resolved: repeat CXR 2views did not show a nodule /h/o Leukocytosis now resolved, /Advance care planning: full code brief History: Mr. Garcia is 47 yo man with a history of alcohol abuse with withdrawals, tobacco dependency, hypertension, asthma disorder, MDD with prior SI and seizure disorder who presents to [facility] ED with AMS from alcohol intoxication; he was found to have a HENRI level of 0.46 (normal <0.07 with toxic levels at 0.5). Initially he was going to be discharged from ED but he has difficulty ambulating. ED physician requested admission for ETOH withdrawals. Hospitalist Physical GEN: un-kempt, NAD,drowsy but easily arousable, orientated x 1 HEENT: NCAT, puffy face bilateral, blood shot eyes/sclera redness bilateral, EOMI, PERRL, OP with pasty white tongue, mm dry NECK: supple, no adenopathy, no thyromegaly, no JVD CVS/HEART: RRR, normal S1S2, pulses present bilaterally CHEST/LUNGS: CTA B, Symmetrical chest expansion, good air entry bilaterally, reproducible chest wall tenderness, shoulder tenderness GI/Abdomen: soft, NTND, good bowel sounds, no guarding or rebound /Bladder: no suprapubic tenderness, no CVA or paraspinal tenderness EXT/Skin: no c/c/e, no obvious rash but multiple abrasion left index lateral finger, left shoulder, right ankle abrasions MSK: FROM x 4 Neuro: CN 2-12 grossly intact, no new focal deficits Psych: anxious Subjective Date of service: 01/23/18 Interval history: Pt seen and examined C/o hand tremor, denies chest pain, tolerating diet Objective - Constitutional Vitals: Vital Signs - 12hr 01/23/18 01/23/18 01/23/18 04:40 05:53 07:14 Temperature 98.9 F 98.4 F Pulse Rate 63 70 69 Pulse Rate [ From Monitor] Respiratory 18 12 Rate Blood Pressure 97/53 161/95 Blood Pressure 170/100 [Left] O2 Sat by Pulse 95 95 98 Oximetry 01/23/18 01/23/18 10:00 11:11 Temperature 98.9 F Pulse Rate 50 L 55 L Pulse Rate [ 69 From Monitor] Respiratory 12 14 Rate Blood Pressure 128/82 Blood Pressure [Left] O2 Sat by Pulse 98 98 Oximetry - Labs CBC & Chem 7: 01/22/18 04:38 01/22/18 04:38 Labs: Abnormal lab results 01/23/18 Range/Units 07:30 Total Creatine Kinase 818 H (55-170) units/L
[2018-01-24] MEDS: NACL 0.9% 1000 ML 1,000 ML IV SCH (04:09)
[2018-01-24] MEDS: VITAMIN B-1 PO SCH (10:46)
[2018-01-24] MEDS: PROTONIX PO SCH (10:46)
[2018-01-24] MEDS: PEPCID PO SCH (10:46)
[2018-01-24] MEDS: KEPPRA PO SCH (10:46)
[2018-01-24] MEDS: FOLVITE PO SCH (10:46)
[2018-01-24] MEDS ORDERED: NORVASC PO SCH (13:00)
--- NOTE | 2018-01-24 13:38 | Discharge Summary ---
Providers - Providers Date of Admission: 01/21/18 09:42 Date of discharge: 01/24/18 Attending physician: BASIL ESCOBAR 01/21/18 13:27 Occupational Therapy Evaluate and Treat [CONS] Routine Comment: Reason For Exam: ADLs evaluation Physical Therapy Evaluation and Treat [CONS] Routine Comment: Reason For Exam: gait evaluation/ambulatory dysfunction Primary care physician: [employer] Hospitalization Condition: Stable Hospital course: Discharge diagnosis and management: /Acute Alcohol Intoxication with encephalopathy improved: -Watch for withdrawal, CIWA protocol, fall precautions, sz precaution, neuro checks /Acute toxic encephalopathy from alcohol: supportive care, at baseline now /Rhabdomyolysis from trauma, -serial CPK daily until CPK level less than 500, treat with Isotonic saline, bmp am /Asthma by history: Nebs treatment as needed /Accelerated hypertension. IV hydralazine when necessary. /Seizure disorder. Continue Keppra. /Nicotine dependence. Ordered NicoDerm patch. Patient has been counseled about smoking cessation. /DVT prophylaxis. SCD for now, slightly borderline anemia with low hct and plt counts, check CBC /Lung Nodule resolved: repeat CXR 2views did not show a nodule /h/o Leukocytosis now resolved, /Advance care planning: full code brief History: Mr. Garcia is 47 yo man with a history of alcohol abuse with withdrawals, tobacco dependency, hypertension, asthma disorder, MDD with prior SI and seizure disorder who presents to [facility] ED with AMS from alcohol intoxication; he was found to have a HENRI level of 0.46 (normal <0.07 with toxic levels at 0.5). Initially he was going to be discharged from ED but he has difficulty ambulating. ED physician requested admission for ETOH withdrawals. Hospitalist Physical GEN: un-kempt, NAD,drowsy but easily arousable, orientated x 1 HEENT: NCAT, puffy face bilateral, blood shot eyes/sclera redness bilateral, EOMI, PERRL, OP with pasty white tongue, mm dry NECK: supple, no adenopathy, no thyromegaly, no JVD CVS/HEART: RRR, normal S1S2, pulses present bilaterally CHEST/LUNGS: CTA B, Symmetrical chest expansion, good air entry bilaterally, reproducible chest wall tenderness, shoulder tenderness GI/Abdomen: soft, NTND, good bowel sounds, no guarding or rebound /Bladder: no suprapubic tenderness, no CVA or paraspinal tenderness EXT/Skin: no c/c/e, no obvious rash but multiple abrasion left index lateral finger, left shoulder, right ankle abrasions MSK: FROM x 4 Neuro: CN 2-12 grossly intact, no new focal deficits Psych: anxious Disposition: DC-01 TO HOME OR SELFCARE Time spent for discharge: 32 minutes Core Measure Documentation - Palliative Care Palliative Care/ Comfort Measures: Not Applicable - Core Measures Any of the following diagnoses?: history only Exam - Constitutional Vitals: Temp Pulse Resp BP Pulse Ox 98.4 F 50 L 16 168/96 98 01/24/18 07:44 01/24/18 10:00 01/24/18 07:44 01/24/18 07:44 01/24/18 08:28 Plan Activity: advance as tolerated Weight Bearing Status: Weight Bear as Tolerated Diet: low fat, low salt Special Instructions: smoking cessation, follow up in rehab (for alcohol cessation) Follow up with: PRIMARY CAREMD [Primary Care Provider] - 3-5 Days TESSY FLORES MD [Staff Physician] - 3-5 Days Prescriptions: ALBUTEROL Inhaler [ProAir HFA Inhaler] 2 puff IH QID PRN #1 inhalation PRN Reason: Shortness Of Breath Famotidine [Pepcid] 20 mg PO BID #60 tablet Folic Acid [Folvite] 1 mg PO QDAY #30 tablet levETIRAcetam [Keppra] 500 mg PO BID #60 tablet Thiamine [Vitamin B-1] 100 mg PO QDAY #30 tablet
[2018-01-24 17:38] VITALS: BP 132/86
== END 2018-01-24 18:50 | disposition home or self-care (01) | DRG 564 ==
LOC: ED 23:19 → 4A 01-21 09:42
PROVIDERS: ADMIT Internal Medicine; ATTEND Internal Medicine
DX: T79.6XXA Traumatic ischemia of muscle, initial encounter (principal); G92 Toxic encephalopathy; F10.239 Alcohol dependence with withdrawal, unspecified; J45.909 Unspecified asthma, uncomplicated; I10 Essential (primary) hypertension; G40.909 Epilepsy, unspecified, not intractable, without status epilepticus; F17.200 Nicotine dependence, unspecified, uncomplicated; R91.1 Solitary pulmonary nodule; F32.9 Major depressive disorder, single episode, unspecified; K21.9 Gastro-esophageal reflux disease without esophagitis; W18.39XA Other fall on same level, initial encounter; F10.229 Alcohol dependence with intoxication, unspecified; Z71.6 Tobacco abuse counseling; Z79.899 Other long term (current) drug therapy
CPT/HCPCS: 36415; 71046; 80048; 80053; 80074; 80307; 80320; 81001; 82140; 82550; 82962; 83735; 85025; 85027; 96360; 96361; 96372; G0480; J0360; J2060; J7030

== ENCOUNTER 2018-02-22 22:09 | Emergency (ER) | payer SELFPAY ==
[2018-02-22] MEDS ORDERED: TYLENOL PO ONE (23:29)
[2018-02-22] MEDS ORDERED: TYLENOL ONE (23:33)
--- NOTE | 2018-02-23 00:47 | XRay Report ---
FINAL REPORT PROCEDURE: XR HIP 2-3V LT TECHNIQUE: LEFT hip radiographs, 2 views each, including AP view of the pelvis. HISTORY: Left hip pain. COMPARISON: No prior studies are available for comparison. FINDINGS: Fracture (s) and/or Dislocation(s): None . Joint space(s): Normal. Soft tissues: Normal. Bone mineralization: Normal. Foreign bodies: None. IMPRESSION: No radiographic evidence of acute abnormality.
--- NOTE | 2018-02-23 00:50 | XRay Report ---
FINAL REPORT PROCEDURE: XR SPINE LUMBOSACRAL 2-3V TECHNIQUE: Lumbar spine radiographs, frontal and lateral views. HISTORY: Lower back pain. COMPARISON: No prior studies are available for comparison. FINDINGS: Alignment: Normal . Vertebral body heights/Disk spaces: Transitional lumbosacral vertebral body with lumbarization of S1. Small multilevel osteophytes. Fracture(s): None . Facets: Normal . Bone mineralization: Normal . IMPRESSION: No radiographic evidence of acute abnormality.
[2018-02-23] MEDS ORDERED: TORADOL IM ONE (02:29)
--- NOTE | 2018-02-23 02:34 | Emergency Department Report ---
HPI - General Chief Complaint: Extremity Injury, Lower Time Seen by Provider: 02/23/18 02:20 - HPI HPI: Room 25 The patient is a 47-year-old male presenting with the chief complaint of left hip pain after fall. The patient states he tripped and fell 4 days ago landing on his left hip. Patient states she's had pain along the left hip since the fall. Patient denies any other complaints Location: Left hip Duration: 4 days Quality: Pain Severity: Moderate Modifying factors: [see above] Context: [see above] Mode of transportation: [not driving] ED Past Medical Hx - Past Medical History Hx Hypertension: Yes Hx Seizures: Yes Hx Psychiatric Treatment: Yes (Prior Suicidal, Depression) Hx Asthma: Yes Hx COPD: No Additional medical history: TENDONITIS, ETOH - Surgical History Additional Surgical History: L reconstructive knee surgery - Family History Family history: no significant - Social History Smoking Status: Current Every Day Smoker Substance Use Type: None (denies illicit drug use), Alcohol - Medications Home Medications: Home Medications Medication Instructions Recorded Confirmed Last Taken Type Famotidine [Pepcid] 20 mg PO BID #60 tablet 12/23/17 01/21/18 Unknown Rx levoFLOXacin [Levaquin] 750 mg PO QDAY #7 tablet 12/23/17 01/21/18 Unknown Rx methylPREDNISolone [Medrol] 4 mg PO QAM #1 tab.ds.pk 12/23/17 01/21/18 Unknown Rx ALBUTEROL Inhaler (OR & NICU) 2 puff IH QID PRN #1 inhalation 01/21/18 Unknown Rx [ProAir HFA Inhaler] Famotidine [Pepcid] 20 mg PO BID #60 tablet 01/21/18 Unknown Rx Folic Acid [Folvite] 1 mg PO QDAY #30 tablet 01/21/18 Unknown Rx Thiamine [Vitamin B-1] 100 mg PO QDAY #30 tablet 01/21/18 Unknown Rx amLODIPine [Norvasc] 10 mg PO QDAY #30 tablet 01/24/18 Unknown Rx Cyclobenzaprine [Flexeril] 10 mg PO TID PRN #14 tablet 02/23/18 Unknown Rx HYDROcodone/APAP 5-325 [Adena 1 - 2 each PO Q6HR PRN #7 tablet 02/23/18 Unknown Rx 5/325] Ibuprofen [Motrin 800 MG tab] 800 mg PO Q8HR PRN #20 tablet 02/23/18 Unknown Rx levETIRAcetam [Keppra] 500 mg PO BID #60 tablet 02/23/18 Unknown Rx ED Review of Systems ROS: Stated complaint: LEG PAIN Other details as noted in HPI Constitutional: no symptoms reported Eyes: denies: eye pain ENT: denies: throat pain Respiratory: no symptoms reported Cardiovascular: denies: chest pain Endocrine: no symptoms reported Gastrointestinal: denies: abdominal pain Genitourinary: denies: dysuria Musculoskeletal: back pain, myalgia Skin: other (ecchymosis to the left iliac crest) Neurological: denies: headache Physical Exam - Physical Exam Vital Signs: Vital Signs 02/22/18 02/22/18 22:29 23:15 Temperature 99.0 F Pulse Rate 89 Respiratory 16 Rate Blood Pressure 117/70 O2 Sat by Pulse 93 100 Oximetry Physical Exam: GENERAL: The patient is well-developed well-nourished male lying on stretcher sleeping not appearing to be in acute distress. [] HEENT: Normocephalic. Atraumatic. NECK: Supple. Trachea midline CHEST/LUNGS: Clear to auscultation. There is no respiratory distress noted. HEART/CARDIOVASCULAR: Regular. There is no tachycardia. There is no gallop rub or murmur. ABDOMEN: Abdomen is soft, nontender to palpation with stethoscope. Patient has normal bowel sounds. There is no abdominal distention. SKIN: There is ecchymosis along the region of the left iliac crest. There is no diaphoresis. NEURO: The patient is initially asleep but easily awakened and becomes oriented. The patient is cooperative. The patient has normal speech MUSCULOSKELETAL: There is tenderness along the left iliac crest. There is ecchymosis along the region of the left iliac crest ED Course Vital Signs 02/22/18 02/22/18 22:29 23:15 Temperature 99.0 F Pulse Rate 89 Respiratory 16 Rate Blood Pressure 117/70 O2 Sat by Pulse 93 100 Oximetry ED Medical Decision Making - Radiology Data Radiology results: report reviewed (left hip x-ray, lumbar spine x-ray), image reviewed (left hip x-ray, lumbar spine x-ray) interpreted by me: Left hip x-ray-no acute fracture Lumbar spine x-ray-no acute fracture [facility] [address] [place] [address] XRay Report Signed Patient: SYED MYERS MR#: [id number] : 1970 Acct:[id number] Age/Sex: 47 / M ADM Date: 02/22/18 Loc: ED Attending Dr: Ordering Physician: MATT DAVIS MD Date of Service: 02/22/18 Procedure(s): XR hip 2-3V LT Accession Number(s): [id number] cc: MATT DAVIS MD Fluoro Time In Minutes: FINAL REPORT PROCEDURE: XR HIP 2-3V LT TECHNIQUE: LEFT hip radiographs, 2 views each, including AP view of the pelvis. HISTORY: Left hip pain. COMPARISON: No prior studies are available for comparison. FINDINGS: Fracture (s) and/or Dislocation(s): None . Joint space(s): Normal. Soft tissues: Normal. Bone mineralization: Normal. Foreign bodies: None. IMPRESSION: No radiographic evidence of acute abnormality. Transcribed By: VANGIE Dictated By: MAYRA EDMOND MD Electronically Authenticated By: MAYRA EDMOND MD Signed Date/Time: 02/23/1845 DD/ TD/TT: 02/23/1845 [facility] [address] [place] [address] XRay Report Signed Patient: SYED MYERS MR#: [id number] : 1970 Acct:[id number] Age/Sex: 47 / M ADM Date: 02/22/18 Loc: ED Attending Dr: Ordering Physician: AMTT DAVIS MD Date of Service: 02/22/18 Procedure(s): XR spine lumbosacral 2-3V Accession Number(s): [id number] cc: MATT DAVIS MD Fluoro Time In Minutes: FINAL REPORT PROCEDURE: XR SPINE LUMBOSACRAL 2-3V TECHNIQUE: Lumbar spine radiographs, frontal and lateral views. HISTORY: Lower back pain. COMPARISON: No prior studies are available for comparison. FINDINGS: Alignment: Normal . Vertebral body heights/Disk spaces: Transitional lumbosacral vertebral body with lumbarization of S1. Small multilevel osteophytes. Fracture(s): None . Facets: Normal . Bone mineralization: Normal . IMPRESSION: No radiographic evidence of acute abnormality. Transcribed By: VANGIE Dictated By: MAYRA EDMOND MD Electronically Authenticated By: MAYRA EDMOND MD Signed Date/Time: 02/23/1848 DD/ TD/TT: 02/23/1848 - Differential Diagnosis hip fracture, hip contusion Critical care attestation.: If time is entered above; I have spent that time in minutes in the direct care of this critically ill patient, excluding procedure time. ED Disposition Clinical Impression: Contusion of left hip, Acute pain of left hip Disposition: TO HOME OR SELFCARE Is pt being admited?: No Does the pt Need Aspirin: No Condition: Stable Instructions: Arthralgia (ED) Additional Instructions: Return to the emergency department immediately should you develop worsening symptoms, fever, inability to tolerate food or liquid or any other concerns. Prescriptions: Cyclobenzaprine [Flexeril] 10 mg PO TID PRN #14 tablet PRN Reason: Muscle Spasm HYDROcodone/APAP 5-325 [Adena 5/325] 1 - 2 each PO Q6HR PRN #7 tablet PRN Reason: Pain Ibuprofen [Motrin 800 MG tab] 800 mg PO Q8HR PRN #20 tablet PRN Reason: Pain, Moderate (4-6) levETIRAcetam [Keppra] 500 mg PO BID #60 tablet Referrals: PRIMARY CAREMD [Primary Care Provider] - 3-5 Days KAVITA SOTO MD [Staff Physician] - 3-5 Days (Dr Soto is an orthopedic surgeon. Please follow up with him for further evaluation) Time of Disposition: 02:38
[2018-02-23 03:49] VITALS: BP 121/74
== END 2018-02-23 03:49 | disposition home or self-care (01) ==
LOC: ED 22:09
DX: S70.02XA Contusion of left hip, initial encounter (principal); I10 Essential (primary) hypertension; F32.9 Major depressive disorder, single episode, unspecified; J45.909 Unspecified asthma, uncomplicated; F17.200 Nicotine dependence, unspecified, uncomplicated; W11.XXXA Fall on and from ladder, initial encounter; Y93.89 Activity, other specified; Y92.89 Other specified places as the place of occurrence of the external cause; Y99.8 Other external cause status
CPT/HCPCS: 72100; 73502; 96372; 99283; J1885

== ENCOUNTER 2020-07-20 09:53 | Emergency (ER) | payer SELFPAY ==
--- NOTE | 2020-07-20 10:16 | Event Note ---
ED Screening Note Date of service: 07/20/20 Time: 10:07 ED Screening Note: 49-year-old -[place] male presents to the emergency room with some mild altered mental status states that he had fallen and hit his head on concrete either yesterday or today. Patient is unaware of his downtime. Review of chart shows that patient has a history of EtOH. Patient denies any nausea vomiting but does admit to dizziness. Patient is noted to have slurred speech. Patient has been evaluated by this provider as well as came to do a quick evaluation on patient. We have ordered CT of neck and head as well as blood alcohol level, salicylic acetaminophen UDS. Patient is not a candidate for TPA at this he is not aware of when he had the trauma. Patient will be evaluated for traumatic head injury. Patient is to be evaluated in the main ER sooner than later. Charge nurse is Lenore notified. This initial assessment/diagnostic orders/clinical plan/treatment(s) is/are subject to change based on patients health status, clinical progression and re- assessment by fellow clinical providers in the ED. Further treatment and workup at subsequent clinical providers discretion. Patient/guardian urged not to elope from the ED as their condition may be serious if not clinically assessed and managed. Initial orders include:
[2020-07-20] MEDS ORDERED: chlordiazePOXIDE 25 MG CAP PO PRN (10:39)
[2020-07-20] MEDS ORDERED: LORazepam 2 MG/ML VIAL IV PRN ×3 (10:39)
[2020-07-20] MEDS ORDERED: ALBUTEROL 8.5 GM MDI INHALATION IH PRN (10:40)
--- NOTE | 2020-07-20 10:42 | Emergency Department Report ---
ED General Adult HPI - General Chief complaint: Head Injury Stated complaint: HEAD INJURY PUI?: No Time Seen by Provider: 07/20/20 10:38 Source: patient, RN notes reviewed, old records reviewed Mode of arrival: Wheelchair Limitations: Altered Mental Status, Physical Limitation, Other (Alcohol intoxication) - History of Present Illness Initial comments: The patient was evaluated in the emergency department for symptoms described in the history of present illness. He/she was evaluated in the context of the global COVID-19 pandemic, which necessitated consideration that the patient might be at risk for infection with the virus that causes COVID-19. Institutional protocols and algorithms that pertain to the evaluation of p atients at risk for COVID-19 are in a state of rapid change based on information released by regulatory bodies including the CDC and federal and state organizations. These policies and algorithms were followed during the patient's care in the emergency department. Please note that these policies, procedures and recommendations changed on a rapid basis. The patient is a 49-year-old gentleman. He has a history of alcohol abuse and dependency. He presents to the ER with a complaint of slurred speech. He also states that he fell and hit his head. He does not know when he fell and hit his head. He does not know when his slurred speech started. He denies neck pain. He denies chest pain. He denies abdominal pain. He denies homicidality and suicidality. The patient states he last consumed alcohol approximately 3 to 4 hours prior to presentation. The patient is intoxicated, and therefore, has difficulty describing the qualitative nature of his symptoms, exacerbating factors, reli eving factors, and aggravating factors. Patient is not accompanied by friends or family at this time for additional information or collateral information. The patient also complains of right thigh pain. -: unknown Location: right, lower extremity Quality: other Consistency: other Improves with: other Worsens with: other - Related Data Previous Rx's Medication Instructions Recorded Last Taken Type Famotidine [Pepcid] 20 mg PO BID #30 tablet 04/10/18 Unknown Rx Albuterol Sulfate [Proventil Hfa] 2 puff IH Q4H PRN #1 unit 07/20/20 Unknown Rx Famotidine [Pepcid] 20 mg PO BID tablet 07/20/20 Unknown Rx Folic Acid [Folvite] 1 mg PO QDAY tablet 07/20/20 Unknown Rx Folic Acid [Folvite] 1 mg PO QDAY #30 tablet 07/20/20 Unknown Rx Thiamine [Vitamin B-1] 100 mg PO QDAY #30 tablet 07/20/20 Unknown Rx levETIRAcetam [Keppra TAB] 500 mg PO BID #60 tablet 07/20/20 Unknown Rx Allergies Allergy/AdvReac Type Severity Reaction Status Date / Time tramadol Allergy Rash Verified 12/16/17 18:49 ED Review of Systems ROS: Stated complaint: HEAD INJURY Other details as noted in HPI Comment: Unobtainable due to pts medical conditions (Patient is intoxicated) ED Past Medical Hx - Past Medical History Previous Medical History?: Yes Hx Hypertension: Yes Hx Diabetes: No Hx Seizures: Yes Hx Psychiatric Treatment: Yes (Prior Suicidal, Depression) Hx Asthma: Yes Hx COPD: No Additional medical history: TENDONITIS, ETOH - Surgical History Past Surgical History?: Yes Additional Surgical History: L reconstructive knee surgery - Social History Smoking Status: Current Every Day Smoker Substance Use Type: Alcohol - Medications Home Medications: Home Medications Medication Instructions Recorded Confirmed Last Taken Type Famotidine [Pepcid] 20 mg PO BID #30 tablet 04/10/18 Unknown Rx Albuterol Sulfate [Proventil Hfa] 2 puff IH Q4H PRN #1 unit 07/20/20 Unknown Rx Famotidine [Pepcid] 20 mg PO BID tablet 07/20/20 Unknown Rx Folic Acid [Folvite] 1 mg PO QDAY tablet 07/20/20 Unknown Rx Folic Acid [Folvite] 1 mg PO QDAY #30 tablet 07/20/20 Unknown Rx Thiamine [Vitamin B-1] 100 mg PO QDAY #30 tablet 07/20/20 Unknown Rx levETIRAcetam [Keppra TAB] 500 mg PO BID #60 tablet 07/20/20 Unknown Rx ED Physical Exam - General Limitations: Other (Intoxication) General appearance: in no apparent distress, appears intoxicated - Head Head exam: Present: atraumatic, normocephalic - Eye Eye exam: Present: normal appearance, PERRL, EOMI, other (Visual acuity intact to finger counting in color perception at a close distance). Absent: nystagmus - ENT ENT exam: Present: normal exam, normal orophraynx, mucous membranes moist, normal external ear exam - Neck Neck exam: Present: normal inspection, full ROM. Absent: tenderness, meningismus - Respiratory Respiratory exam: Present: normal lung sounds bilaterally. Absent: respiratory distress, wheezes, rales, rhonchi, stridor, decreased breath sounds - Cardiovascular Cardiovascular Exam: Present: regular rate, normal rhythm, normal heart sounds. Absent: bradycardia, tachycardia, irregular rhythm, systolic murmur, diastolic murmur, rubs, gallop - GI/Abdominal GI/Abdominal exam: Present: soft. Absent: distended, tenderness, guarding, rebo und, rigid, pulsatile mass - Rectal Rectal exam: Present: deferred - Extremities Exam Extremities exam: Present: normal inspection, full ROM, other (2+ pulses noted in the bilateral upper and lower extremities. There is no palpable cord. negative Homans sign. Muscular compartments are soft. The pelvis is stable.). Absent: pedal edema, calf tenderness - Back Exam Back exam: Present: normal inspection, full ROM. Absent: tenderness, CVA tenderness (R), CVA tenderness (L), paraspinal tenderness, vertebral tenderness - Neurological Exam Neurological exam: Present: other (No facial droop. Tongue midline. Extraocular movements intact bilaterally. Facial sensation intact to light touch in V1, V2, V3 distribution bilaterally. 5 and a 5 strength in 4 extremities. Sensation intact to light touch in 4 extremities.) - Psychiatric Psychiatric exam: Absent: homicidal ideation, suicidal ideation - Skin Skin exam: Present: warm, dry, intact, normal color. Absent: rash ED Course Vital Signs 07/20/20 10:05 Temperature 97.3 F L Pulse Rate 65 Respiratory 14 Rate Blood Pressure 127/82 O2 Sat by Pulse 96 Oximetry - Reevaluation(s) Reevaluation #1: 07/20/20 11:32 Differential diagnosis, including but not limited to: Intracranial injury, cervical spine injury, concussion, electrolyte derangement, alcohol intoxication Assessment and plan: 49-year-old gentleman, who is intoxicated clinically, presenting with a history of blunt head trauma, and slurred speech. He is moving 4 extremities spontaneously. He has no obvious facial droop. Highly suspect alcohol intoxication with closed head injury. His examination at this time is not suggestive of a large vessel occlusion. Given his history, and current clinical intoxication, I think acute ischemic stroke is quite unlikely. We will obtain CT scan of the brain, cervical spine, appropriate laboratory studies, continue patient's outpatient medications, EKG, and reassess. 07/20/20 11:34 Urine drug screen not indicated, patient is clinically intoxicated. Urine drug screen will not assist in medical decision making on this patient. At this point time, patient not homicidal or suicidal, he is pleasant and cooperative. Does not meet criteria for 1013 hold Reevaluation #2: 07/20/20 12:17 Patient sleeping comfortably and in no acute distress. Laboratory studies suggestive of alcohol intoxication as expected, blood alcohol level 0.43. CT scan brain, cervical spine pending. Remainder of laboratory studies unremarkable. Patient is easily arousable. Patient will remain in this emergency room pending clinical sobriety, or until such time as a sober adult can pick him up 07/20/20 15:59 CT scan of the brain and cervical spine negative for acute findings. Patient walking with a slightly steady gait. He is clinically more sober, but still intoxicated. His enunciation and speech have improved. We are waiting for the patient to either become clinically sober, or to have a sober adult pick him up. 07/20/20 18:39 Patient reassessed. No acute distress. He is walking with a steady gait. He is demonstrating evidence of clinical sobriety and he is able to exhibit decision-making capacity. He has been observed in this department for hours without clinical decompensation. Speech is markedly improved. Suspect initial presentation was likely secondary to acute alcohol intoxication. ED Medical Decision Making - Lab Data Result diagrams: 07/20/20 11:12 07/20/20 11:12 Vital Signs 07/20/20 10:05 Temperature 97.3 F L Pulse Rate 65 Respiratory 14 Rate Blood Pressure 127/82 O2 Sat by Pulse 96 Oximetry Lab Results 07/20/20 Range/Units 10:13 POC Glucose 92 (70-105) mg/dL Lab Results 07/20/20 07/20/20 07/20/20 Range/Units 10:13 11:12 11:12 WBC (4.5-11.0) K/mm3 RBC (3.65-5.03) M/mm3 Hgb (11.8-15.2) gm/dl Hct (35.5-45.6) % MCV (84-94) fl MCH (28-32) pg MCHC (32-34) % RDW (13.2-15.2) % Plt Count (140-440) K/mm3 Lymph % (Auto) Johnson % (Auto) Eos % (Auto) Baso % (Auto) Lymph # (Auto) Johnson # (Auto) Eos # (Auto) Baso # (Auto) Seg Neutrophils # Sodium (137-145) mmol/L Potassium (3.6-5.0) mmol/L Chloride (98-107) mmol/L Carbon Dioxide (22-30) mmol/L Anion Gap mmol/L BUN (9-20) mg/dL Creatinine (0.8-1.3) mg/dL Estimated GFR ml/min BUN/Creatinine Ratio % Glucose (75-100) mg/dL POC Glucose 92 (70-105) mg/dL Calcium (8.4-10.2) mg/dL Magnesium (1.7-2.3) mg/dL Total Bilirubin (0.1-1.2) mg/dL AST (5-40) units/L ALT (7-56) units/L Alkaline Phosphatase (35-129) units/L Total Creatine Kinase (55-170) units/L Total Protein (6.3-8.2) g/dL Albumin (3.9-5) g/dL Albumin/Globulin Ratio % Salicylates < 0.3 L (2.8-20.0) mg/dL Acetaminophen (10.0-30.0) ug/mL Plasma/Serum Alcohol 0.43 H (0-0.07) % 07/20/20 07/20/20 07/20/20 Range/Units 11:12 11:12 11:12 WBC 4.1 L (4.5-11.0) K/mm3 RBC 3.80 (3.65-5.03) M/mm3 Hgb 13.3 (11.8-15.2) gm/dl Hct 39.8 (35.5-45.6) % MCV 105 H (84-94) fl MCH 35 H (28-32) pg MCHC 34 (32-34) % RDW 14.8 (13.2-15.2) % Plt Count 287 (140-440) K/mm3 Lymph % (Auto) Not Reportable Johnson % (Auto) Not Reportable Eos % (Auto) Not Reportable Baso % (Auto) Not Reportable Lymph # (Auto) Not Reportable Johnson # (Auto) Not Reportable Eos # (Auto) Not Reportable Baso # (Auto) Not Reportable Seg Neutrophils # Not Reportable Sodium 143 (137-145) mmol/L Potassium 4.3 (3.6-5.0) mmol/L Chloride 104.4 (98-107) mmol/L Carbon Dioxide 25 (22-30) mmol/L Anion Gap 18 mmol/L BUN 9 (9-20) mg/dL Creatinine 0.7 L (0.8-1.3) mg/dL Estimated GFR > 60 ml/min BUN/Creatinine Ratio 13 % Glucose 96 (75-100) mg/dL POC Glucose (70-105) mg/dL Calcium 8.7 (8.4-10.2) mg/dL Magnesium (1.7-2.3) mg/dL Total Bilirubin 0.20 (0.1-1.2) mg/dL AST 37 (5-40) units/L ALT 27 (7-56) units/L Alkaline Phosphatase 57 (35-129) units/L Total Creatine Kinase (55-170) units/L Total Protein 7.6 (6.3-8.2) g/dL Albumin 4.6 (3.9-5) g/dL Albumin/Globulin Ratio 1.5 % Salicylates (2.8-20.0) mg/dL Acetaminophen 5.0 L (10.0-30.0) ug/mL Plasma/Serum Alcohol (0-0.07) % 07/20/20 Range/Units 11:12 WBC (4.5-11.0) K/mm3 RBC (3.65-5.03) M/mm3 Hgb (11.8-15.2) gm/dl Hct (35.5-45.6) % MCV (84-94) fl MCH (28-32) pg MCHC (32-34) % RDW (13.2-15.2) % Plt Count (140-440) K/mm3 Lymph % (Auto) Johnson % (Auto) Eos % (Auto) Baso % (Auto) Lymph # (Auto) Johnson # (Auto) Eos # (Auto) Baso # (Auto) Seg Neutrophils # Sodium (137-145) mmol/L Potassium (3.6-5.0) mmol/L Chloride (98-107) mmol/L Carbon Dioxide (22-30) mmol/L Anion Gap mmol/L BUN (9-20) mg/dL Creatinine (0.8-1.3) mg/dL Estimated GFR ml/min BUN/Creatinine Ratio % Glucose (75-100) mg/dL POC Glucose (70-105) mg/dL Calcium (8.4-10.2) mg/dL Magnesium 2.00 (1.7-2.3) mg/dL Total Bilirubin (0.1-1.2) mg/dL AST (5-40) units/L ALT (7-56) units/L Alkaline Phosphatase (35-129) units/L Total Creatine Kinase 288 H (55-170) units/L Total Protein (6.3-8.2) g/dL Albumin (3.9-5) g/dL Albumin/Globulin Ratio % Salicylates (2.8-20.0) mg/dL Acetaminophen (10.0-30.0) ug/mL Plasma/Serum Alcohol (0-0.07) % - EKG Data -: EKG Interpreted by [facility] EKG shows normal: sinus rhythm Rate: normal - EKG Data 07/20/20 12:17 Sinus rhythm, 68 bpm, normal axis, QTC prolonged, 4 5 9 ms. Left ventricular hypertrophy. Motion artifact. Poor R wave progression - Radiology Data Radiology results: pending, report reviewed, image reviewed CHEST 1 VIEW INDICATION: fall slurred speech weakness COMPARISON: 11/06/2018 FINDINGS: Support devices: None Heart: Normal Lungs/Pleura: No acute pulmonary or pleural findings. IMPRESSION: 1. No acute disease. Signer Name: Kevin Pelayo MD Signed: 07/20/2020 10:10 AM Workstation Name: [id number] CHEST 1 VIEW INDICATION: fall slurred speech weakness COMPARISON: 11/06/2018 FINDINGS: Support devices: None Heart: Normal Lungs/Pleura: No acute pulmonary or pleural findings. IMPRESSION: 1. No acute disease. Signer Name: Kevin Pelayo MD Signed: 07/20/2020 10:10 AM Workstation Name: [id number] Critical care attestation.: If time is entered above; I have spent that time in minutes in the direct care of this critically ill patient, excluding procedure time. ED Disposition Clinical Impression: Right leg pain, Alcohol abuse Alcohol intoxication Qualifiers: Complication of substance-induced condition: uncomplicated Qualified Code(s): F10.920 - Alcohol use, unspecified with intoxication, uncomplicated Closed head injury Qualifiers: Encounter type: initial encounter Qualified Code(s): S09.90XA - Unspecified injury of head, initial encounter Fall Qualifiers: Encounter type: initial encounter Qualified Code(s): W19.XXXA - Unspecified fall, initial encounter Disposition: DC-01 TO HOME OR SELFCARE Is pt being admited?: No Does the pt Need Aspirin: No Condition: Good Instructions: Alcohol Use Disorder, Head Injury, Adult, [id number] Additional Instructions: Recommend that patient not drive or operate motor vehicles for the next 6 months, until cleared to do so by a primary care doctor. Take the prescribed medications as needed and directed, take [id number] famotidine/Pepcid as needed. Take a multivitamin on a daily basis. Recommend that patient avoid consumption of alcohol. Long-term consumption of alcohol may cause , disability, paralysis, loss of quality of life, and addiction. Follow-up with your primary care doctor within the next 7 to 10 days. Please return to the emergency room right away with new pain, worsened pain, migration of pain, projectile vomiting, change in mental status, confusion, inability to tolerate liquid feeds, new, worsened or different symptoms not present on the initial emergency room evaluation. Referrals: ALEJO FRANCO MD [Staff Physician] - 7-10 days
[2020-07-20] MEDS ORDERED: FOLIC ACID 1 MG TAB PO SCH (11:00)
[2020-07-20] MEDS ORDERED: levETIRAcetam 500 MG TAB PO SCH (11:00)
--- NOTE | 2020-07-20 11:15 | XRay Report ---
CHEST 1 VIEW INDICATION: fall slurred speech weakness COMPARISON: 11/06/2018 FINDINGS: Support devices: None Heart: Normal Lungs/Pleura: No acute pulmonary or pleural findings. IMPRESSION: 1. No acute disease. Signer Name: Kevin Pelayo MD Signed: 07/20/2020 11:10 AM Workstation Name: [id number]
[2020-07-20 11:34] LABS: Hematocrit 39.8 % (35.5-45.6); Hemoglobin 13.3 gm/dl (11.8-15.2); Mean Corpuscular HGB Conc 34 % (32-34); Mean Corpuscular Volume 105 fl (84-94); Platelet Count 287 K/mm3 (140-440); Red Cell Distribution Width 14.8 % (13.2-15.2)
[2020-07-20 11:56] LABS: Alanine Aminotransferase 27 units/L (7-56); Albumin 4.6 g/dL (3.9-5); Blood Urea Nitrogen 9 mg/dL (9-20); Calcium 8.7 mg/dL (8.4-10.2); Hemolysis Index 3
[2020-07-20 11:57] LABS: BUN/Creatinine Ratio 13
[2020-07-20] MEDS ORDERED: THIAMINE 100 MG TAB PO SCH (12:00)
[2020-07-20] MEDS ORDERED: FAMOTIDINE 20 MG TAB PO SCH (12:00)
[2020-07-20 12:19] LABS: Total Cells Counted 100
[2020-07-20 12:20] LABS: Large Platelets Few; Platelet Estimate Consistent w Auto; RBC Morphology Normal
--- NOTE | 2020-07-20 12:25 | Cat Scan Report ---
CT cervical spine wo con, CT head/brain wo con INDICATION: fall intox cant clear c spine. TECHNIQUE: All CT scans at this location are performed using CT dose reduction for ALARA by means of automated e xposure control. COMPARISON: None available. FINDINGS: Head CT without contrast: Slight mucosal thickening in the maxillary and ethmoid sinuses. Paranasal and mastoid sinuses are oth erwise clear. No cranial fracture or extracranial soft tissue swelling. Mild cortical involution. Ventricles are symmetrical and normal in size. No mass, hemorrhage or other acute abnormality. IMPRESSION: 1. No acute abnormality. CT cervical spine without contrast: Minimal degenerative change. No fracture, subluxation or other acute abnormality. IMPRESSION: No acute abnormality. Signer Name: Kevin Pelayo MD Signed: 07/20/2020 12:20 PM Workstation Name: [id number]
[2020-07-20 18:46] VITALS: BP 126/64
== END 2020-07-20 20:52 | disposition home or self-care (01) ==
LOC: ED 09:53
DX: S09.90XA Unspecified injury of head, initial encounter (principal); M79.604 Pain in right leg; F10.10 Alcohol abuse, uncomplicated; I10 Essential (primary) hypertension; F32.9 Major depressive disorder, single episode, unspecified; J45.909 Unspecified asthma, uncomplicated; F17.200 Nicotine dependence, unspecified, uncomplicated; Z98.890 Other specified postprocedural states; Z88.8 Allergy status to other drugs, medicaments and biological substances; Z79.899 Other long term (current) drug therapy; Z86.69 Personal history of other diseases of the nervous system and sense organs; W18.30XA Fall on same level, unspecified, initial encounter; Y93.89 Activity, other specified; Y92.89 Other specified places as the place of occurrence of the external cause; Y99.8 Other external cause status
CPT/HCPCS: 36415; 70450; 71045; 72125; 72170; 80053; 82550; 82962; 83735; 85007; 85025; 93005; 96374; 99284; J2060; 80320; G0480

== ENCOUNTER 2020-08-05 18:22 | Emergency (ER) | payer SELFPAY ==
[2020-08-05] MEDS ORDERED: predniSONE 20 MG TAB PO ONE (18:52)
[2020-08-05] MEDS ORDERED: IBUPROFEN 600 MG TAB PO ONE (18:52)
[2020-08-05] MEDS ORDERED: ONDANSETRON 4 MG ODT TAB PO ONE (18:53)
[2020-08-05] MEDS ORDERED: HYDROcodone/ACETAMINOPHEN 5-325 MG TAB PO ONE (18:53)
--- NOTE | 2020-08-05 19:21 | Emergency Department Report ---
ED Back Pain/Injury HPI - General Chief Complaint: Back Pain/Injury Stated Complaint: LOWER BACK PAIN Source: patient Limitations: No Limitations - History of Present Illness Initial Comments: Patient is a 49-year-old -[place] male with a history of chronic low back pain with sciatica, hypertension, chronic alcohol abuse, anxiety and depression who presents to the ED with acute exacerbation of his chronic low back pain after fall 1 week ago. Patient states that the pain has been gradually getting worse and in the last 4 days here not been able to walk adequately because of worsening pain. Patient states that he is unable to bear weight on his lower extremities because of persistent fall from severe low back pain and sciatica. Patient denies dizziness, syncope, hematuria, dysuria, chest pain, shortness of breath, testicular pain, urinary retention, bowel incontinence or saddle paresthesia. MD Complaint: back pain, fall -: Sudden, week(s) (1) Similar Symptoms Previously: Yes Place: home (Chronic low back pain with sciatica) Severity: severe Severity scale (0 -10): 8 Quality: sharp, aching Consistency: constant Improves With: none Worsens With: movement, sitting upright, walking Context: while lifting, turning/twisting, fall Associated Symptoms: denies other symptoms, difficulty walking. denies: confusion, weakness, numbness, diaphoresis, incontinence, headaches, abdominal pain, nausea/vomiting, rash, seizure, shortness of breath, other - Related Data Previous Rx's Medication Instructions Recorded Last Taken Type Famotidine [Pepcid] 20 mg PO BID #30 tablet 04/10/18 Unknown Rx Albuterol Sulfate [Proventil Hfa] 2 puff IH Q4H PRN #1 unit 07/20/20 Unknown Rx Famotidine [Pepcid] 20 mg PO BID tablet 07/20/20 Unknown Rx Folic Acid [Folvite] 1 mg PO QDAY tablet 07/20/20 Unknown Rx Folic Acid [Folvite] 1 mg PO QDAY #30 tablet 07/20/20 Unknown Rx Thiamine [Vitamin B-1] 100 mg PO QDAY #30 tablet 07/20/20 Unknown Rx levETIRAcetam [Keppra TAB] 500 mg PO BID #60 tablet 07/20/20 Unknown Rx Gabapentin 300 mg PO Q12H #60 capsule 08/05/20 Unknown Rx Ibuprofen [Motrin] 800 mg PO Q8HR PRN #30 tablet 08/05/20 Unknown Rx predniSONE [Deltasone] 40 mg PO QDAY #10 tab 08/05/20 Unknown Rx Allergies Allergy/AdvReac Type Severity Reaction Status Date / Time tramadol Allergy Rash Verified 12/16/17 18:49 ED Review of Systems ROS: Stated complaint: LOWER BACK PAIN Other details as noted in HPI Constitutional: denies: chills, fever Eyes: denies: eye pain, eye discharge, vision change ENT: denies: ear pain, throat pain Respiratory: denies: cough, shortness of breath, wheezing Cardiovascular: denies: chest pain, palpitations Endocrine: no symptoms reported Gastrointestinal: denies: abdominal pain, nausea, diarrhea Genitourinary: denies: urgency, dysuria, frequency, hematuria, testicular pain, testicular mass Musculoskeletal: back pain (Low back pain radiating to the lower extremities bilaterally), arthralgia (Bilateral hip pain). denies: joint swelling Skin: denies: rash, lesions Neurological: denies: headache, weakness, paresthesias Psychiatric: denies: anxiety, depression Hematological/Lymphatic: denies: easy bleeding, easy bruising ED Past Medical Hx - Past Medical History Previous Medical History?: Yes Hx Hypertension: Yes Hx Diabetes: No Hx Seizures: Yes Hx Psychiatric Treatment: Yes (Prior Suicidal, Depression) Hx Asthma: Yes Hx COPD: No Additional medical history: TENDONITIS, ETOH - Surgical History Past Surgical History?: Yes Additional Surgical History: L reconstructive knee surgery - Social History Smoking Status: Never Smoker Substance Use Type: None - Medications Home Medications: Home Medications Medication Instructions Recorded Confirmed Last Taken Type Famotidine [Pepcid] 20 mg PO BID #30 tablet 04/10/18 Unknown Rx Albuterol Sulfate [Proventil Hfa] 2 puff IH Q4H PRN #1 unit 07/20/20 Unknown Rx Famotidine [Pepcid] 20 mg PO BID tablet 07/20/20 Unknown Rx Folic Acid [Folvite] 1 mg PO QDAY tablet 07/20/20 Unknown Rx Folic Acid [Folvite] 1 mg PO QDAY #30 tablet 07/20/20 Unknown Rx Thiamine [Vitamin B-1] 100 mg PO QDAY #30 tablet 07/20/20 Unknown Rx levETIRAcetam [Keppra TAB] 500 mg PO BID #60 tablet 07/20/20 Unknown Rx Gabapentin 300 mg PO Q12H #60 capsule 08/05/20 Unknown Rx Ibuprofen [Motrin] 800 mg PO Q8HR PRN #30 tablet 08/05/20 Unknown Rx predniSONE [Deltasone] 40 mg PO QDAY #10 tab 08/05/20 Unknown Rx ED Physical Exam - General Limitations: No Limitations General appearance: alert, in no apparent distress - Head Head exam: Present: atraumatic, normocephalic, normal inspection - Eye Eye exam: Present: normal appearance, PERRL, EOMI Pupils: Present: normal accommodation - ENT ENT exam: Present: normal exam, normal orophraynx, mucous membranes moist, TM's normal bilaterally, normal external ear exam - Neck Neck exam: Present: normal inspection, full ROM - Respiratory Respiratory exam: Present: normal lung sounds bilaterally. Absent: respiratory distress, wheezes, rales, rhonchi, stridor, chest wall tenderness, accessory muscle use, decreased breath sounds, prolonged expiratory - Cardiovascular Cardiovascular Exam: Present: regular rate, normal rhythm, normal heart sounds. Absent: systolic murmur, diastolic murmur, rubs, gallop - GI/Abdominal GI/Abdominal exam: Present: soft, normal bowel sounds - Rectal Rectal exam: Present: deferred - Extremities Exam Extremities exam: Present: normal inspection - Back Exam Back exam: Present: normal inspection - Neurological Exam Neurological exam: Present: alert, oriented X3 - Psychiatric Psychiatric exam: Present: normal affect, normal mood - Skin Skin exam: Present: warm, dry, intact, normal color. Absent: rash ED Course Vital Signs 08/05/20 18:30 Temperature 99.2 F Pulse Rate 83 Respiratory 20 Rate Blood Pressure 149/97 O2 Sat by Pulse 97 Oximetry ED Medical Decision Making - Radiology Data Radiology results: report reviewed, image reviewed Findings [facility] [address] [place] [address] XRay Report Signed Patient: SYED MYERS MR#: [id number] : 1970 Acct:[id number] Age/Sex: 49 / M ADM Date: 08/05/20 Loc: ED Attending Dr: Ordering Physician: DESIRAE RUBIN Date of Service: 08/05/20 Procedure(s): XR spine lumbosacral 2-3V Accession Number(s): [id number] cc: DESIRAE RUBIN Fluoro Time In Minutes: XR spine lumbosacral 2-3V INDICATION / CLINICAL INFORMATION: Pain COMPARISON: 10/23/2017 FINDINGS: BONES/JOINT(S): No acute fracture. No significant malalignment. There is mild multilevel degenerative disc disease and moderate lower lumbar facet arthropathy. PARASPINAL SOFT TISSUES:No significant abnormality. ADDITIONAL FINDINGS: None. IMPRESSION: Lower lumbar spondylosis. No acute process. Signer Name: Gosia Neal MD Signed: 08/05/2020 7:48 PM Workstation Name: [id number] Transcribed By: AMINTA Dictated By: GOSIA NEAL MD Electronically Authenticated By: GOSIA NEAL MD Signed Date/Time: 08/05/201947 DD/ 46 TD/TT: - Medical Decision Making This is a 49-year-old -[place] male with a history of chronic low back pain with sciatica, hypertension, chronic alcohol abuse, anxiety and depression who presents to the ED with acute exacerbation of his chronic low back pain after fall 1 week ago. Patient states that the pain has been gradually getting worse and in the last 4 days here not been able to walk adequately because of worsening pain. Patient states that he is unable to bear weight on his lower extremities because of persistent fall from severe low back pain and sciatica. In the ED, patient is alert and oriented x3 and is not in distress. Patient however appears to be in significant pain, unable to sit still because of worsening low back pain. Patient was treated for pain in the ED and L-spine x- ray showed no acute fractures or subluxations but ower lumbar spondylosis. No acute process. On reevaluation, patient's pain is well controlled medications. Patient will discharge home on pain medications and muscle relaxants and was advised to follow-up with his primary care physician in 5 to 7 days for reevaluation. Patient was advised to return to the ED immediately if symptoms get worse. Patient verbalized understanding of return precautions and the need to follow-up with his primary care physician and all the questions by the patient were answered appropriately and the patient verbalized understanding. - Differential Diagnosis Chronic pain; Lumbargo; Sciatica; DDD; Osteoarthritis Critical care attestation.: If time is entered above; I have spent that time in minutes in the direct care of this critically ill patient, excluding procedure time. ED Disposition Clinical Impression: Acute exacerbation of chronic low back pain, Lumbar degenerative disc disease, Spasm of muscle of lower back Disposition: TO HOME OR SELFCARE Is pt being admited?: No Does the pt Need Aspirin: No Condition: Stable Instructions: Muscle Cramps and Spasms, [id number], Chronic Back Pain, [id number] Additional Instructions: The lumbar spine x-ray showed no acute fractures or subluxations but chronic degenerative lumbar disc disease. Therefore take medications with food, drink plenty of fluids and follow-up with your primary care physician in 5 to 7 days for reevaluation. Return to the ED immediately if symptoms get worse. Prescriptions: predniSONE [Deltasone] 40 mg PO QDAY #10 tab Gabapentin 300 mg PO Q12H #60 capsule Ibuprofen [Motrin] 800 mg PO Q8HR PRN #30 tablet PRN Reason: Pain , Severe (7-10) Referrals: [facility] [Provider Group] - 3-5 Days Time of Disposition: 20:11 Print Language: SAMI
--- NOTE | 2020-08-05 19:53 | XRay Report ---
XR spine lumbosacral 2-3V INDICATION / CLINICAL INFORMATION: Pain COMPARISON: 10/23/2017 FINDINGS: BONES/JOINT(S): No acute fracture. No significant malalignment. There is mild multilevel degenerative disc disease and moderate lower lumbar facet arthropathy. PARASPINAL SOFT TISSUES:No significant abnormality. ADDITIONAL FINDINGS: None. IMPRESSION: Lower lumbar spondylosis. No acute process. Signer Name: Klaus Zee MD Signed: 08/05/2020 7:48 PM Workstation Name: [id number]
[2020-08-05 20:40] VITALS: BP 132/82
== END 2020-08-05 20:35 | disposition home or self-care (01) ==
LOC: ED 18:22
DX: M51.36 Other intervertebral disc degeneration, lumbar region (principal); M62.830 Muscle spasm of back; G89.29 Other chronic pain; I10 Essential (primary) hypertension; F32.9 Major depressive disorder, single episode, unspecified; J45.909 Unspecified asthma, uncomplicated; Z86.69 Personal history of other diseases of the nervous system and sense organs; Z79.899 Other long term (current) drug therapy; Z98.890 Other specified postprocedural states; Z88.8 Allergy status to other drugs, medicaments and biological substances
CPT/HCPCS: 72100; 99283; J7512; Q0162

== ENCOUNTER 2020-11-28 21:24 | Inpatient (IN) | payer SELFPAY ==
[2020-11-28 23:06] LABS: BUN/Creatinine Ratio 12; Blood Urea Nitrogen 12 mg/dL (9-20); Hemolysis Index 9
[2020-11-28 23:10] LABS: Basophils # (Auto) 0.1 K/mm3 (0.0-0.1); Eosinophils # (Auto) 0.1 K/mm3 (0.0-0.4); Eosinophils % (Auto) 1.9 % (0.0-4.3); Hematocrit 40.1 % (35.5-45.6); Hemoglobin 13.6 gm/dl (11.8-15.2); Lymphocytes # (Auto) 0.8 K/mm3 (1.2-5.4); Lymphocytes % (Auto) 21.6 % (13.4-35.0); Mean Corpuscular HGB Conc 34 % (32-34); Mean Corpuscular Volume 102 fl (84-94); Monocytes # (Auto) 0.5 K/mm3 (0.0-0.8); Red Blood Count 3.94 M/mm3 (3.65-5.03); Red Cell Distribution Width 15.3 % (13.2-15.2)
[2020-11-28 23:16] LABS: Platelet Count 91 K/mm3 (140-440)
[2020-11-29 01:48] LABS: Amphetamine Screen,Urine PRESUMPTIVE NEGATIVE; Benzodiazepines Screen,Urine PRESUMPTIVE NEGATIVE; Cannabinoid Screen,Urine PRESUMPTIVE NEGATIVE; Cocaine Screen,Urine PRESUMPTIVE NEGATIVE; Methadone Screen,Urine PRESUMPTIVE NEGATIVE; Opiate Screen,Urine PRESUMPTIVE NEGATIVE
[2020-11-29 01:50] LABS: Bilirubin,Urine NEG (Negative); Blood,Urine SM (Negative); Color,Urine Yellow (Yellow); Hyaline Casts,Urine 8 /LPF; Mucus,Urine 1+ /HPF; Urobilinogen,Urine < 2.0 mg/dL (<2.0)
[2020-11-29 01:53] LABS: Protein,Urine >500 mg/dL (Negative)
[2020-11-29] MEDS ORDERED: THIAMINE 100 MG, FOLIC ACID 1 MG, MULTIPLE VITAMIN INJ, ADULT 10 ML in SODIUM CHLORIDE ... IV ONE (03:39)
--- NOTE | 2020-11-29 04:15 | Emergency Department Report ---
HPI - General Chief Complaint: Alcohol Time Seen by Provider: 11/29/20 04:08 - HPI HPI: This is a 50-year-old -Turk[place] male presents to the emergency department with with complaint of a 1 week history of shortness of breath, a mixed dry and productive cough, nausea without vomiting and some dizziness. The patient was found to have a room air pulse ox of 91%. The patient does admit to daily alcohol consumption. Patient says that he had "a few beers today." He denies any illicit drug use but is a cigarette smoker. He has a past medical history of asthma, hypertension. No recent travel or sick contacts at home. No known exposure to anyone with COVID-19. He has not taken anything for symptoms prior to presentation today. ED Past Medical Hx - Past Medical History Previous Medical History?: Yes Hx Hypertension: Yes Hx Diabetes: No Hx Seizures: Yes Hx Psychiatric Treatment: Yes (Prior Suicidal, Depression) Hx Asthma: Yes Hx COPD: No Additional medical history: TENDONITIS, ETOH - Surgical History Past Surgical History?: Yes Additional Surgical History: L reconstructive knee surgery - Social History Smoking Status: Current Every Day Smoker Substance Use Type: Alcohol - Medications Home Medications: Home Medications Medication Instructions Recorded Confirmed Last Taken Type Famotidine [Pepcid] 20 mg PO BID #30 tablet 04/10/18 Unknown Rx Albuterol Sulfate [Proventil Hfa] 2 puff IH Q4H PRN #1 unit 07/20/20 Unknown Rx Famotidine [Pepcid] 20 mg PO BID tablet 07/20/20 Unknown Rx Folic Acid [Folvite] 1 mg PO QDAY tablet 07/20/20 Unknown Rx Folic Acid [Folvite] 1 mg PO QDAY #30 tablet 07/20/20 Unknown Rx Thiamine [Vitamin B-1] 100 mg PO QDAY #30 tablet 07/20/20 Unknown Rx levETIRAcetam [Keppra TAB] 500 mg PO BID #60 tablet 07/20/20 Unknown Rx Gabapentin 300 mg PO Q12H #60 capsule 08/05/20 Unknown Rx Ibuprofen [Motrin] 800 mg PO Q8HR PRN #30 tablet 08/05/20 Unknown Rx predniSONE [Deltasone] 40 mg PO QDAY #10 tab 08/05/20 Unknown Rx ED Review of Systems ROS: Stated complaint: SOB,FATIGUE,CHILLS Other details as noted in HPI Comment: All other systems reviewed and negative Constitutional: denies: chills, fever Eyes: denies: eye pain, vision change ENT: denies: ear pain, throat pain Respiratory: cough, shortness of breath Cardiovascular: denies: chest pain, palpitations Gastrointestinal: nausea. denies: abdominal pain, vomiting Genitourinary: denies: dysuria, discharge Musculoskeletal: denies: back pain, arthralgia Skin: denies: rash, lesions Neurological: denies: headache, numbness, paresthesias Physical Exam - Physical Exam Vital Signs: Vital Signs 11/28/20 22:10 Temperature 98.5 F Pulse Rate 85 Respiratory 18 Rate Blood Pressure 94/61 O2 Sat by Pulse 85 Oximetry Physical Exam: GENERAL: The patient is well-developed well-nourished. HENT: Normocephalic. Atraumatic. Patient has moist mucous membranes. EYES: Extraocular motions are intact. NECK: Supple. Trachea is midline. CHEST/LUNGS: Clear to auscultation. A dry cough is heard during examination. There is some tachypnea but no accessory muscle use. HEART/CARDIOVASCULAR: Regular. There is no tachycardia. There is no murmur. ABDOMEN: Abdomen is soft, nontender. Patient has normal bowel sounds. There is no abdominal distention. SKIN: Skin is warm and dry. NEURO: The patient is awake, alert, and and cooperative, but does appear intoxicated. Cranial nerves II through XII grossly intact. Normal speech. MUSCULOSKELETAL: There is no tenderness or deformity. There is no limitation range of motion. ED Course Vital Signs 11/28/20 22:10 Temperature 98.5 F Pulse Rate 85 Respiratory 18 Rate Blood Pressure 94/61 O2 Sat by Pulse 85 Oximetry ED Medical Decision Making - Lab Data Result diagrams: 11/28/20 22:31 11/28/20 22:31 Lab Results 11/28/20 11/28/20 11/28/20 Range/Units 22:31 22:31 22:31 WBC (4.5-11.0) K/mm3 RBC (3.65-5.03) M/mm3 Hgb (11.8-15.2) gm/dl Hct (35.5-45.6) % MCV (84-94) fl MCH (28-32) pg MCHC (32-34) % RDW (13.2-15.2) % Plt Count (140-440) K/mm3 Lymph % (Auto) (13.4-35.0) % Bertie % (Auto) (0.0-7.3) % Eos % (Auto) (0.0-4.3) % Baso % (Auto) (0.0-1.8) % Lymph # (Auto) (1.2-5.4) K/mm3 Bertie # (Auto) (0.0-0.8) K/mm3 Eos # (Auto) (0.0-0.4) K/mm3 Baso # (Auto) (0.0-0.1) K/mm3 Seg Neutrophils % (40.0-70.0) % Seg Neutrophils # (1.8-7.7) K/mm3 D-Dimer (0-234) ng/mlDDU ABG pH (7.350-7.450) pH Units ABG pCO2 mm Hg ABG pO2 (80.0-90.0) mm Hg ABG HCO3 (20.0-26.0) mmol/L ABG O2 Saturation (95.0-99.0) % ABG O2 Content (0.0-44) ABG Base Excess (-2.0-3.0) mmol/L ABG Hemoglobin (14.0-18.0) gm/dl ABG Carboxyhemoglobin (0.0-5.0) % ABG Methemoglobin (0.0-1.5) % Oxyhemoglobin (95.0-99.0) % FiO2 % Sodium 142 (137-145) mmol/L Potassium 4.4 (3.6-5.0) mmol/L Chloride 96.9 L (98-107) mmol/L Carbon Dioxide 29 (22-30) mmol/L Anion Gap 21 mmol/L BUN 12 (9-20) mg/dL Creatinine 1.0 (0.8-1.3) mg/dL Estimated GFR > 60 ml/min BUN/Creatinine Ratio 12 % Glucose 119 H (75-100) mg/dL Calcium 9.0 (8.4-10.2) mg/dL Total Bilirubin (0.1-1.2) mg/dL Direct Bilirubin (0-0.2) mg/dL AST (5-40) units/L ALT (7-56) units/L Alkaline Phosphatase (35-129) units/L Total Protein (6.3-8.2) g/dL Albumin (3.9-5) g/dL Albumin/Globulin Ratio % Urine Color (Yellow) Urine Turbidity (Clear) Urine pH (5.0-7.0) Ur Specific [place] (1.003-1.030) Urine Protein (Negative) mg/dL Urine Glucose (UA) (Negative) mg/dL Urine Ketones (Negative) mg/dL Urine Blood (Negative) Urine Nitrite (Negative) Urine Bilirubin (Negative) Urine Urobilinogen (<2.0) mg/dL Ur Leukocyte Esterase (Negative) Urine WBC (Auto) (0.0-6.0) /HPF Urine RBC (Auto) (0.0-6.0) /HPF U Epithel Cells (Auto) (0-13.0) /HPF Hyaline Casts /LPF Urine Mucus /HPF Salicylates < 0.3 L (2.8-20.0) mg/dL Urine Opiates Screen Urine Methadone Screen Acetaminophen 5.0 L (10.0-30.0) ug/mL Ur Barbiturates Screen Ur Phencyclidine Scrn Ur Amphetamines Screen U Benzodiazepines Scrn Urine Cocaine Screen U Marijuana (THC) Screen Drugs of Abuse Note Plasma/Serum Alcohol (0-0.07) % 11/28/20 11/28/20 11/28/20 Range/Units 22:31 22:31 22:31 WBC 3.6 L (4.5-11.0) K/mm3 RBC 3.94 (3.65-5.03) M/mm3 Hgb 13.6 (11.8-15.2) gm/dl Hct 40.1 (35.5-45.6) % MCV 102 H (84-94) fl MCH 34 H (28-32) pg MCHC 34 (32-34) % RDW 15.3 H (13.2-15.2) % Plt Count 91 L (140-440) K/mm3 Lymph % (Auto) 21.6 (13.4-35.0) % Bertie % (Auto) 13.0 H (0.0-7.3) % Eos % (Auto) 1.9 (0.0-4.3) % Baso % (Auto) 2.0 H (0.0-1.8) % Lymph # (Auto) 0.8 L (1.2-5.4) K/mm3 Bertie # (Auto) 0.5 (0.0-0.8) K/mm3 Eos # (Auto) 0.1 (0.0-0.4) K/mm3 Baso # (Auto) 0.1 (0.0-0.1) K/mm3 Seg Neutrophils % 61.5 (40.0-70.0) % Seg Neutrophils # 2.2 (1.8-7.7) K/mm3 D-Dimer (0-234) ng/mlDDU ABG pH (7.350-7.450) pH Units ABG pCO2 mm Hg ABG pO2 (80.0-90.0) mm Hg ABG HCO3 (20.0-26.0) mmol/L ABG O2 Saturation (95.0-99.0) % ABG O2 Content (0.0-44) ABG Base Excess (-2.0-3.0) mmol/L ABG Hemoglobin (14.0-18.0) gm/dl ABG Carboxyhemoglobin (0.0-5.0) % ABG Methemoglobin (0.0-1.5) % Oxyhemoglobin (95.0-99.0) % FiO2 % Sodium (137-145) mmol/L Potassium (3.6-5.0) mmol/L Chloride (98-107) mmol/L Carbon Dioxide (22-30) mmol/L Anion Gap mmol/L BUN (9-20) mg/dL Creatinine (0.8-1.3) mg/dL Estimated GFR ml/min BUN/Creatinine Ratio % Glucose (75-100) mg/dL Calcium (8.4-10.2) mg/dL Total Bilirubin 0.30 (0.1-1.2) mg/dL Direct Bilirubin < 0.2 (0-0.2) mg/dL AST 225 H (5-40) units/L ALT 123 H (7-56) units/L Alkaline Phosphatase 89 (35-129) units/L Total Protein 7.3 (6.3-8.2) g/dL Albumin 4.8 (3.9-5) g/dL Albumin/Globulin Ratio 1.9 % Urine Color (Yellow) Urine Turbidity (Clear) Urine pH (5.0-7.0) Ur Specific [place] (1.003-1.030) Urine Protein (Negative) mg/dL Urine Glucose (UA) (Negative) mg/dL Urine Ketones (Negative) mg/dL Urine Blood (Negative) Urine Nitrite (Negative) Urine Bilirubin (Negative) Urine Urobilinogen (<2.0) mg/dL Ur Leukocyte Esterase (Negative) Urine WBC (Auto) (0.0-6.0) /HPF Urine RBC (Auto) (0.0-6.0) /HPF U Epithel Cells (Auto) (0-13.0) /HPF Hyaline Casts /LPF Urine Mucus /HPF Salicylates (2.8-20.0) mg/dL Urine Opiates Screen Urine Methadone Screen Acetaminophen (10.0-30.0) ug/mL Ur Barbiturates Screen Ur Phencyclidine Scrn Ur Amphetamines Screen U Benzodiazepines Scrn Urine Cocaine Screen U Marijuana (THC) Screen Drugs of Abuse Note Plasma/Serum Alcohol 0.39 H (0-0.07) % 11/28/20 11/28/20 11/29/20 Range/Units Unknown Unknown 04:29 WBC (4.5-11.0) K/mm3 RBC (3.65-5.03) M/mm3 Hgb (11.8-15.2) gm/dl Hct (35.5-45.6) % MCV (84-94) fl MCH (28-32) pg MCHC (32-34) % RDW (13.2-15.2) % Plt Count (140-440) K/mm3 Lymph % (Auto) (13.4-35.0) % Bertie % (Auto) (0.0-7.3) % Eos % (Auto) (0.0-4.3) % Baso % (Auto) (0.0-1.8) % Lymph # (Auto) (1.2-5.4) K/mm3 Bertie # (Auto) (0.0-0.8) K/mm3 Eos # (Auto) (0.0-0.4) K/mm3 Baso # (Auto) (0.0-0.1) K/mm3 Seg Neutrophils % (40.0-70.0) % Seg Neutrophils # (1.8-7.7) K/mm3 D-Dimer (0-234) ng/mlDDU ABG pH 7.414 (7.350-7.450) pH Units ABG pCO2 42.2 mm Hg ABG pO2 76.0 L (80.0-90.0) mm Hg ABG HCO3 26.3 H (20.0-26.0) mmol/L ABG O2 Saturation 95.3 (95.0-99.0) % ABG O2 Content 16.3 (0.0-44) ABG Base Excess 1.6 (-2.0-3.0) mmol/L ABG Hemoglobin 12.8 L (14.0-18.0) gm/dl ABG Carboxyhemoglobin 4.5 (0.0-5.0) % ABG Methemoglobin 0.5 (0.0-1.5) % Oxyhemoglobin 90.6 L (95.0-99.0) % FiO2 24 % Sodium (137-145) mmol/L Potassium (3.6-5.0) mmol/L Chloride (98-107) mmol/L Carbon Dioxide (22-30) mmol/L Anion Gap mmol/L BUN (9-20) mg/dL Creatinine (0.8-1.3) mg/dL Estimated GFR ml/min BUN/Creatinine Ratio % Glucose (75-100) mg/dL Calcium (8.4-10.2) mg/dL Total Bilirubin (0.1-1.2) mg/dL Direct Bilirubin (0-0.2) mg/dL AST (5-40) units/L ALT (7-56) units/L Alkaline Phosphatase (35-129) units/L Total Protein (6.3-8.2) g/dL Albumin (3.9-5) g/dL Albumin/Globulin Ratio % Urine Color Yellow (Yellow) Urine Turbidity Clear (Clear) Urine pH 5.0 (5.0-7.0) Ur Specific [place] 1.019 (1.003-1.030) Urine Protein >500 (Negative) mg/dL Urine Glucose (UA) Neg (Negative) mg/dL Urine Ketones Neg (Negative) mg/dL Urine Blood Sm (Negative) Urine Nitrite Neg (Negative) Urine Bilirubin Neg (Negative) Urine Urobilinogen < 2.0 (<2.0) mg/dL Ur Leukocyte Esterase Neg (Negative) Urine WBC (Auto) 1.0 (0.0-6.0) /HPF Urine RBC (Auto) 3.0 (0.0-6.0) /HPF U Epithel Cells (Auto) < 1.0 (0-13.0) /HPF Hyaline Casts 8 /LPF Urine Mucus 1+ /HPF Salicylates (2.8-20.0) mg/dL Urine Opiates Screen Presumptive negative Urine Methadone Screen Presumptive negative Acetaminophen (10.0-30.0) ug/mL Ur Barbiturates Screen Presumptive negative Ur Phencyclidine Scrn Presumptive negative Ur Amphetamines Screen Presumptive negative U Benzodiazepines Scrn Presumptive negative Urine Cocaine Screen Presumptive negative U Marijuana (THC) Screen Presumptive negative Drugs of Abuse Note Disclamer Plasma/Serum Alcohol (0-0.07) % 11/29/20 Range/Units 04:43 WBC (4.5-11.0) K/mm3 RBC (3.65-5.03) M/mm3 Hgb (11.8-15.2) gm/dl Hct (35.5-45.6) % MCV (84-94) fl MCH (28-32) pg MCHC (32-34) % RDW (13.2-15.2) % Plt Count (140-440) K/mm3 Lymph % (Auto) (13.4-35.0) % Bertie % (Auto) (0.0-7.3) % Eos % (Auto) (0.0-4.3) % Baso % (Auto) (0.0-1.8) % Lymph # (Auto) (1.2-5.4) K/mm3 Bertie # (Auto) (0.0-0.8) K/mm3 Eos # (Auto) (0.0-0.4) K/mm3 Baso # (Auto) (0.0-0.1) K/mm3 Seg Neutrophils % (40.0-70.0) % Seg Neutrophils # (1.8-7.7) K/mm3 D-Dimer 5361.78 H (0-234) ng/mlDDU ABG pH (7.350-7.450) pH Units ABG pCO2 mm Hg ABG pO2 (80.0-90.0) mm Hg ABG HCO3 (20.0-26.0) mmol/L ABG O2 Saturation (95.0-99.0) % ABG O2 Content (0.0-44) ABG Base Excess (-2.0-3.0) mmol/L ABG Hemoglobin (14.0-18.0) gm/dl ABG Carboxyhemoglobin (0.0-5.0) % ABG Methemoglobin (0.0-1.5) % Oxyhemoglobin (95.0-99.0) % FiO2 % Sodium (137-145) mmol/L Potassium (3.6-5.0) mmol/L Chloride (98-107) mmol/L Carbon Dioxide (22-30) mmol/L Anion Gap mmol/L BUN (9-20) mg/dL Creatinine (0.8-1.3) mg/dL Estimated GFR ml/min BUN/Creatinine Ratio % Glucose (75-100) mg/dL Calcium (8.4-10.2) mg/dL Total Bilirubin (0.1-1.2) mg/dL Direct Bilirubin (0-0.2) mg/dL AST (5-40) units/L ALT (7-56) units/L Alkaline Phosphatase (35-129) units/L Total Protein (6.3-8.2) g/dL Albumin (3.9-5) g/dL Albumin/Globulin Ratio % Urine Color (Yellow) Urine Turbidity (Clear) Urine pH (5.0-7.0) Ur Specific [place] (1.003-1.030) Urine Protein (Negative) mg/dL Urine Glucose (UA) (Negative) mg/dL Urine Ketones (Negative) mg/dL Urine Blood (Negative) Urine Nitrite (Negative) Urine Bilirubin (Negative) Urine Urobilinogen (<2.0) mg/dL Ur Leukocyte Esterase (Negative) Urine WBC (Auto) (0.0-6.0) /HPF Urine RBC (Auto) (0.0-6.0) /HPF U Epithel Cells (Auto) (0-13.0) /HPF Hyaline Casts /LPF Urine Mucus /HPF Salicylates (2.8-20.0) mg/dL Urine Opiates Screen Urine Methadone Screen Acetaminophen (10.0-30.0) ug/mL Ur Barbiturates Screen Ur Phencyclidine Scrn Ur Amphetamines Screen U Benzodiazepines Scrn Urine Cocaine Screen U Marijuana (THC) Screen Drugs of Abuse Note Plasma/Serum Alcohol (0-0.07) % - EKG Data -: EKG Interpreted by Me EKG shows normal: sinus rhythm, axis, intervals, QRS complexes (Q waves to the septal leads), ST-T waves Rate: bradycardia (56 bpm) - EKG Data When compared to previous EKG there are: no significant change Interpretation: unchanged when compared t (07/20/20) - Radiology Data Radiology results: image reviewed interpreted by me: Chest x-ray does not show any acute process. There are no pleural effusions, obvious pneumonia and there is no pneumothorax. No widened mediastinum. - Medical Decision Making This patient presents with a 1 week history of shortness of breath, nausea without vomiting, and some nonspecific lightheadedness/dizziness. The patient is awake and cooperative, but does appear intoxicated. His blood alcohol level came back at 0.39. He has been given some IV fluid resuscitation with a banana bag. EKG did not have any morphology consistent with ST elevation myocardial infarction and is unchanged from previous. Chest x-ray does not show any pneumonia, pleural effusions, pneumothorax, focal consolidation, widened mediastinum, or any other acute process. The patient's labs also show transaminitis, lymphopenia, a very elevated D-dimer level. ABG shows hypoxemia without any significant acid-base disturbances. The patient will have a CT angiography of the chest to evaluate for pulmonary embolism. Given the hypoxemia, lymphopenia, and current pandemic, and given the fact that we are unable to do [id number] testing for COVID-19, the patient will be made a PUI. The D-dimer has already come back quite elevated, but I have also ordered ferritin, LDH and CRP. This patient will be signed out to my colleague, Dr. Flores, to follow the results of the CT angiography of the chest, the rest of the lab work, and assist with disposition. Critical Care Time: Yes Critical care time in (mins) excluding proc time.: 35 Critical care attestation.: If time is entered above; I have spent that time in minutes in the direct care of this critically ill patient, excluding procedure time. Critical care time was spent on this patient in doing his initial evaluation, multiple reevaluations, ordering and interpretation of labs and imaging, supplemental oxygen for his hypoxemia, banana bag for his alcohol intoxication. Critical Care Time: 35 minutes ED Disposition Clinical Impression: Suspected 2019 novel coronavirus infection, Transaminitis, Alcohol abuse, Hypoxemia Alcohol intoxication Qualifiers: Complication of substance-induced condition: with unspecified complication Qualified Code(s): F10.929 - Alcohol use, unspecified with intoxication, unspe cified Disposition: DC-09 OP ADMIT IP TO THIS HOSP Is pt being admited?: Yes Condition: Serious Time of Disposition: 06:30
[2020-11-29 04:29] LABS: Albumin 4.8 g/dL (3.9-5); Bilirubin,Direct < 0.2 mg/dL (0-0.2)
[2020-11-29 04:38] LABS: ABG Base Excess 1.6 mmol/L (-2.0-3.0); ABG HCO3 26.3 mmol/L (20.0-26.0); ABG Methemoglobin 0.5 % (0.0-1.5); ABG Oxygen Saturation 95.3 % (95.0-99.0); ABG PCO2 42.2 mm Hg; ABG PH 7.414 pH Units (7.350-7.450)
[2020-11-29 04:51] LABS: Alanine Aminotransferase 123 units/L (7-56)
[2020-11-29] MEDS ORDERED: dexAMETHasone 4 MG/ML VIAL IV ONE (06:05)
--- NOTE | 2020-11-29 06:53 | Cat Scan Report ---
CT angio chest INDICATION: Patient complains of S.O.B., elevated D-dimer. TECHNIQUE: All CT scans at this location are performed using CT dose reduction for ALARA by means of automated e xposure control. 3 plane MIP and 3-D reconstructions were produced. COMPARISON: None FINDINGS: Mediastinum, debbi and axillae are negative. There are a few areas of minimal, patchy parenchymal dise ase in both lungs, primarily the left. No evidence of pulmonary embolus. IMPRESSION: 1. Negative for pulmonary embolus. 2. Minimal patchy parenchymal disease, as described. The possibility of very early/minimal pneumonia should be considered. Suggest close follow-up. Signer Name: Kevin Pelayo MD Signed: 11/29/2020 6:49 AM Workstation Name: [id number]
[2020-11-29] MEDS ORDERED: AZITHROMYCIN/NS 500 MG/250 ML 500 MG/250 ML BAG IV ONE ×2 (07:05→12:00)
[2020-11-29] MEDS ORDERED: cefTRIAXone/NS 1 GM/50 ML 1 GM/50 ML BAG IV ONE ×2 (07:05→12:00)
[2020-11-29 07:12] LABS: C-Reactive Protein 0.8 mg/dL (0.00-1.30)
[2020-11-29] MEDS ORDERED: MORPHINE 4 MG/1 ML INJ IV PRN (07:36)
[2020-11-29] MEDS ORDERED: ACETAMINOPHEN 325 MG TAB PO PRN (07:36)
[2020-11-29] MEDS ORDERED: ONDANSETRON 4 MG/2 ML INJ IV PRN (07:36)
[2020-11-29] MEDS ORDERED: HYDROcodone/ACETAMINOPHEN 5-325 MG TAB PO PRN (07:36)
[2020-11-29] MEDS ORDERED: ALBUTEROL 8.5 GM MDI INHALATION IH PRN (07:47)
--- NOTE | 2020-11-29 07:53 | History and Physical Report ---
History of Present Illness Date of examination: 11/29/20 Date of admission: November 29, 2020 Chief complaint: Shortness of breath History of present illness: Patient 50-year-old female with history of seizure disorder #2 hypertension #3 asthma presented with 1 week history of shortness of breath and nonproductive cough minimal arthralgias. Upon presentation to the ED patient found to be hypoxemic with O2 sats of 91 on room air. It was noted that patient was a avid drinker and was admitted for acute respiratory failure and alcohol intoxication. Patient alcohol level was 0.39 upon presentation. Initial chest x-ray negative. Patient also found to have increased transaminases. At initial presentation patient was somewhat short of breath but able to get up walk to the bathroom without difficulty. Patient did not require oxygen at this time. O2 sats 97% room air now. Patient denies any chest pain denies any short of breath. Patient was noted upon history and physical to have tremors and somewhat pressured speech. Patient does give history of having delirium tremors several times throughout his life. Patient relates to every day drinker every day smoker no illicit drugs. Past History Past Medical History: hypertension, seizures, other (Asthma) Past Surgical History: No surgical history Social history: smoking, alcohol abuse, full code Family history: no significant family history Medications and Allergies Allergies Allergy/AdvReac Type Severity Reaction Status Date / Time tramadol Allergy Rash Verified 12/16/17 18:49 Home Medications Medication Instructions Recorded Confirmed Last Taken Type Famotidine [Pepcid] 20 mg PO BID #30 tablet 04/10/18 Unknown Rx Albuterol Sulfate [Proventil Hfa] 2 puff IH Q4H PRN #1 unit 07/20/20 Unknown Rx Famotidine [Pepcid] 20 mg PO BID tablet 07/20/20 Unknown Rx Folic Acid [Folvite] 1 mg PO QDAY tablet 07/20/20 Unknown Rx Folic Acid [Folvite] 1 mg PO QDAY #30 tablet 07/20/20 Unknown Rx Thiamine [Vitamin B-1] 100 mg PO QDAY #30 tablet 07/20/20 Unknown Rx levETIRAcetam [Keppra TAB] 500 mg PO BID #60 tablet 07/20/20 Unknown Rx Gabapentin 300 mg PO Q12H #60 capsule 08/05/20 Unknown Rx Ibuprofen [Motrin] 800 mg PO Q8HR PRN #30 tablet 08/05/20 Unknown Rx predniSONE [Deltasone] 40 mg PO QDAY #10 tab 08/05/20 Unknown Rx Active Meds: Active Medications Acetaminophen (Acetaminophen 325 Mg Tab) 650 mg PO Q4H PRN PRN Reason: Pain MILD(1-3)/Fever >100.5/STILES Hydrocodone Bitart/Acetaminophen (Hydrocodone/Acetaminophen 5-325 Mg Tab) 2 each PO Q6H PRN PRN Reason: Pain, Moderate (4-6) Albuterol (Albuterol 8.5 Gm Mdi Inhalation) 2 puff IH Q4H PRN PRN Reason: Shortness Of Breath Chlordiazepoxide HCl (Chlordiazepoxide 25 Mg Cap) 25 mg PO ONCE ONE Stop: 11/29/20 07:37 Famotidine (Famotidine 20 Mg Tab) 20 mg PO BID JESSI Azithromycin (Zithromax/Ns) 500 mg in 250 mls @ 250 mls/hr IV ONCE ONE; Protocol Stop: 11/29/20 08:04 Potassium Chloride/Dextrose/Sod Cl (D5w/0.45% Nacl/Kcl 20 Meq) 20 meq in 1,000 mls @ 100 mls/hr IV DIRECT JESSI Lorazepam (Lorazepam 2 Mg/Ml Vial) 2 mg IV Q1HR PRN PRN Reason: CIWA-Ar 8-15 Morphine Sulfate (Morphine 4 Mg/1 Ml Inj) 4 mg IV Q4H PRN PRN Reason: Pain , Severe (7-10) Ondansetron HCl (Ondansetron 4 Mg/2 Ml Inj) 4 mg IV Q8H PRN PRN Reason: Nausea And Vomiting Sodium Chloride (Sodium Chloride 0.9% 10 Ml Flush Syringe) 10 ml IV BID JESSI Sodium Chloride (Sodium Chloride 0.9% 10 Ml Flush Syringe) 10 ml IV PRN PRN PRN Reason: LINE FLUSH Review of Systems Constitutional: anorexia, fatigue, weakness, malaise, poor appetite, no weight loss, no weight gain, no fever, no chills, no sweats, no night sweats Ears, nose, mouth and throat: no ear pain, no tinnitis, no nose pain, no nasal congestion, no sinus pressure, no hoarseness, no sore throat, no headache, no pain front of neck, no neck fullness/pressure Cardiovascular: shortness of breath, dyspnea on exertion, no chest pain, no orthopnea, no palpitations, no rapid/irregular heart beat, no high blood pressure, no leg edema Respiratory: cough, shortness of breath, dyspnea on exertion, congestion, no hemoptysis, no wheezing, no pleurisy, no pain, no pain on inspiration, no snoring Gastrointestinal: nausea, heartburn, no vomiting, no diarrhea, no constipation, no change in bowel habits, no hematemesis, no coffee ground emesis, no early satiety, no excessive gas, no jaundice Genitourinary Male: erectile dysfunction, impotence, decreased libido, no hematuria, no flank pain, no discharge, no testicular lump, no urinary retention Musculoskeletal: muscle weakness, no neck stiffness, no morning stiffness, no muscle cramps, no myalgias, no limitation of motion, no frequent falls Neurological: weakness, seizures, changes in smell/taste, balance difficulties, no head injury, no paralysis, no parathesias, no numbness, no tingling, no syncope, no tremors, no ataxia, no lack of coordination, no headaches, no migraines Psychiatric: anxiety, depression, no suicidal ideation Endocrine: no cold intolerance, no heat intolerance, no polydipsia, no weight change, no deepening of the voice, no thyroid mass, no low blood sugars, no recent glucocorticoid use Hematologic/Lymphatic: no easy bleeding Allergic/Immunologic: no allergic rhinitis, no gluten intolerance Exam - Constitutional Vitals: Temp Pulse Resp BP Pulse Ox 98.5 F 85 13 127/86 99 11/28/20 22:10 11/29/20 05:42 11/29/20 05:42 11/29/20 05:42 11/29/20 05:42 General appearance: Present: mild distress - EENT Eyes: Present: PERRL ENT: hearing intact, clear oral mucosa - Neck Neck: Present: supple, normal ROM - Respiratory Respiratory effort: normal Respiratory: bilateral: CTA, rhonchi (Few rhonchi) - Cardiovascular Heart Sounds: Present: S1 & S2. Absent: rub, click - Extremities Extremities: pulses symmetrical, No edema Peripheral Pulses: within normal limits - Abdominal General gastrointestinal: Present: soft, non-tender, non-distended, normal bowel sounds Male genitourinary: Present: normal - Integumentary Integumentary: Present: clear, warm, dry - Musculoskeletal Musculoskeletal: gait normal, strength equal bilaterally - Psychiatric Psychiatric: appropriate mood/affect, intact judgment & insight - Neurologic Neurologic: CNII-XII intact, moves all extremities, other (Tremors neuropathy. Lower extremities.) Results - Labs CBC & Chem 7: 11/28/20 22:31 11/28/20 22:31 Labs: Laboratory Last Values WBC 3.6 K/mm3 (4.5-11.0) L 11/28/20 22:31 RBC 3.94 M/mm3 (3.65-5.03) 11/28/20 22:31 Hgb 13.6 gm/dl (11.8-15.2) 11/28/20 22:31 Hct 40.1 % (35.5-45.6) 11/28/20 22:31 MCV 102 fl (84-94) H 11/28/20 22:31 MCH 34 pg (28-32) H 11/28/20 22:31 MCHC 34 % (32-34) 11/28/20 22:31 RDW 15.3 % (13.2-15.2) H 11/28/20 22:31 Plt Count 91 K/mm3 (140-440) L 11/28/20 22:31 Lymph % (Auto) 21.6 % (13.4-35.0) 11/28/20 22:31 [place] % (Auto) 13.0 % (0.0-7.3) H 11/28/20 22:31 Eos % (Auto) 1.9 % (0.0-4.3) 11/28/20 22:31 Baso % (Auto) 2.0 % (0.0-1.8) H 11/28/20 22:31 Lymph # (Auto) 0.8 K/mm3 (1.2-5.4) L 11/28/20 22:31 [place] # (Auto) 0.5 K/mm3 (0.0-0.8) 11/28/20 22:31 Eos # (Auto) 0.1 K/mm3 (0.0-0.4) 11/28/20 22:31 Baso # (Auto) 0.1 K/mm3 (0.0-0.1) 11/28/20 22:31 Seg Neutrophils % 61.5 % (40.0-70.0) 11/28/20 22:31 Seg Neutrophils # 2.2 K/mm3 (1.8-7.7) 11/28/20 22:31 D-Dimer 5361.78 ng/mlDDU (0-234) H 11/29/20 04:43 ABG pH 7.414 pH Units (7.350-7.450) 11/29/20 04:29 ABG pCO2 42.2 mm Hg 11/29/20 04:29 ABG pO2 76.0 mm Hg (80.0-90.0) L 11/29/20 04:29 ABG HCO3 26.3 mmol/L (20.0-26.0) H 11/29/20 04:29 ABG O2 Saturation 95.3 % (95.0-99.0) 11/29/20 04:29 ABG O2 Content 16.3 (0.0-44) 11/29/20 04:29 ABG Base Excess 1.6 mmol/L (-2.0-3.0) 11/29/20 04:29 ABG Hemoglobin 12.8 gm/dl (14.0-18.0) L 11/29/20 04:29 ABG Carboxyhemoglobin 4.5 % (0.0-5.0) 11/29/20 04:29 ABG Methemoglobin 0.5 % (0.0-1.5) 11/29/20 04:29 Oxyhemoglobin 90.6 % (95.0-99.0) L 11/29/20 04:29 FiO2 24 % 11/29/20 04:29 Sodium 142 mmol/L (137-145) 11/28/20 22:31 Potassium 4.4 mmol/L (3.6-5.0) 11/28/20 22:31 Chloride 96.9 mmol/L (98-107) L 11/28/20 22:31 Carbon Dioxide 29 mmol/L (22-30) 11/28/20 22:31 Anion Gap 21 mmol/L 11/28/20 22:31 BUN 12 mg/dL (9-20) 11/28/20 22:31 Creatinine 1.0 mg/dL (0.8-1.3) 11/28/20 22:31 Estimated GFR > 60 ml/min 11/28/20 22:31 BUN/Creatinine Ratio 12 % 11/28/20 22:31 Glucose 119 mg/dL (75-100) H 11/28/20 22:31 Calcium 9.0 mg/dL (8.4-10.2) 11/28/20 22:31 Ferritin 481.5 ng/mL (30.0-300.0) H 11/29/20 06:07 Total Bilirubin 0.30 mg/dL (0.1-1.2) 11/28/20 22:31 Direct Bilirubin < 0.2 mg/dL (0-0.2) 11/28/20 22:31 AST 225 units/L (5-40) H 11/28/20 22:31 ALT 123 units/L (7-56) H 11/28/20 22:31 Alkaline Phosphatase 89 units/L (35-129) 11/28/20 22:31 Lactate Dehydrogenase 481 units/L (91-180) H 11/29/20 06:07 C-Reactive Protein 0.80 mg/dL (0.00-1.30) 11/29/20 06:07 Total Protein 7.3 g/dL (6.3-8.2) 11/28/20 22:31 Albumin 4.8 g/dL (3.9-5) 11/28/20 22:31 Albumin/Globulin Ratio 1.9 % 11/28/20 22:31 Urine Color Yellow (Yellow) 11/28/20 Unknown Urine Turbidity Clear (Clear) 11/28/20 Unknown Urine pH 5.0 (5.0-7.0) 11/28/20 Unknown Ur Specific [place] 1.019 (1.003-1.030) 11/28/20 Unknown Urine Protein >500 mg/dL (Negative) 11/28/20 Unknown Urine Glucose (UA) Neg mg/dL (Negative) 11/28/20 Unknown Urine Ketones Neg mg/dL (Negative) 11/28/20 Unknown Urine Blood Sm (Negative) 11/28/20 Unknown Urine Nitrite Neg (Negative) 11/28/20 Unknown Urine Bilirubin Neg (Negative) 11/28/20 Unknown Urine Urobilinogen < 2.0 mg/dL (<2.0) 11/28/20 Unknown Ur Leukocyte Esterase Neg (Negative) 11/28/20 Unknown Urine WBC (Auto) 1.0 /HPF (0.0-6.0) 11/28/20 Unknown Urine RBC (Auto) 3.0 /HPF (0.0-6.0) 11/28/20 Unknown U Epithel Cells (Auto) < 1.0 /HPF (0-13.0) 11/28/20 Unknown Hyaline Casts 8 /LPF 11/28/20 Unknown Urine Mucus 1+ /HPF 11/28/20 Unknown Salicylates < 0.3 mg/dL (2.8-20.0) L 11/28/20 22:31 Urine Opiates Screen Presumptive negative 11/28/20 Unknown Urine Methadone Screen Presumptive negative 11/28/20 Unknown Acetaminophen 5.0 ug/mL (10.0-30.0) L 11/28/20 22:31 Ur Barbiturates Screen Presumptive negative 11/28/20 Unknown Ur Phencyclidine Scrn Presumptive negative 11/28/20 Unknown Ur Amphetamines Screen Presumptive negative 11/28/20 Unknown U Benzodiazepines Scrn Presumptive negative 11/28/20 Unknown Urine Cocaine Screen Presumptive negative 11/28/20 Unknown U Marijuana (THC) Screen Presumptive negative 11/28/20 Unknown Drugs of Abuse Note Disclamer 11/28/20 Unknown Plasma/Serum Alcohol 0.39 % (0-0.07) H 11/28/20 22:31 - Imaging and Cardiology EKG: report reviewed, image reviewed Chest x-ray: report reviewed, image reviewed Assessment and Plan Advance Directives: Yes VTE prophylaxis?: Chemical Plan of care discussed with patient/family: Yes - Patient Problems (1) Alcohol abuse Current Visit: Yes Status: Acute Plan to address problem: Patient long history of alcohol abuse. Patient placed on CIWA protocol. Treated with Ativan now. Educated on alcohol cessation and the risk associated with liver failure and sudden . (2) Alcohol intoxication Current Visit: Yes Status: Acute Qualifiers: Complication of substance-induced condition: with unspecified complication Qualified Code(s): F10.929 - Alcohol use, unspecified with intoxication, unspecified Plan to address problem: Acute alcohol intoxication. Alcohol level 0.39. Seems to be coming down after aggressive IV hydration. Placed on CIWA protocol. Patient vitamins replace thiamine folic acid multivitamin. Does have significant tremors and pressured speech and elevated blood pressure consistent with delirium tremors. We will continue treating patient for DTs has also had in the past. (3) Hypoxemia Current Visit: Yes Status: Acute Plan to address problem: Most likely secondary to alcoholic encephalopathy. Has now resolved. Patient able to walk around without much difficulty without much shortness of breath hypoxemia will use oxygen as needed. Treat empirically for pneumonia. (4) Suspected 2019 novel coronavirus infection Current Visit: Yes Status: Acute Plan to address problem: Patient test has been ordered pending (5) Transaminitis Current Visit: Yes Status: Acute Plan to address problem: Transaminases directly related to alcohol. AST 2 to 1 duration 1 ratio over ALT consistent with alcohol use and abuse. Will follow transaminases with hydration and alcohol cessation. (6) Acute respiratory failure with hypoxemia Current Visit: No Status: Acute Plan to address problem: Resolved treated for empiric pneumonia most likely secondary to alcohol-related metabolic encephalopathy. (7) Tobacco abuse Current Visit: No Status: Acute Plan to address problem: Smoking cessation and nicotine patch.
[2020-11-29] MEDS ORDERED: ALBUTEROL 2.5 MG/3 ML NEBU IH PRN (08:13)
[2020-11-29] MEDS ORDERED: chlordiazePOXIDE 25 MG CAP PO NR (08:15)
[2020-11-29] MEDS ORDERED: FOLIC ACID 1 MG TAB PO SCH (10:00)
--- NOTE | 2020-11-29 10:26 | Electrocardiograph Report ---
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
[2020-11-29] MEDS: levETIRAcetam 500 MG TAB PO SCH ×2 (11:52→21:11)
[2020-11-29] MEDS: THIAMINE 100 MG TAB PO SCH (11:52)
[2020-11-29] MEDS: FAMOTIDINE 20 MG TAB PO SCH ×2 (11:52→21:11)
[2020-11-29] MEDS: FOLIC ACID 1 MG TAB PO SCH (11:52)
[2020-11-29] MEDS: predniSONE 20 MG TAB PO SCH (11:52)
[2020-11-29] MEDS: GABAPENTIN 300 MG CAP PO SCH ×2 (11:52→21:11)
[2020-11-29] MEDS: D5W/0.45% NACL/KCL 20 MEQ 20 MEQ/1,000 ML BAG IV SCH (11:58)
[2020-11-29] MEDS: LORazepam 2 MG/ML VIAL IV PRN ×3 (11:59→21:11)
[2020-11-29] MEDS: NICOTINE 14 MG/24 HR PATCH TD SCH (13:09)
[2020-11-30] MEDS: D5W/0.45% NACL/KCL 20 MEQ 20 MEQ/1,000 ML BAG IV SCH ×3 (00:49→21:18)
[2020-11-30] MEDS: LORazepam 2 MG/ML VIAL IV PRN (06:21)
[2020-11-30 06:58] LABS: Alanine Aminotransferase 77 units/L (7-56); Albumin 4.1 g/dL (3.9-5); Blood Urea Nitrogen 9 mg/dL (9-20); Calcium 8.5 mg/dL (8.4-10.2); Hemolysis Index 3
[2020-11-30 07:04] LABS: BUN/Creatinine Ratio 15
[2020-11-30] MEDS: AZITHROMYCIN 250 MG TAB PO SCH (09:16)
[2020-11-30] MEDS: predniSONE 20 MG TAB PO SCH (09:16)
[2020-11-30] MEDS: FOLIC ACID 1 MG TAB PO SCH (09:17)
[2020-11-30] MEDS: levETIRAcetam 500 MG TAB PO SCH ×2 (09:18→21:17)
[2020-11-30] MEDS: THIAMINE 100 MG TAB PO SCH (09:18)
[2020-11-30] MEDS: cefTRIAXone/NS 2 GM/100 ML 2 GM/100 ML BAG IV SCH (09:18)
[2020-11-30] MEDS: GABAPENTIN 300 MG CAP PO SCH ×2 (09:18→21:17)
[2020-11-30] MEDS: FAMOTIDINE 20 MG TAB PO SCH ×2 (09:18→21:17)
[2020-11-30] MEDS: NICOTINE 14 MG/24 HR PATCH TD SCH (09:18)
--- NOTE | 2020-11-30 11:39 | Progress Note ---
Assessment and Plan - Patient Problems (1) Alcohol abuse Current Visit: Yes Status: Acute Plan to address problem: Patient long history of alcohol abuse. Patient placed on CIWA protocol. Treated with Ativan now. Educated on alcohol cessation and the risk associated with liver failure and sudden . (2) Alcohol intoxication Current Visit: Yes Status: Acute Qualifiers: Complication of substance-induced condition: with unspecified complication Qualified Code(s): F10.929 - Alcohol use, unspecified with intoxication, un specified Plan to address problem: Acute alcohol intoxication. Alcohol level 0.39. Seems to be coming down after aggressive IV hydration. Placed on CIWA protocol. Patient vitamins replace thiamine folic acid multivitamin. Does have significant tremors and pressured speech and elevated blood pressure consistent with delirium tremors. We will continue treating patient for DTs has also had in the past. (3) Hypoxemia Current Visit: Yes Status: Acute Plan to address problem: Most likely secondary to alcoholic encephalopathy. Has now resolved. Patient able to walk around without much difficulty without much shortness of breath hypoxemia will use oxygen as needed. Treat empirically for pneumonia. (4) Suspected 2019 novel coronavirus infection Current Visit: Yes Status: Acute Plan to address problem: Patient test has been ordered pending (5) Transaminitis Current Visit: Yes Status: Acute Plan to address problem: Transaminases directly related to alcohol. AST 2 to 1 duration 1 ratio over ALT consistent with alcohol use and abuse. Will follow transaminases with hydration and alcohol cessation. (6) Acute respiratory failure with hypoxemia Current Visit: No Status: Acute Plan to address problem: Resolved treated for empiric pneumonia most likely secondary to alcohol-related metabolic encephalopathy. (7) Tobacco abuse Current Visit: No Status: Acute Plan to address problem: Smoking cessation and nicotine patch. Subjective Date of service: 11/30/20 Principal diagnosis: Alcohol withdrawal, delirium tremors Interval history: Patient appears to be doing better today, with benzodiazepine. Still a little unsteady on his feet but able to walk to the bathroom with pole use the bathroom in my presence without much difficulty. Patient also Covid negative now. Hospital course complicated by elevated blood pressure. Most likely secondary to delirium tremors. Dissipated discharge in a.m. Objective - Constitutional Vitals: Vital Signs - 12hr 11/29/20 11/29/20 11/30/20 23:38 23:58 05:50 Temperature 98.6 F 98.3 F Pulse Rate 55 L 53 L Respiratory 18 18 20 Rate Blood Pressure 152/91 159/93 O2 Sat by Pulse 90 98 Oximetry 11/30/20 08:00 Temperature Pulse Rate Respiratory Rate Blood Pressure O2 Sat by Pulse 94 Oximetry General appearance: Present: no acute distress, well-nourished - EENT Eyes: PERRL, EOM intact ENT: hearing intact, clear oral mucosa Ears: bilateral: normal - Neck Neck: supple, normal ROM - Respiratory Respiratory effort: normal Respiratory: bilateral: CTA - Breasts Breasts: normal - Cardiovascular Rhythm: regular Heart Sounds: Present: S1 & S2. Absent: gallop, rub Extremities: pulses intact, No edema, normal color, Full ROM - Gastrointestinal General gastrointestinal: Present: soft, non-tender, non-distended, normal bowel sounds - Genitourinary Male genitourinary: normal - Integumentary Integumentary: clear, warm, dry - Musculoskeletal Musculoskeletal: strength equal bilaterally, generalized weakness - Neurologic Neurologic: moves all extremities - Psychiatric Psychiatric: memory intact, appropriate mood/affect, intact judgment & insight - Labs CBC & Chem 7: 11/28/20 22:31 11/30/20 06:00 Labs: Abnormal lab results 11/30/20 Range/Units 06:00 Creatinine 0.6 L (0.8-1.3) mg/dL Glucose 131 H (75-100) mg/dL AST 90 H (5-40) units/L ALT 77 H (7-56) units/L
[2020-12-01] MEDS ORDERED: hydrALAZINE 20 MG/1 ML INJ IV PRN (00:33)
[2020-12-01] MEDS: LORazepam 2 MG/ML VIAL IV PRN (00:40)
[2020-12-01 07:05] VITALS: BP 150/107
--- NOTE | 2020-12-01 09:23 | Discharge Summary ---
Providers - Providers Date of Admission: 11/29/20 10:41 Date of discharge: 12/01/20 Attending physician: IVY BURGESS Primary care physician: SENIOR FINANCIAL REPORTING ANALYST Hospitalization Condition: Good Hospital course: 50-year-old male with a history of alcohol abuse presented to ED with acute metabolic encephalopathy and alcohol intoxication. Patient showed evidence of withdrawals therefore was placed on CIWA protocol. Did well. Eventually converted to p.o. medications. Anxiety has stabilized. Patient up walking around eating. Stronger on lower extremities. Was also ruled out for COVID-19 with negative serology. Stable for discharge. Patient was told about alcoholics anonymous. Avoiding alcohol at all costs. Disposition: DC-01 TO HOME OR SELFCARE Final Discharge Diagnosis (Prints w/discharge instructions): Delirium tremors - Discharge Diagnoses (1) Alcohol abuse Status: Acute Comment: Discontinue using alcohol. Alcoholics Anonymous. (2) Alcohol intoxication Status: Resolved Qualifiers: Complication of substance-induced condition: with unspecified complication Qualified Code(s): F10.929 - Alcohol use, unspecified with intoxication, unspecified Comment: We will start patient on B12 thiamine multivitamin. Librium 3 times a day follow-up with primary care physician 2 weeks. (3) Hypoxemia Status: Acute Comment: Resolved (4) Suspected 2019 novel coronavirus infection Status: Acute Comment: Negative Covid (5) Transaminitis Status: Acute (6) Acute respiratory failure with hypoxemia Status: Resolved (7) Tobacco abuse Status: Acute Comment: Offer nicotine patch patient states cannot stop drinking and smoking at the same time. Core Measure Documentation - Palliative Care Palliative Care/ Comfort Measures: Not Applicable - Core Measures Any of the following diagnoses?: none Exam - Constitutional Vitals: Temp Pulse Resp BP Pulse Ox 98.9 F 72 16 150/107 95 12/01/20 06:40 12/01/20 06:40 12/01/20 06:40 12/01/20 06:40 12/01/20 08:06 General appearance: Present: no acute distress, well-nourished - EENT Eyes: Present: PERRL ENT: hearing intact, clear oral mucosa - Neck Neck: Present: supple, normal ROM - Respiratory Respiratory effort: normal Respiratory: bilateral: CTA - Cardiovascular Heart Sounds: Present: S1 & S2. Absent: rub, click - Extremities Extremities: pulses symmetrical, No edema Peripheral Pulses: within normal limits - Abdominal General gastrointestinal: Present: soft, non-tender, non-distended, normal bowel sounds Male genitourinary: Present: normal - Integumentary Integumentary: Present: clear, warm, dry - Musculoskeletal Musculoskeletal: gait normal, strength equal bilaterally - Psychiatric Psychiatric: appropriate mood/affect, intact judgment & insight - Neurologic Neurologic: CNII-XII intact, moves all extremities Plan Activity: no restrictions Weight Bearing Status: Full Weight Bearing Diet: regular Special Instructions: smoking cessation, other (non etoh) Follow up with: PRIMARY CARE,MD [Primary Care Provider] - 7 Days Prescriptions: predniSONE [Deltasone] 40 mg PO QDAY #10 tab Folic Acid [Folvite] 1 mg PO QDAY #30 tablet Gabapentin 300 mg PO Q12H #60 capsule Nicotine [Habitrol] 14 mg TD QDAY #7 patch levETIRAcetam [Keppra TAB] 500 mg PO BID #60 tablet chlordiazePOXIDE [Librium] 25 mg PO TID #30 capsule Famotidine [Pepcid] 20 mg PO BID #30 tablet Thiamine [Vitamin B-1] 100 mg PO QDAY #30 tablet
[2020-12-01] MEDS: predniSONE 20 MG TAB PO SCH (09:43)
[2020-12-01] MEDS: GABAPENTIN 300 MG CAP PO SCH (09:44)
[2020-12-01] MEDS: FOLIC ACID 1 MG TAB PO SCH (09:44)
[2020-12-01] MEDS: NICOTINE 14 MG/24 HR PATCH TD SCH (09:44)
[2020-12-01] MEDS: levETIRAcetam 500 MG TAB PO SCH (09:44)
[2020-12-01] MEDS: cefTRIAXone/NS 2 GM/100 ML 2 GM/100 ML BAG IV SCH (09:45)
[2020-12-01] MEDS: FAMOTIDINE 20 MG TAB PO SCH (09:45)
[2020-12-01] MEDS: THIAMINE 100 MG TAB PO SCH (09:46)
[2020-12-01] MEDS: AZITHROMYCIN 250 MG TAB PO SCH (09:54)
[2020-12-01] MEDS ORDERED: LORazepam 2 MG TAB PO ONE (11:46)
[2020-12-01] MEDS ORDERED: chlordiazePOXIDE 25 MG CAP PO SCH (14:00)
--- NOTE | 2020-12-04 10:14 | XRay Report ---
CHEST 1 VIEW INDICATION: SOB. COMPARISON: 07/20/2020 FINDINGS: Support devices: None. Heart: Within normal limits. Lungs/Pleura: No acute air space or interstitial disease. Additional findings: None. IMPRESSION: No acute findings. Signer Name: Domingo Lau Jr, MD Signed: 12/04/2020 10:10 AM Workstation Name: [id number]
== END 2020-12-01 13:52 | disposition home or self-care (01) | DRG 70 ==
LOC: ED 21:24 → 3A 11-29 07:36 → OBSVTOIN 11-29 10:41 → 3A 11-29 15:01
PROVIDERS: ADMIT Internal Medicine; ATTEND Internal Medicine
PROC: 4A033R1 Measurement of Arterial Saturation, Peripheral, Percutaneous Approach (ICD-10-PCS; principal; 2020-11-29)
DX: G93.41 Metabolic encephalopathy (principal); J96.01 Acute respiratory failure with hypoxia; J18.9 Pneumonia, unspecified organism; J44.0 Chronic obstructive pulmonary disease with (acute) lower respiratory infection; F10.929 Alcohol use, unspecified with intoxication, unspecified; Z20.822 Contact with and (suspected) exposure to COVID-19; I10 Essential (primary) hypertension; J45.909 Unspecified asthma, uncomplicated; J44.9 Chronic obstructive pulmonary disease, unspecified; R56.9 Unspecified convulsions; F32.9 Major depressive disorder, single episode, unspecified; F17.200 Nicotine dependence, unspecified, uncomplicated; Z79.899 Other long term (current) drug therapy; Z79.891 Long term (current) use of opiate analgesic; Z79.01 Long term (current) use of anticoagulants; Z88.8 Allergy status to other drugs, medicaments and biological substances
CPT/HCPCS: 36415; 71045; 71275; 80048; 80053; 80076; 80307; 80320; 81001; 82140; 82728; 82803; 82962; 83615; 84145; 85025; 85379; 86140; 87040; 93005; 96365; 96375; 99406; G0378; G0480; J0360; J0456; J0696; J1100; J2060; J3411; J7030; J7512; Q9967; U0003

== ENCOUNTER 2021-01-17 23:38 | Emergency (ER) | payer SELFPAY ==
[2021-01-18 04:07] VITALS: BP 137/83
[2021-01-18 04:39] LABS: Hematocrit 38.4 % (35.5-45.6); Mean Corpuscular HGB Conc 34 % (32-34); Mean Corpuscular Volume 103 fl (84-94); Platelet Count 154 K/mm3 (140-440); Red Blood Count 3.72 M/mm3 (3.65-5.03); Red Cell Distribution Width 14.9 % (13.2-15.2)
--- NOTE | 2021-01-18 04:49 | XRay Report ---
CHEST 2 VIEWS INDICATION / CLINICAL INFORMATION: SOB. COMPARISON: One view of the chest from 11/29/2020 FINDINGS: SUPPORT DEVICES: None. HEART / MEDIASTINUM: No significant abnormality. LUNGS / PLEURA: No significant pulmonary abnormality. No significant pleural effusion. No pneumothora x. ADDITIONAL FINDINGS: No significant additional findings. IMPRESSION: 1. No acute abnormality of the chest. Signer Name: Jace Solomon MD Signed: 01/18/2021 4:45 AM Workstation Name: [id number]
[2021-01-18 04:54] LABS: Blood Urea Nitrogen 11 mg/dL (9-20); Calcium 8.9 mg/dL (8.4-10.2); Hemolysis Index 3
[2021-01-18 04:55] LABS: BUN/Creatinine Ratio 18
[2021-01-18] MEDS ORDERED: ONDANSETRON 4 MG ODT TAB PO ONE (05:37)
[2021-01-18] MEDS ORDERED: ACETAMINOPHEN 500 MG TAB PO ONE (05:37)
--- NOTE | 2021-01-18 06:41 | Emergency Department Report ---
- General Chief Complaint: Nausea/Vomiting/Diarrhea Stated Complaint: LIGHT HEADED/SOB Source: patient, EMS Mode of arrival: Stretcher Limitations: No Limitations - History of Present Illness Initial Comments: Patient is a 50-year-old -[place] male with a history of chronic alcohol abuse, anxiety, depression, hypertension, seizures and asthma who presents to the ED with complaint of acute onset persistent nasal and sinus congestion, severe bilateral ear pain, nausea and vomiting and headache and diffuse body aches and pains for the last 1 week, worse in the last 2 days. Patient states that in the last 2 days he has not been able to eat much because of nausea and vomiting. Patient denies dizziness, syncope, chest pain, shortness of breath, fever, chills, sore throat, diarrhea, dysuria, urinary frequency and urgency or change in vision. MD Complaint: cough, rhinorrhea, nasal congestion, sinus pain, other (bilateral ear pain; nausea and vomiting) -: Sudden, week(s) (1) Severity: moderate Severity scale (0 -10): 5 Quality: sharp, aching Consistency: constant Improves With: nothing Worsens With: nothing Context: sick contacts Associated Symptoms: denies other symptoms, myalgias, headache, rhinorrhea, nasal congestion, nausea, vomiting, ear pain (bilateral ear pain). denies: diaphoresis, stiff neck, cough, chest pain, shortness of breath, abdominal pain, diarrhea, dysuria, rash, right sweats, weight loss, epistaxis Treatments Prior to Arrival: none - Related Data Previous Rx's Medication Instructions Recorded Last Taken Type Albuterol Sulfate [Proventil Hfa] 2 puff IH Q4H PRN #1 unit 07/20/20 4 Months Ago Rx ~08/01/20 Famotidine [Pepcid] 20 mg PO BID tablet 07/20/20 4 Months Ago Rx ~08/01/20 Folic Acid [Folvite] 1 mg PO QDAY #30 tablet 07/20/20 4 Months Ago Rx ~08/01/20 Famotidine [Pepcid] 20 mg PO BID #30 tablet 12/01/20 Unknown Rx Folic Acid [Folvite] 1 mg PO QDAY #30 tablet 12/01/20 Unknown Rx Gabapentin 300 mg PO Q12H #60 capsule 12/01/20 Unknown Rx Nicotine [Habitrol] 14 mg TD QDAY #7 patch 12/01/20 Unknown Rx Thiamine [Vitamin B-1] 100 mg PO QDAY #30 tablet 12/01/20 Unknown Rx chlordiazePOXIDE [Librium] 25 mg PO TID #30 capsule 12/01/20 Unknown Rx levETIRAcetam [Keppra TAB] 500 mg PO BID #60 tablet 12/01/20 Unknown Rx predniSONE [Deltasone] 40 mg PO QDAY #10 tab 12/01/20 Unknown Rx Amoxicillin [Amoxicillin TAB] 875 mg PO Q12H #20 tablet 01/18/21 Unknown Rx Ibuprofen [Motrin 800 MG tab] 800 mg PO Q8HR PRN #30 tablet 01/18/21 Unknown Rx Ondansetron [Zofran Odt] 4 mg PO Q6HR PRN #20 tab.rapdis 01/18/21 Unknown Rx Allergies Allergy/AdvReac Type Severity Reaction Status Date / Time tramadol Allergy Rash Verified 12/16/17 18:49 ED Review of Systems ROS: Stated complaint: LIGHT HEADED/SOB Other details as noted in HPI Constitutional: denies: chills, fever Eyes: denies: eye pain, eye discharge, vision change ENT: ear pain (Bilateral ear pain), congestion. denies: throat pain Respiratory: cough. denies: shortness of breath, wheezing Cardiovascular: denies: chest pain, palpitations Endocrine: no symptoms reported Gastrointestinal: nausea, vomiting. denies: abdominal pain, diarrhea Genitourinary: denies: urgency, dysuria Musculoskeletal: denies: back pain, joint swelling, arthralgia Skin: denies: rash, lesions Neurological: denies: headache, weakness, paresthesias Psychiatric: denies: anxiety, depression Hematological/Lymphatic: denies: easy bleeding, easy bruising ED Past Medical Hx - Past Medical History Previous Medical History?: Yes Hx Hypertension: Yes Hx Diabetes: No Hx Seizures: Yes Hx Psychiatric Treatment: Yes (Prior Suicidal, Depression) Hx Asthma: Yes Hx COPD: No Additional medical history: TENDONITIS, ETOH - Surgical History Past Surgical History?: Yes Additional Surgical History: L reconstructive knee surgery - Social History Smoking Status: Current Every Day Smoker Substance Use Type: Alcohol - Medications Home Medications: Home Medications Medication Instructions Recorded Confirmed Last Taken Type Albuterol Sulfate [Proventil Hfa] 2 puff IH Q4H PRN #1 unit 07/20/20 11/29/20 4 Months Ago Rx ~08/01/20 Famotidine [Pepcid] 20 mg PO BID tablet 07/20/20 11/29/20 4 Months Ago Rx ~08/01/20 Folic Acid [Folvite] 1 mg PO QDAY #30 tablet 07/20/20 11/29/20 4 Months Ago Rx ~08/01/20 Famotidine [Pepcid] 20 mg PO BID #30 tablet 12/01/20 Unknown Rx Folic Acid [Folvite] 1 mg PO QDAY #30 tablet 12/01/20 Unknown Rx Gabapentin 300 mg PO Q12H #60 capsule 12/01/20 Unknown Rx Nicotine [Habitrol] 14 mg TD QDAY #7 patch 12/01/20 Unknown Rx Thiamine [Vitamin B-1] 100 mg PO QDAY #30 tablet 12/01/20 Unknown Rx chlordiazePOXIDE [Librium] 25 mg PO TID #30 capsule 12/01/20 Unknown Rx levETIRAcetam [Keppra TAB] 500 mg PO BID #60 tablet 12/01/20 Unknown Rx predniSONE [Deltasone] 40 mg PO QDAY #10 tab 12/01/20 Unknown Rx Amoxicillin [Amoxicillin TAB] 875 mg PO Q12H #20 tablet 01/18/21 Unknown Rx Ibuprofen [Motrin 800 MG tab] 800 mg PO Q8HR PRN #30 tablet 01/18/21 Unknown Rx Ondansetron [Zofran Odt] 4 mg PO Q6HR PRN #20 tab.rapdis 01/18/21 Unknown Rx ED Physical Exam - General Limitations: No Limitations General appearance: alert, in no apparent distress - Head Head exam: Present: atraumatic, normocephalic, normal inspection - Eye Eye exam: Present: normal appearance, PERRL, EOMI Pupils: Present: normal accommodation - ENT ENT exam: Present: normal exam, normal orophraynx, mucous membranes moist, other (Erythematous bulging bilaterally tympanic membrane) - Neck Neck exam: Present: normal inspection, full ROM - Respiratory Respiratory exam: Present: normal lung sounds bilaterally. Absent: respiratory distress, wheezes, rales, rhonchi, chest wall tenderness, accessory muscle use, decreased breath sounds, prolonged expiratory - Cardiovascular Cardiovascular Exam: Present: regular rate, normal rhythm, normal heart sounds. Absent: systolic murmur, diastolic murmur, rubs, gallop - GI/Abdominal GI/Abdominal exam: Present: soft, normal bowel sounds. Absent: tenderness, guarding, rebound, hyperactive bowel sounds, hypoactive bowel sounds, organomegaly - Extremities Exam Extremities exam: Present: normal inspection, full ROM, normal capillary refill - Back Exam Back exam: Present: normal inspection, full ROM. Absent: tenderness, CVA tenderness (R), CVA tenderness (L), muscle spasm, paraspinal tenderness, vertebral tenderness - Neurological Exam Neurological exam: Present: alert, oriented X3, CN II-XII intact, normal gait, reflexes normal - Psychiatric Psychiatric exam: Present: normal affect, normal mood - Skin Skin exam: Present: warm, dry, intact, normal color. Absent: rash ED Course Vital Signs 01/18/21 01/18/21 04:04 06:09 Temperature 98.3 F Pulse Rate 66 Respiratory 18 18 Rate Blood Pressure 137/83 O2 Sat by Pulse 94 Oximetry ED Medical Decision Making - Lab Data Result diagrams: 01/18/21 04:19 01/18/21 04:19 - Medical Decision Making This is a 50-year-old -[place] male with a history of chronic alcohol abuse, anxiety, depression, hypertension, seizures and asthma who presents to the ED with complaint of acute onset persistent nasal and sinus congestion, severe bilateral ear pain, nausea and vomiting and headache and diffuse body aches and pains for the last 1 week, worse in the last 2 days. Patient states that in the last 2 days he has not been able to eat much because of nausea and vomiting. In the ED, patient is alert and oriented x3 and is not in any dis tress. Lab test results were reviewed and are all nonactionable. Patient was treated for pain in the ED and based on the history and physical exam findings, the patient was discharged home on medications and advised to follow-up with his primary care physician in 7 to 10 days for reevaluation. Patient was advised return to the ED immediately if symptoms get worse. - Differential Diagnosis URI; viral syndrome; otitis media; dehydration Critical care attestation.: If time is entered above; I have spent that time in minutes in the direct care of this critically ill patient, excluding procedure time. ED Disposition Clinical Impression: Acute otitis media with effusion of both ears, Acute upper respiratory infection, Nausea and vomiting in adult patient Disposition: DC-01 TO HOME OR SELFCARE Is pt being admited?: No Does the pt Need Aspirin: No Condition: Stable Instructions: Upper Respiratory Infection, Adult, [id number], Nausea and Vomiting, Adult, [id number], Otitis Media, Adult, [id number] Additional Instructions: Take medication with food, drink plenty of fluids and follow-up with your primary care physician in 7 to 10 days for reevaluation. Return to the ED immediately if symptoms get worse Prescriptions: Amoxicillin [Amoxicillin TAB] 875 mg PO Q12H #20 tablet Ibuprofen [Motrin 800 MG tab] 800 mg PO Q8HR PRN #30 tablet PRN Reason: Pain , Severe (7-10) Ondansetron [Zofran Odt] 4 mg PO Q6HR PRN #20 tab.rapdis PRN Reason: Nausea Referrals: [facility] [Provider Group] - 7-10 days Time of Disposition: 06:37 Print Language: ITALIAN
[2021-01-18 06:45] LABS: Anisocytosis 1+; Macrocytosis 1+; Total Cells Counted 100
[2021-01-18 06:46] LABS: Platelet Estimate Consistent w Auto
== END 2021-01-18 08:27 | disposition home or self-care (01) ==
LOC: ED 23:38
DX: H65.193 Other acute nonsuppurative otitis media, bilateral (principal); J06.9 Acute upper respiratory infection, unspecified; R11.2 Nausea with vomiting, unspecified; I10 Essential (primary) hypertension; F41.9 Anxiety disorder, unspecified; J45.909 Unspecified asthma, uncomplicated; F17.200 Nicotine dependence, unspecified, uncomplicated; Z72.89 Other problems related to lifestyle; Z86.69 Personal history of other diseases of the nervous system and sense organs; Z79.899 Other long term (current) drug therapy; Z88.6 Allergy status to analgesic agent; Z98.890 Other specified postprocedural states
CPT/HCPCS: 36415; 71046; 80048; 85007; 85025; 99284; 99285; Q0162

== ENCOUNTER 2021-01-23 20:16 | Observation (INO) | payer OTHER ==
[2021-01-23 23:24] LABS: Basophils % (Auto) 0.3 % (0.0-1.8); Eosinophils % (Auto) 1.4 % (0.0-4.3); Hematocrit 38.6 % (35.5-45.6); Hemoglobin 13.1 gm/dl (11.8-15.2); Lymphocytes # (Auto) 0.6 K/mm3 (1.2-5.4); Lymphocytes % (Auto) 18.3 % (13.4-35.0); Mean Corpuscular HGB Conc 34 % (32-34); Mean Corpuscular Volume 103 fl (84-94); Monocytes # (Auto) 0.5 K/mm3 (0.0-0.8); Monocytes % (Auto) 15.8 % (0.0-7.3); Platelet Count 102 K/mm3 (140-440); Red Blood Count 3.76 M/mm3 (3.65-5.03); Red Cell Distribution Width 14.6 % (13.2-15.2)
[2021-01-23 23:40] LABS: BUN/Creatinine Ratio 18; Blood Urea Nitrogen 14 mg/dL (9-20); Hemolysis Index 5
[2021-01-24] MEDS ORDERED: LORazepam 2 MG/ML VIAL IV PRN ×3 (02:55)
--- NOTE | 2021-01-24 02:56 | Emergency Department Report ---
ED Alcohol HPI - General Chief Complaint: Alcohol Stated Complaint: ALCOHOL WITHDRAWALS/SPIDER BITE Time Seen by Provider: 01/24/21 02:52 Source: patient Mode of arrival: Ambulatory Limitations: No Limitations - History of Present Illness Initial Comments: Patient is a 50-year-old male who presents emergency room with complaints of alcohol withdrawal. Patient states she will accept. Patient states feeling tremulous. Patient states he is having nausea and vomiting. Patient states his last alcoholic drink was 24 hours ago. Patient states symptoms started 12 hours ago and are worsening. Patient denies chest pain. Patient denies shortness of breath. Patient denies suicidal homicidal ideation. Patient states that he has had withdrawal seizures in the past. Patient also states that he has a spider bite on his right abdomen. Patient states the site is improved but he wants it checked out. Patient denies tenderness. Patient denies itching. Patient denies redness to the site. Patient denies recent travel. Patient denies recent international travel. Patient denies exposure to the novel coronavirus. Patient denies sick contacts. Patient denies fever and chills. Patient denies cough. Patient denies diarrhea. Patient denies coming in contact with anybody with symptoms of the novel coronavirus. Complaint: alcohol withdrawal Time Since Last Drink: 24 -: hour(s) Chronic Alcohol Use: Yes Previous Visits for Alcohol Intoxication?: Yes Recent Trauma: No Associated Symptoms: nausea, vomiting, tremors. denies: syncope, seizure, diaphoresis, abdominal pain, hematemesis, melena, depression, suicidality Treatments Prior to Arrival: none - Related Data Previous Rx's Medication Instructions Recorded Last Taken Type Albuterol Sulfate [Proventil Hfa] 2 puff IH Q4H PRN #1 unit 07/20/20 4 Months Ago Rx ~08/01/20 Famotidine [Pepcid] 20 mg PO BID tablet 07/20/20 4 Months Ago Rx ~08/01/20 Folic Acid [Folvite] 1 mg PO QDAY #30 tablet 07/20/20 4 Months Ago Rx ~08/01/20 Famotidine [Pepcid] 20 mg PO BID #30 tablet 12/01/20 Unknown Rx Folic Acid [Folvite] 1 mg PO QDAY #30 tablet 12/01/20 Unknown Rx Gabapentin 300 mg PO Q12H #60 capsule 12/01/20 Unknown Rx Nicotine [Habitrol] 14 mg TD QDAY #7 patch 12/01/20 Unknown Rx Thiamine [Vitamin B-1] 100 mg PO QDAY #30 tablet 12/01/20 Unknown Rx chlordiazePOXIDE [Librium] 25 mg PO TID #30 capsule 12/01/20 Unknown Rx levETIRAcetam [Keppra TAB] 500 mg PO BID #60 tablet 12/01/20 Unknown Rx predniSONE [Deltasone] 40 mg PO QDAY #10 tab 12/01/20 Unknown Rx Amoxicillin [Amoxicillin TAB] 875 mg PO Q12H #20 tablet 01/18/21 Unknown Rx Ibuprofen [Motrin 800 MG tab] 800 mg PO Q8HR PRN #30 tablet 01/18/21 Unknown Rx Ondansetron [Zofran Odt] 4 mg PO Q6HR PRN #20 tab.rapdis 01/18/21 Unknown Rx Allergies Allergy/AdvReac Type Severity Reaction Status Date / Time tramadol Allergy Rash Verified 12/16/17 18:49 ED Review of Systems ROS: Stated complaint: ALCOHOL WITHDRAWALS/SPIDER BITE Other details as noted in HPI Constitutional: denies: chills, fever Eyes: denies: eye pain, eye discharge, vision change ENT: denies: ear pain, throat pain Respiratory: denies: cough, shortness of breath, wheezing Cardiovascular: denies: chest pain, palpitations Endocrine: no symptoms reported Gastrointestinal: denies: abdominal pain, nausea, diarrhea Genitourinary: denies: urgency, dysuria Musculoskeletal: denies: back pain, joint swelling, arthralgia Skin: denies: rash, lesions Neurological: as per HPI. denies: headache, weakness, paresthesias Psychiatric: as per HPI, anxiety. denies: depression Hematological/Lymphatic: denies: easy bleeding, easy bruising ED Past Medical Hx - Past Medical History Previous Medical History?: Yes Hx Hypertension: Yes Hx Diabetes: No Hx Seizures: Yes Hx Psychiatric Treatment: Yes (Prior Suicidal, Depression) Hx Asthma: Yes Hx COPD: No Additional medical history: TENDONITIS, ETOH - Surgical History Past Surgical History?: Yes Additional Surgical History: L reconstructive knee surgery - Family History Family history: no significant - Social History Smoking Status: Current Every Day Smoker Substance Use Type: Alcohol - Medications Home Medications: Home Medications Medication Instructions Recorded Confirmed Last Taken Type Albuterol Sulfate [Proventil Hfa] 2 puff IH Q4H PRN #1 unit 07/20/20 11/29/20 4 Months Ago Rx ~08/01/20 Famotidine [Pepcid] 20 mg PO BID tablet 07/20/20 11/29/20 4 Months Ago Rx ~08/01/20 Folic Acid [Folvite] 1 mg PO QDAY #30 tablet 07/20/20 11/29/20 4 Months Ago Rx ~08/01/20 Famotidine [Pepcid] 20 mg PO BID #30 tablet 12/01/20 Unknown Rx Folic Acid [Folvite] 1 mg PO QDAY #30 tablet 12/01/20 Unknown Rx Gabapentin 300 mg PO Q12H #60 capsule 12/01/20 Unknown Rx Nicotine [Habitrol] 14 mg TD QDAY #7 patch 12/01/20 Unknown Rx Thiamine [Vitamin B-1] 100 mg PO QDAY #30 tablet 12/01/20 Unknown Rx chlordiazePOXIDE [Librium] 25 mg PO TID #30 capsule 12/01/20 Unknown Rx levETIRAcetam [Keppra TAB] 500 mg PO BID #60 tablet 12/01/20 Unknown Rx predniSONE [Deltasone] 40 mg PO QDAY #10 tab 12/01/20 Unknown Rx Amoxicillin [Amoxicillin TAB] 875 mg PO Q12H #20 tablet 01/18/21 Unknown Rx Ibuprofen [Motrin 800 MG tab] 800 mg PO Q8HR PRN #30 tablet 01/18/21 Unknown Rx Ondansetron [Zofran Odt] 4 mg PO Q6HR PRN #20 tab.rapdis 01/18/21 Unknown Rx ED Physical Exam - General Limitations: No Limitations General appearance: alert, in no apparent distress - Head Head exam: Present: atraumatic, normocephalic - Eye Eye exam: Present: normal appearance, PERRL Pupils: Present: normal accommodation - ENT ENT exam: Present: mucous membranes dry - Neck Neck exam: Present: normal inspection - Respiratory Respiratory exam: Present: normal lung sounds bilaterally. Absent: respiratory distress, wheezes, rales - Cardiovascular Cardiovascular Exam: Present: regular rate, normal rhythm. Absent: systolic murmur, diastolic murmur, rubs, gallop - GI/Abdominal GI/Abdominal exam: Present: soft, normal bowel sounds. Absent: distended, tenderness, guarding - Rectal Rectal exam: Present: deferred - Extremities Exam Extremities exam: Present: normal inspection - Back Exam Back exam: Present: normal inspection - Neurological Exam Neurological exam: Present: alert, oriented X3 - Psychiatric Psychiatric exam: Present: anxious - Skin Skin exam: Present: warm, dry, intact, normal color. Absent: rash ED Course Vital Signs 01/24/21 01/24/21 03:08 03:14 Temperature 98.3 F Pulse Rate 57 L Respiratory 19 Rate Blood Pressure 169/90 [Left] O2 Sat by Pulse 99 96 Oximetry - Reevaluation(s) Reevaluation #1: I discussed all results with patient. I discussed plan of care with patient. Patient agrees with plan of care and admission. Patient to be admitted to the hospitalist service. 01/24/21 03:28 - Consultations Consultation #1: Hospitalist consulted for admission. Hospitalist to admit patient. 01/24/21 03:28 ED Medical Decision Making - Lab Data Result diagrams: 01/23/21 23:00 01/23/21 23:00 - Medical Decision Making Patient is a 50-year-old male who presents patient with complaints of alcohol withdrawal, nausea, vomiting. Patient also complained of a previous spider bite. T area where the spider bite was was completely healed. Patient was tr emulous during exam. Patient reveals withdrawal seizure. Patient placed on a CIWA protocol. Patient was given 1 mg Ativan and Zofran. Patient's nausea control with Zofran. Patient admitted to the hospital service for further evaluation treatment. Critical care time documented due to the multiple reassessments, prolonged time at the bedside, interpretation of diagnostics and labs. - Differential Diagnosis Alcohol withdrawal, tremors, anxiety, nausea, vomiting Critical Care Time: Yes Critical care time in (mins) excluding proc time.: 35 Critical care attestation.: If time is entered above; I have spent that time in minutes in the direct care of this critically ill patient, excluding procedure time. Critical Care Time: 35 minutes ED Disposition Clinical Impression: Alcohol abuse Alcohol withdrawal Qualifiers: Complication of substance-induced condition: with unspecified complication Qualified Code(s): F10.239 - Alcohol dependence with withdrawal, unspecified Disposition: DC-09 OP ADMIT IP TO THIS HOSP Is pt being admited?: Yes Does the pt Need Aspirin: No Condition: Critical Time of Disposition: 03:26
[2021-01-24] MEDS ORDERED: THIAMINE 100 MG, FOLIC ACID 1 MG, MULTIPLE VITAMIN INJ, ADULT 10 ML in SODIUM CHLORIDE ... IV ONE (03:18)
[2021-01-24] MEDS ORDERED: SODIUM CHLORIDE 0.9% 1000 ML 1,000 ML IV ONE (03:18)
[2021-01-24] MEDS ORDERED: ONDANSETRON 4 MG/2 ML INJ IV ONE (03:18)
[2021-01-24 03:21] LABS: WBC,Urine < 1.0 /HPF (0.0-6.0)
[2021-01-24 03:22] LABS: Bilirubin,Urine NEG (Negative); Blood,Urine NEG (Negative); Color,Urine Yellow (Yellow)
[2021-01-24 03:24] LABS: Protein,Urine >500 mg/dL (Negative)
[2021-01-24] MEDS ORDERED: LORazepam 2 MG/ML VIAL IV ONE (03:30)
[2021-01-24 03:38] LABS: Amphetamine Screen,Urine PRESUMPTIVE NEGATIVE; Benzodiazepines Screen,Urine PRESUMPTIVE NEGATIVE; Cannabinoid Screen,Urine PRESUMPTIVE NEGATIVE; Cocaine Screen,Urine PRESUMPTIVE NEGATIVE; Methadone Screen,Urine PRESUMPTIVE NEGATIVE; Opiate Screen,Urine PRESUMPTIVE NEGATIVE
[2021-01-24] MEDS ORDERED: HYDROmorphone 1 MG/1 ML INJ IV PRN (04:02)
[2021-01-24] MEDS ORDERED: ALBUTEROL 2.5 MG/3 ML NEBU IH PRN (04:02)
[2021-01-24] MEDS ORDERED: ONDANSETRON 4 MG/2 ML INJ IV PRN (04:02)
[2021-01-24] MEDS ORDERED: ACETAMINOPHEN 325 MG TAB PO PRN (04:02)
--- NOTE | 2021-01-24 04:12 | History and Physical Report ---
History of Present Illness Date of examination: 01/24/21 Date of admission: 01/24/21 Chief complaint: Alcohol withdrawal History of present illness: 50-year-old male with past medical history of alcohol abuse, hypertension, seizure disorder depression asthma was brought to the hospital because of alcohol withdrawal for the past patient states feeling tremulous for the past 12 hours. Patient states he is having nausea and vomiting. Patient states his last alcoholic drink was 24 hours ago. Patient states symptoms started 12 hours ago and are worsening. Patient denies chest pain. Patient denies shortness of breath. Patient denies suicidal homicidal ideation. Patient states that he has had withdrawal seizures in the past. Past History Past Medical History: hypertension, seizures, other (Asthma depression alcohol abuse) Medications and Allergies Allergies Allergy/AdvReac Type Severity Reaction Status Date / Time tramadol Allergy Rash Verified 12/16/17 18:49 Home Medications Medication Instructions Recorded Confirmed Last Taken Type Albuterol Sulfate [Proventil Hfa] 2 puff IH Q4H PRN #1 unit 07/20/20 11/29/20 4 Months Ago Rx ~08/01/20 Famotidine [Pepcid] 20 mg PO BID tablet 07/20/20 11/29/20 4 Months Ago Rx ~08/01/20 Folic Acid [Folvite] 1 mg PO QDAY #30 tablet 07/20/20 11/29/20 4 Months Ago Rx ~08/01/20 Famotidine [Pepcid] 20 mg PO BID #30 tablet 12/01/20 Unknown Rx Folic Acid [Folvite] 1 mg PO QDAY #30 tablet 12/01/20 Unknown Rx Gabapentin 300 mg PO Q12H #60 capsule 12/01/20 Unknown Rx Nicotine [Habitrol] 14 mg TD QDAY #7 patch 12/01/20 Unknown Rx Thiamine [Vitamin B-1] 100 mg PO QDAY #30 tablet 12/01/20 Unknown Rx chlordiazePOXIDE [Librium] 25 mg PO TID #30 capsule 12/01/20 Unknown Rx levETIRAcetam [Keppra TAB] 500 mg PO BID #60 tablet 12/01/20 Unknown Rx predniSONE [Deltasone] 40 mg PO QDAY #10 tab 12/01/20 Unknown Rx Amoxicillin [Amoxicillin TAB] 875 mg PO Q12H #20 tablet 01/18/21 Unknown Rx Ibuprofen [Motrin 800 MG tab] 800 mg PO Q8HR PRN #30 tablet 01/18/21 Unknown Rx Ondansetron [Zofran Odt] 4 mg PO Q6HR PRN #20 tab.rapdis 01/18/21 Unknown Rx Active Meds: Active Medications Acetaminophen (Acetaminophen 325 Mg Tab) 650 mg PO Q4H PRN PRN Reason: Pain MILD(1-3)/Fever >100.5/STILES Albuterol (Albuterol 2.5 Mg/3 Ml Nebu) 2.5 mg IH Q4HRT PRN PRN Reason: Shortness Of Breath Albuterol/Ipratropium (Ipratropium/Albuterol Sulfate 3 Ml Ampul.Neb) 1 ampul IH Q6HRT JESSI Famotidine (Famotidine 20 Mg Tab) 20 mg PO BID JESSI Folic Acid (Folic Acid 1 Mg Tab) 1 mg PO QDAY JESSI Folic Acid (Folic Acid 1 Mg Tab) 1 mg PO QDAY JESSI Gabapentin (Gabapentin 300 Mg Cap) 300 mg PO Q12H JESSI Heparin Sodium (Porcine) (Heparin 5,000 Unit/1 Ml Vial) 5,000 unit SUB-Q Q8HR JESSI Hydromorphone HCl (Hydromorphone 1 Mg/1 Ml Inj) 0.5 mg IV Q3H PRN PRN Reason: Pain , Severe (7-10) Sodium Chloride (Nacl 0.9% 1000 Ml) 1,000 mls @ 999 mls/hr IV BOLUS ONE Stop: 01/24/21 04:18 Last Admin: 01/24/21 03:34 Dose: 999 mls/hr Documented by: Thiamine HCl 100 mg/ Folic Acid 1 mg/ Multivitamins/Minerals 10 ml/ Sodium Chloride 1,011.2 mls @ 250 mls/hr IV ONCE ONE Stop: 01/24/21 07:20 Levetiracetam (Levetiracetam 500 Mg Tab) 500 mg PO BID JESSI Lorazepam (Lorazepam 2 Mg/Ml Vial) 2 mg IV Q1HR PRN PRN Reason: CIWA-Ar 8-15 Lorazepam (Lorazepam 2 Mg/Ml Vial) 4 mg IV Q1HR PRN PRN Reason: CIWA-Ar 16-25 Lorazepam (Lorazepam 2 Mg/Ml Vial) 4 mg IV Q15MIN PRN PRN Reason: CIWA-Ar >25 Miscellaneous Medication (Amoxicillin [Amoxicillin Tab]) 875 mg PO Q12H [facility] Nicotine (Nicotine 14 Mg/24 Hr Patch) 14 mg TD QDAY [facility] Ondansetron HCl (Ondansetron 4 Mg/2 Ml Inj) 4 mg IV Q8H PRN PRN Reason: Nausea And Vomiting Oxycodone/Acetaminophen (Oxycodone /Acetaminophen 5-325mg Tab) 1 tab PO Q6H PRN PRN Reason: Pain, Moderate (4-6) Prednisone (Prednisone 20 Mg Tab) 40 mg PO QDAY JESSI Sodium Chloride (Sodium Chloride 0.9% 10 Ml Flush Syringe) 10 ml IV BID JESSI Sodium Chloride (Sodium Chloride 0.9% 10 Ml Flush Syringe) 10 ml IV PRN PRN PRN Reason: LINE FLUSH Thiamine HCl (Thiamine 100 Mg Tab) 100 mg PO QDAY [facility] Review of Systems Constitutional: other (Anxiety alcohol withdrawal) Gastrointestinal: nausea, vomiting Neurological: tremors Exam - Constitutional Vitals: Temp Pulse Resp BP Pulse Ox 98.3 F 54 L 21 169/90 89 01/24/21 03:14 01/24/21 03:15 01/24/21 03:15 01/24/21 03:15 01/24/21 03:15 General appearance: Present: no acute distress, well-nourished, other (Anxious) - EENT Eyes: Present: PERRL ENT: hearing intact, clear oral mucosa - Neck Neck: Present: supple, normal ROM - Respiratory Respiratory effort: normal Respiratory: bilateral: CTA - Cardiovascular Heart Sounds: Present: S1 & S2. Absent: rub, click - Extremities Extremities: pulses symmetrical, No edema Peripheral Pulses: within normal limits - Abdominal General gastrointestinal: Present: soft, non-tender, non-distended, normal bowel sounds Male genitourinary: Present: normal - Integumentary Integumentary: Present: clear, warm, dry - Musculoskeletal Musculoskeletal: gait normal, strength equal bilaterally - Psychiatric Psychiatric: appropriate mood/affect, intact judgment & insight - Neurologic Neurologic: CNII-XII intact, moves all extremities Results - Labs CBC & Chem 7: 01/23/21 23:00 01/23/21 23:00 Labs: Laboratory Last Values WBC 3.3 K/mm3 (4.5-11.0) L 01/23/21 23:00 RBC 3.76 M/mm3 (3.65-5.03) 01/23/21 23:00 Hgb 13.1 gm/dl (11.8-15.2) 01/23/21 23:00 Hct 38.6 % (35.5-45.6) 01/23/21 23:00 MCV 103 fl (84-94) H 01/23/21 23:00 MCH 35 pg (28-32) H 01/23/21 23:00 MCHC 34 % (32-34) 01/23/21 23:00 RDW 14.6 % (13.2-15.2) 01/23/21 23:00 Plt Count 102 K/mm3 (140-440) L 01/23/21 23:00 Lymph % (Auto) 18.3 % (13.4-35.0) 01/23/21 23:00 [place] % (Auto) 15.8 % (0.0-7.3) H 01/23/21 23:00 Eos % (Auto) 1.4 % (0.0-4.3) 01/23/21 23:00 Baso % (Auto) 0.3 % (0.0-1.8) 01/23/21 23:00 Lymph # (Auto) 0.6 K/mm3 (1.2-5.4) L 01/23/21 23:00 [place] # (Auto) 0.5 K/mm3 (0.0-0.8) 01/23/21 23:00 Eos # (Auto) 0.0 K/mm3 (0.0-0.4) 01/23/21 23:00 Baso # (Auto) 0.0 K/mm3 (0.0-0.1) 01/23/21 23:00 Seg Neutrophils % 64.2 % (40.0-70.0) 01/23/21 23:00 Seg Neutrophils # 2.1 K/mm3 (1.8-7.7) 01/23/21 23:00 Sodium 144 mmol/L (137-145) 01/23/21 23:00 Potassium 4.9 mmol/L (3.6-5.0) 01/23/21 23:00 Chloride 96.1 mmol/L (98-107) L 01/23/21 23:00 Carbon Dioxide 30 mmol/L (22-30) 01/23/21 23:00 Anion Gap 23 mmol/L 01/23/21 23:00 BUN 14 mg/dL (9-20) 01/23/21 23:00 Creatinine 0.8 mg/dL (0.8-1.3) 01/23/21 23:00 Estimated GFR > 60 ml/min 01/23/21 23:00 BUN/Creatinine Ratio 18 % 01/23/21 23:00 Glucose 79 mg/dL (75-100) 01/23/21 23:00 Calcium 10.0 mg/dL (8.4-10.2) 01/23/21 23:00 Urine Color Yellow (Yellow) 01/24/21 03:08 Urine Turbidity Clear (Clear) 01/24/21 03:08 Urine pH 9.0 (5.0-7.0) H 01/24/21 03:08 Ur Specific [place] 1.022 (1.003-1.030) 01/24/21 03:08 Urine Protein >500 mg/dL (Negative) 01/24/21 03:08 Urine Glucose (UA) Neg mg/dL (Negative) 01/24/21 03:08 Urine Ketones 20 mg/dL (Negative) 01/24/21 03:08 Urine Blood Neg (Negative) 01/24/21 03:08 Urine Nitrite Neg (Negative) 01/24/21 03:08 Ur Reducing Substances Not Reportable 01/24/21 03:08 Urine Bilirubin Neg (Negative) 01/24/21 03:08 Urine Ictotest Not Reportable 01/24/21 03:08 Urine Urobilinogen 2.0 mg/dL (<2.0) 01/24/21 03:08 Ur Leukocyte Esterase Neg (Negative) 01/24/21 03:08 Urine WBC (Auto) < 1.0 /HPF (0.0-6.0) 01/24/21 03:08 Urine RBC (Auto) 1.0 /HPF (0.0-6.0) 01/24/21 03:08 U Epithel Cells (Auto) < 1.0 /HPF (0-13.0) 01/24/21 03:08 Salicylates 0.7 mg/dL (2.8-20.0) L 01/23/21 23:00 Urine Opiates Screen Presumptive negative 01/24/21 03:08 Urine Methadone Screen Presumptive negative 01/24/21 03:08 Acetaminophen 5.0 ug/mL (10.0-30.0) L 01/23/21 23:00 Ur Barbiturates Screen Presumptive negative 01/24/21 03:08 Ur Phencyclidine Scrn Presumptive negative 01/24/21 03:08 Ur Amphetamines Screen Presumptive negative 01/24/21 03:08 U Benzodiazepines Scrn Presumptive negative 01/24/21 03:08 Urine Cocaine Screen Presumptive negative 01/24/21 03:08 U Marijuana (THC) Screen Presumptive negative 01/24/21 03:08 Drugs of Abuse Note Disclamer 01/24/21 03:08 Plasma/Serum Alcohol < 0.01 % (0-0.07) 01/23/21 23:00 Assessment and Plan VTE prophylaxis?: Chemical Plan of care discussed with patient/family: Yes - Patient Problems (1) Alcohol withdrawal Status: Acute Qualifiers: Complication of substance-induced condition: with unspecified complication Qualified Code(s): F10.239 - Alcohol dependence with withdrawal, unspecified Plan to address problem: Admit the patient to the medical telemetry. Put the patient on CIWA protocol. Ativan as needed as for withdrawal. We also put the patient on folic acid 1 mg p.o. daily. Thiamine 100 mg p.o. daily and banana bag daily. We counseled regarding quit drinking. Will refer to the outpatient alcohol and numerous group (2) Alcohol abuse Status: Acute Plan to address problem: Put the patient on CIWA protocol. Ativan as needed as for withdrawal. We also put the patient on folic acid 1 mg p.o. daily. Thiamine 100 mg p.o. daily and banana bag daily. We counseled regarding quit drinking. Will refer to the outpatient alcohol and numerous group (3) Seizure Status: Acute Plan to address problem: Patient is on Keppra 500 mg p.o. twice daily. We will monitor the patient closely. Outpatient follow-up with neurology (4) Tobacco abuse Status: Acute Plan to address problem: Patient counseled regarding quit smoking. We put the patient on nicotine patch 14 g to the skin daily (5) Hypertension Status: Acute Plan to address problem: Hydralazine 10 mg IV every 6 hours as needed. We will monitor the blood pressure closely (6) DVT prophylaxis Status: Acute Plan to address problem: Heparin 5000 units subcu every 8 hours for DVT prophylaxis. Pepcid 20 mg p.o. twice daily for GI prophylaxis. Patient is a full code
[2021-01-24] MEDS ORDERED: hydrALAZINE 20 MG/1 ML INJ IV PRN (04:14)
[2021-01-24] MEDS ORDERED: NON-FORMULARY EACH (Amoxicillin [Amoxicillin Tab] 875 MG Tablet) PO SCH (04:15)
[2021-01-24] MEDS: HEPARIN 5,000 UNIT/1 ML VIAL SUB-Q SCH ×3 (06:04→22:30)
[2021-01-24] MEDS ORDERED: FOLIC ACID 1 MG TAB PO SCH (10:00)
[2021-01-24] MEDS ORDERED: predniSONE 20 MG TAB PO SCH (10:00)
[2021-01-24] MEDS ORDERED: AMOXICILLIN/K CLAV 875/125MG TAB PO SCH (10:00)
[2021-01-24] MEDS: NICOTINE 14 MG/24 HR PATCH TD SCH (13:18)
[2021-01-24] MEDS: FOLIC ACID 1 MG TAB PO SCH (13:19)
[2021-01-24] MEDS: THIAMINE 100 MG TAB PO SCH (13:19)
[2021-01-24] MEDS: levETIRAcetam 500 MG TAB PO SCH ×2 (13:20→22:27)
[2021-01-24] MEDS: oxyCODONE /ACETAMINOPHEN 5-325MG TAB PO PRN ×2 (13:20→22:28)
[2021-01-24] MEDS: GABAPENTIN 300 MG CAP PO SCH ×2 (13:20→22:27)
[2021-01-24] MEDS: FAMOTIDINE 20 MG TAB PO SCH ×2 (13:23→22:29)
[2021-01-24] MEDS: AMOXICILLIN/K CLAV 875/125MG TAB PO SCH ×2 (13:48→22:27)
--- NOTE | 2021-01-24 14:12 | Event Note ---
Date: 01/24/21 Patient was seen and evaluated this morning. Patient was admitted for the management of alcohol withdrawal delirium tremens. Patient was alert and oriented and he has mild tremor. Patient is on CIWA protocol and continue management as outlined in HPI. Patient was admitted earlier this morning.
[2021-01-24] MEDS: IPRATROPIUM/ALBUTEROL SULFATE 3 ML AMPUL.NEB IH SCH ×2 (15:47→20:59)
[2021-01-25] MEDS: HEPARIN 5,000 UNIT/1 ML VIAL SUB-Q SCH ×2 (05:00→13:41)
[2021-01-25] MEDS: IPRATROPIUM/ALBUTEROL SULFATE 3 ML AMPUL.NEB IH SCH ×2 (05:37→10:43)
[2021-01-25 06:09] LABS: Basophils % (Auto) 0.8 % (0.0-1.8); Eosinophils # (Auto) 0.1 K/mm3 (0.0-0.4); Eosinophils % (Auto) 4.9 % (0.0-4.3); Hematocrit 45.1 % (35.5-45.6); Lymphocytes # (Auto) 0.6 K/mm3 (1.2-5.4); Lymphocytes % (Auto) 20.6 % (13.4-35.0); Mean Corpuscular HGB Conc 33 % (32-34); Mean Corpuscular Volume 104 fl (84-94); Monocytes # (Auto) 0.3 K/mm3 (0.0-0.8); Monocytes % (Auto) 11.1 % (0.0-7.3); Platelet Count 101 K/mm3 (140-440); Red Blood Count 4.32 M/mm3 (3.65-5.03); Red Cell Distribution Width 14.8 % (13.2-15.2)
[2021-01-25 06:29] LABS: BUN/Creatinine Ratio 14; Blood Urea Nitrogen 11 mg/dL (9-20); Calcium 10.2 mg/dL (8.4-10.2); Hemolysis Index 58
[2021-01-25] MEDS: FOLIC ACID 1 MG TAB PO SCH (09:03)
[2021-01-25] MEDS: AMOXICILLIN/K CLAV 875/125MG TAB PO SCH (09:03)
[2021-01-25] MEDS: GABAPENTIN 300 MG CAP PO SCH (09:03)
[2021-01-25] MEDS: FAMOTIDINE 20 MG TAB PO SCH (09:03)
[2021-01-25] MEDS: NICOTINE 14 MG/24 HR PATCH TD SCH (09:03)
[2021-01-25] MEDS: levETIRAcetam 500 MG TAB PO SCH (09:03)
[2021-01-25] MEDS: THIAMINE 100 MG TAB PO SCH (09:03)
[2021-01-25] MEDS ORDERED: ALBUTEROL 2.5 MG/3 ML NEBU IH PRN (10:49)
--- NOTE | 2021-01-25 12:07 | Discharge Summary ---
Providers - Providers Date of Admission: 01/24/21 03:31 Attending physician: KENY LUGO Primary care physician: [employer] Hospitalization Condition: Critical Exam - Constitutional Vitals: Temp Pulse Resp BP Pulse Ox 98.6 F 77 18 171/103 98 01/24/21 21:48 01/25/21 10:43 01/25/21 10:43 01/24/21 22:36 01/25/21 10:47 Plan Follow up with: PRIMARY CARE, [Primary Care Provider] - 7 Days Prescriptions: Folic Acid [Folvite] 1 mg PO QDAY #30 tablet Multivitamin Tab [Multiple Vitamin TAB (Theragran)] 1 each PO QDAY #30 tablet Thiamine [Vitamin B-1] 100 mg PO QDAY #30 tablet
[2021-01-25 12:36] VITALS: BP 149/97
== END 2021-01-25 15:02 | disposition home or self-care (01) ==
LOC: ED 20:16 → 3A 01-24 03:31
PROVIDERS: ADMIT Hospitalist; ATTEND Internal Medicine
DX: F10.239 Alcohol dependence with withdrawal, unspecified (principal); I10 Essential (primary) hypertension; R56.9 Unspecified convulsions; J45.909 Unspecified asthma, uncomplicated; F32.9 Major depressive disorder, single episode, unspecified; F41.9 Anxiety disorder, unspecified; F17.210 Nicotine dependence, cigarettes, uncomplicated; Z79.899 Other long term (current) drug therapy
CPT/HCPCS: 36415; 80048; 80307; 81001; 85025; 87641; 94640; 96361; 96365; 96372; 96375; 96376; 99291; G0378; J0360; J1644; J2060; J2405; J3411; J7030; 80320; G0480

== ENCOUNTER 2021-03-04 21:53 | Emergency (ER) | payer SELFPAY ==
--- NOTE | 2021-03-05 08:03 | Event Note ---
Date: 03/05/21 HERE NOW 10 PLUS HOURS AND NOT SEEN BY JAMIL/ NO ORDERS
[2021-03-05 09:01] LABS: Hemoglobin 13.2 gm/dl (11.8-15.2); Mean Corpuscular HGB Conc 34 % (32-34); Mean Corpuscular Volume 103 fl (84-94); Platelet Count 143 K/mm3 (140-440); Red Blood Count 3.81 M/mm3 (3.65-5.03); Red Cell Distribution Width 15.1 % (13.2-15.2)
--- NOTE | 2021-03-05 09:06 | XRay Report ---
CHEST 1 VIEW 03/05/2021 7:57 AM INDICATION / CLINICAL INFORMATION: Weakness. COMPARISON: 01/18/21. FINDINGS: SUPPORT DEVICES: None. HEART / MEDIASTINUM: The heart size and pulmonary vasculature are normal. LUNGS / PLEURA: No significant pulmonary or pleural abnormality. No pneumothorax. ADDITIONAL FINDINGS: No significant additional findings. IMPRESSION: No acute abnormality or significant change. Signer Name: Martell Hawthorne MD Signed: 03/05/2021 9:02 AM Workstation Name: [id number]
--- NOTE | 2021-03-05 09:46 | Emergency Department Report ---
Minor Respiratory - HPI Chief Complaint: Weakness Stated Complaint: GENERAL ILLNESS X 5DAYS Time Seen by Provider: 03/05/21 08:11 Duration: 5 Days Pain Location: Chest Severity: mild Minor Respiratory: Yes Able to Tolerate Fluids, Yes Cough, No Rhinorrhea, No Sore Throat, No Ear Pain, No Sick Contacts, No Hemoptysis, No Chest Pain, No Shortness of Breath, No Fever Other History: 50 YO AA COMES TO ER LAST NIGHT VIA EMS WITH WEAKNESS AND COUGH. DID NOT GET COVID19 IMMUNIZATION; DENIES CP OR SOB; DENIES FEVER OR CHILLS. AMBULATORY ON EXAM AT 0750. COUGHING; YELLOW-GREEN SPUTUM; COUGHING TO THE POINT HE IS GAGGING. 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 Review of Systems ROS: Stated complaint: GENERAL ILLNESS X 5DAYS Other details as noted in HPI Comment: All other systems reviewed and negative ENT: as per HPI Respiratory: see HPI Cardiovascular: as per HPI Endocrine: no symptoms reported Psychiatric: as per HPI ED Past Medical Hx - Past Medical History Previous Medical History?: Yes Hx Hypertension: Yes Hx Congestive Heart Failure: No Hx Diabetes: No Hx Seizures: Yes Hx Psychiatric Treatment: Yes (Prior Suicidal, Depression) Hx Asthma: Yes Hx COPD: No Additional medical history: TENDONITIS, ETOH - Surgical History Past Surgical History?: Yes Additional Surgical History: L reconstructive knee surgery - Family History Family history: no significant - Social History Smoking Status: Current Every Day Smoker Substance Use Type: Alcohol - Medications Home Medications: Home Medications Medication Instructions Recorded Confirmed Last Taken Type levETIRAcetam [Keppra TAB] 500 mg PO BID #60 tablet 12/01/20 01/25/21 Unknown Rx Folic Acid [Folvite] 1 mg PO QDAY #30 tablet 01/25/21 Unknown Rx Azithromycin [Zithromax Z-BRAIN] 250 mg PO DAILY #6 tablet 03/05/21 Unknown Rx Fluticasone [Flonase] 1 spray NS QDAY #1 bottle 03/05/21 Unknown Rx predniSONE [Deltasone] 20 mg PO DAILY #5 tablet 03/05/21 Unknown Rx Minor Respiratory Exam - Exam General: Vital signs noted. No distress. Alert and acting appropriately. HEENT: Yes Moist Mucous Membranes, No Pharyngeal Erythema, No Pharyngeal Exudates, No Rhinorrhea, No Conjuctival Injection, No Frontal Tenderness, No Maxillary Tenderness Ear: Neither TM Bulge, Neither TM Erythema, Neither EAC Pain, Neither EAC Discharge Neck: Yes Supple, No Adenopathy Lungs: Yes Good Air Exchange, Yes Cough, No Wheezes, No Ronchi, No Stridor, No L abored Respirations, No Retractions, No Use of Accessory Muscles, No Other Abnormal Lung Sounds Heart: Yes Regular, No Murmur Abdomen: Yes Normal Bowel Sounds, No Tenderness, No Peritoneal Signs Skin: No Rash, No Edema Neurologic: Alert and oriented, no deficits. Musculoskeletal: Unremarkable. ED Course Vital Signs 03/04/21 03/05/21 23:59 00:09 Temperature 98.0 F Pulse Rate 81 Respiratory 18 Rate Blood Pressure 126/80 O2 Sat by Pulse 97 Oximetry ED Medical Decision Making - Lab Data Result diagrams: 03/05/21 08:22 03/05/21 08:22 - Radiology Data Radiology results: report reviewed, image reviewed NAP - Medical Decision Making Labs 03/05/21 03/05/21 08:22 08:22 WBC 3.2 L RBC 3.81 Hgb 13.2 Hct 39.0 MCV 103 H MCH 35 H MCHC 34 RDW 15.1 Plt Count 143 Sodium 140 Potassium 4.4 Chloride 101.8 Carbon Dioxide 28 Anion Gap 15 BUN 9 Glucose 78 Calcium 9.4 Total Bilirubin 0.20 AST 81 H ALT 40 Alkaline Phosphatase 61 Total Protein 7.5 Albumin 4.5 Albumin/Globulin Ratio 1.5 Vital Signs 03/04/21 03/05/21 23:59 00:09 Temperature 98.0 F Pulse Rate 81 Respiratory 18 Rate Blood Pressure 126/80 O2 Sat by Pulse 97 Oximetry XRAY NOTED LABS NOTED COUGHING- YELLOW/GREEN SPUTUM SMOKER- LIKELY COMPONENT OF UNDIAGNOSED COPD ON REEXAM TAKING PO/AMBULATORY AND IN NAD. DC HOME WITH DC PLAN OF CARE INCLUDING FOLLOW UP, MEDS, DIET AND ACTIVITY. HE VERBALIZES UNDERSTANDING OF PLAN OF CARE. ENCOURAGED TO STOP SMOKING VS ORDERED ON D/C. - Differential Diagnosis URI; RO COVID Critical care attestation.: If time is entered above; I have spent that time in minutes in the direct care of this critically ill patient, excluding procedure time. ED Disposition Clinical Impression: URI (upper respiratory infection), Cough, Smoker Disposition: 01 HOME / SELF CARE / HOMELESS Is pt being admited?: No Does the pt Need Aspirin: No Condition: Stable Instructions: Upper Respiratory Infection, Adult, [id number] Additional Instructions: DIET TOLERATED STAY WELL HYDRATED MOTRIN OR TYLENOL FOR PAIN MED ORDERED TODAY FOLLOW UP WITH PCP WEDNESDAY IF NOT BETTER-REFERRAL BELOW Prescriptions: predniSONE [Deltasone] 20 mg PO DAILY #5 tablet Fluticasone [Flonase] 1 spray NS QDAY #1 bottle Azithromycin [Zithromax Z-BRAIN] 250 mg PO DAILY #6 tablet Referrals: JJ HAMMOND MD [Staff Physician] - 3-5 Days Time of Disposition: 10:02
[2021-03-05 09:57] LABS: Alanine Aminotransferase 40 units/L (7-56); Albumin 4.5 g/dL (3.9-5); Blood Urea Nitrogen 9 mg/dL (9-20); Calcium 9.4 mg/dL (8.4-10.2); Hemolysis Index 6
[2021-03-05 10:03] LABS: BUN/Creatinine Ratio 13
[2021-03-05] MEDS ORDERED: IBUPROFEN 800 MG TAB PO ONE (10:05)
[2021-03-05 11:13] VITALS: BP 162/102
== END 2021-03-05 11:14 | disposition home or self-care (01) ==
LOC: ED 21:53
DX: J06.9 Acute upper respiratory infection, unspecified (principal); I10 Essential (primary) hypertension; F32.9 Major depressive disorder, single episode, unspecified; F17.200 Nicotine dependence, unspecified, uncomplicated; Z88.6 Allergy status to analgesic agent; Z72.89 Other problems related to lifestyle; Z79.899 Other long term (current) drug therapy
CPT/HCPCS: 36415; 71045; 80053; 85027; 99283

== ENCOUNTER 2021-05-22 23:38 | Inpatient (IN) | payer SELFPAY ==
[2021-05-22] MEDS ORDERED: ASPIRIN 81 MG TAB CHEW PO ONE (23:55)
[2021-05-22] MEDS ORDERED: ONDANSETRON 4 MG/2 ML INJ IV ONE (23:57)
--- NOTE | 2021-05-23 00:23 | Emergency Department Report ---
ED Chest Pain HPI - General Stated Complaint: CHEST PAIN Source: patient - History of Present Illness Initial Comments: Patient is a 50-year-old male past medical history significant for seizure here with complaint of chest pain. Patient also has had shortness of breath, abdominal pain, cough. Patient is not vaccinated against COVID-19. He is denying any known Covid positive contacts. Patient reports that he does not currently have chest pain but has had chest pain intermittently over the past few days. He denies any significant chest pain with exertion. He does not note any family or personal history of cardiac disease. MD Complaint: chest pain Severity scale (0 -10): 5 - Related Data Previous Rx's Medication Instructions Recorded Last Taken Type levETIRAcetam [Keppra TAB] 500 mg PO BID #60 tablet 12/01/20 Unknown Rx Folic Acid [Folvite] 1 mg PO QDAY #30 tablet 01/25/21 Unknown Rx Azithromycin [Zithromax Z-BRAIN] 250 mg PO DAILY #6 tablet 03/05/21 Unknown Rx Fluticasone [Flonase] 1 spray NS QDAY #1 bottle 03/05/21 Unknown Rx predniSONE [Deltasone] 20 mg PO DAILY #5 tablet 03/05/21 Unknown Rx Allergies Allergy/AdvReac Type Severity Reaction Status Date / Time ketorolac [From Toradol] Allergy Rash Verified 05/23/21 00:26 tramadol Allergy Rash Verified 03/05/21 00:06 Heart Score - HEART Score History: Slightly suspicious EKG: Non-specific Age: 45-65 Risk factors: No known risk factors Troponin: < normal limit HEART Score: 2 - EKG Read Time Time EKG Completed: 23:45 EKG Read Time: 00:05 ED Review of Systems ROS: Stated complaint: CHEST PAIN Other details as noted in HPI Constitutional: denies: chills, fever Eyes: denies: eye pain ENT: denies: throat pain Respiratory: cough, shortness of breath Cardiovascular: chest pain. denies: dyspnea on exertion Endocrine: no symptoms reported Gastrointestinal: abdominal pain, nausea. denies: vomiting, diarrhea Genitourinary: denies: urgency, dysuria Musculoskeletal: denies: back pain Skin: denies: rash Neurological: denies: headache, weakness Psychiatric: denies: anxiety, depression Hematological/Lymphatic: denies: easy bleeding ED Past Medical Hx - Past Medical History Hx Hypertension: Yes Hx Congestive Heart Failure: No Hx Diabetes: No Hx Seizures: Yes Hx Psychiatric Treatment: Yes (Prior Suicidal, Depression) Hx Asthma: Yes Hx COPD: No Additional medical history: TENDONITIS, ETOH - Surgical History Additional Surgical History: L reconstructive knee surgery - Social History Smoking Status: Current Every Day Smoker Substance Use Type: Alcohol - Medications Home Medications: Home Medications Medication Instructions Recorded Confirmed Last Taken Type levETIRAcetam [Keppra TAB] 500 mg PO BID #60 tablet 12/01/20 01/25/21 Unknown Rx Folic Acid [Folvite] 1 mg PO QDAY #30 tablet 01/25/21 Unknown Rx Azithromycin [Zithromax Z-BRAIN] 250 mg PO DAILY #6 tablet 03/05/21 Unknown Rx Fluticasone [Flonase] 1 spray NS QDAY #1 bottle 03/05/21 Unknown Rx predniSONE [Deltasone] 20 mg PO DAILY #5 tablet 03/05/21 Unknown Rx ED Physical Exam - General General appearance: alert, in no apparent distress - Head Head exam: Present: atraumatic, normocephalic - Eye Eye exam: Present: normal appearance - ENT ENT exam: Present: mucous membranes moist - Neck Neck exam: Present: normal inspection - Respiratory Respiratory exam: Present: normal lung sounds bilaterally. Absent: respiratory distress - Cardiovascular Cardiovascular Exam: Present: regular rate, normal rhythm. Absent: systolic murmur, diastolic murmur, rubs, gallop - GI/Abdominal GI/Abdominal exam: Present: soft, normal bowel sounds - Rectal Rectal exam: Present: deferred - Extremities Exam Extremities exam: Present: normal inspection - Back Exam Back exam: Present: normal inspection - Neurological Exam Neurological exam: Present: alert, oriented X3 - Psychiatric Psychiatric exam: Present: normal affect - Skin Skin exam: Present: warm, dry, intact ED Course Vital Signs 05/22/21 05/23/21 05/23/21 23:52 00:25 01:39 Temperature 99.0 F 98.3 F 98.1 F Pulse Rate 86 95 H 81 Respiratory 18 18 19 Rate Blood Pressure 112/87 156/93 113/70 [Left] O2 Sat by Pulse 92 92 93 Oximetry 05/23/21 05/23/21 05/23/21 02:00 03:42 03:43 Temperature 98 F 98.1 F Pulse Rate 89 51 L Respiratory 16 16 Rate Blood Pressure 114/65 112/63 [Left] O2 Sat by Pulse 90 94 94 Oximetry 05/23/21 05/23/21 05/23/21 04:02 07:57 09:30 Temperature Pulse Rate 83 80 Respiratory 15 16 Rate Blood Pressure 159/78 140/72 [Left] O2 Sat by Pulse 93 95 93 Oximetry - Reevaluation(s) Reevaluation #1: 05/23/21 05:23 Unclear patient has history of COPD as he denies this although there is charting that states he could have history of COPD. Patient has desats to 87% on room air. Given this and given concern for Covid patient to be admitted and steroids have been ordered. Covid test is also ordered and patient to be placed on isolation precautions. ED Medical Decision Making - Lab Data Result diagrams: 05/23/21 00:44 05/23/21 00:44 - EKG Data -: EKG Interpreted by Co EKG shows normal: sinus rhythm Rate: normal - EKG Data Interpretation: nonspecific ST-T wave russ - Radiology Data Radiology results: report reviewed - Medical Decision Making 50 yo M with complaint of chest pain, shortness of breath, abdominal pain. Patient has also had cough. Patient is vaccinated against COVID-19. Differential includes pneumonia, COVID-19 infection, ACS, pulmonary embolism. Plan for full evaluation with EKG and serial troponins for ACS. Also evaluate w ith chest and abdominal x-ray imaging, will give fluids and nausea medication. Critical care attestation.: If time is entered above; I have spent that time in minutes in the direct care of this critically ill patient, excluding procedure time. ED Disposition Clinical Impression: Transaminitis, Hypoxemia Disposition: ADMITTED INPATIENT Is pt being admited?: Yes Does the pt Need Aspirin: No Condition: Stable
[2021-05-23] MEDS ORDERED: levETIRAcetam 500 MG TAB PO ONE (00:24)
[2021-05-23 00:38] LABS: Bilirubin,Urine NEG (Negative); Blood,Urine SM (Negative); Color,Urine Yellow (Yellow); Mucus,Urine FEW /HPF; Urobilinogen,Urine < 2.0 mg/dL (<2.0)
--- NOTE | 2021-05-23 00:45 | XRay Report ---
XR abd series w cxr 1V INDICATION / CLINICAL INFORMATION: abd pain and cp/sob. COMPARISON: None available. FINDINGS: TUBES / LINES: None. BOWEL GAS PATTERN: No significant abnormality. FREE AIR / EXTRALUMINAL GAS: None seen. ADDITIONAL FINDINGS: No significant additional findings. CHEST: Visualized chest shows no significant abnormality. IMPRESSION: 1. No significant abnormality. Signer Name: Klaus Zee MD Signed: 05/23/2021 12:40 AM Workstation Name: [id number]
[2021-05-23 00:47] LABS: RBC,Urine < 1.0 /HPF (0.0-6.0)
[2021-05-23 01:17] LABS: Hemoglobin 12.4 gm/dl (11.8-15.2); Mean Corpuscular HGB Conc 33 % (32-34); Mean Corpuscular Volume 102 fl (84-94); Red Blood Count 3.71 M/mm3 (3.65-5.03)
[2021-05-23 01:19] LABS: Alanine Aminotransferase 43 units/L (7-56); Albumin 4.4 g/dL (3.9-5); BUN/Creatinine Ratio 14; Blood Urea Nitrogen 11 mg/dL (9-20); Calcium 8.8 mg/dL (8.4-10.2); Hemolysis Index 8
[2021-05-23 01:21] LABS: Platelet Count 78 K/mm3 (140-440)
[2021-05-23 01:36] LABS: INR 0.8 (0.87-1.13)
[2021-05-23] MEDS ORDERED: MORPHINE 2 MG/1 ML INJ IV ONE (02:19)
--- NOTE | 2021-05-23 03:33 | Cat Scan Report ---
CTA CHEST WITH CONTRAST INDICATION / CLINICAL INFORMATION: elevated dimer; mild hypoxia; sob;. TECHNIQUE: Axial CT images were obtained through the chest after injection of IV contrast. 3 plane CA P and/or 3D reconstructions were produced. All CT scans at this location are performed using CT dose reduction for ALARA by means of automated exposure control. COMPARISON: 11/29/2020 FINDINGS: PULMONARY ARTERIES: No central or segmental pulmonary embolus. THORACIC AORTA: No significant abnormality. HEART: No significant abnormality. ADENOPATHY: No significant adenopathy. LUNGS/PLEURA: Scattered areas of volume loss are present within the lungs bilaterally. No focal airsp ashley consolidation. No pleural effusion. No pneumothorax. ADDITIONAL FINDINGS: None. UPPER ABDOMEN: Detailed separately SKELETAL STRUCTURES: No significant osseous abnormality. IMPRESSION: No acute findings in the chest. No evidence of pulmonary embolism. Signer Name: Klaus Zee MD Signed: 05/23/2021 3:28 AM Workstation Name: [id number]
--- NOTE | 2021-05-23 03:35 | Cat Scan Report ---
CT abdomen pelvis w con INDICATION / CLINICAL INFORMATION: periumbilical abdominal pain. TECHNIQUE: Axial CT images were obtained through the abdomen and pelvis after IV contrast. All CT sc ans at this location are performed using CT dose reduction for ALARA by means of automated exposure c ontrol. COMPARISON: None available. FINDINGS: LOWER CHEST: Bibasilar volume loss. LIVER: No significant abnormality GALLBLADDER/BILIARY TREE: No significant abnormality PANCREAS: No significant abnormality SPLEEN: No significant abnormality ADRENALS: No significant abnormality KIDNEYS / URETER: No significant abnormality URINARY BLADDER: No significant abnormality REPRODUCTIVE ORGANS: No significant abnormality STOMACH / BOWEL: Several loops of nondilated fluid-filled small bowel are present within the abdomen. This likely reflects mild enteritis. No acute abnormality of the colon. Normal appendix. LYMPH NODES: No significant adenopathy. VASCULATURE: No significant abnormality. OTHER: No free air, free fluid, or focal fluid collection is identified. SKELETAL SYSTEM: No acute osseous findings. IMPRESSION: 1. Nondilated fluid-filled small bowel within the abdomen, suggestive of mild enteritis. 2. Otherwise, no acute abnormality. Signer Name: Klaus Zee MD Signed: 05/23/2021 3:31 AM Workstation Name: [id number]
[2021-05-23 03:36] LABS: Platelet Estimate Consistent w Auto; Target Cells 1+; Total Cells Counted 100
[2021-05-23] MEDS ORDERED: dexAMETHasone 4 MG/ML VIAL IV ONE (05:21)
--- NOTE | 2021-05-23 07:48 | History and Physical Report ---
History of Present Illness Date of examination: 05/23/21 Date of admission: 05/23/2021 Chief complaint: Chest pain History of present illness: HPI: 50-year-old male with past medical history of seizures, alcoholism presenting to our facility with chief complaint of intermittent chest pain, 5/10 in intensity. Patient not currently experiencing chest pain. Patient states that chest pain started several days ago. Chest pains associated with shortness of breath and numbness tingling of his head. He denies CP worsening with exertion. When asked about jaw and shoulder numbness, he endorsed these symptoms as well. He has never had this issue in the past before. He denies any pressure sensation of the chest pain. He states that the chest pain is a sharp stabbing sensation. And has no relieving factors. It has no temporal association. Patient has no significant cardiac history in his past. Patient denies any headache, nausea, vomiting, diarrhea, abdominal pain, change in bowel habits. Remainder of ROS negative except for stated above PMHx: Seizures, alcoholism PSHx: Denies FHx: Reviewed noncontributory SHx: Tobacco use-half pack per day smoker ETOH Use-3-4 beers per day, suspect patient drinks more Recreational Drug Use-denies Occupation-unemployed no primary care doctor Lives by himself in a hotel room Past History Past Medical History: seizures Past Surgical History: No surgical history Social history: smoking, alcohol abuse Family history: no significant family history Medications and Allergies Allergies Allergy/AdvReac Type Severity Reaction Status Date / Time ketorolac [From Toradol] Allergy Rash Verified 05/23/21 00:26 tramadol Allergy Rash Verified 03/05/21 00:06 Home Medications Medication Instructions Recorded Confirmed Last Taken Type levETIRAcetam [Keppra TAB] 500 mg PO BID #60 tablet 12/01/20 01/25/21 Unknown Rx Folic Acid [Folvite] 1 mg PO QDAY #30 tablet 01/25/21 Unknown Rx Azithromycin [Zithromax Z-BRAIN] 250 mg PO DAILY #6 tablet 03/05/21 Unknown Rx Fluticasone [Flonase] 1 spray NS QDAY #1 bottle 03/05/21 Unknown Rx predniSONE [Deltasone] 20 mg PO DAILY #5 tablet 03/05/21 Unknown Rx Review of Systems Cardiovascular: chest pain Respiratory: shortness of breath Neurological: numbness Exam - Physical Exam Narrative exam: Physical Exam: VITAL SIGNS: Reviewed. GENERAL: The patient appears normally developed, Vital signs as documented. Calm on initial encounter. tremulous on subsequent encounter. HEAD: No signs of head trauma. EYES: Pupils are equal. Extraocular motions intact. EARS: Hearing grossly intact. MOUTH: Oropharynx is normal. NECK: No adenopathy, no JVD. CHEST: Chest with clear breath sounds bilaterally. No wheezes, rales, or rhonchi. CARDIAC: Regular rate and rhythm. S1 and S2, without murmurs, gallops, or rubs. VASCULAR: No Edema. Peripheral pulses normal and equal in all extremities. ABDOMEN: Soft, non tender and non distended. No rebound or guarding, and no masses palpated. Bowel Sounds normal. MUSCULOSKELETAL: Good range of motion of all major joints. Extremities without clubbing, cyanosis or edema. NEUROLOGIC EXAM: Alert and oriented x 4. no focal sensory or strength deficits. On subsequent in encounter, patient very tremulous PSYCHIATRIC: Mood normal. SKIN: detail exam as documented in skin assessment - Constitutional Vitals: Temp Pulse Resp BP Pulse Ox 98.1 F 51 L 16 112/63 93 05/23/21 03:42 05/23/21 03:42 05/23/21 03:42 05/23/21 03:42 05/23/21 04:02 HEART Score - HEART Score EKG: Non-specific Age: 45-65 Risk factors: No known risk factors Troponin: Troponin T < 0.010 ng/mL (0.00-0.029) 05/23/21 03:07 Troponin: < normal limit Results - Labs CBC & Chem 7: 05/23/21 00:44 05/23/21 00:44 Labs: Laboratory Last Values WBC 2.6 K/mm3 (4.5-11.0) L 05/23/21 00:44 RBC 3.71 M/mm3 (3.65-5.03) 05/23/21 00:44 Hgb 12.4 gm/dl (11.8-15.2) 05/23/21 00:44 Hct 38.0 % (35.5-45.6) 05/23/21 00:44 MCV 102 fl (84-94) H 05/23/21 00:44 MCH 33 pg (28-32) H 05/23/21 00:44 MCHC 33 % (32-34) 05/23/21 00:44 RDW 17.0 % (13.2-15.2) H 05/23/21 00:44 Plt Count 78 K/mm3 (140-440) L 05/23/21 00:44 [place] % (Auto) Vessel Slag Worker 05/23/21 00:44 Baso % (Auto) Vessel Slag Worker 05/23/21 00:44 Add Manual Diff Complete 05/23/21 00:44 Total Counted 100 05/23/21 00:44 Seg Neuts % (Manual) 53.0 % (40.0-70.0) 05/23/21 00:44 Lymphocytes % (Manual) 36.0 % (13.4-35.0) H 05/23/21 00:44 Monocytes % (Manual) 7.0 % (0.0-7.3) 05/23/21 00:44 Eosinophils % (Manual) 4.0 % (0.0-4.3) 05/23/21 00:44 Nucleated RBC % Not Reportable 05/23/21 00:44 Seg Neutrophils # Man 1.4 K/mm3 (1.8-7.7) L 05/23/21 00:44 Band Neutrophils # 0.0 K/mm3 05/23/21 00:44 Lymphocytes # (Manual) 0.9 K/mm3 (1.2-5.4) L 05/23/21 00:44 Abs React Lymphs (Man) 0.0 K/mm3 05/23/21 00:44 Monocytes # (Manual) 0.2 K/mm3 (0.0-0.8) 05/23/21 00:44 Eosinophils # (Manual) 0.1 K/mm3 (0.0-0.4) 05/23/21 00:44 Basophils # (Manual) 0.0 K/mm3 (0.0-0.1) 05/23/21 00:44 Metamyelocytes # 0.0 K/mm3 05/23/21 00:44 Myelocytes # 0.0 K/mm3 05/23/21 00:44 Promyelocytes # 0.0 K/mm3 05/23/21 00:44 Blast Cells # 0.0 K/mm3 05/23/21 00:44 WBC Morphology Not Reportable 05/23/21 00:44 Hypersegmented Neuts Not Reportable 05/23/21 00:44 Hyposegmented Neuts Not Reportable 05/23/21 00:44 Hypogranular Neuts Not Reportable 05/23/21 00:44 Smudge Cells Not Reportable 05/23/21 00:44 Toxic Granulation Not Reportable 05/23/21 00:44 Toxic Vacuolation Not Reportable 05/23/21 00:44 Dohle Bodies Not Reportable 05/23/21 00:44 Pelger-Huet Anomaly Not Reportable 05/23/21 00:44 Adam Rods Not Reportable 05/23/21 00:44 Platelet Estimate Consistent w auto 05/23/21 00:44 Clumped Platelets Not Reportable 05/23/21 00:44 Plt Clumps, EDTA Not Reportable 05/23/21 00:44 Large Platelets Not Reportable 05/23/21 00:44 Giant Platelets Not Reportable 05/23/21 00:44 Platelet Satelliting Not Reportable 05/23/21 00:44 Plt Morphology Comment Not Reportable 05/23/21 00:44 RBC Morphology Not Reportable 05/23/21 00:44 Dimorphic RBCs Not Reportable 05/23/21 00:44 Polychromasia Not Reportable 05/23/21 00:44 Hypochromasia Not Reportable 05/23/21 00:44 Poikilocytosis Not Reportable 05/23/21 00:44 Anisocytosis Not Reportable 05/23/21 00:44 Microcytosis Not Reportable 05/23/21 00:44 Macrocytosis Not Reportable 05/23/21 00:44 Spherocytes Not Reportable 05/23/21 00:44 Pappenheimer Bodies Not Reportable 05/23/21 00:44 Sickle Cells Not Reportable 05/23/21 00:44 Target Cells 1+ 05/23/21 00:44 Tear Drop Cells Not Reportable 05/23/21 00:44 Ovalocytes Not Reportable 05/23/21 00:44 Helmet Cells Not Reportable 05/23/21 00:44 [place] Bodies Not Reportable 05/23/21 00:44 [place] Rings Not Reportable 05/23/21 00:44 [place] Cells Not Reportable 05/23/21 00:44 Bite Cells Not Reportable 05/23/21 00:44 Crenated Cell Not Reportable 05/23/21 00:44 Elliptocytes Not Reportable 05/23/21 00:44 Acanthocytes (Spur) Not Reportable 05/23/21 00:44 Rouleaux Not Reportable 05/23/21 00:44 Hemoglobin C Crystals Not Reportable 05/23/21 00:44 Schistocytes Not Reportable 05/23/21 00:44 Malaria parasites Not Reportable 05/23/21 00:44 Jem Bodies Not Reportable 05/23/21 00:44 Hem Pathologist Commnt No 05/23/21 00:44 PT 12.0 Sec. (12.2-14.9) L 05/23/21 00:44 INR 0.80 (0.87-1.13) L 05/23/21 00:44 D-Dimer 1843.67 ng/mlDDU (0-234) H 05/23/21 00:44 Sodium 140 mmol/L (137-145) 05/23/21 00:44 Potassium 4.8 mmol/L (3.6-5.0) 05/23/21 00:44 Chloride 99.6 mmol/L (98-107) 05/23/21 00:44 Carbon Dioxide 27 mmol/L (22-30) 05/23/21 00:44 Anion Gap 18 mmol/L 05/23/21 00:44 BUN 11 mg/dL (9-20) 05/23/21 00:44 Creatinine 0.8 mg/dL (0.8-1.3) 05/23/21 00:44 Estimated GFR > 60 ml/min 05/23/21 00:44 BUN/Creatinine Ratio 14 % 05/23/21 00:44 Glucose 113 mg/dL (75-100) H 05/23/21 00:44 Calcium 8.8 mg/dL (8.4-10.2) 05/23/21 00:44 Total Bilirubin 0.20 mg/dL (0.1-1.2) 05/23/21 00:44 AST 96 units/L (5-40) H 05/23/21 00:44 ALT 43 units/L (7-56) 05/23/21 00:44 Alkaline Phosphatase 61 units/L (35-129) 05/23/21 00:44 Troponin T < 0.010 ng/mL (0.00-0.029) 05/23/21 03:07 Total Protein 6.7 g/dL (6.3-8.2) 05/23/21 00:44 Albumin 4.4 g/dL (3.9-5) 05/23/21 00:44 Albumin/Globulin Ratio 1.9 % 05/23/21 00:44 Lipase 97 units/L (13-60) H 05/23/21 00:44 Urine Color Yellow (Yellow) 05/23/21 00:15 Urine Turbidity Clear (Clear) 05/23/21 00:15 Urine pH 5.0 (5.0-7.0) 05/23/21 00:15 Ur Specific [place] 1.014 (1.003-1.030) 05/23/21 00:15 Urine Protein 100 mg/dl mg/dL (Negative) 05/23/21 00:15 Urine Glucose (UA) Neg mg/dL (Negative) 05/23/21 00:15 Urine Ketones Neg mg/dL (Negative) 05/23/21 00:15 Urine Blood Sm (Negative) 05/23/21 00:15 Urine Nitrite Neg (Negative) 05/23/21 00:15 Urine Bilirubin Neg (Negative) 05/23/21 00:15 Urine Urobilinogen < 2.0 mg/dL (<2.0) 05/23/21 00:15 Ur Leukocyte Esterase Neg (Negative) 05/23/21 00:15 Urine WBC (Auto) 1.0 /HPF (0.0-6.0) 05/23/21 00:15 Urine RBC (Auto) < 1.0 /HPF (0.0-6.0) 05/23/21 00:15 U Epithel Cells (Auto) < 1.0 /HPF (0-13.0) 05/23/21 00:15 Urine Mucus Few /HPF 05/23/21 00:15 Assessment and Plan Assessment and plan: #Acute respiratory failure with hypoxia (resolved) - was hypoxic to 87%, but now on room air, ambulatory 93%. Currently 92% room air - received nebulizer, steroid - CTA Chest unremarkable. - continue decadron 6 mg IV daily, can d/c if covid test negative - continue azithromycin, d/c if covid test negative - Coronavirus RT PCR pending, doubt covid - lovenox dvt ppx #Chest pain - smoking hx, intermittent cp, numbness in neck/shoulder, no prior stress test -EKG: non specific ST-T hcanges -troponin negative x 2 - Will obtain cardiac stress testing tomorrow, npo midnight #Suspected COVID-19 infection -Unvaccinated, suspicion for covid per ER doctor, RT PCR pending -Elevated Ddimer , SOB, one documented SPO2 reading = 87% per ER physician documentation -Currently on room air -RT pcr pending -will obtain ID consult if patient is positive and symptoms worsen. #ETOH withdrawal - very tremulous, anxious but is alert and oriented - has been admitted for this in the past - CIWA assessments and prn ativan #ETOH abuse - alcohol cessation counseling + 15 min #History of COPD - Azithro and decadron as above - no longer hypoxic - prn duonebs #History of seizures - restart home keppra 500 mg po bid - hx of alcoholism so this may explain why patient had siezures in past. #Transaminitis - AST: 96, ALT: 43 - LFT pattern consistent with alcoholic hepatitis #Advance care planning Disease education conducted, care plan discussed, diagnoses discussed, prognosis discussed, patient is full code, patient acknowledges understanding and agree with care plan, +30 minutes. Code Status: Full Diet: Cardiac VTE PPx: Lovenox 40 mg subq daily
[2021-05-23] MEDS ORDERED: ACETAMINOPHEN 325 MG TAB PO PRN (09:00)
[2021-05-23] MEDS ORDERED: MAGNESIUM HYDROXIDE (MOM) ORAL LIQD UDC PO PRN (09:00)
[2021-05-23] MEDS: ENOXAPARIN 40 MG/0.4 ML INJ SUB-Q SCH (11:37)
[2021-05-23] MEDS: levETIRAcetam 500 MG TAB PO SCH ×2 (11:37→21:20)
[2021-05-23] MEDS ORDERED: LORazepam 2 MG/ML VIAL ONE (12:08)
[2021-05-23] MEDS: LORazepam 2 MG/ML VIAL IV PRN ×3 (12:45→23:16)
[2021-05-23] MEDS ORDERED: THIAMINE 100 MG, FOLIC ACID 1 MG, MULTIPLE VITAMIN INJ, ADULT 10 ML in SODIUM CHLORIDE ... IV ONE (13:00)
[2021-05-24 05:12] LABS: Hematocrit 44.2 % (35.5-45.6); Hemoglobin 14.4 gm/dl (11.8-15.2); Mean Corpuscular HGB Conc 33 % (32-34); Mean Corpuscular Volume 102 fl (84-94); Red Blood Count 4.33 M/mm3 (3.65-5.03); Red Cell Distribution Width 16.2 % (13.2-15.2)
[2021-05-24 05:22] LABS: Alanine Aminotransferase 43 units/L (7-56); Albumin 4.8 g/dL (3.9-5); BUN/Creatinine Ratio 13; Blood Urea Nitrogen 10 mg/dL (9-20); Calcium 9.9 mg/dL (8.4-10.2); Hemolysis Index 113
[2021-05-24 05:23] LABS: Platelet Count 74 K/mm3 (140-440)
[2021-05-24] MEDS: ONDANSETRON 4 MG/2 ML INJ IV PRN (06:10)
[2021-05-24 06:48] LABS: Total Cells Counted 100
[2021-05-24 06:51] LABS: Target Cells 1+
[2021-05-24 06:52] LABS: Platelet Estimate Consistent w Auto
[2021-05-24] MEDS ORDERED: MAGNESIUM SULFATE 2 GM/50 ML BAG IV ONE (06:52)
--- NOTE | 2021-05-24 12:11 | Progress Note ---
Assessment and Plan Assessment and plan #Acute respiratory failure with hypoxia (resolved) - was hypoxic to 87%, but now on room air, ambulatory 93%. Currently 92% room air - received nebulizer, steroid - CTA Chest unremarkable. - continue decadron 6 mg IV daily, can d/c if covid test negative - continue azithromycin, d/c if covid test negative - Coronavirus RT PCR pending, doubt covid - lovenox dvt ppx #COPD exacerbation - Azithro and decadron as above - no longer hypoxic - prn duonebs #Chest pain - smoking hx, intermittent cp, numbness in neck/shoulder, no prior stress test -EKG: non specific ST-T hcanges -troponin negative x 2 - Will obtain cardiac stress testing tomorrow, npo midnight #Suspected COVID-19 infection Coronavirus PCR negative #ETOH withdrawal - very tremulous, anxious but is alert and oriented - has been admitted for this in the past - CIWA assessments and prn ativan #ETOH abuse - alcohol cessation counseling + 15 min #History of seizures - restart home keppra 500 mg po bid - hx of alcoholism so this may explain why patient had siezures in past. #Transaminitis - AST: 96, ALT: 43 - LFT pattern consistent with alcoholic hepatitis #Advance care planning Disease education conducted, care plan discussed, diagnoses discussed, prognosis discussed, patient is full code, patient acknowledges understanding and agree with care plan, +30 minutes. Subjective Date of service: 05/24/21 Principal diagnosis: Acute respiratory failure with hypoxia, COPD exacerbation Interval history: 50-year-old male with past medical history of seizures, alcoholism presenting to our facility with chief complaint of intermittent chest pain, 5/10 in intensity. Patient not currently experiencing chest pain. Patient states that chest pain started several days ago. Chest pains associated with shortness of breath and numbness tingling of his head. He denies CP worsening with exertion. When asked about jaw and shoulder numbness, he endorsed these symptoms as well. He has never had this issue in the past before. He denies any pressure sensation of the chest pain. He states that the chest pain is a sharp stabbing sensation. And has no relieving factors. It has no temporal association. Patient has no significant cardiac history in his past. Patient denies any headache, nausea, vomiting, diarrhea, abdominal pain, change in bowel habits. Remainder of ROS negative except for stated above Objective - Constitutional Vitals: Vital Signs - 12hr 05/24/21 06:03 Temperature 98.8 F Pulse Rate 88 Respiratory 20 Rate Blood Pressure 165/99 O2 Sat by Pulse 94 Oximetry General appearance: Present: no acute distress, well-nourished - EENT Eyes: PERRL, EOM intact ENT: hearing intact, clear oral mucosa Ears: bilateral: normal - Neck Neck: supple, normal ROM - Respiratory Respiratory effort: normal Respiratory: bilateral: CTA, rhonchi, wheezing - Breasts Breasts: normal - Cardiovascular Heart rate: 78 Rhythm: regular Heart Sounds: Present: S1 & S2. Absent: gallop, rub Extremities: pulses intact, No edema, normal color, Full ROM - Gastrointestinal General gastrointestinal: Present: soft, non-tender, non-distended, normal bowel sounds - Genitourinary Male genitourinary: normal - Integumentary Integumentary: clear, warm, dry - Musculoskeletal Musculoskeletal: 1, strength equal bilaterally - Neurologic Neurologic: moves all extremities - Psychiatric Psychiatric: memory intact, appropriate mood/affect, intact judgment & insight - Labs CBC & Chem 7: 05/24/21 04:34 05/24/21 04:34 Labs: Abnormal lab results 05/23/21 05/24/21 05/24/21 Range/Units 15:44 04:34 04:34 WBC 2.7 L (4.5-11.0) K/mm3 MCV 102 H (84-94) fl MCH 33 H (28-32) pg RDW 16.2 H (13.2-15.2) % Plt Count 74 L (140-440) K/mm3 Monocytes % (Manual) 8.0 H (0.0-7.3) % Seg Neutrophils # Man 1.7 L (1.8-7.7) K/mm3 Lymphocytes # (Manual) 0.8 L (1.2-5.4) K/mm3 Glucose 103 H (75-100) mg/dL Magnesium 1.60 L (1.7-2.3) mg/dL AST 78 H (5-40) units/L Total Protein 8.3 H D (6.3-8.2) g/dL HEART Score - HEART Score EKG: Non-specific Age: 45-65 Risk factors: No known risk factors Troponin: Troponin T < 0.010 ng/mL (0.00-0.029) 05/23/21 03:07 Troponin: < normal limit
[2021-05-24] MEDS: dexAMETHasone 4 MG/ML VIAL IV SCH (13:02)
[2021-05-24] MEDS: LORazepam 2 MG/ML VIAL IV PRN ×7 (13:04→23:00)
[2021-05-24] MEDS: ENOXAPARIN 40 MG/0.4 ML INJ SUB-Q SCH (13:06)
[2021-05-24] MEDS: levETIRAcetam 500 MG TAB PO SCH ×2 (13:07→22:47)
[2021-05-24] MEDS: AZITHROMYCIN 250 MG TAB PO SCH (13:09)
[2021-05-25] MEDS: LORazepam 2 MG/ML VIAL IV PRN ×7 (01:00→18:08)
[2021-05-25] MEDS: oxyCODONE /ACETAMINOPHEN 5-325MG TAB PO PRN ×2 (01:06→21:08)
[2021-05-25] MEDS: levETIRAcetam 500 MG TAB PO SCH ×2 (09:21→21:08)
[2021-05-25] MEDS: ENOXAPARIN 40 MG/0.4 ML INJ SUB-Q SCH (09:21)
[2021-05-25] MEDS: AZITHROMYCIN 250 MG TAB PO SCH (09:21)
[2021-05-25] MEDS: dexAMETHasone 4 MG/ML VIAL IV SCH (09:22)
--- NOTE | 2021-05-25 12:56 | Progress Note ---
Assessment and Plan Assessment and plan -Acute encephalopathy --Etiology unclear --EtOH withdrawal --Mental health consult #Acute respiratory failure with hypoxia (resolved) - was hypoxic to 87%, but now on room air, ambulatory 93%. Currently 92% room air - received nebulizer, steroid - CTA Chest unremarkable. - continue decadron 6 mg IV daily, can d/c if covid test negative - continue azithromycin, d/c if covid test negative - Coronavirus RT PCR pending, doubt covid - lovenox dvt ppx #COPD exacerbation - Azithro and decadron as above - no longer hypoxic - prn duonebs #Chest pain - smoking hx, intermittent cp, numbness in neck/shoulder, no prior stress test -EKG: non specific ST-T hcanges -troponin negative x 2 - Will obtain cardiac stress testing tomorrow, npo midnight #Suspected COVID-19 infection Coronavirus PCR negative #ETOH withdrawal - very tremulous, anxious but is alert and oriented - has been admitted for this in the past - CIWA assessments and prn ativan #ETOH abuse - alcohol cessation counseling + 15 min #History of seizures - restart home keppra 500 mg po bid - hx of alcoholism so this may explain why patient had siezures in past. #Transaminitis - AST: 96, ALT: 43 - LFT pattern consistent with alcoholic hepatitis Subjective Date of service: 05/25/21 Principal diagnosis: Acute respiratory failure with hypoxia, COPD exacerbation Interval history: 50-year-old male with past medical history of seizures, alcoholism presenting to our facility with chief complaint of intermittent chest pain, 5/10 in intensity. Patient not currently experiencing chest pain. Patient states that chest pain started several days ago. Chest pains associated with shortness of breath and numbness tingling of his head. He denies CP worsening with exertion. When asked about jaw and shoulder numbness, he endorsed these symptoms as well. He has never had this issue in the past before. He denies any pressure sensation of the chest pain. He states that the chest pain is a sharp stabbing sensation. And has no relieving factors. It has no temporal association. Patient has no significant cardiac history in his past. Patient denies any headache, nausea, vomiting, diarrhea, abdominal pain, change in bowel habits. Remainder of ROS negative except for stated above. 05/24/2021 [place] [address]/25/2021 Patient is lethargic and in restraints On 1012 Objective - Constitutional Vitals: Vital Signs - 12hr 05/25/21 05/25/21 02:14 03:51 Temperature 98.6 F 98.2 F Pulse Rate 90 76 Respiratory 22 20 Rate Blood Pressure 159/124 147/81 O2 Sat by Pulse 97 Oximetry General appearance: Present: no acute distress, well-nourished - EENT Eyes: PERRL, EOM intact ENT: hearing intact, clear oral mucosa Ears: bilateral: normal - Neck Neck: supple, normal ROM - Respiratory Respiratory effort: normal Respiratory: bilateral: CTA - Breasts Breasts: normal - Cardiovascular Heart rate: 78 Rhythm: regular Heart Sounds: Present: S1 & S2. Absent: gallop, rub Extremities: pulses intact, No edema, normal color, Full ROM - Gastrointestinal General gastrointestinal: Present: soft, non-tender, non-distended, normal bowel sounds - Genitourinary Male genitourinary: normal - Integumentary Integumentary: clear, warm, dry - Musculoskeletal Musculoskeletal: 1, strength equal bilaterally - Neurologic Neurologic: moves all extremities, other (Lethargic) - Psychiatric Psychiatric: agitated, other (Lethargic) - Labs CBC & Chem 7: 05/24/21 04:34 05/24/21 04:34 HEART Score - HEART Score EKG: Non-specific Age: 45-65 Risk factors: No known risk factors Troponin: Troponin T < 0.010 ng/mL (0.00-0.029) 05/23/21 03:07 Troponin: < normal limit
[2021-05-26] MEDS: LORazepam 2 MG/ML VIAL IV PRN ×3 (06:01→23:00)
[2021-05-26] MEDS ORDERED: REGADENOSON 0.4 MG/5 ML INJ IV ONE (07:23)
[2021-05-26 07:33] LABS: Basophils % (Auto) 0.3 % (0.0-1.8); Eosinophils % (Auto) 0.4 % (0.0-4.3); Hematocrit 43.4 % (35.5-45.6); Hemoglobin 14.1 gm/dl (11.8-15.2); Lymphocytes # (Auto) 1.1 K/mm3 (1.2-5.4); Mean Corpuscular HGB Conc 33 % (32-34); Mean Corpuscular Volume 101 fl (84-94); Monocytes # (Auto) 0.6 K/mm3 (0.0-0.8); Monocytes % (Auto) 14.2 % (0.0-7.3); Red Blood Count 4.28 M/mm3 (3.65-5.03); Red Cell Distribution Width 15.8 % (13.2-15.2)
[2021-05-26 07:34] LABS: Platelet Count 74 K/mm3 (140-440)
[2021-05-26 07:52] LABS: Alanine Aminotransferase 35 units/L (7-56); Albumin 4.5 g/dL (3.9-5); BUN/Creatinine Ratio 26; Blood Urea Nitrogen 18 mg/dL (9-20); Calcium 9.5 mg/dL (8.4-10.2); Hemolysis Index 4
[2021-05-26] MEDS: dexAMETHasone 4 MG/ML VIAL IV SCH (09:42)
[2021-05-26] MEDS: ENOXAPARIN 40 MG/0.4 ML INJ SUB-Q SCH (09:42)
[2021-05-26] MEDS: levETIRAcetam 500 MG TAB PO SCH ×2 (09:43→21:15)
[2021-05-26] MEDS: AZITHROMYCIN 250 MG TAB PO SCH (09:43)
--- NOTE | 2021-05-27 06:40 | Progress Note ---
Assessment and Plan Assessment and plan -Acute encephalopathy --Etiology unclear --EtOH withdrawal --Mental health consult --Improving #Acute respiratory failure with hypoxia (resolved) - was hypoxic to 87%, but now on room air, ambulatory 93%. Currently 92% room air - received nebulizer, steroid - CTA Chest unremarkable. - continue decadron 6 mg IV daily, can d/c if covid test negative - continue azithromycin, d/c if covid test negative - Coronavirus RT PCR pending, doubt covid - lovenox dvt ppx --Improving on room air #COPD exacerbation - Azithro and decadron as above - no longer hypoxic - prn duonebs #Chest pain - smoking hx, intermittent cp, numbness in neck/shoulder, no prior stress test -EKG: non specific ST-T hcanges -troponin negative x 2 - Will obtain cardiac stress testing #Suspected COVID-19 infection Coronavirus PCR negative #ETOH withdrawal - very tremulous, anxious but is alert and oriented - has been admitted for this in the past - CIWA assessments and prn ativan #ETOH abuse - alcohol cessation counseling + 15 min #History of seizures - restart home keppra 500 mg po bid - hx of alcoholism so this may explain why patient had siezures in past. #Transaminitis - AST: 96, ALT: 43 - LFT pattern consistent with alcoholic hepatitis Discharge planning issues Encephalopathy is multifactorial Improving Possible discharge in 24 to 48 hours Subjective Date of service: 05/26/21 Principal diagnosis: Acute respiratory failure with hypoxia, COPD exacerbation Interval history: 50-year-old male with past medical history of seizures, alcoholism presenting to our facility with chief complaint of intermittent chest pain, 5/10 in intensity. Patient not currently experiencing chest pain. Patient states that chest pain started several days ago. Chest pains associated with shortness of breath and numbness tingling of his head. He denies CP worsening with exertion. When asked about jaw and shoulder numbness, he endorsed these symptoms as well. He has never had this issue in the past before. He denies any pressure sensation of the chest pain. He states that the chest pain is a sharp stabbing sensation. And has no relieving factors. It has no temporal association. Patient has no significant cardiac history in his past. Patient denies any headache, nausea, vomiting, diarrhea, abdominal pain, change in bowel habits. Remainder of ROS negative except for stated above. 05/24/2021 Patient with altered sensorium and in restraints On 101205/25/2021 Patient is lethargic and in restraints On 101205/26/2021 Patient is more alert today On 1 point restraint Is on 101 Objective - Constitutional Vitals: Vital Signs - 12hr 05/26/21 05/27/21 05/27/21 22:18 00:44 06:25 Temperature 98.6 F 98.6 F Pulse Rate 81 74 Respiratory 20 20 Rate Blood Pressure 122/88 136/95 O2 Sat by Pulse 92 96 98 Oximetry General appearance: Present: no acute distress, well-nourished - EENT Eyes: PERRL, EOM intact ENT: hearing intact, clear oral mucosa Ears: bilateral: normal - Neck Neck: supple, normal ROM - Respiratory Respiratory effort: normal Respiratory: bilateral: CTA - Breasts Breasts: normal - Cardiovascular Heart rate: 78 Rhythm: regular Heart Sounds: Present: S1 & S2. Absent: gallop, rub Extremities: pulses intact, No edema, normal color, Full ROM - Gastrointestinal General gastrointestinal: Present: soft, non-tender, non-distended, normal bowel sounds - Genitourinary Male genitourinary: normal - Integumentary Integumentary: clear, warm, dry - Musculoskeletal Musculoskeletal: 1, strength equal bilaterally - Neurologic Neurologic: moves all extremities, other (Lethargic but more alert than yesterday) - Psychiatric Psychiatric: other (Lethargic but more alert than yesterday) - Allied health notes Allied health notes reviewed: nursing, case management - Labs CBC & Chem 7: 05/26/21 07:00 05/26/21 07:00 Labs: Abnormal lab results 05/26/21 05/26/21 Range/Units 07:00 07:00 WBC 4.4 L (4.5-11.0) K/mm3 MCV 101 H (84-94) fl MCH 33 H (28-32) pg RDW 15.8 H (13.2-15.2) % Plt Count 74 L (140-440) K/mm3 [place] % (Auto) 14.2 H (0.0-7.3) % Lymph # (Auto) 1.1 L (1.2-5.4) K/mm3 Potassium 3.5 L D (3.6-5.0) mmol/L Creatinine 0.7 L (0.8-1.3) mg/dL AST 58 H (5-40) units/L HEART Score - HEART Score EKG: Non-specific Age: 45-65 Risk factors: No known risk factors Troponin: Troponin T < 0.010 ng/mL (0.00-0.029) 05/23/21 03:07 Troponin: < normal limit
[2021-05-27] MEDS: LORazepam 2 MG/ML VIAL IV PRN ×4 (06:51→21:05)
[2021-05-27 08:39] LABS: Hematocrit 45.7 % (35.5-45.6); Hemoglobin 14.7 gm/dl (11.8-15.2); Mean Corpuscular HGB Conc 32 % (32-34); Mean Corpuscular Volume 103 fl (84-94); Red Blood Count 4.44 M/mm3 (3.65-5.03)
[2021-05-27 08:59] LABS: BUN/Creatinine Ratio 25; Blood Urea Nitrogen 20 mg/dL (9-20); Calcium 9.7 mg/dL (8.4-10.2); Hemolysis Index 8
--- NOTE | 2021-05-27 09:14 | Progress Note ---
Assessment and Plan Assessment and plan: Interval history: 50-year-old male with past medical history of seizures, alcoholism presenting to our facility with chief complaint of intermittent chest pain, 5/10 in intensity. Patient not currently experiencing chest pain. Patient states that chest pain started several days ago. Chest pains associated with shortness of breath and numbness tingling of his head. He denies CP worsening with exertion. When asked about jaw and shoulder numbness, he endorsed these symptoms as well. He has never had this issue in the past before. He denies any pressure sensation of the chest pain. He states that the chest pain is a sharp stabbing sensation. And has no relieving factors. It has no temporal association. Patient has no significant cardiac history in his past. Patient denies any headache, nausea, vomiting, diarrhea, abdominal pain, change in bowel habits. Remainder of ROS negative except for stated above. 05/24/2021 Patient with altered sensorium and in restraints On 1013 05/25/2021 Patient is lethargic and in restraints On 1013 05/26/2021 Patient is more alert today On 1 point restraint Is on 1013 Assessment and Plan: -Acute encephalopathy --Etiology unclear --EtOH withdrawal --Mental health consult --Improving #Acute respiratory failure with hypoxia (resolved) - was hypoxic to 87%, but now on room air, ambulatory 93%. Currently 92% room air - received nebulizer, steroid - CTA Chest unremarkable. - continue decadron 6 mg IV daily, can d/c if covid test negative - continue azithromycin, d/c if covid test negative - Coronavirus RT PCR pending, doubt covid - lovenox dvt ppx --Improving on room air #COPD exacerbation - Azithro and decadron as above - no longer hypoxic - prn duonebs #Chest pain - smoking hx, intermittent cp, numbness in neck/shoulder, no prior stress test -EKG: non specific ST-T hcanges -troponin negative x 2 - Will obtain cardiac stress testing #Suspected COVID-19 infection Coronavirus PCR negative #ETOH withdrawal - very tremulous, anxious but is alert and oriented - has been admitted for this in the past - CIWA assessments and prn ativan #ETOH abuse - alcohol cessation counseling + 15 min #History of seizures - restart home keppra 500 mg po bid - hx of alcoholism so this may explain why patient had siezures in past. #Transaminitis - AST: 96, ALT: 43 - LFT pattern consistent with alcoholic hepatitis Discharge planning issues Encephalopathy is multifactorial Improving Possible discharge in 24 to 48 hours Hospitalist Physical - Constitutional Vitals: Temp Pulse Resp BP Pulse Ox 98.6 F 74 20 136/95 98 05/27/21 06:25 05/27/21 06:25 05/27/21 06:25 05/27/21 06:25 05/27/21 06:25 General appearance: Present: no acute distress, well-nourished HEART Score - HEART Score EKG: Non-specific Age: 45-65 Risk factors: No known risk factors Troponin: Troponin T < 0.010 ng/mL (0.00-0.029) 05/23/21 03:07 Troponin: < normal limit Results - Labs CBC & Chem 7: 05/26/21 07:00 05/27/21 08:03 Labs: Laboratory Last Values WBC 4.4 K/mm3 (4.5-11.0) L 05/26/21 07:00 RBC 4.28 M/mm3 (3.65-5.03) 05/26/21 07:00 Hgb 14.1 gm/dl (11.8-15.2) 05/26/21 07:00 Hct 43.4 % (35.5-45.6) 05/26/21 07:00 MCV 101 fl (84-94) H 05/26/21 07:00 MCH 33 pg (28-32) H 05/26/21 07:00 MCHC 33 % (32-34) 05/26/21 07:00 RDW 15.8 % (13.2-15.2) H 05/26/21 07:00 Plt Count 74 K/mm3 (140-440) L 05/26/21 07:00 Lymph % (Auto) 25.0 % (13.4-35.0) 05/26/21 07:00 [place] % (Auto) 14.2 % (0.0-7.3) H 05/26/21 07:00 Eos % (Auto) 0.4 % (0.0-4.3) 05/26/21 07:00 Baso % (Auto) 0.3 % (0.0-1.8) 05/26/21 07:00 Lymph # (Auto) 1.1 K/mm3 (1.2-5.4) L 05/26/21 07:00 [place] # (Auto) 0.6 K/mm3 (0.0-0.8) 05/26/21 07:00 Eos # (Auto) 0.0 K/mm3 (0.0-0.4) 05/26/21 07:00 Baso # (Auto) 0.0 K/mm3 (0.0-0.1) 05/26/21 07:00 Add Manual Diff Complete 05/24/21 04:34 Total Counted 100 05/24/21 04:34 Seg Neutrophils % 60.1 % (40.0-70.0) 05/26/21 07:00 Seg Neuts % (Manual) 62.0 % (40.0-70.0) 05/24/21 04:34 Lymphocytes % (Manual) 30.0 % (13.4-35.0) 05/24/21 04:34 Monocytes % (Manual) 8.0 % (0.0-7.3) H 05/24/21 04:34 Eosinophils % (Manual) 4.0 % (0.0-4.3) 05/23/21 00:44 Nucleated RBC % Not Reportable 05/24/21 04:34 Seg Neutrophils # 2.6 K/mm3 (1.8-7.7) 05/26/21 07:00 Seg Neutrophils # Man 1.7 K/mm3 (1.8-7.7) L 05/24/21 04:34 Band Neutrophils # 0.0 K/mm3 05/24/21 04:34 Lymphocytes # (Manual) 0.8 K/mm3 (1.2-5.4) L 05/24/21 04:34 Abs React Lymphs (Man) 0.0 K/mm3 05/24/21 04:34 Monocytes # (Manual) 0.2 K/mm3 (0.0-0.8) 05/24/21 04:34 Eosinophils # (Manual) 0.0 K/mm3 (0.0-0.4) 05/24/21 04:34 Basophils # (Manual) 0.0 K/mm3 (0.0-0.1) 05/24/21 04:34 Metamyelocytes # 0.0 K/mm3 05/24/21 04:34 Myelocytes # 0.0 K/mm3 05/24/21 04:34 Promyelocytes # 0.0 K/mm3 05/24/21 04:34 Blast Cells # 0.0 K/mm3 05/24/21 04:34 WBC Morphology Not Reportable 05/24/21 04:34 Hypersegmented Neuts Not Reportable 05/24/21 04:34 Hyposegmented Neuts Not Reportable 05/24/21 04:34 Hypogranular Neuts Not Reportable 05/24/21 04:34 Smudge Cells Not Reportable 05/24/21 04:34 Toxic Granulation Not Reportable 05/24/21 04:34 Toxic Vacuolation Not Reportable 05/24/21 04:34 Dohle Bodies Not Reportable 05/24/21 04:34 Pelger-Huet Anomaly Not Reportable 05/24/21 04:34 Adam Rods Not Reportable 05/24/21 04:34 Platelet Estimate Consistent w auto 05/24/21 04:34 Clumped Platelets Not Reportable 05/24/21 04:34 Plt Clumps, EDTA Not Reportable 05/24/21 04:34 Large Platelets Not Reportable 05/24/21 04:34 Giant Platelets Not Reportable 05/24/21 04:34 Platelet Satelliting Not Reportable 05/24/21 04:34 Plt Morphology Comment Not Reportable 05/24/21 04:34 RBC Morphology Not Reportable 05/24/21 04:34 Dimorphic RBCs Not Reportable 05/24/21 04:34 Polychromasia Not Reportable 05/24/21 04:34 Hypochromasia Not Reportable 05/24/21 04:34 Poikilocytosis Not Reportable 05/24/21 04:34 Anisocytosis Not Reportable 05/24/21 04:34 Microcytosis Not Reportable 05/24/21 04:34 Macrocytosis Not Reportable 05/24/21 04:34 Spherocytes Not Reportable 05/24/21 04:34 Pappenheimer Bodies Not Reportable 05/24/21 04:34 Sickle Cells Not Reportable 05/24/21 04:34 Target Cells 1+ 05/24/21 04:34 Tear Drop Cells Not Reportable 05/24/21 04:34 Ovalocytes Not Reportable 05/24/21 04:34 Helmet Cells Not Reportable 05/24/21 04:34 [place] Bodies Not Reportable 05/24/21 04:34 [place] Rings Not Reportable 05/24/21 04:34 [place] Cells Not Reportable 05/24/21 04:34 Bite Cells Not Reportable 05/24/21 04:34 Crenated Cell Not Reportable 05/24/21 04:34 Elliptocytes Not Reportable 05/24/21 04:34 Acanthocytes (Spur) Not Reportable 05/24/21 04:34 Rouleaux Not Reportable 05/24/21 04:34 Hemoglobin C Crystals Not Reportable 05/24/21 04:34 Schistocytes Not Reportable 05/24/21 04:34 Malaria parasites Not Reportable 05/24/21 04:34 Jem Bodies Not Reportable 05/24/21 04:34 Hem Pathologist Commnt No 05/24/21 04:34 PT 12.0 Sec. (12.2-14.9) L 05/23/21 00:44 INR 0.80 (0.87-1.13) L 05/23/21 00:44 D-Dimer 1843.67 ng/mlDDU (0-234) H 05/23/21 00:44 Sodium 143 mmol/L (137-145) 05/27/21 08:03 Potassium 3.4 mmol/L (3.6-5.0) L 05/27/21 08:03 Chloride 104.0 mmol/L (98-107) 05/27/21 08:03 Carbon Dioxide 25 mmol/L (22-30) 05/27/21 08:03 Anion Gap 17 mmol/L 05/27/21 08:03 BUN 20 mg/dL (9-20) 05/27/21 08:03 Creatinine 0.8 mg/dL (0.8-1.3) 05/27/21 08:03 Estimated GFR > 60 ml/min 05/27/21 08:03 BUN/Creatinine Ratio 25 % 05/27/21 08:03 Glucose 96 mg/dL (75-100) 05/27/21 08:03 POC Glucose 107 mg/dL (70-105) H 05/25/21 23:03 Calcium 9.7 mg/dL (8.4-10.2) 05/27/21 08:03 Phosphorus 4.10 mg/dL (2.5-4.5) 05/27/21 08:03 Magnesium 2.00 mg/dL (1.7-2.3) 05/27/21 08:03 Total Bilirubin 0.70 mg/dL (0.1-1.2) 05/26/21 07:00 AST 58 units/L (5-40) H 05/26/21 07:00 ALT 35 units/L (7-56) 05/26/21 07:00 Alkaline Phosphatase 53 units/L (35-129) 05/26/21 07:00 Ammonia 45.0 umol/L (25-60) 05/23/21 15:44 Troponin T < 0.010 ng/mL (0.00-0.029) 05/23/21 03:07 Total Protein 7.8 g/dL (6.3-8.2) 05/26/21 07:00 Albumin 4.5 g/dL (3.9-5) 05/26/21 07:00 Albumin/Globulin Ratio 1.4 % 05/26/21 07:00 Lipase 97 units/L (13-60) H 05/23/21 00:44 Urine Color Yellow (Yellow) 05/23/21 00:15 Urine Turbidity Clear (Clear) 05/23/21 00:15 Urine pH 5.0 (5.0-7.0) 05/23/21 00:15 Ur Specific [place] 1.014 (1.003-1.030) 05/23/21 00:15 Urine Protein 100 mg/dl mg/dL (Negative) 05/23/21 00:15 Urine Glucose (UA) Neg mg/dL (Negative) 05/23/21 00:15 Urine Ketones Neg mg/dL (Negative) 05/23/21 00:15 Urine Blood Sm (Negative) 05/23/21 00:15 Urine Nitrite Neg (Negative) 05/23/21 00:15 Urine Bilirubin Neg (Negative) 05/23/21 00:15 Urine Urobilinogen < 2.0 mg/dL (<2.0) 05/23/21 00:15 Ur Leukocyte Esterase Neg (Negative) 05/23/21 00:15 Urine WBC (Auto) 1.0 /HPF (0.0-6.0) 05/23/21 00:15 Urine RBC (Auto) < 1.0 /HPF (0.0-6.0) 05/23/21 00:15 U Epithel Cells (Auto) < 1.0 /HPF (0-13.0) 05/23/21 00:15 Urine Mucus Few /HPF 05/23/21 00:15 Coronavirus (PCR) Negative (Negative) 05/23/21 Unknown Gandhi/IV: Voiding Method Toilet Active Medications - Current Medications Current Medications: Generic Name Dose Route Start Last Admin Trade Name Freq PRN Reason Stop Dose Admin Acetaminophen 650 mg 05/23/21 09:00 Acetaminophen 325 Mg Tab PO Q4H PRN Pain MILD(1-3)/Fever >100.5/STILES Enoxaparin Sodium 40 mg 05/23/21 10:00 05/26/21 09:42 Enoxaparin 40 Mg/0.4 Ml Inj SUB-Q 40 mg QDAY JESSI Administration Levetiracetam 500 mg 05/23/21 10:00 05/26/21 21:15 Levetiracetam 500 Mg Tab PO 500 mg BID JESSI Administration Lorazepam 2 mg 05/23/21 12:08 05/27/21 06:51 Lorazepam 2 Mg/Ml Vial IV 2 mg Q1H PRN Administration CIWA-Ar 8-15 Lorazepam 4 mg 05/23/21 12:08 05/25/21 18:08 Lorazepam 2 Mg/Ml Vial IV 4 mg Q1H PRN Administration CIWA-Ar 16-25 Magnesium Hydroxide 30 ml 05/23/21 09:00 Magnesium Hydroxide (Mom) Oral Liqd Udc PO Q4H PRN Constipation Ondansetron HCl 4 mg 05/23/21 09:00 05/24/21 06:10 Ondansetron 4 Mg/2 Ml Inj IV 4 mg Q8H PRN Administration Nausea And Vomiting Oxycodone/Acetaminophen 1 tab 05/23/21 09:00 05/25/21 21:08 Oxycodone /Acetaminophen 5-325mg Tab PO 1 tab Q6H PRN Administration Pain, Moderate (4-6) Sodium Chloride 10 ml 05/23/21 10:00 05/26/21 21:15 Sodium Chloride 0.9% 10 Ml Flush Syringe IV 10 ml BID JESSI Administration Sodium Chloride 10 ml 05/23/21 09:00 Sodium Chloride 0.9% 10 Ml Flush Syringe IV PRN PRN LINE FLUSH
[2021-05-27 09:24] LABS: Platelet Count 99 K/mm3 (140-440)
[2021-05-27] MEDS: levETIRAcetam 500 MG TAB PO SCH ×2 (10:40→21:03)
[2021-05-27] MEDS: ENOXAPARIN 40 MG/0.4 ML INJ SUB-Q SCH (10:40)
--- NOTE | 2021-05-27 15:32 | Progress Note ---
Assessment and Plan Assessment and plan: Patient is a 50-year-old male with past medical history of seizures, alcohol dependence, and COPD who presented with acute chest pain complicated by acute hypoxic respiratory and acute metabolic encephalopathy. #Acute metabolic encephalopathy-improving #Alcohol withdrawal #Alcohol abuse disorder -Etiology unknown but likely secondary to alcohol withdrawal. -Mental health consulted; appreciate recs -Continue CIWA protocol. Counseled about importance of alcohol cessation. Time: +10 minutes. -Continue to monitor #Acute hypoxic respiratory failure-resolved -CTA chest unremarkable -Discontinued IV Decadron 6 mg daily as coronavirus PCR was negative. -Completed azithromycin course. -Currently on room air #COPD exacerbation-resolved -Completed azithromycin and IV steroid course. #Chest pain -EKG revealing nonspecific ST changes and troponins negative x2 -Cardiology consulted; appreciate recs -Pending cardiac stress test; however, patient is currently withdrawing from alcohol. Stress test will be held until patient completes withdrawal. -Continue to monitor #Seizure history -Continue home Keppra 500 mg twice daily #Elevated transaminases -AST 96, ALT 43 -More consistent with alcoholic etiology. Continue to monitor with CMP. #Advanced care planning -Disease education conducted, care plan discussed, diagnoses discussed, prognosis discussed, and patient acknowledges understanding with care plan -Time: +30 minutes Disposition Plan: Continue medical management Total Time Spent with Patient (Minutes): 45 minutes History Interval history: No acute events overnight. Hospitalist Physical - Constitutional Vitals: Temp Pulse Resp BP Pulse Ox 98.6 F 74 20 136/95 98 05/27/21 06:25 05/27/21 06:25 05/27/21 06:25 05/27/21 06:25 05/27/21 06:25 General appearance: Present: no acute distress, well-nourished - EENT Eyes: Present: PERRL, EOM intact ENT: hearing intact, clear oral mucosa - Neck Neck: Present: supple, normal ROM - Respiratory Respiratory effort: normal Respiratory: bilateral: CTA - Cardiovascular Rhythm: regular Heart Sounds: Present: S1 & S2 - Extremities Extremities: no ischemia, pulses intact, pulses symmetrical, No edema, normal temperature, normal color, Full ROM Peripheral Pulses: within normal limits - Abdominal General gastrointestinal: soft, non-tender, non-distended, normal bowel sounds - Integumentary Integumentary: Present: clear, warm, dry - Psychiatric Psychiatric: other (Lethargic ) - Neurologic Neurologic: CNII-XII intact, moves all extremities - Allied Health Allied health notes reviewed: nursing HEART Score - HEART Score EKG: Non-specific Age: 45-65 Risk factors: No known risk factors Troponin: Troponin T < 0.010 ng/mL (0.00-0.029) 05/23/21 03:07 Troponin: < normal limit Results - Labs CBC & Chem 7: 05/27/21 08:03 05/27/21 08:03 Labs: Laboratory Last Values WBC 3.8 K/mm3 (4.5-11.0) L 05/27/21 08:03 RBC 4.44 M/mm3 (3.65-5.03) 05/27/21 08:03 Hgb 14.7 gm/dl (11.8-15.2) 05/27/21 08:03 Hct 45.7 % (35.5-45.6) H 05/27/21 08:03 MCV 103 fl (84-94) H 05/27/21 08:03 MCH 33 pg (28-32) H 05/27/21 08:03 MCHC 32 % (32-34) 05/27/21 08:03 RDW 16.0 % (13.2-15.2) H 05/27/21 08:03 Plt Count 99 K/mm3 (140-440) L 05/27/21 08:03 Lymph % (Auto) 25.0 % (13.4-35.0) 05/26/21 07:00 [place] % (Auto) 14.2 % (0.0-7.3) H 05/26/21 07:00 Eos % (Auto) 0.4 % (0.0-4.3) 05/26/21 07:00 Baso % (Auto) 0.3 % (0.0-1.8) 05/26/21 07:00 Lymph # (Auto) 1.1 K/mm3 (1.2-5.4) L 05/26/21 07:00 [place] # (Auto) 0.6 K/mm3 (0.0-0.8) 05/26/21 07:00 Eos # (Auto) 0.0 K/mm3 (0.0-0.4) 05/26/21 07:00 Baso # (Auto) 0.0 K/mm3 (0.0-0.1) 05/26/21 07:00 Add Manual Diff Complete 05/24/21 04:34 Total Counted 100 05/24/21 04:34 Seg Neutrophils % 60.1 % (40.0-70.0) 05/26/21 07:00 Seg Neuts % (Manual) 62.0 % (40.0-70.0) 05/24/21 04:34 Lymphocytes % (Manual) 30.0 % (13.4-35.0) 05/24/21 04:34 Monocytes % (Manual) 8.0 % (0.0-7.3) H 05/24/21 04:34 Eosinophils % (Manual) 4.0 % (0.0-4.3) 05/23/21 00:44 Nucleated RBC % Not Reportable 05/24/21 04:34 Seg Neutrophils # 2.6 K/mm3 (1.8-7.7) 05/26/21 07:00 Seg Neutrophils # Man 1.7 K/mm3 (1.8-7.7) L 05/24/21 04:34 Band Neutrophils # 0.0 K/mm3 05/24/21 04:34 Lymphocytes # (Manual) 0.8 K/mm3 (1.2-5.4) L 05/24/21 04:34 Abs React Lymphs (Man) 0.0 K/mm3 05/24/21 04:34 Monocytes # (Manual) 0.2 K/mm3 (0.0-0.8) 05/24/21 04:34 Eosinophils # (Manual) 0.0 K/mm3 (0.0-0.4) 05/24/21 04:34 Basophils # (Manual) 0.0 K/mm3 (0.0-0.1) 05/24/21 04:34 Metamyelocytes # 0.0 K/mm3 05/24/21 04:34 Myelocytes # 0.0 K/mm3 05/24/21 04:34 Promyelocytes # 0.0 K/mm3 05/24/21 04:34 Blast Cells # 0.0 K/mm3 05/24/21 04:34 WBC Morphology Not Reportable 05/24/21 04:34 Hypersegmented Neuts Not Reportable 05/24/21 04:34 Hyposegmented Neuts Not Reportable 05/24/21 04:34 Hypogranular Neuts Not Reportable 05/24/21 04:34 Smudge Cells Not Reportable 05/24/21 04:34 Toxic Granulation Not Reportable 05/24/21 04:34 Toxic Vacuolation Not Reportable 05/24/21 04:34 Dohle Bodies Not Reportable 05/24/21 04:34 Pelger-Huet Anomaly Not Reportable 05/24/21 04:34 Adam Rods Not Reportable 05/24/21 04:34 Platelet Estimate Consistent w auto 05/24/21 04:34 Clumped Platelets Not Reportable 05/24/21 04:34 Plt Clumps, EDTA Not Reportable 05/24/21 04:34 Large Platelets Not Reportable 05/24/21 04:34 Giant Platelets Not Reportable 05/24/21 04:34 Platelet Satelliting Not Reportable 05/24/21 04:34 Plt Morphology Comment Not Reportable 05/24/21 04:34 RBC Morphology Not Reportable 05/24/21 04:34 Dimorphic RBCs Not Reportable 05/24/21 04:34 Polychromasia Not Reportable 05/24/21 04:34 Hypochromasia Not Reportable 05/24/21 04:34 Poikilocytosis Not Reportable 05/24/21 04:34 Anisocytosis Not Reportable 05/24/21 04:34 Microcytosis Not Reportable 05/24/21 04:34 Macrocytosis Not Reportable 05/24/21 04:34 Spherocytes Not Reportable 05/24/21 04:34 Pappenheimer Bodies Not Reportable 05/24/21 04:34 Sickle Cells Not Reportable 05/24/21 04:34 Target Cells 1+ 05/24/21 04:34 Tear Drop Cells Not Reportable 05/24/21 04:34 Ovalocytes Not Reportable 05/24/21 04:34 Helmet Cells Not Reportable 05/24/21 04:34 [place] Bodies Not Reportable 05/24/21 04:34 [place] Rings Not Reportable 05/24/21 04:34 Pilo Cells Not Reportable 05/24/21 04:34 Bite Cells Not Reportable 05/24/21 04:34 Crenated Cell Not Reportable 05/24/21 04:34 Elliptocytes Not Reportable 05/24/21 04:34 Acanthocytes (Spur) Not Reportable 05/24/21 04:34 Rouleaux Not Reportable 05/24/21 04:34 Hemoglobin C Crystals Not Reportable 05/24/21 04:34 Schistocytes Not Reportable 05/24/21 04:34 Malaria parasites Not Reportable 05/24/21 04:34 Jem Bodies Not Reportable 05/24/21 04:34 Hem Pathologist Commnt No 05/24/21 04:34 PT 12.0 Sec. (12.2-14.9) L 05/23/21 00:44 INR 0.80 (0.87-1.13) L 05/23/21 00:44 D-Dimer 1843.67 ng/mlDDU (0-234) H 05/23/21 00:44 Sodium 143 mmol/L (137-145) 05/27/21 08:03 Potassium 3.4 mmol/L (3.6-5.0) L 05/27/21 08:03 Chloride 104.0 mmol/L (98-107) 05/27/21 08:03 Carbon Dioxide 25 mmol/L (22-30) 05/27/21 08:03 Anion Gap 17 mmol/L 05/27/21 08:03 BUN 20 mg/dL (9-20) 05/27/21 08:03 Creatinine 0.8 mg/dL (0.8-1.3) 05/27/21 08:03 Estimated GFR > 60 ml/min 05/27/21 08:03 BUN/Creatinine Ratio 25 % 05/27/21 08:03 Glucose 96 mg/dL (75-100) 05/27/21 08:03 POC Glucose 107 mg/dL (70-105) H 05/25/21 23:03 Calcium 9.7 mg/dL (8.4-10.2) 05/27/21 08:03 Phosphorus 4.10 mg/dL (2.5-4.5) 05/27/21 08:03 Magnesium 2.00 mg/dL (1.7-2.3) 05/27/21 08:03 Total Bilirubin 0.70 mg/dL (0.1-1.2) 05/26/21 07:00 AST 58 units/L (5-40) H 05/26/21 07:00 ALT 35 units/L (7-56) 05/26/21 07:00 Alkaline Phosphatase 53 units/L (35-129) 05/26/21 07:00 Ammonia 45.0 umol/L (25-60) 05/23/21 15:44 Troponin T < 0.010 ng/mL (0.00-0.029) 05/23/21 03:07 Total Protein 7.8 g/dL (6.3-8.2) 05/26/21 07:00 Albumin 4.5 g/dL (3.9-5) 05/26/21 07:00 Albumin/Globulin Ratio 1.4 % 05/26/21 07:00 Lipase 97 units/L (13-60) H 05/23/21 00:44 Urine Color Yellow (Yellow) 05/23/21 00:15 Urine Turbidity Clear (Clear) 05/23/21 00:15 Urine pH 5.0 (5.0-7.0) 05/23/21 00:15 Ur Specific [place] 1.014 (1.003-1.030) 05/23/21 00:15 Urine Protein 100 mg/dl mg/dL (Negative) 05/23/21 00:15 Urine Glucose (UA) Neg mg/dL (Negative) 05/23/21 00:15 Urine Ketones Neg mg/dL (Negative) 05/23/21 00:15 Urine Blood Sm (Negative) 05/23/21 00:15 Urine Nitrite Neg (Negative) 05/23/21 00:15 Urine Bilirubin Neg (Negative) 05/23/21 00:15 Urine Urobilinogen < 2.0 mg/dL (<2.0) 05/23/21 00:15 Ur Leukocyte Esterase Neg (Negative) 05/23/21 00:15 Urine WBC (Auto) 1.0 /HPF (0.0-6.0) 05/23/21 00:15 Urine RBC (Auto) < 1.0 /HPF (0.0-6.0) 05/23/21 00:15 U Epithel Cells (Auto) < 1.0 /HPF (0-13.0) 05/23/21 00:15 Urine Mucus Few /HPF 05/23/21 00:15 Coronavirus (PCR) Negative (Negative) 05/23/21 Unknown Gandhi/IV: Voiding Method Toilet Active Medications - Current Medications Current Medications: Generic Name Dose Route Start Last Admin Trade Name Freq PRN Reason Stop Dose Admin Acetaminophen 650 mg 05/23/21 09:00 Acetaminophen 325 Mg Tab PO Q4H PRN Pain MILD(1-3)/Fever >100.5/STILES Enoxaparin Sodium 40 mg 05/23/21 10:00 05/27/21 10:40 Enoxaparin 40 Mg/0.4 Ml Inj SUB-Q 40 mg QDAY JESSI Administration Levetiracetam 500 mg 05/23/21 10:00 05/27/21 10:40 Levetiracetam 500 Mg Tab PO 500 mg BID JESSI Administration Lorazepam 2 mg 05/23/21 12:08 05/27/21 10:40 Lorazepam 2 Mg/Ml Vial IV 2 mg Q1H PRN Administration CIWA-Ar 8-15 Lorazepam 4 mg 05/23/21 12:08 05/25/21 18:08 Lorazepam 2 Mg/Ml Vial IV 4 mg Q1H PRN Administration CIWA-Ar 16-25 Magnesium Hydroxide 30 ml 05/23/21 09:00 Magnesium Hydroxide (Mom) Oral Liqd Udc PO Q4H PRN Constipation Ondansetron HCl 4 mg 05/23/21 09:00 05/24/21 06:10 Ondansetron 4 Mg/2 Ml Inj IV 4 mg Q8H PRN Administration Nausea And Vomiting Oxycodone/Acetaminophen 1 tab 05/23/21 09:00 05/25/21 21:08 Oxycodone /Acetaminophen 5-325mg Tab PO 1 tab Q6H PRN Administration Pain, Moderate (4-6) Sodium Chloride 10 ml 05/23/21 10:00 05/27/21 10:40 Sodium Chloride 0.9% 10 Ml Flush Syringe IV 10 ml BID JESSI Administration Sodium Chloride 10 ml 05/23/21 09:00 Sodium Chloride 0.9% 10 Ml Flush Syringe IV PRN PRN LINE FLUSH
[2021-05-27] MEDS ORDERED: POTASSIUM CHLORIDE ER 20 MEQ TAB PO NR (16:00)
[2021-05-28 08:16] LABS: Basophils % (Auto) 0.5 % (0.0-1.8); Eosinophils # (Auto) 0.1 K/mm3 (0.0-0.4); Eosinophils % (Auto) 2.5 % (0.0-4.3); Hematocrit 42.5 % (35.5-45.6); Hemoglobin 13.8 gm/dl (11.8-15.2); Lymphocytes # (Auto) 0.9 K/mm3 (1.2-5.4); Lymphocytes % (Auto) 26.6 % (13.4-35.0); Mean Corpuscular HGB Conc 33 % (32-34); Mean Corpuscular Volume 101 fl (84-94); Monocytes # (Auto) 0.6 K/mm3 (0.0-0.8); Monocytes % (Auto) 15.9 % (0.0-7.3); Platelet Count 115 K/mm3 (140-440); Red Cell Distribution Width 15.9 % (13.2-15.2)
[2021-05-28 08:26] LABS: Blood Urea Nitrogen 20 mg/dL (9-20); Hemolysis Index 14
[2021-05-28 08:32] LABS: BUN/Creatinine Ratio 33
[2021-05-28] MEDS: levETIRAcetam 500 MG TAB PO SCH (09:14)
[2021-05-28] MEDS: ENOXAPARIN 40 MG/0.4 ML INJ SUB-Q SCH (09:14)
[2021-05-28] MEDS: oxyCODONE /ACETAMINOPHEN 5-325MG TAB PO PRN (15:59)
[2021-05-28] MEDS: ONDANSETRON 4 MG/2 ML INJ IV PRN ×2 (15:59→16:00)
[2021-05-28 16:42] VITALS: BP 127/64
== END 2021-05-28 18:31 | disposition home or self-care (01) | DRG 70 ==
LOC: ED 23:38 → 3A 05-23 07:49
PROVIDERS: ADMIT Internal Medicine; ATTEND Student in an Organized Health Care Education/Training Program
DX: G93.41 Metabolic encephalopathy (principal); J96.01 Acute respiratory failure with hypoxia; J44.1 Chronic obstructive pulmonary disease with (acute) exacerbation; F10.239 Alcohol dependence with withdrawal, unspecified; I10 Essential (primary) hypertension; Z20.822 Contact with and (suspected) exposure to COVID-19
CPT/HCPCS: 36415; 71275; 74022; 74177; 80048; 80053; 81001; 82140; 82962; 83690; 83735; 84100; 84484; 85007; 85025; 85027; 85379; 85610; 93005; G0378; J3490; Q0162; J1100; J1650; J2060; J2270; J2405; J3411; J3475; J7030; Q9967; U0003

== ENCOUNTER 2021-07-18 01:29 | Emergency (ER) | payer SELFPAY ==
[2021-07-18] MEDS ORDERED: ACETAMINOPHEN 500 MG TAB PO ONE (06:55)
[2021-07-18 07:09] VITALS: BP 132/78
--- NOTE | 2021-07-18 07:47 | Event Note ---
ED Screening Note Date of service: 07/18/21 Time: 07:46 ED Screening Note: 50-year-old -[place] male who is an alcoholic presents to the emergency room complaining that he feels weak both his legs and hips are painful where he is having difficulty walking. He is not vaccinated for COVID does not take any medication just B1. His last drink is been over 8 hours. He states he is starting to tremble. His drink of choice is beer and liquor shots. Does not have a primary care provider. This initial assessment/diagnostic orders/clinical plan/treatment(s) is/are subject to change based on patients health status, clinical progression and re- assessment by fellow clinical providers in the ED. Further treatment and workup at subsequent clinical providers discretion. Patient/guardian urged not to elope from the ED as their condition may be serious if not clinically assessed and man aged. Initial orders include:
[2021-07-18] MEDS ORDERED: LORazepam 2 MG/ML VIAL IV PRN ×3 (07:56)
--- NOTE | 2021-07-18 08:01 | Emergency Department Report ---
HPI - General Chief Complaint: Extremity Injury, Lower Time Seen by Provider: 07/18/21 07:49 - HPI HPI: MSE 6 The patient is a 50-year-old male present with a chief complaint of leg pain. Patient complains of pain mostly in his left lower extremity times several weeks. Patient denies any recent trauma. Patient acknowledges he drinks alcohol daily which includes four beers and "a couple of shots." Patient states he last consumed alcohol approximately 8 hours ago ED Past Medical Hx - Past Medical History Hx Hypertension: Yes Hx Seizures: Yes Hx Psychiatric Treatment: Yes (Prior Suicidal, Depression) Hx Asthma: Yes Additional medical history: TENDONITIS, ETOH - Surgical History Additional Surgical History: L reconstructive knee surgery - Family History Family history: no significant - Social History Smoking Status: Current Every Day Smoker Substance Use Type: Alcohol (Four beers and "a couple of shots" daily) - Medications Home Medications: Home Medications Medication Instructions Recorded Confirmed Last Taken Type levETIRAcetam [Keppra TAB] 500 mg PO BID #60 tablet 12/01/20 05/26/21 Unknown Rx Folic Acid [Folvite] 1 mg PO QDAY #30 tablet 01/25/21 05/26/21 Unknown Rx Fluticasone [Flonase] 1 spray NS QDAY #1 bottle 03/05/21 05/26/21 Unknown Rx levoFLOXacin [Levaquin] 750 mg PO QDAY #7 tablet 05/28/21 Unknown Rx ED Review of Systems ROS: Stated complaint: LEFT LEG PAIN Other details as noted in HPI Constitutional: denies: diaphoresis Eyes: denies: eye pain ENT: denies: throat pain Respiratory: denies: cough Cardiovascular: denies: chest pain Endocrine: no symptoms reported Gastrointestinal: denies: abdominal pain Genitourinary: denies: dysuria Musculoskeletal: arthralgia, myalgia Neurological: denies: headache Physical Exam - Physical Exam Vital Signs: Vital Signs 07/18/21 07/18/21 07:08 07:11 Temperature 98.2 F Pulse Rate 84 Respiratory 16 16 Rate Blood Pressure 132/78 [Right] O2 Sat by Pulse 94 Oximetry Physical Exam: GENERAL: The patient is well-developed well-nourished male lying on stretcher not appearing to be in acute distress. [] HEENT: Normocephalic. Atraumatic. Extraocular motions are intact. Patient has moist mucous membranes. NECK: Supple. Trachea midline CHEST/LUNGS: Clear to auscultation. There is no respiratory distress noted. HEART/CARDIOVASCULAR: Regular. There is no tachycardia. There is no gallop rub or murmur. ABDOMEN: Abdomen is soft, nontender. Patient has normal bowel sounds. There is no abdominal distention. SKIN: There is no rash. There is no edema. There is no diaphoresis. NEURO: The patient is awake, alert, and oriented. The patient is cooperative. The patient has no focal neurologic deficits. The patient has normal speech. GCS 15 MUSCULOSKELETAL: Negative straight leg raise test on the left. There is no evidence of acute injury. ED Course Vital Signs 07/18/21 07/18/21 07:08 07:11 Temperature 98.2 F Pulse Rate 84 Respiratory 16 16 Rate Blood Pressure 132/78 [Right] O2 Sat by Pulse 94 Oximetry ED Medical Decision Making - Lab Data Result diagrams: 07/18/21 07:45 07/18/21 07:45 - Radiology Data Radiology results: report reviewed (Bilateral lower extremity Dopplers), image reviewed (Bilateral lower extremity Doppler) [facility] [address] [place] [address] Vascular Lab Report Signed Patient: SYED MYERS MR#: [id number] : 1970 Acct:[id number] Age/Sex: 50 / M ADM Date: 07/18/21 Loc: ED Attending Dr: Ordering Physician: DESIRAE URBAN Date of Service: 07/18/21 Procedure(s): VL venous duplex LE BIL Accession Number(s): [id number] cc: DESIRAE URBAN DUPLEX DOPPLER LOWER EXTREMITY VEINS, BILATERAL INDICATION: Bilateral leg pain, no evidence for trauma. TECHNIQUE: Duplex doppler imaging was performed through the veins of both lower extremities using venous compression and other maneuvers. COMPARISON: No relevant prior imaging study available. FINDINGS: Right Common femoral vein: Negative. Right Superficial femoral vein: Negative. Right Popliteal vein: Negative. Right Calf veins: Negative. Left Common femoral vein: Negative. Left Superficial femoral vein: Negative. Left Popliteal vein: Negative. Left Calf veins: Negative. Additional findings: None. IMPRESSION: No sonographic evidence for DVT in either lower extremity. Signer Name: Domingo Lau Jr, MD Signed: 07/18/2021 10:57 AM Workstation Name: [id number] Transcribed By: TTR Dictated By: DOMINGO LAU JR, MD Electronically Authenticated By: DOMINGO LAU JR, MD Signed Date/Time: 07/18/211056 DD/ 55 TD/TT: Print Cancel - Differential Diagnosis Arthralgia, myalgia, DVT, sciatica, alcoholism Critical care attestation.: If time is entered above; I have spent that time in minutes in the direct care of this critically ill patient, excluding procedure time. ED Disposition Clinical Impression: Leg pain, bilateral Disposition: HOME / SELF CARE / HOMELESS Is pt being admited?: No Does the pt Need Aspirin: No Condition: Stable
[2021-07-18 08:06] LABS: Hematocrit 37.1 % (35.5-45.6); Hemoglobin 12.3 gm/dl (11.8-15.2); Mean Corpuscular HGB Conc 33 % (32-34); Mean Corpuscular Volume 102 fl (84-94); Platelet Count 151 K/mm3 (140-440); Red Blood Count 3.65 M/mm3 (3.65-5.03); Red Cell Distribution Width 14.5 % (13.2-15.2)
[2021-07-18 08:29] LABS: Alanine Aminotransferase 28 units/L (7-56); Albumin 4.3 g/dL (3.9-5); Blood Urea Nitrogen 10 mg/dL (9-20); Calcium 8.7 mg/dL (8.4-10.2); Hemolysis Index 15
[2021-07-18 08:43] LABS: BUN/Creatinine Ratio 14
[2021-07-18 09:40] LABS: Total Cells Counted 100
[2021-07-18 09:41] LABS: Macrocytosis 1+; Platelet Estimate Consistent w Auto; Stomatocytes 1+
--- NOTE | 2021-07-18 11:02 | Vascular Lab Report ---
DUPLEX DOPPLER LOWER EXTREMITY VEINS, BILATERAL INDICATION: Bilateral leg pain, no evidence for trauma. TECHNIQUE: Duplex doppler imaging was performed through the veins of both lower extremities using ve nous compression and other maneuvers. COMPARISON: No relevant prior imaging study available. FINDINGS: Right Common femoral vein: Negative. Right Superficial femoral vein: Negative. Right Popliteal vein: Negative. Right Calf veins: Negative. Left Common femoral vein: Negative. Left Superficial femoral vein: Negative. Left Popliteal vein: Negative. Left Calf veins: Negative. Additional findings: None. IMPRESSION: No sonographic evidence for DVT in either lower extremity. Signer Name: Domingo Lau Jr, MD Signed: 07/18/2021 10:57 AM Workstation Name: [id number]
[2021-07-18 11:53] LABS: Bilirubin,Urine NEG (Negative); Blood,Urine NEG (Negative); Color,Urine Yellow (Yellow); Protein,Urine <15 mg/dL mg/dL (Negative); RBC,Urine < 1.0 /HPF (0.0-6.0); Urobilinogen,Urine < 2.0 mg/dL (<2.0); WBC,Urine < 1.0 /HPF (0.0-6.0)
== END 2021-07-18 22:00 | disposition home or self-care (01) ==
LOC: ED 01:29
DX: M79.604 Pain in right leg (principal); M79.605 Pain in left leg; I10 Essential (primary) hypertension; J45.909 Unspecified asthma, uncomplicated; F17.200 Nicotine dependence, unspecified, uncomplicated
CPT/HCPCS: 36415; 80053; 81001; 83690; 85007; 85025; 93970; 96374; 99284; J2060; 80320; G0480

== ENCOUNTER 2021-07-19 15:10 | Emergency (ER) | payer SELFPAY ==
[2021-07-19] MEDS ORDERED: ONDANSETRON 4 MG ODT TAB PO ONE (15:24)
[2021-07-19] MEDS ORDERED: PHENYTOIN 100 MG CAPSULE.ER PO ONE (15:24)
[2021-07-19 15:28] VITALS: BP 155/86
--- NOTE | 2021-07-19 15:29 | Emergency Department Report ---
ED Seizure HPI - General Stated Complaint: AMS/SZ Time Seen by Provider: 07/19/21 15:24 - History of Present Illness Initial Comments: Patient was brought in by EMS due to seizures. He has a known seizure disorder. He is noncompliant with medication. He has had seizures off and on for years. He had 2 seizures today. One was actually witnessed by fire. Patient had a generalized tonic-clonic seizure. According to EMS that brought him in, he is at baseline now. He is no longer postictal. He is mentating and conversant appropriately. Patient admits that he has not been on Keppra for over a month. He states that he simply could not afford it. He has seizures for years. His father had seizures. He thought that they were family related. Patient denies any pain at this time. He has no chest pain or shortness of breath. He has no recent nausea or vomiting. He does admit to drinking alcohol. Patient has no blurry vision or double vision. He states that he is just a little queasy at this time. - Related Data Previous Rx's Medication Instructions Recorded Last Taken Type Folic Acid [Folvite] 1 mg PO QDAY #30 tablet 01/25/21 Unknown Rx Fluticasone [Flonase] 1 spray NS QDAY #1 bottle 03/05/21 Unknown Rx levoFLOXacin [Levaquin] 750 mg PO QDAY #7 tablet 05/28/21 Unknown Rx Acetaminophen/Codeine [Tylenol 1 - 2 tab PO Q6H PRN #10 tab 07/18/21 Unknown Rx /Codeine # 3 tab] Phenytoin [Dilantin] 100 mg PO Q8HR #90 capsule 07/19/21 Unknown Rx Allergies Allergy/AdvReac Type Severity Reaction Status Date / Time ketorolac [From Toradol] Allergy Rash Verified 07/18/21 01:32 tramadol Allergy Rash Verified 07/18/21 01:32 ED Review of Systems ROS: Stated complaint: AMS/SZ Other details as noted in HPI Comment: All other systems reviewed and negative Constitutional: denies: fever Eyes: denies: vision change ENT: denies: throat pain Respiratory: denies: cough Cardiovascular: denies: chest pain Endocrine: denies: unexplained weight loss Gastrointestinal: as per HPI, nausea Genitourinary: denies: dysuria Musculoskeletal: denies: back pain Neurological: denies: headache Hematological/Lymphatic: denies: easy bruising ED Past Medical Hx - Past Medical History Hx Hypertension: Yes Hx Congestive Heart Failure: No Hx Diabetes: No Hx Seizures: Yes Hx Psychiatric Treatment: Yes (Prior Suicidal, Depression) Hx Asthma: Yes Hx COPD: No Additional medical history: TENDONITIS, ETOH - Surgical History Additional Surgical History: L reconstructive knee surgery - Family History Family history: hypertension, other (Seizures) - Social History Smoking Status: Current Every Day Smoker (We discussed tobacco cessation x3 minutes) Substance Use Type: Alcohol (Four beers and "a couple of shots" daily) - Medications Home Medications: Home Medications Medication Instructions Recorded Confirmed Last Taken Type Folic Acid [Folvite] 1 mg PO QDAY #30 tablet 01/25/21 05/26/21 Unknown Rx Fluticasone [Flonase] 1 spray NS QDAY #1 bottle 03/05/21 05/26/21 Unknown Rx levoFLOXacin [Levaquin] 750 mg PO QDAY #7 tablet 05/28/21 Unknown Rx Acetaminophen/Codeine [Tylenol 1 - 2 tab PO Q6H PRN #10 tab 07/18/21 Unknown Rx /Codeine # 3 tab] Phenytoin [Dilantin] 100 mg PO Q8HR #90 capsule 07/19/21 Unknown Rx ED Physical Exam - General Limitations: No Limitations, Other (Pulse ox noted and normal by EMS) General appearance: alert, in no apparent distress, other (Unkempt) - Head Head exam: Present: atraumatic, normocephalic - Eye Eye exam: Present: normal appearance, EOMI - ENT ENT exam: Present: normal orophraynx, normal external ear exam - Neck Neck exam: Present: normal inspection. Absent: meningismus - Respiratory Respiratory exam: Present: normal lung sounds bilaterally. Absent: respiratory distress - Cardiovascular Cardiovascular Exam: Present: normal rhythm, tachycardia - GI/Abdominal GI/Abdominal exam: Present: soft. Absent: distended, tenderness - Extremities Exam Extremities exam: Present: normal capillary refill. Absent: calf tenderness - Back Exam Back exam: Absent: CVA tenderness (R), CVA tenderness (L) - Neurological Exam Neurological exam: Present: alert, oriented X3, CN II-XII intact, normal gait. Absent: motor sensory deficit - Psychiatric Psychiatric exam: Present: normal affect, normal mood - Skin Skin exam: Present: warm, dry ED Course - Reevaluation(s) Reevaluation #1: 07/19/21 15:26 EMS have been met upon arrival. Old records noted. Patient was given oral medications. ED Medical Decision Making - Medical Decision Making Patient presented with recurrent seizures in the setting of being noncompliant with medications. He has no physical complaints. There is no visible sign of trauma. He is not altered. There is no confusion. I have no concern at this time for subdural or epidural hematomas. He certainly has no meningeal signs and does not appear to have any obvious infectious pathology. EMS had checked her glucose and his glucose was normal. It would be unlikely that he would have seizures that would stop if these were related to hypoglycemia or hyponatremia. Patient was started on Dilantin which is cheaper than Keppra. He was referred for outpatient evaluation and follow-up. Critical Care Time: No Critical care attestation.: If time is entered above; I have spent that time in minutes in the direct care of this critically ill patient, excluding procedure time. ED Disposition Clinical Impression: Recurrent seizures, Noncompliance Disposition: 01 HOME / SELF CARE / HOMELESS Is pt being admited?: No Condition: Stable Instructions: Epilepsy Additional Instructions: Drink any water. Stop drinking alcohol. Drink Gatorade. Return for problems. Take seizure medication. Follow-up with the family doctor or your primary care doctor or the referral physician. Prescriptions: Phenytoin [Dilantin] 100 mg PO Q8HR #90 capsule Referrals: PRIMARY CAREMD [Referring] - 3-5 Days ALEJO FRANCO MD [Staff Physician] - 3-5 Days
== END 2021-07-19 16:07 | disposition home or self-care (01) ==
LOC: ED 15:10
DX: G40.909 Epilepsy, unspecified, not intractable, without status epilepticus (principal); I10 Essential (primary) hypertension; J45.909 Unspecified asthma, uncomplicated; F10.10 Alcohol abuse, uncomplicated; F17.200 Nicotine dependence, unspecified, uncomplicated
CPT/HCPCS: 99283; J3490; Q0162

== ENCOUNTER 2021-08-06 20:03 | Emergency (ER) | payer SELFPAY | END 2021-08-07 03:45 | disposition left against medical advice (07) | LOC: ED 20:03 | DX: R53.1 Weakness (principal); Z53.21 Procedure and treatment not carried out due to patient leaving prior to being seen by health care provider ==

== ENCOUNTER 2021-08-17 03:53 | Emergency (ER) | payer SELFPAY ==
[2021-08-17 04:12] VITALS: BP 140/89
== END 2021-08-17 23:12 | disposition left against medical advice (07) ==
LOC: ED 03:53
DX: M79.671 Pain in right foot (principal); F41.9 Anxiety disorder, unspecified; F32.9 Major depressive disorder, single episode, unspecified; Z53.21 Procedure and treatment not carried out due to patient leaving prior to being seen by health care provider

== ENCOUNTER 2021-08-21 22:31 | Emergency (ER) | payer SELFPAY ==
--- NOTE | 2021-08-22 03:44 | Emergency Department Report ---
ED General Adult HPI - General Chief complaint: Medical Clearance Stated complaint: MUTI COMPLAINTS PUI?: No Time Seen by Provider: 08/22/21 03:29 Source: patient, RN notes reviewed, old records reviewed Mode of arrival: Ambulatory Limitations: No Limitations - History of Present Illness Initial comments: The patient was evaluated in the emergency department for symptoms described in the history of present illness. He/she was evaluated in the context of the global COVID-19 pandemic, which necessitated consideration that the patient might be at risk for infection with the virus that causes COVID-19. Institutional protocols and algorithms that pertain to the evaluation of patients at risk for COVID-19 are in a state of rapid change based on information released by regulatory bodies including the CDC and federal and sta organizations. These policies and algorithms were followed during the patient's care in the emergency department. Please note that these policies, procedures and recommendations changed on a rapid basis. The patient is a 50-year-old gentleman with a history of alcohol abuse, COPD, and possible alcohol withdrawal seizures, who presents to the ER today with a complaint of generalized weakness, knee pain, paralumbar back pain, cough. He is not homicidal or suicidal. He took the bus to get here. Reports no alcohol consumption today. Denies focal extremity weakness numbness. No chest pain. No abdominal pain. No vomiting. No urinary symptoms. Has not taken anything [id number] that he can recall -: Gradual Location: back, left, right, lower extremity Severity scale (0 -10): 3 Quality: aching Consistency: intermittent Improves with: rest Worsens with: movement - Related Data Previous Rx's Medication Instructions Recorded Last Taken Type Folic Acid [Folvite] 1 mg PO QDAY #30 tablet 01/25/21 Unknown Rx Fluticasone [Flonase] 1 spray NS QDAY #1 bottle 03/05/21 Unknown Rx Phenytoin [Dilantin] 100 mg PO Q8HR #90 capsule 07/19/21 Unknown Rx Albuterol Sulfate [Proair 90 mcg IH Q4HR PRN #2 aer.pow.ba 08/22/21 Unknown Rx Respiclick] Multivitamin with Folic Acid [Cvs 400 mcg PO QDAY #30 tablet 08/22/21 Unknown Rx One Daily Essential Tablet] chlordiazePOXIDE [Librium] 25 mg PO Q6H PRN #25 capsule 08/22/21 Unknown Rx Allergies Allergy/AdvReac Type Severity Reaction Status Date / Time ketorolac [From Toradol] Allergy Rash Verified 07/18/21 01:32 tramadol Allergy Rash Verified 07/18/21 01:32 ED Review of Systems ROS: Stated complaint: MUTI COMPLAINTS Other details as noted in HPI Constitutional: malaise, weakness, other (Positive loss of taste and smell) ENT: congestion Respiratory: cough, shortness of breath Cardiovascular: denies: chest pain Gastrointestinal: denies: abdominal pain Genitourinary: denies: dysuria Musculoskeletal: back pain Neurological: weakness Psychiatric: denies: homicidal thoughts, suicidal thoughts ED Past Medical Hx - Past Medical History Previous Medical History?: Yes Hx Hypertension: Yes Hx Congestive Heart Failure: No Hx Diabetes: No Hx Seizures: Yes Hx Psychiatric Treatment: Yes (Prior Suicidal, Depression) Hx Asthma: Yes Hx COPD: No Additional medical history: TENDONITIS, ETOH - Surgical History Past Surgical History?: Yes Additional Surgical History: L reconstructive knee surgery - Social History Smoking Status: Current Every Day Smoker (We discussed tobacco cessation x3 minutes) Substance Use Type: Alcohol (Four beers and "a couple of shots" daily) - Medications Home Medications: Home Medications Medication Instructions Recorded Confirmed Last Taken Type Folic Acid [Folvite] 1 mg PO QDAY #30 tablet 01/25/21 05/26/21 Unknown Rx Fluticasone [Flonase] 1 spray NS QDAY #1 bottle 03/05/21 05/26/21 Unknown Rx Phenytoin [Dilantin] 100 mg PO Q8HR #90 capsule 07/19/21 Unknown Rx Albuterol Sulfate [Proair 90 mcg IH Q4HR PRN #2 aer.pow.ba 08/22/21 Unknown Rx Respiclick] Multivitamin with Folic Acid [Cvs 400 mcg PO QDAY #30 tablet 08/22/21 Unknown Rx One Daily Essential Tablet] chlordiazePOXIDE [Librium] 25 mg PO Q6H PRN #25 capsule 08/22/21 Unknown Rx ED Physical Exam - General Limitations: No Limitations General appearance: alert, in no apparent distress - Head Head exam: Present: atraumatic, normocephalic - Eye Eye exam: Present: normal appearance, PERRL, EOMI, conjunctival injection. Absent: nystagmus - ENT ENT exam: Present: normal exam, normal orophraynx, mucous membranes moist - Neck Neck exam: Present: normal inspection, full ROM. Absent: tenderness, meningismus - Respiratory Respiratory exam: Present: normal lung sounds bilaterally, decreased breath sounds. Absent: respiratory distress, wheezes, rales, rhonchi, stridor - Cardiovascular Cardiovascular Exam: Present: regular rate, normal rhythm, normal heart sounds. Absent: bradycardia, tachycardia, irregular rhythm, systolic murmur, diastolic murmur, rubs, gallop - GI/Abdominal GI/Abdominal exam: Present: soft. Absent: distended, tenderness, guarding, rebound, rigid, pulsatile mass - Rectal Rectal exam: Present: deferred - Extremities Exam Extremities exam: Present: normal inspection, full ROM, other (2+ pulses noted in the bilateral upper and lower extremities. There is no palpable cord. negative Homans sign. Muscular compartments are soft. The pelvis is stable.). Absent: pedal edema, calf tenderness - Back Exam Back exam: Present: normal inspection, full ROM. Absent: tenderness, CVA tenderness (R), CVA tenderness (L), paraspinal tenderness, vertebral tenderness - Neurological Exam Neurological exam: Present: alert, oriented X3, normal gait, other (No facial droop. Tongue midline. Extraocular movements intact bilaterally. Facial sensation intact to light touch in V1, V2, V3 distribution bilaterally. 5 and a 5 strength in 4 extremities. Sensation intact to light touch in 4 extre mities.). Absent: motor sensory deficit - Psychiatric Psychiatric exam: Present: depressed, anxious. Absent: homicidal ideation, suicidal ideation - Skin Skin exam: Present: warm, dry, intact, normal color. Absent: rash ED Course Vital Signs 08/22/21 03:16 Temperature 98.1 F Pulse Rate 70 Respiratory 17 Rate Blood Pressure 132/91 [Right] O2 Sat by Pulse 95 Oximetry - Reevaluation(s) Reevaluation #1: 08/22/21 03:43 Differential diagnosis, including but not limited to: Alcohol intoxication, pneumonia, bronchitis, deconditioning, COVID-19, electrolyte derangement Assessment and plan: 50-year-old gentleman with a number of nonspecific complaints, with a known history of alcoholism. He is clinically sober and ambulates with a slow shuffling gait. Obtain appropriate laboratory studies, EKG, x-ray the chest. Reassess after completion of data points. Treat supportively and symptomatically 08/22/21 04:57 Patient in no acute distress. X-ray unremarkable. EKG not consistent with STEMI. Labs demonstrate chronic leukopenia, thrombocytopenia, transaminitis, and elevated blood alcohol level. This is consistent with alcohol intoxication, chronic alcoholism. This is similar to prior evaluations. Patient is currently ambulatory. Care be transferred to the [facility] ER provider, to discharge this patient when clinically sober. He does not appear to have an emergent medical condition at this time which would require hospitalization or admission. He will need to cease alcohol consumption, and follow-up with an outpatient physician/provider for his chronic abnormalities, which will likely improve with alcohol cessation ED Medical Decision Making - Lab Data Result diagrams: 08/22/21 03:51 08/22/21 03:51 Vital Signs 08/22/21 03:16 Temperature 98.1 F Pulse Rate 70 Respiratory 17 Rate Blood Pressure 132/91 [Right] O2 Sat by Pulse 95 Oximetry Lab Results 08/22/21 08/22/21 08/22/21 Range/Units 03:51 03:51 03:51 WBC 2.6 L (4.5-11.0) K/mm3 RBC 3.65 (3.65-5.03) M/mm3 Hgb 12.7 (11.8-15.2) gm/dl Hct 37.0 (35.5-45.6) % MCV 101 H (84-94) fl MCH 35 H (28-32) pg MCHC 34 (32-34) % RDW 14.3 (13.2-15.2) % Plt Count 113 L (140-440) K/mm3 Seg Neutrophils % Manager [employer] Product Sodium 144 (137-145) mmol/L Potassium 4.4 (3.6-5.0) mmol/L Chloride 103.2 (98-107) mmol/L Carbon Dioxide 21 L (22-30) mmol/L Anion Gap 24 mmol/L BUN 10 (9-20) mg/dL Creatinine 0.7 L (0.8-1.3) mg/dL Estimated GFR > 60 ml/min BUN/Creatinine Ratio 14 % Glucose 85 (75-100) mg/dL Calcium 8.8 (8.4-10.2) mg/dL Magnesium 1.90 (1.7-2.3) mg/dL Total Bilirubin 0.20 (0.1-1.2) mg/dL AST 195 H (5-40) units/L ALT 87 H (7-56) units/L Alkaline Phosphatase 68 (35-129) units/L Total Creatine Kinase 334 H (55-170) units/L Total Protein 6.9 (6.3-8.2) g/dL Albumin 4.6 (3.9-5) g/dL Albumin/Globulin Ratio 2.0 % Salicylates < 0.3 L (2.8-20.0) mg/dL Acetaminophen (10.0-30.0) ug/mL Plasma/Serum Alcohol (0-0.07) % 08/22/21 08/22/21 Range/Units 03:51 03:51 WBC (4.5-11.0) K/mm3 RBC (3.65-5.03) M/mm3 Hgb (11.8-15.2) gm/dl Hct (35.5-45.6) % MCV (84-94) fl MCH (28-32) pg MCHC (32-34) % RDW (13.2-15.2) % Plt Count (140-440) K/mm3 Seg Neutrophils % Sodium (137-145) mmol/L Potassium (3.6-5.0) mmol/L Chloride (98-107) mmol/L Carbon Dioxide (22-30) mmol/L Anion Gap mmol/L BUN (9-20) mg/dL Creatinine (0.8-1.3) mg/dL Estimated GFR ml/min BUN/Creatinine Ratio % Glucose (75-100) mg/dL Calcium (8.4-10.2) mg/dL Magnesium (1.7-2.3) mg/dL Total Bilirubin (0.1-1.2) mg/dL AST (5-40) units/L ALT (7-56) units/L Alkaline Phosphatase (35-129) units/L Total Creatine Kinase (55-170) units/L Total Protein (6.3-8.2) g/dL Albumin (3.9-5) g/dL Albumin/Globulin Ratio % Salicylates (2.8-20.0) mg/dL Acetaminophen 5.0 L (10.0-30.0) ug/mL Plasma/Serum Alcohol 0.36 H (0-0.07) % - EKG Data -: EKG Interpreted by [facility] EKG shows normal: sinus rhythm Rate: normal - EKG Data 08/22/21 04:56 EKG is interpreted at 04: 45 Sinus rhythm, rate 61 bpm. Normal axis, QTC 440 ms, high left ventricular voltage, and poor R wave progression. Minimal motion artifact. Abnormal EKG. Not a STEMI. - Radiology Data Radiology results: pending, report reviewed, image reviewed XR chest 1V ap INDICATION / CLINICAL INFORMATION: weakness cough. COMPARISON: 05/23/2021 FINDINGS: SUPPORT DEVICES: None. HEART /PULMONARY VASCULATURE: No significant abnormality. LUNGS / PLEURA: No significant pulmonary or pleural abnormality. Prominent nipple shadow on the left. No pneumothorax. IMPRESSION: 1. No acute findings. Signer Name: Klaus Zee MD Signed: 08/22/2021 3:08 AM Workstation Name: [id number] Critical care attestation.: If time is entered above; I have spent that time in minutes in the direct care of this critically ill patient, excluding procedure time. ED Disposition Clinical Impression: Alcohol intoxication, Cough, Thrombocytopenia, Leukopenia, Transaminitis Disposition: HOME / SELF CARE / HOMELESS Is pt being admited?: No Does the pt Need Aspirin: No Condition: Good Additional Instructions: We recommend that the patient discontinue alcohol consumption. Patient is found to have a number of laboratory abnormalities today, including leukopenia, thrombocytopenia, and transaminitis. Respectively, this signifies low white blood cell count, low platelet count, and abnormal liver function. Cessation of alcohol consumption will likely improve these abnormalities. Please take the prescribed medications as needed and directed. Please take the Librium as needed for sensation of alcohol withdrawal. Recommend that patient not drive or operate motor vehicles until cleared to do so by a primary care doctor. Recommend follow-up with a primary care doctor within the next month to 6 weeks. Participate in physical activities as tolerated. Please return to the emergency room right away with new pain, worsened pain, jose juan ration of pain, projectile vomiting, change in mental status, confusion, inability tolerate liquid feeds, new, worsened or different symptoms not present on the initial emergency room evaluation Referrals: [facility] [Provider Group] - 3-5 Days [facility] [Outside] - 3-5 Days [facility] [Outside] - 3-5 Days
--- NOTE | 2021-08-22 04:13 | XRay Report ---
XR chest 1V ap INDICATION / CLINICAL INFORMATION: weakness cough. COMPARISON: 05/23/2021 FINDINGS: SUPPORT DEVICES: None. HEART /PULMONARY VASCULATURE: No significant abnormality. LUNGS / PLEURA: No significant pulmonary or pleural abnormality. Prominent nipple shadow on the left. No pneumothorax. IMPRESSION: 1. No acute findings. Signer Name: Klaus Zee MD Signed: 08/22/2021 4:08 AM Workstation Name: [id number]
[2021-08-22 04:17] LABS: Hemoglobin 12.7 gm/dl (11.8-15.2); Mean Corpuscular HGB Conc 34 % (32-34); Mean Corpuscular Volume 101 fl (84-94); Platelet Count 113 K/mm3 (140-440); Red Blood Count 3.65 M/mm3 (3.65-5.03); Red Cell Distribution Width 14.3 % (13.2-15.2)
[2021-08-22 04:35] LABS: Alanine Aminotransferase 87 units/L (7-56); Albumin 4.6 g/dL (3.9-5); Blood Urea Nitrogen 10 mg/dL (9-20); Calcium 8.8 mg/dL (8.4-10.2); Hemolysis Index 6
[2021-08-22 04:39] LABS: BUN/Creatinine Ratio 14
[2021-08-22 06:46] LABS: Basophils % (Manual) 0 % (0.0-1.8); Eosinophils % (Manual) 0 % (0.0-4.3); Platelet Estimate Consistent w Auto; RBC Morphology Normal; Total Cells Counted 100
--- NOTE | 2021-08-22 07:37 | Emergency Department Report ---
Alejandra Doc - Documentation Documentation: 0600-I assumed care of this patient. He was intoxicated. We were waiting on clinical sobriety for discharge. Patient has been fed. He is ambulatory. He was subsequently discharged as written by Dr. Flores. 0900-patient was clinically sober. He had a stable gait. He was subsequently discharged.
[2021-08-22 09:32] VITALS: BP 135/88
[2021-08-22] MEDS ORDERED: FOLIC ACID 1 MG TAB PO SCH (10:00)
--- NOTE | 2021-08-22 10:12 | Electrocardiograph Report ---
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 Electronically Signed On 08-22-2021 10:11:59 EST by Sanket Hawthorne
== END 2021-08-22 09:32 | disposition home or self-care (01) ==
LOC: ED 22:31
DX: F10.129 Alcohol abuse with intoxication, unspecified (principal); D69.6 Thrombocytopenia, unspecified; D72.819 Decreased white blood cell count, unspecified; R74.01 Elevation of levels of liver transaminase levels; I10 Essential (primary) hypertension; F32.9 Major depressive disorder, single episode, unspecified; F17.200 Nicotine dependence, unspecified, uncomplicated; Z88.6 Allergy status to analgesic agent; Z88.8 Allergy status to other drugs, medicaments and biological substances; Z72.89 Other problems related to lifestyle; Z79.899 Other long term (current) drug therapy; Y90.9 Presence of alcohol in blood, level not specified
CPT/HCPCS: 36415; 71045; 80053; 80320; 82550; 83735; 85007; 85025; 93005; 93010; 99283; G0480

== ENCOUNTER 2021-08-22 10:44 | Emergency (ER) | payer SELFPAY ==
[2021-08-22 11:47] VITALS: BP 128/84
== END 2021-08-22 13:26 ==
LOC: ED 10:44
DX: R42 Dizziness and giddiness (principal); Z53.21 Procedure and treatment not carried out due to patient leaving prior to being seen by health care provider

== ENCOUNTER 2021-10-17 19:28 | Emergency (ER) | payer SELFPAY ==
[2021-10-17] MEDS ORDERED: SODIUM CHLORIDE 0.9% 1000 ML 1,000 ML IV ONE (21:52)
[2021-10-17] MEDS ORDERED: levETIRAcetam 1000 MG/NS 0.75% 1,000 MG/100 ML BAG IV ONE (21:52)
[2021-10-17 22:27] VITALS: BP 169/96
--- NOTE | 2021-10-17 22:33 | XRay Report ---
CHEST 1 VIEW 10/17/2021 9:26 PM INDICATION / CLINICAL INFORMATION: Dyspnea. COMPARISON: One view of the chest from 08/22/2021 FINDINGS: SUPPORT DEVICES: None. HEART / MEDIASTINUM: No significant abnormality. LUNGS / PLEURA: No significant pulmonary abnormality. No significant pleural effusion. No pneumothora x. ADDITIONAL FINDINGS: No significant additional findings. IMPRESSION: 1. No acute abnormality of the chest. Signer Name: Jace Solomon MD Signed: 10/17/2021 10:28 PM Workstation Name: [id number]
[2021-10-17 23:16] LABS: Basophils % (Auto) 0.5 % (0.0-1.8); Eosinophils % (Auto) 0.4 % (0.0-4.3); Hematocrit 39.9 % (35.5-45.6); Hemoglobin 13.1 gm/dl (11.8-15.2); Lymphocytes # (Auto) 0.7 K/mm3 (1.2-5.4); Mean Corpuscular HGB Conc 33 % (32-34); Mean Corpuscular Volume 101 fl (84-94); Monocytes # (Auto) 0.7 K/mm3 (0.0-0.8); Red Blood Count 3.95 M/mm3 (3.65-5.03); Red Cell Distribution Width 15.5 % (13.2-15.2)
[2021-10-17 23:22] LABS: Bilirubin,Urine NEG (Negative); Blood,Urine NEG (Negative); Color,Urine Yellow (Yellow); Mucus,Urine FEW /HPF; RBC,Urine < 1.0 /HPF (0.0-6.0); Urobilinogen,Urine < 2.0 mg/dL (<2.0); WBC,Urine < 1.0 /HPF (0.0-6.0)
[2021-10-17 23:22] LABS: Platelet Count 89 K/mm3 (140-440)
[2021-10-17 23:24] LABS: BUN/Creatinine Ratio 15; Blood Urea Nitrogen 12 mg/dL (9-20); Calcium 9.4 mg/dL (8.4-10.2)
[2021-10-17 23:25] LABS: Alanine Aminotransferase 78 units/L (7-56); Albumin 4.9 g/dL (3.9-5); Hemolysis Index 5
--- NOTE | 2021-10-17 23:28 | Emergency Department Report ---
ED Seizure HPI - General Chief Complaint: Seizure Stated Complaint: SEIZURE LIKE ACTIVITY Time Seen by Provider: 10/17/21 21:42 Source: patient Mode of arrival: Stretcher Limitations: No Limitations - History of Present Illness Initial Comments: Had a seizure today that was witnessed by staff at ([employer])., NON COMPLIANCE WITH KEPPRA , NO HEAD INJURY NO CHEST PAIN MD Complaint: seizure -: Sudden, hour(s) Description of Episode: loss of consciousness, tonic-clonic movement Witnessed:: Yes Trauma: No Associated Symptoms: denies: denies other symptoms, chest pain, confusion, cough, diaphoresis, fever/chills, loss of appetite - Related Data Previous Rx's Medication Instructions Recorded Last Taken Type Folic Acid [Folvite] 1 mg PO QDAY #30 tablet 01/25/21 Unknown Rx Fluticasone [Flonase] 1 spray NS QDAY #1 bottle 03/05/21 Unknown Rx Phenytoin [Dilantin] 100 mg PO Q8HR #90 capsule 07/19/21 Unknown Rx Albuterol Sulfate [Proair 90 mcg IH Q4HR PRN #2 aer.pow.ba 08/22/21 Unknown Rx Respiclick] Multivitamin with Folic Acid [Cvs 400 mcg PO QDAY #30 tablet 08/22/21 Unknown Rx One Daily Essential Tablet] chlordiazePOXIDE [Librium] 25 mg PO Q6H PRN #25 capsule 08/22/21 Unknown Rx Allergies Allergy/AdvReac Type Severity Reaction Status Date / Time ketorolac [From Toradol] Allergy Rash Verified 08/22/21 11:47 tramadol Allergy Rash Verified 08/22/21 11:47 ED Review of Systems ROS: Stated complaint: SEIZURE LIKE ACTIVITY Other details as noted in HPI Constitutional: denies: chills, fever Eyes: denies: eye pain, eye discharge, vision change ENT: denies: ear pain, throat pain Respiratory: denies: cough, shortness of breath, wheezing Cardiovascular: denies: chest pain, palpitations Endocrine: no symptoms reported Gastrointestinal: denies: abdominal pain, nausea, diarrhea Genitourinary: denies: urgency, dysuria Musculoskeletal: denies: back pain, joint swelling, arthralgia Skin: denies: rash, lesions Neurological: denies: headache, weakness, paresthesias Psychiatric: denies: anxiety, depression Hematological/Lymphatic: denies: easy bleeding, easy bruising ED Past Medical Hx - Past Medical History Previous Medical History?: Yes Hx Hypertension: Yes Hx Congestive Heart Failure: No Hx Diabetes: No Hx Seizures: Yes Hx Psychiatric Treatment: Yes (Prior Suicidal, Depression) Hx Asthma: Yes Hx COPD: No Additional medical history: TENDONITIS, ETOH - Surgical History Past Surgical History?: Yes Additional Surgical History: L reconstructive knee surgery - Social History Smoking Status: Current Every Day Smoker Substance Use Type: Alcohol - Medications Home Medications: Home Medications Medication Instructions Recorded Confirmed Last Taken Type Folic Acid [Folvite] 1 mg PO QDAY #30 tablet 01/25/21 05/26/21 Unknown Rx Fluticasone [Flonase] 1 spray NS QDAY #1 bottle 03/05/21 05/26/21 Unknown Rx Phenytoin [Dilantin] 100 mg PO Q8HR #90 capsule 07/19/21 Unknown Rx Albuterol Sulfate [Proair 90 mcg IH Q4HR PRN #2 aer.pow.ba 08/22/21 Unknown Rx Respiclick] Multivitamin with Folic Acid [Cvs 400 mcg PO QDAY #30 tablet 08/22/21 Unknown Rx One Daily Essential Tablet] chlordiazePOXIDE [Librium] 25 mg PO Q6H PRN #25 capsule 08/22/21 Unknown Rx ED Physical Exam - General Limitations: No Limitations General appearance: alert, in no apparent distress - Head Head exam: Present: atraumatic, normocephalic - Eye Eye exam: Present: normal appearance - ENT ENT exam: Present: mucous membranes moist - Neck Neck exam: Present: normal inspection - Respiratory Respiratory exam: Present: normal lung sounds bilaterally. Absent: respiratory distress - Cardiovascular Cardiovascular Exam: Present: regular rate, normal rhythm. Absent: systolic murmur, diastolic murmur, rubs, gallop - GI/Abdominal GI/Abdominal exam: Present: soft, normal bowel sounds - Rectal Rectal exam: Present: deferred - Extremities Exam Extremities exam: Present: normal inspection - Back Exam Back exam: Present: normal inspection - Neurological Exam Neurological exam: Present: alert, oriented X3 - Psychiatric Psychiatric exam: Present: normal affect, normal mood - Skin Skin exam: Present: warm, dry, intact, normal color. Absent: rash ED Course Vital Signs 10/17/21 10/17/21 10/17/21 20:29 20:31 20:39 Temperature 98 F Pulse Rate 60 88 90 Respiratory 22 19 18 Rate Blood Pressure 155/94 162/98 O2 Sat by Pulse 90 94 99 Oximetry 10/17/21 10/17/21 10/17/21 20:45 21:01 21:15 Temperature Pulse Rate 72 62 70 Respiratory 17 24 23 Rate Blood Pressure 155/94 164/90 164/90 O2 Sat by Pulse 90 91 89 Oximetry 10/17/21 10/17/21 10/17/21 21:31 21:45 22:01 Temperature Pulse Rate 86 67 82 Respiratory 16 20 19 Rate Blood Pressure 163/98 163/98 169/96 O2 Sat by Pulse 94 92 94 Oximetry 10/17/21 22:15 Temperature Pulse Rate 79 Respiratory 20 Rate Blood Pressure 169/96 O2 Sat by Pulse 93 Oximetry ED Medical Decision Making - Lab Data Result diagrams: 10/17/21 22:17 10/17/21 22:17 - EKG Data -: EKG Interpreted by [facility] EKG shows normal: sinus rhythm Rate: normal - Radiology Data Radiology results: report reviewed - Medical Decision Making LOADED WITH VIKTORIA BACK TO BASLINE , ALERT AND AWAKE Critical care attestation.: If time is entered above; I have spent that time in minutes in the direct care of this critically ill patient, excluding procedure time. ED Disposition Clinical Impression: Seizure, Alcohol abuse, Non compliance w medication regimen Disposition: HOME / SELF CARE / HOMELESS Is pt being admited?: No Does the pt Need Aspirin: No Condition: Stable Instructions: Epilepsy
[2021-10-17 23:30] LABS: Amphetamine Screen,Urine PRESUMPTIVE NEGATIVE; Benzodiazepines Screen,Urine PRESUMPTIVE NEGATIVE; Cannabinoid Screen,Urine PRESUMPTIVE NEGATIVE; Cocaine Screen,Urine PRESUMPTIVE NEGATIVE; Methadone Screen,Urine PRESUMPTIVE NEGATIVE; Opiate Screen,Urine PRESUMPTIVE NEGATIVE
--- NOTE | 2021-10-19 10:40 | Electrocardiograph Report ---
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
== END 2021-10-17 23:57 | disposition home or self-care (01) ==
LOC: ED 19:28
DX: R56.9 Unspecified convulsions (principal); F10.10 Alcohol abuse, uncomplicated; I10 Essential (primary) hypertension; F32.9 Major depressive disorder, single episode, unspecified; F17.200 Nicotine dependence, unspecified, uncomplicated; Z72.89 Other problems related to lifestyle; Z88.5 Allergy status to narcotic agent; Z88.6 Allergy status to analgesic agent; Z79.899 Other long term (current) drug therapy; Y90.9 Presence of alcohol in blood, level not specified
CPT/HCPCS: 36415; 71045; 80053; 80307; 81001; 85025; 93005; 96361; 96374; 99284; J1953; J7030; 80320; G0480

== ENCOUNTER 2021-11-25 21:30 | Emergency (ER) | payer SELFPAY ==
[2021-11-26 00:11] VITALS: BP 128/84
== END 2021-11-26 10:20 | disposition left against medical advice (07) ==
LOC: ED 21:30
DX: Z02.89 Encounter for other administrative examinations (principal); Z53.21 Procedure and treatment not carried out due to patient leaving prior to being seen by health care provider